=== PATIENT | female | born 1935 | race Caucasian/White ===

== ENCOUNTER 2023-08-08 11:41 | Outpatient (CLI) | payer MEDICARE, SELFPAY ==
--- NOTE | ~2023-08-08 | XR_ITS ---
Left Humerus Technique: AP and lateral views were obtained. Clinical History: Pain Findings: No fracture or dislocation is seen. Osseous alignment is anatomic. Visualized joint spaces are grossly preserved. Soft tissues are unremarkable. Impression: Unremarkable examination. No fracture or dislocation. Reviewed, dictated and finalized at location . Impression: Unremarkable examination. No fracture or dislocation.
== END 2023-08-08 11:42 ==
PROVIDERS: PCP Family Medicine; Visit Provider Family Medicine
DX: M79.602 Pain in left arm (principal); K58.0 Irritable bowel syndrome with diarrhea; I10 Essential (primary) hypertension
CPT/HCPCS: 73060

== ENCOUNTER 2023-08-11 10:59 | Outpatient (RCR) | payer MEDICARE, SELFPAY | END 2023-11-09 23:59 | disposition home or self-care (01) | LOC: ANHAUDASC 10:59 | PROVIDERS: PCP Family Medicine | DX: Z46.1 Encounter for fitting and adjustment of hearing aid (principal) | CPT/HCPCS: 92593 ==

== ENCOUNTER 2023-09-28 11:21 | Outpatient (CLI) | payer MEDICARE, SELFPAY | END 2023-09-28 11:22 | disposition home or self-care (01) | PROVIDERS: PCP Family Medicine; Visit Provider Otolaryngology | DX: H90.3 Sensorineural hearing loss, bilateral (principal) | CPT/HCPCS: 92557; 92567 ==

== ENCOUNTER 2024-05-17 07:07 | Inpatient (IN) | payer MEDICARE, SELFPAY ==
[2024-05-17] VITALS (20 sets, daily range): BP systolic 118–162; BP diastolic 68–111; PULSE 82–138; RESP 16–20; TEMP 36.4–36.8; O2SAT 94–98; BMI 25.6
--- NOTE | 2024-05-17 | ECHO_ITS ---
Patient Info Name: Celestina Christianson Age: 89 years : 1935 Gender: Female Ht: 65 in Wt: 153 lbs BSA: 1.80 m2 HR: 111 bpm BP: 131 / 108 mmHg Heart Rhythm: Atrial Fibrillation Technical Quality: Fair Exam Date: 05/17/2024 3:07 PM Exam Location: Echo Lab Patient Status: Inpatient Admit Date: 05/17/2024 Staff Ordering Physician: Rashida Elizabeth Ply Bander: Renetta Brooks RDCS Attending Provider: Kiet Foster MD Referring Physician: Clara VARNER; Exam Type: CA echo doppler color flow Study Info Indications - Afib Complete two-dimensional, color flow and Doppler transthoracic echocardiogram is performed with contrast to opacify the left ventricle and to improve the deliniation of the left ventricle endocardial borders. Contrast/Agitated Saline Contrast/Ag. Saline: Definity Amount: 2.00 ml Administered By: Renetta Brooks RDCS Existing IV Access: Yes IV Access Condition: patent with no signs of infiltration Summary 1. Left ventricular systolic function is normal, estimated at 35-40%. 2. The left ventricular diastolic function is abnormal. 3. Left atrial chamber dimension is moderately enlarged. 4. Right atrial chamber dimension is moderately enlarged. 5. There is trace aortic valve regurgitation. 6. There is mild aortic valve calcification. 7. There is mild mitral valve calcification. 8. There is mild to moderate mitral valve regurgitation. 9. There is moderate tricuspid valve regurgitation. 10. Moderate pulmonary hypertension, estimated pulmonary arterial systolic pressure is 49 mmHg. 11. There is mild pulmonic regurgitation. 12. afib with RVR. Left Ventricle Left ventricular chamber dimension is normal. Left ventricular systolic function is normal, estimated at 35-40%. There is no increased left ventricular wall thickness. Left ventricular septal wall motion is normal. The left ventricular diastolic function is abnormal. Right Ventricle Right ventricular chamber dimension is normal. Right ventricular systolic function is normal. Left Atria Left atrial chamber dimension is moderately enlarged. Right Atria Right atrial chamber dimension is moderately enlarged. Atrial Septum Intact interatrial septum visualized by color flow imaging. Aortic Valve The aortic valve is trileaflet. There is no aortic valve sclerosis. There is no aortic valve stenosis. There is trace aortic valve regurgitation. There is mild aortic valve calcification. Pulmonic Valve The pulmonic valve is normal. There is no pulmonic valve stenosis. There is mild pulmonic regurgitation. Mitral Valve The mitral valve has normal leaflets. There is no mitral valve stenosis. There is mild to moderate mitral valve regurgitation. There is mild mitral valve calcification. Tricuspid Valve The tricuspid valve leaflets are normal. There is no significant tricuspid valve stenosis. There is moderate tricuspid valve regurgitation. Moderate pulmonary hypertension, estimated pulmonary arterial systolic pressure is 49 mmHg. Pericardium/Pleural The pericardium appears normal. There is no pericardial effusion. Inferior Vena Cava Normal inferior vena cava with <50% collapse upon inspiration consistent with elevated right atrial pressure, 10 mmHg. Aorta The aortic root size at the sinus of Valsalva is normal. The prox ascending aorta size is normal. Tricuspid Valve Name Value Normal Estimated PAP/RSVP RA Pressure 10 mmHg <=5 PA Systolic Pressure 49 mmHg <36 Report Signatures
--- NOTE | ~2024-05-17 | CT_ITS ---
EXAMINATION: CT abdomen pelvis wo con DATE: 05/17/2024 22:48 INDICATION: Nausea, vomiting, and diarrhea. TECHNIQUE: Computed tomography (CT) of the abdomen and pelvis was performed without intravenous contr ast. Automated exposure control and iterative reconstruction technique were employed. The dose-length product was 465.62 mGy-cm. COMPARISON: None. FINDINGS: The visualized portions of lung bases demonstrate mild atelectasis. There are small pleural effusions. The heart size is normal. There are calcifications of the aortic valve. There are coronar y artery calcifications. No pericardial effusion. The liver demonstrates periportal edema. The gallbl adder is normal in size. Gallbladder wall thickening is noted. Calcifications in the spleen are consi stent with old granulomatous disease. There are calcifications in the pancreas, consistent with chron ic pancreatitis. The adrenal glands and kidneys are normal. There is diverticulosis of the colon with out evidence of diverticulitis. There are no dilated loops of bowel. There are no pathologically enla rged lymph nodes. There is no free intraperitoneal fluid. There is lumbar levoscoliosis and severe sp ondylosis. IMPRESSION: 1. Small pleural effusions. 2. Gallbladder wall thickening, probably interstitial edema. Reviewed, dictated and finalized at location A. VANCE COORDINATOR
--- NOTE | ~2024-05-17 | US_ITS ---
US abdomen limited DATE: 05/18/2024 19:22 INDICATION: Cholecystitis TECHNIQUE: Real-time imaging of liver, pancreas, gallbladder COMPARISON: 05/17/2024 CT abdomen pelvis FINDINGS: There is diffuse thickening of the gallbladder wall, measuring up to 3 mm thickness. This m ay be due to acute or chronic cholecystitis versus edema. No gallstones are noted. There is slight pe richolecystic fluid. No hepatic space-occupying mass lesion. There is suggestion of mild hepatic surface nodularity sugges ting possible cirrhosis. No pancreatic mass lesion is evident. The common bile duct measures 6.9 mm, mildly dilated. IMPRESSION: 3 mm gallbladder wall thickening and minimal pericholecystic fluid; consider radionuclide hepatobiliary scan to evaluate for possible acute cholecystitis Mild surface nodularity of the liver; recommend clinical correlation for cirrhosis Reviewed, dictated and finalized at [facility]. Reviewed, dictated and finalized at location A. IRATORY COORDINATOR IMPRESSION: 3 mm gallbladder wall thickening and minimal pericholecystic fluid; consider radionuclide hepatobiliary scan to evaluate for possible acute cholec ystitis Mild surface nodularity of the liver; recommend clinical correlation for cirrho sis
--- NOTE | ~2024-05-17 | CT_ITS ---
CT chest abdomen pelvis wo con Ordering provider: Rodney Morgan History: . Leukocytosis . Comparison: May 17, 2024 Technique: CT chest without IV contrast. CT abdomen and pelvis without oral and IV contrast. Radiatio n reduction technique utilized.The dose-length product was 764.21 mGy-cm. FINDINGS: The study is limited due to lack of IV contrast. CHEST: --VISUALIZED THORACIC INLET: Normal as visualized. Minimal fat stranding in the left axillary area.0 --MEDIASTINUM: Aorta/coronary arteries: Mild atheromatous disease. Heart/other: The heart is slightly enlarged. Lymph nodes: No mediastinal or hilar adenopathy. --LUNGS: No pulmonary nodules or masses. . No pneumothorax. Minimal bilateral pleural effusion with a djacent atelectasis. Atelectatic changes in the middle lobe. --MUSCULOSKELETAL: Soft tissues: The superficial soft tissues are normal. Bones: Age appropriate degenerative changes of the spine. ABDOMEN/PELVIS: --MUSCULOSKELETAL: Bones: Age appropriate degenerative changes of the spine. Superficial soft tissues: The superficial soft tissues are normal. --UPPER ABDOMINAL ORGANS: Liver: Normal. Gallbladder: Slightly thickened wall of the gallbladder which may indicate cholecystitis. Spleen: Normal. Stomach/duodenum: Small sliding hiatus hernia. Pancreas: Normal. Adrenals: Normal. Kidneys: Minimal fullness of the right renal pelvis. Tiny stone in the right kidney upper pole. Minim al fullness of the left renal pelvis versus parapelvic cysts. --PELVIC ORGANS: The bladder is normal. No bladder stones. --BOWEL AND MESENTERY: Colon: No evidence of diverticulitis. Normal appendix. Small Bowel: Normal. No obstruction. Peritoneum/mesentery: No free air. Minimal Free fluid. No mesenteric lymphadenopathy. --RETROPERITONEUM: Mild atheromatous disease of the abdominal aorta. No retroperitoneal lymphadenop athy. IMPRESSION: CHEST: 1. Bilateral pleural effusion with adjacent atelectasis versus pneumonia. ABDOMEN/PELVIS: 1. Thickened wall of the gallbladder. Cholecystitis is not excluded. Clinical correlation advised. 2. Ascites. 3. Minimal fullness of the renal pelvis bilaterally. No definite ureteric stones. 4. Tiny stone in the right kidney upper pole. Reviewed, dictated and finalized at location A. VERY DRIVER IMPRESSION: CHEST: 1. Bilateral pleural effusion with adjacent atelectasis versus pneumonia. ABDOMEN/PELVIS: 1. Thickened wall of the gallbladder. Cholecystitis is not excluded. Clinical correlation advised. 2. Ascites. 3. Minimal fullness of the renal pelvis bilaterally. No definite ureteric ston es. 4. Tiny stone in the right kidney upper pole.
--- NOTE | ~2024-05-17 | XR_ITS ---
Clinical Indication: Palpitations PA and lateral views of the chest: Comparison: 06/04/2010 Findings: No consolidation or pleural effusion. Possible mild chronic interstitial disease. Cardiome diastinal silhouette is within normal limits. Bones and soft tissues are unremarkable. Impression: Possible mild chronic interstitial disease. No acute pulmonary abnormality. Reviewed, dictated and finalized at [facility]. OLOGY MANAGER Impression: Possible mild chronic interstitial disease. No acute pulmonary abnormality.
--- NOTE | ~2024-05-17 | NM_ITS ---
EXAMINATION: NM hepatobiliary wo pharm DATE: 05/20/2024 16:02 INDICATION: Acute cholecystitis. COMPARISON: CT abdomen and pelvis 05/20/24 TECHNIQUE: 4.8 mCi Tc-99m mebrofenin (Choletec) was administered intravenously. Scintigraphic images of the abdomen were obtained for one hour. FINDINGS: There is normal clearance of radiotracer from the blood pool. There is homogeneous tracer u ptake by the liver. Activity progresses to the bowel and gallbladder. IMPRESSION: 1. Patent cystic duct and common duct. Reviewed, dictated and finalized at location A. S AND MANAGEMENT TRAINEE
--- NOTE | 2024-05-17 07:22 | ECG_ITS ---
Test Date: 2024-05-17 07:30:32 Measurements Intervals [place] Rate: 128 P: 0 MT: 0 QRS: 73 QRSD: 79 T: 83 QT: 329 QTc: 481 Interpretive Statements ATRIAL FIBRILLATION WITH RAPID VENTRICULAR RESPONSE WITH ABERRANT CONDUCTION OR VENTRICULAR PREMATURE COMPLEXES NONSPECIFIC ST & T-WAVE ABNORMALITY No previous ECG available for comparison Electronically Signed On 05-17-2024 12:21:20 [employer]IST by Sukhi Hickman M.D.
[2024-05-17] MEDS: ONDANSETRON INJ 4 MG/2 ML VIAL IV PUSH ×4 (08:09→21:44)
[2024-05-17] MEDS: SODIUM CHLORIDE 0.9% IV 1,000 ML 999 ML IV CONT (08:10)
--- NOTE | 2024-05-17 08:23 | ED_ITS ---
HPI - Abdominal Pain General Chief Complaint: Abdominal Pain Stated Complaint: Abd pain Time Seen by Provider: 05/17/24 07:10 History of Present Illness HPI narrative: patient is an 89-year-old female who presents ER with abdominal discomfort over last 2 days. She started having diarrhea yesterday evening this been quite persistent. She has also been having regular vomiting. She is nauseous at this time. No fevers or chills or sweats. No loss of consciousness. Denies chest pain. She does get slightly lightheaded and slightly fatigued once standing walking. Patient found to be in AFib with RVR which is a new diagnosis for her. Related Data Home Medications ?Medication ?Instructions ?Recorded ?Confirmed ?Last Taken ?Type mirabegron 25 mg tablet,extended 25 mg PO HS 10/15/19 05/17/24 05/16/24 History release 24 hr (Myrbetriq) Lactobacillus rhamnosus GG 20 See Rx Instructions PO .COMPLEX 07/20/20 05/17/24 Unknown History billion cell capsule (Probiotic Digestive Care) cholestyramine (with sugar) 4 gram See Rx Instructions PO BID IBS 05/17/24 05/17/24 05/16/24 History oral powder Allergies Allergy/AdvReac Type Severity Reaction Status Date / Time [id number] Reductase AdvReac Intermediate Elevated Verified 05/17/24 12:08 Inhibitor CPK Review of Systems 2 Review of Systems: All systems reviewed & are unremarkable except as noted in HPI and below Constitutional: Constitutional: Reports no additional constitutional complaints ENT: Reports system reviewed and no additional complaints, except as documented Cardiovascular: Cardiovascular: Reports no additional cardiovascular complaints Respiratory: Respiratory: Reports no additional respiratory complaints Gastrointestinal: Gastrointestinal: Reports abdominal pain, Reports diarrhea, Reports nausea and Reports vomiting PMFSH Past Medical History Medical History Cerumen impaction Hearing Loss Left arm pain BMI 24.0-24.9, adult Chronic diarrhea BMI 25.0-25.9,adult Family History Family History Mother Carcinoma of colon Father Family history of heart disease in male family member before age 55 Acute myocardial infarction Sibling , 97-sister Bowel disease, inflammatory Sibling Bowel disease, inflammatory C. difficile diarrhea Other Family history of congenital heart disease Family history of coronary artery disease Family history of malignant neoplasm Social History Social History Smoking status: Former smoker Second hand tobacco smoke exposure: Yes Alcohol intake: current Drinks per week: 1 Substance use: never Substance use type: does not use Do You Feel Safe in your Home?: Yes Lack of Transportation: No Lack of Food: Never True Current Housing: I Do Not Have Housing Concerned About Future Housing: No Difficulty Paying Gas/Electric Bills: No Difficulty Paying for Meds: No Currently Unemployed: No Education: High School Diploma/GED Difficulty w/ Childcare or Family Care: No Living arrangements: alone Occupation/Education: retired 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 Gender identity (if verbalized by the patient): Female Sexual Orientation (if Verbalized by the Patient): Straight or Heterosexual Spiritual care concerns: No Agree to blood products: Yes Exam 2 Narrative: GENERAL: Well-appearing, well-nourished, and in no acute distress. HEAD: Normocephalic, atraumatic. ENT: Mucous membranes moist. NECK: Supple. CHEST: Clear to auscultation. No respiratory distress. HEART: Irregularly irregular rate and rhythm that is tachycardic. Normal peripheral pulses. ABDOMEN: Soft, nontender, nondistended. EXTREMITIES: Normal range of motion. No edema. SKIN: Warm, dry, no rash. NEURO: Alert and oriented x3. PSYCH: Normal mood and affect. Course Course Emergency Course: With patient resting comfortably. Informed of results. Only mild improvement withdiltiazem. Will give lovenox and oral metoprolol, cardiology consulted. Accepted to the hospitalist. Vital Signs Vital signs: Vital Signs Temperature 97.9 F 05/17/24 07:38 Pulse Rate 138 H 05/17/24 07:38 Respiratory Rate 20 05/17/24 07:38 Blood Pressure 157/79 H 05/17/24 07:38 Pulse Oximetry 97 05/17/24 07:38 Oxygen Delivery Room Air 05/17/24 07:38 Temperature 97.6 F 05/17/24 16:00 Pulse Rate 119 H 05/17/24 18:00 Respiratory Rate 20 05/17/24 16:00 Blood Pressure 122/95 H 05/17/24 16:00 Pulse Oximetry 98 05/17/24 16:00 Oxygen Delivery Room Air 05/17/24 16:00 MDM - Abdominal Pain Lab Data 05/17/24 08:11 05/17/24 08:11 Labs: Lab Results 05/17/24 Range/Units 08:11 WBC 15.2 H (4.5-10.0) K/mm3 RBC 4.33 (4.2-5.4) M/mm3 Hgb 13.5 (12.0-15.0) g/dL Hct 41.5 (37.0-47.0) % MCV 95.8 (80-100) fl MCH 31.2 (26-34) pg MCHC 32.5 (32-36) g/dl RDW 12.9 (11.5-14.5) % Plt Count 243 (150-375) k/mm3 MPV 11.1 H (7.4-10.4) fl Immature Gran % (Auto) 0.5 (0-0.5) % Neut % (Auto) 87.9 H (45.5-73.1) % Lymph % (Auto) 4.7 L (18.3-44.2) % [place] % (Auto) 6.7 (2.6-8.5) % Eos % (Auto) 0.0 (0-4.4) % Baso % (Auto) 0.2 (0.2-1.2) % Lymph # (Auto) 0.71 L (0.9-3.2) K/mm3 [place] # (Auto) 1.0 H (0.1-0.6) K/mm3 Eos # (Auto) 0.0 (0-0.3) K/mm3 Baso # (Auto) 0.0 (0.0-0.1) K/mm3 Abs Immat Gran (auto) 0.08 H (0.00-0.031) K/mm3 Absolute Neuts (auto) 13.4 H (1.3-6.7) K/mm3 Absolute Nucleated RBC 0.000 (0.0-0.012) K/mm3 Nucleated RBC % 0.0 (0.0-0.2) % % Immature Plt Fraction 5.4 (0.9-11.2) % PT 14.5 (11.1-14.7) Seconds INR 1.1 APTT 20.0 L (22.3-36.8) Seconds Sodium 138 (137-145) mmol/L Potassium 4.1 (3.4-5.0) mmol/L Chloride 107 (98-107) mmol/L Carbon Dioxide 18 L (22-30) mmol/L Anion Gap 13 H (4-12) mmol/L BUN 19 H (7-17) mg/dL Creatinine 1.40 H (0.7-1.0) mg/dL Estim Creat Clear Calc 22 ml/min Estimated GFR 35 L (59 - ) Glucose 201 H (65-110) mg/dL Calcium 9.0 (8.4-10.2) mg/dL Total Bilirubin 1.1 (0.2-1.3) mg/dL AST 78 H (14-36) U/L ALT 52 H (6-35) U/L Alkaline Phosphatase 73 (38-126) U/L Troponin I < 0.012 (0.000-0.034) ng/mL Total Protein 8.0 (6.3-8.2) g/dL Albumin 4.6 (3.5-5.1) g/dL Lipase 73 (23-300) U/L TSH 4.570 (0.465-4.680) uIU/mL Urine Color Yellow (Yellow) Urine Appearance Clear (Clear) Urine pH 5.5 (5.0-9.0) Ur Specific [place] 1.022 (1.001-1.035) Urine Protein 3+ H (Negative) mg/dL Urine Glucose (UA) 2+ H (Negative) mg/dL Urine Ketones 2+ H (Negative) mg/dL Ur Blood (Man) 2+ H (Negative) Urine Nitrate Negative (Negative) Urine Bilirubin Negative (Negative) Urine Urobilinogen 0.2 (<2.0) mg/dL Leukocyte Esterase Rfl Negative (Negative) GLEN/UL Urine RBC 3-5 H (0-2) /hpf Urine WBC 6-10 H (0-3) /hpf Ur Squamous Epith Cells Few (Few) /hpf Urine Bacteria None seen /hpf Urine Casts 0-2 Imaging Data Radiologist's impression: ITS Impressions Chest X-Ray 05/17/24 08:27 Impression: Possible mild chronic interstitial disease. No acute pulmonary abnormality. ECG Data EKG #1: ECG completion date: 05/17/24 ECG completion time: 07:30 tachycardia (128), atrial fibrillation, PVCs, normal QRS, normal QT and NL axis Discharge Plan Discharge Clinical Impression: Atrial fibrillation with RVR, ERIK (acute kidney injury) Patient Disposition: Still a Patient Condition: Stable
[2024-05-17 08:34] LABS: Basophils Percent Auto 0.2 % (0.2-1.2); Hematocrit 41.5 % (37.0-47.0); Hemoglobin 13.5 g/dL (12.0-15.0); Immature Granulocyte Absolute 0.08 K/mm3 (0.00-0.031); Immature Granulocyte Percent A 0.5 % (0-0.5); Immature Platelet Fraction Pct 5.4 % (0.9-11.2); Lymphocytes Absolute Auto 0.71 K/mm3 (0.9-3.2); Lymphocytes Percent Auto 4.7 % (18.3-44.2); Mean Corpuscular HGB Conc 32.5 g/dl (32-36); Mean Corpuscular Hemoglobin 31.2 pg (26-34); Mean Corpuscular Volume 95.8 fl (80-100); Mean Platelet Volume 11.1 fl (7.4-10.4); Monocytes Percent Auto 6.7 % (2.6-8.5); Neutrophils Absolute Auto 13.4 K/mm3 (1.3-6.7); Neutrophils Percent Auto 87.9 % (45.5-73.1); Platelet Count Result 243 k/mm3 (150-375); Red Blood Count 4.33 M/mm3 (4.2-5.4); Red Cell Distribution Width 12.9 % (11.5-14.5); White Blood Count 15.2 K/mm3 (4.5-10.0)
[2024-05-17 08:39] LABS: Lipase 73 U/L (23-300)
[2024-05-17 08:43] LABS: Add Urine Microscopic? YES; Appearance Urine Clear (Clear); Bacteria Urine None Seen /hpf; Bilirubin Urine Negative (Negative); Blood Urine 2+ (Negative); Color Urine Yellow (Yellow); Glucose Urine UA 2+ mg/dL (Negative); Ketones Urine 2+ mg/dL (Negative); Leukocyte Esterase Ur Negative LEU/UL (Negative); Nitrate Urine Negative (Negative); Non Pathogenic Casts 0-2; Protein Urine 3+ mg/dL (Negative); Specific Grav Ur 1.022 (1.001-1.035); Squamous Epithelial Cell Urine Few /hpf (Few); Urobilinogen Urine 0.2 mg/dL (<2.0); pH Urine 5.5 (5.0-9.0)
[2024-05-17 08:52] LABS: Troponin I < 0.012 ng/mL (0.000-0.034)
[2024-05-17] MEDS: dilTIAZem HCl INJ 25 MG/5 ML VIAL 15 MG IV PUSH (08:52)
[2024-05-17 08:54] LABS: INR 1.1; Prothrombin Time 14.5 Seconds (11.1-14.7)
[2024-05-17 10:01] LABS: Alanine Aminotransferase 52 U/L (6-35); Albumin Level 4.6 g/dL (3.5-5.1); Alkaline Phosphatase 73 U/L (38-126); Anion Gap 13 mmol/L (4-12); Aspartate Amino Transferase 78 U/L (14-36); Bilirubin,Total 1.1 mg/dL (0.2-1.3); Blood Urea Nitrogen 19 mg/dL (7-17); Carbon Dioxide 18 mmol/L (22-30); Chloride 107 mmol/L (98-107); Estimated CRCL calculation 22 ml/min; Estimated Glomerular Filt Rate 35; Glucose 201 mg/dL (65-110); Potassium 4.1 mmol/L (3.4-5.0); Sodium 138 mmol/L (137-145)
[2024-05-17] MEDS: METOPROLOL TARTRATE 25 MG TABLET PO ×3 (10:11→23:47)
[2024-05-17] MEDS: ENOXAPARIN 80 MG/0.8 ML SYRINGE 71 MG SUB-Q (10:12)
[2024-05-17] MEDS: HYDROcodone/acetaminophen (*CRX) 5-325 MG TABLET 1 TAB PO ×3 (10:24→16:40)
--- NOTE | 2024-05-17 12:05 | ADMGEN ---
This patient, Celestina Christianson, was admitted to IMU Room 205-01 at 1202. Patient/family oriented to hospital policies and general routines including ID bracelet, bed and alarms, visiting hours, pain management, procedures, bathroom and other care routines personal items, smoking policy, room service/diet, and visiting hours. Information on how to activate the Rapid Response Team has been discussed. Patient/Family are encouraged to report perceived risks to care and to ask questions if they do not understand what they are told or what they should do.
--- NOTE | 2024-05-17 12:25 | PM.IMHP ---
H&P: HPI History of Present Illness Date/Time: 05/17/24 12:25 Chief Complaint: Abdominal pain Narrative: 89-year-old female past medical history of IBS who presents ER with abdominal discomfort over last 2 days. Patient states that she has had persistent diarrhea for 2 days with intractable nausea and vomiting. She has episodes of dizziness, lightheadedness and fatigue with activities. She denies fevers or chills. Patient found to be in AFib with RVR which is a new diagnosis for her. Patient denies palpitations, or shortness of breath. Patient was seen by Cardiology and started on metoprolol, she will need long-term anticoagulation and will be on Xarelto. On patient's laboratory work she was found to have leukocytosis at 15.2, creatinine of 1.4 baseline 0.9, glucose of 211, hemoglobin A1c of 5.7, AST and ALT are slightly elevated at 78 and 52, troponins are negative. UA was negative for leukocyte esterase and nitrates. Chest x-ray shows possible mild chronic interstitial disease. Review of Systems Review of Systems: 12 systems were reviewed and are negative except for as per HPI. [facility] Past Medical History Medical History Cerumen impaction Hearing Loss Left arm pain BMI 24.0-24.9, adult Chronic diarrhea BMI 25.0-25.9,adult Family History Family History Mother Carcinoma of colon Father Family history of heart disease in male family member before age 55 Acute myocardial infarction Sibling , 97-sister Bowel disease, inflammatory Sibling Bowel disease, inflammatory C. difficile diarrhea Other Family history of congenital heart disease Family history of coronary artery disease Family history of malignant neoplasm Social History Social History Smoking status: Former smoker Second hand tobacco smoke exposure: Yes Alcohol intake: current Drinks per week: 1 Substance use: never Substance use type: does not use Do You Feel Safe in your Home?: Yes Lack of Transportation: No Lack of Food: Never True Current Housing: I Do Not Have Housing Concerned About Future Housing: No Difficulty Paying Gas/Electric Bills: No Difficulty Paying for Meds: No Currently Unemployed: No Education: High School Diploma/GED Difficulty w/ Childcare or Family Care: No Living arrangements: alone Occupation/Education: retired 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 Gender identity (if verbalized by the patient): Female Sexual Orientation (if Verbalized by the Patient): Straight or Heterosexual Spiritual care concerns: No Agree to blood products: Yes Meds Home Medications and Allergies Home Medications ?Medication ?Instructions ?Recorded ?Confirmed ?Type mirabegron 25 mg tablet,extended 25 mg PO HS 10/15/19 05/17/24 History release 24 hr (Myrbetriq) Lactobacillus rhamnosus GG 20 See Rx Instructions PO .COMPLEX 07/20/20 05/17/24 History billion cell capsule (Probiotic Digestive Care) diphenoxylate-atropine 2.5 2 tablet PO QID PRN diarrhea #60 08/07/23 05/17/24 Rx mg-0.025 mg tablet (Lomotil) tabs famotidine 20 mg tablet See Rx Instructions .Route 12/14/23 05/17/24 Rx .COMPLEX #90 tabs paroxetine HCl 20 mg tablet See Rx Instructions .Route 12/27/23 05/17/24 Rx .COMPLEX #90 tabs ezetimibe 10 mg tablet See Rx Instructions .Route 03/01/24 05/17/24 Rx .COMPLEX #90 tabs cholestyramine (with sugar) 4 gram See Rx Instructions PO BID IBS 05/17/24 05/17/24 History oral powder Allergies Allergy/AdvReac Type Severity Reaction Status Date / Time [id number] Reductase AdvReac Intermediate Elevated Verified 05/17/24 12:08 Inhibitor CPK Vital Signs Vital Signs - 24 hr 05/17/24 07:38 05/17/24 08:07 05/17/24 08:56 Temperature 97.9 F 97.9 F 98.3 F Pulse Rate 138 H 130 H 90 Respiratory Rate 20 17 16 Blood Pressure 157/79 H 154/90 H 118/68 Pulse Oximetry 97 94 Oxygen Delivery Room Air 05/17/24 09:00 05/17/24 09:31 05/17/24 10:01 Temperature 97.9 F 97.8 F 97.7 F Pulse Rate 82 96 121 H Respiratory Rate 20 20 20 Blood Pressure 149/90 H 161/85 H 162/95 H Pulse Oximetry 95 95 95 Oxygen Delivery 05/17/24 10:02 05/17/24 10:11 05/17/24 11:06 Temperature 97.7 F 97.8 F Pulse Rate 122 H 128 H 103 H Respiratory Rate 20 18 Blood Pressure 146/98 H 161/111 H Pulse Oximetry 98 95 Oxygen Delivery 05/17/24 11:45 Temperature 97.9 F Pulse Rate 112 H Respiratory Rate 18 Blood Pressure 152/108 H Pulse Oximetry 97 Oxygen Delivery Exam Narrative: General: well appearing, appears stated age. HEENT: normocephalic, atraumatic. Mucous membranes moist. EOMI, PERRLA, bilateral sclera anicteric, no conjunctival injection. Neck supple without JVD, lymphadenopathy, or bruit. Respiratory: clear to ascultation bilaterally. No rales/rhonic/wheezes. Cardiovascular: Irregular, . No murmurs, rubs, or clicks. PMI is nondisplaced, capillary refill less than 3 second. Abdomen: Soft, round, no pulsatile masses, nondistended and nontender. No rebound, no guarding. No CVA tenderness, no hepatosplenomegaly. Bowel sounds present to all four quadrants. No high pitch or tinkling sounds, resonant to percussion. Extremities: No cyanosis, clubbing, or edema present. Pulses are palpable 2/2. Active ROM to all four extremities. Neuro: Alert and orientated x 4. PERRLA. Cranial nerves 2-12 intact without focal deficit. Skin: Warm, dry, and intact, without rash, erythema, or lesion. Psych: pleasant, cooperative, normal speech, normal affect, no hallucinations, no dysarthia H&P: Results Labs Labs: Short CBC 05/17/24 Range/Units 08:11 WBC 15.2 H (4.5-10.0) K/mm3 Hgb 13.5 (12.0-15.0) g/dL Hct 41.5 (37.0-47.0) % Plt Count 243 (150-375) k/mm3 BMP 05/17/24 08:11 Sodium 138 Potassium 4.1 Chloride 107 Carbon Dioxide 18 L BUN 19 H Creatinine 1.40 H Glucose 201 H Calcium 9.0 Cardiac Enzymes 05/17/24 Range/Units 08:11 Troponin I < 0.012 (0.000-0.034) ng/mL Liver Function 05/17/24 Range/Units 08:11 Total Bilirubin 1.1 (0.2-1.3) mg/dL AST 78 H (14-36) U/L ALT 52 H (6-35) U/L Alkaline Phosphatase 73 (38-126) U/L Albumin 4.6 (3.5-5.1) g/dL Urine 05/17/24 Range/Units 08:11 Urine Color Yellow (Yellow) Urine Appearance Clear (Clear) Urine pH 5.5 (5.0-9.0) Ur Specific [place] 1.022 (1.001-1.035) Urine Protein 3+ H (Negative) mg/dL Urine Glucose (UA) 2+ H (Negative) mg/dL Assessment and Plan Assessment and plan (1) Atrial fibrillation with RVR: Code(s): I48.91 - Unspecified atrial fibrillation Status: Acute Assessment and Plan: Cardiology consulted Diltiazem push x1 Metoprolol Weight based Lovenox x1 Repeat EKG tomorrow Echocardiogram pending TSH within normal limits Yoselin [id number] score at least 2 Since the chronicity of her arrhythmia is unknown and she is not anticoagulated, will pursue rate control for now with plan to attempt cardioversion as an outpatient in 3-4 weeks. (2) Leukocytosis: Code(s): D72.829 - Elevated white blood cell count, unspecified Status: Acute Assessment and Plan: UA noninfective Chest x-ray with no acute process Blood cultures pending No signs of soft tissue infection C diff pending (3) ERIK (acute kidney injury): Code(s): N17.9 - Acute kidney failure, unspecified Status: Acute Assessment and Plan: A fluids for hydration CMP tomorrow (4) Hyperglycemia: Code(s): R73.9 - Hyperglycemia, unspecified Status: Acute Assessment and Plan: Hemoglobin A1c 5.7 SSI a.c. HS (5) Elevated liver enzymes: Code(s): R74.8 - Abnormal levels of other serum enzymes Status: Acute Assessment and Plan: CMP tomorrow for monitoring (6) Interstitial lung disease: Code(s): J84.9 - Interstitial pulmonary disease, unspecified Status: Acute Assessment and Plan: No acute issues Patient should follow-up outpatient with pulmonology Quality VTE Prophylaxis VTE prophylaxis: mechanical ordered and pharmacologic ordered Hospitalist MIPS Advance Care Plan I have confirmed that the patient's Advanced Care Plan is present, code status is documented, or surrogate decision maker is listed in patient medical record.: Yes Medication Reconciliation I have utilized all available resources to obtain, update and review the patients current medications (includes all prescriptions, OTC, herbals, cannabis, and nutritional supplements).: Yes
--- NOTE | 2024-05-17 12:49 | P.CONCA_ITS ---
History of Present Illness History of Present Illness Consult date/time: 05/17/24 12:49 Reason For Visit: afib, rvr, gastroenteritis Review of Systems 2 Review of Systems: A complete review of systems was performed and pertinent positives have been included in the HPI. [facility] Past Medical History Medical History (Updated 05/17/24 @ 12:40 by Keisha Ann, RASHMI) Cerumen impaction Hearing Loss Left arm pain BMI 24.0-24.9, adult Chronic diarrhea BMI 25.0-25.9,adult Family History Family History Mother Carcinoma of colon Father Family history of heart disease in male family member before age 55 Acute myocardial infarction Sibling , 97-sister Bowel disease, inflammatory Sibling Bowel disease, inflammatory C. difficile diarrhea Other Family history of congenital heart disease Family history of coronary artery disease Family history of malignant neoplasm Social History Social History Smoking status: Former smoker Second hand tobacco smoke exposure: Yes Alcohol intake: current Drinks per week: 1 Substance use: never Substance use type: does not use Do You Feel Safe in your Home?: Yes Lack of Transportation: No Lack of Food: Never True Current Housing: I Do Not Have Housing Concerned About Future Housing: No Difficulty Paying Gas/Electric Bills: No Difficulty Paying for Meds: No Currently Unemployed: No Education: High School Diploma/GED Difficulty w/ Childcare or Family Care: No Living arrangements: alone Occupation/Education: retired 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 Gender identity (if verbalized by the patient): Female Sexual Orientation (if Verbalized by the Patient): Straight or Heterosexual Spiritual care concerns: No Agree to blood products: Yes Meds Home Medications and Allergies Home Medications ?Medication ?Instructions ?Recorded ?Confirmed ?Type mirabegron 25 mg tablet,extended 25 mg PO DAILY 10/15/19 02/20/24 History release 24 hr (Myrbetriq) Lactobacillus rhamnosus GG 20 See Rx Instructions PO .COMPLEX 07/20/20 02/20/24 History billion cell capsule (Probiotic Digestive Care) diphenoxylate-atropine 2.5 2 tablet PO QID PRN diarrhea #60 08/07/23 02/20/24 Rx mg-0.025 mg tablet (Lomotil) tabs cholestyramine-aspartame 4 gram 4 g PO QID #120 ea 12/11/23 02/20/24 Rx oral powder for susp in a packet (Prevalite) famotidine 20 mg tablet See Rx Instructions .Route 12/14/23 02/20/24 Rx .COMPLEX #90 tabs paroxetine HCl 20 mg tablet See Rx Instructions .Route 12/27/23 02/20/24 Rx .COMPLEX #90 tabs ezetimibe 10 mg tablet See Rx Instructions .Route 03/01/24 Rx .COMPLEX #90 tabs Allergies Allergy/AdvReac Type Severity Reaction Status Date / Time [id number] Reductase AdvReac Intermediate Elevated Verified 05/17/24 12:08 Inhibitor CPK Vital Signs Vital Signs - 24 hr 05/17/24 07:38 05/17/24 08:07 05/17/24 08:56 Temperature 36.6 C 36.6 C 36.8 C Pulse Rate 138 H 130 H 90 Respiratory Rate 20 17 16 Blood Pressure 157/79 H 154/90 H 118/68 Pulse Oximetry 97 94 Oxygen Delivery Room Air 05/17/24 09:00 05/17/24 09:31 05/17/24 10:01 Temperature 36.6 C 36.6 C 36.5 C Pulse Rate 82 96 121 H Respiratory Rate 20 20 20 Blood Pressure 149/90 H 161/85 H 162/95 H Pulse Oximetry 95 95 95 Oxygen Delivery 05/17/24 10:02 05/17/24 10:11 05/17/24 11:06 Temperature 36.5 C 36.6 C Pulse Rate 122 H 128 H 103 H Respiratory Rate 20 18 Blood Pressure 146/98 H 161/111 H Pulse Oximetry 98 95 Oxygen Delivery 05/17/24 11:45 05/17/24 12:26 Temperature 36.6 C 36.5 C Pulse Rate 112 H 111 H Respiratory Rate 18 20 Blood Pressure 152/108 H 131/108 H Pulse Oximetry 97 97 Oxygen Delivery Exam 2 Narrative: General: Alert oriented x3 not in acute distress Head and neck: Atraumatic, normocephalic, neck supple, no JVD Chest bilateral clear to auscultation, no rales or rhonchi Cardiac: S1, S2 plus, irregularly irregular, no murmurs Peripheral: No extremity edema, no skin rash Neurologic: Alert oriented x3, no focal neurological deficit Results Labs and Meds 05/17/24 08:11 05/17/24 08:11 Lab results: Cardiac Enzymes 05/17/24 Range/Units 08:11 AST 78 H (14-36) U/L Troponin I < 0.012 (0.000-0.034) ng/mL Coagulation 05/17/24 Range/Units 08:11 PT 14.5 (11.1-14.7) Seconds APTT 20.0 L (22.3-36.8) Seconds CBC 05/17/24 Range/Units 08:11 WBC 15.2 H (4.5-10.0) K/mm3 RBC 4.33 (4.2-5.4) M/mm3 Hgb 13.5 (12.0-15.0) g/dL Hct 41.5 (37.0-47.0) % Plt Count 243 (150-375) k/mm3 Lymph # (Auto) 0.71 L (0.9-3.2) K/mm3 [place] # (Auto) 1.0 H (0.1-0.6) K/mm3 Eos # (Auto) 0.0 (0-0.3) K/mm3 Baso # (Auto) 0.0 (0.0-0.1) K/mm3 Comprehensive Metabolic Panel 05/17/24 Range/Units 08:11 Sodium 138 (137-145) mmol/L Potassium 4.1 (3.4-5.0) mmol/L Chloride 107 (98-107) mmol/L Carbon Dioxide 18 L (22-30) mmol/L BUN 19 H (7-17) mg/dL Creatinine 1.40 H (0.7-1.0) mg/dL Glucose 201 H (65-110) mg/dL Calcium 9.0 (8.4-10.2) mg/dL AST 78 H (14-36) U/L ALT 52 H (6-35) U/L Alkaline Phosphatase 73 (38-126) U/L Total Protein 8.0 (6.3-8.2) g/dL Albumin 4.6 (3.5-5.1) g/dL Intake and Output 05/16/24 05/17/24 05/17/24 23:59 07:59 15:59 Intake Total 1000 Balance 1000 Intake: IV 1000 Sodium Chloride 0.9% IV 1,000 1000 ml @ 999 mls/hr IV CONT .Q1H1M [facility] Rx#:[id number] Patient Weight 05/17/24 23:59 Weight 69.8 kg
--- NOTE | 2024-05-17 14:00 | P.CONCA_ITS ---
Assessment and Plan Assessment and plan (1) Atrial fibrillation with RVR: Code(s): I48.91 - Unspecified atrial fibrillation Status: Acute Assessment and Plan: This is a new diagnosis for the patient. I discussed pathophysiology, management strategies (rate control vs rhythm control), complications/risks of atrial fibrillation. Since the chronicity of her arrhythmia is unknown and she is not anticoagulated, will pursue rate control for now with plan to attempt cardioversion as an outpatient in 3-4 weeks. * Start metoprolol 25mg p.o. q8h * [id number] score at least 2 (age, female gender). Anticoagulation is advised. Patient's son is concerned for medication noncompliance, so once daily medications preferred. Therefore, will start Xarelto tomorrow as she received a therapeutic dose of lovenox in the ED. * Check TSH * 2D echo with Doppler will be ordered and reviewed * Continue tele * If she becomes rate controlled on current dose of metoprolol tartrate, recommend shifting to ToprolXL for dosing convenience at discharge (2) ERIK (acute kidney injury): Code(s): N17.9 - Acute kidney failure, unspecified Status: Acute Assessment and Plan: Seconday to dehydration from diarrhea. Contiue IV fluids (3) Hyperglycemia: Code(s): R73.9 - Hyperglycemia, unspecified Status: Acute Assessment and Plan: Per hospitalist (4) Elevated liver enzymes: Code(s): R74.8 - Abnormal levels of other serum enzymes Status: Acute Assessment and Plan: Per hospitalist History of Present Illness History of Present Illness Consult date/time: 05/17/24 14:00 Requesting physician: Braden Ramos MD Consult reason: atrial fibrillation Reason For Visit: afib, rvr, gastroenteritis Narrative: Celestina Christianson is a healthy 89 year old lady whose only medical problem is IBS. She came to the hospital because of severe abdominal pain and has been found to be in atrial fibrillation with RVR which is why cardiology is consulted. She denies any history of atrial fibrillation or any cardiac history at all. She denies palpitations, shortness of breath, chest pain, edema, syncope, pre- syncope. She was given IV push diltiazem and metoprolol in the ED but at this point she remains in RVR with a rate in the 120's - 130's. She is completely asymptomatic and comfortable at the time of my evaluation. Review of Systems 2 Review of Systems: All systems reviewed & are unremarkable except as noted in HPI and below PMFSH Past Medical History Medical History Cerumen impaction Hearing Loss Left arm pain BMI 24.0-24.9, adult Chronic diarrhea BMI 25.0-25.9,adult Family History Family History Mother Carcinoma of colon Father Family history of heart disease in male family member before age 55 Acute myocardial infarction Sibling , 97-sister Bowel disease, inflammatory Sibling Bowel disease, inflammatory C. difficile diarrhea Other Family history of congenital heart disease Family history of coronary artery disease Family history of malignant neoplasm Social History Social History Smoking status: Former smoker Second hand tobacco smoke exposure: Yes Alcohol intake: current Drinks per week: 1 Substance use: never Substance use type: does not use Do You Feel Safe in your Home?: Yes Lack of Transportation: No Lack of Food: Never True Current Housing: I Do Not Have Housing Concerned About Future Housing: No Difficulty Paying Gas/Electric Bills: No Difficulty Paying for Meds: No Currently Unemployed: No Education: High School Diploma/GED Difficulty w/ Childcare or Family Care: No Living arrangements: alone Occupation/Education: retired 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 Gender identity (if verbalized by the patient): Female Sexual Orientation (if Verbalized by the Patient): Straight or Heterosexual Spiritual care concerns: No Agree to blood products: Yes Meds Home Medications and Allergies Home Medications ?Medication ?Instructions ?Recorded ?Confirmed ?Type mirabegron 25 mg tablet,extended 25 mg PO DAILY 10/15/19 02/20/24 History release 24 hr (Myrbetriq) Lactobacillus rhamnosus GG 20 See Rx Instructions PO .COMPLEX 07/20/20 02/20/24 History billion cell capsule (Probiotic Digestive Care) diphenoxylate-atropine 2.5 2 tablet PO QID PRN diarrhea #60 08/07/23 02/20/24 Rx mg-0.025 mg tablet (Lomotil) tabs cholestyramine-aspartame 4 gram 4 g PO QID #120 ea 12/11/23 02/20/24 Rx oral powder for susp in a packet (Prevalite) famotidine 20 mg tablet See Rx Instructions .Route 12/14/23 02/20/24 Rx .COMPLEX #90 tabs paroxetine HCl 20 mg tablet See Rx Instructions .Route 12/27/23 02/20/24 Rx .COMPLEX #90 tabs ezetimibe 10 mg tablet See Rx Instructions .Route 03/01/24 Rx .COMPLEX #90 tabs Allergies Allergy/AdvReac Type Severity Reaction Status Date / Time [id number] Reductase AdvReac Intermediate Elevated Verified 05/17/24 12:08 Inhibitor CPK Vital Signs Vital Signs - 24 hr 05/17/24 07:38 05/17/24 08:07 05/17/24 08:56 Temperature 36.6 C 36.6 C 36.8 C Pulse Rate 138 H 130 H 90 Respiratory Rate 20 17 16 Blood Pressure 157/79 H 154/90 H 118/68 Pulse Oximetry 97 94 Oxygen Delivery Room Air 05/17/24 09:00 05/17/24 09:31 05/17/24 10:01 Temperature 36.6 C 36.6 C 36.5 C Pulse Rate 82 96 121 H Respiratory Rate 20 20 20 Blood Pressure 149/90 H 161/85 H 162/95 H Pulse Oximetry 95 95 95 Oxygen Delivery 05/17/24 10:02 05/17/24 10:11 05/17/24 11:06 Temperature 36.5 C 36.6 C Pulse Rate 122 H 128 H 103 H Respiratory Rate 20 18 Blood Pressure 146/98 H 161/111 H Pulse Oximetry 98 95 Oxygen Delivery 05/17/24 11:45 05/17/24 12:26 Temperature 36.6 C 36.5 C Pulse Rate 112 H 111 H Respiratory Rate 18 20 Blood Pressure 152/108 H 131/108 H Pulse Oximetry 97 97 Oxygen Delivery Exam 2 Const: General: comfortable, no acute distress, alert and awake O rientation/consciousness: patient oriented x3 HENMT: Head: normal to inspection Eyes: General: appearance normal, both eyes and all related structures P upils: Equal, round and reactive pupils present Neck: Neck: normal visual inspection, supple and no JVD Carotids: normal carotid upstroke Resp: Effort & Inspection: normal respiratory effort Auscultation: rales Cardio: Rate: tachycardic Rhythm: abnormal rhythm irregularly irregular Heart sounds: S1 normal heart sound present, S2 normal heart sound present and no murmurs GI: Auscultation: abnormal bowel sounds Skin: General skin exam: normal color Neuro: General: patient oriented x3 Cranial nerves: Yes Equal, round and reactive pupils present Extrem: General: normal to inspection Psych: Appearance: grossly normal Mental Status: mental status grossly normal Results Labs and Meds 05/17/24 08:11 05/17/24 08:11 Lab results: Cardiac Enzymes 05/17/24 Range/Units 08:11 AST 78 H (14-36) U/L Troponin I < 0.012 (0.000-0.034) ng/mL Coagulation 05/17/24 Range/Units 08:11 PT 14.5 (11.1-14.7) Seconds APTT 20.0 L (22.3-36.8) Seconds CBC 05/17/24 Range/Units 08:11 WBC 15.2 H (4.5-10.0) K/mm3 RBC 4.33 (4.2-5.4) M/mm3 Hgb 13.5 (12.0-15.0) g/dL Hct 41.5 (37.0-47.0) % Plt Count 243 (150-375) k/mm3 Lymph # (Auto) 0.71 L (0.9-3.2) K/mm3 [place] # (Auto) 1.0 H (0.1-0.6) K/mm3 Eos # (Auto) 0.0 (0-0.3) K/mm3 Baso # (Auto) 0.0 (0.0-0.1) K/mm3 Comprehensive Metabolic Panel 05/17/24 Range/Units 08:11 Sodium 138 (137-145) mmol/L Potassium 4.1 (3.4-5.0) mmol/L Chloride 107 (98-107) mmol/L Carbon Dioxide 18 L (22-30) mmol/L BUN 19 H (7-17) mg/dL Creatinine 1.40 H (0.7-1.0) mg/dL Glucose 201 H (65-110) mg/dL Calcium 9.0 (8.4-10.2) mg/dL AST 78 H (14-36) U/L ALT 52 H (6-35) U/L Alkaline Phosphatase 73 (38-126) U/L Total Protein 8.0 (6.3-8.2) g/dL Albumin 4.6 (3.5-5.1) g/dL Intake and Output 05/16/24 05/17/24 05/17/24 23:59 07:59 15:59 Intake Total 1000 Balance 1000 Intake: IV 1000 Sodium Chloride 0.9% IV 1,000 1000 ml @ 999 mls/hr IV CONT .Q1H1M [facility] Rx#:[id number] Patient Weight 05/17/24 23:59 Weight 69.8 kg
[2024-05-17 14:16] LABS: Hemoglobin A1C 5.7 % (<5.7)
[2024-05-17] MEDS: PERFLUTREN LIPID MICROSPHERES 1.5 ML VIAL DILUTED TO 10 ML TOTAL VOLUME IV PUSH (16:00)
[2024-05-17 16:11] LABS: Glucose Point of Care 138 mg/dl (65-105)
--- NOTE | 2024-05-17 16:21 | IVDEFINITY ---
Prior to administration of IV Definity the patient was educated on the risks and benefits of the imaging enhancing agent including potential adverse side effects. The patient verbalized understanding. Allergies were verified. No exclusion criteria were identified and at least one of the following inclusion criteria were met: 1) physician request, 2) patient technically difficult to image (per the [place] [employer]chocardi[employer] guidelines of two or more segments not discernable within the apical view), or 3) questionable left ventricular function. ?
[2024-05-17] MEDS: SODIUM CHLORIDE 0.9% IV 1,000 ML 100 ML IV CONT (16:50)
[2024-05-17] MEDS: DOCUSATE SODIUM 100 MG CAPSULE PO (17:05)
[2024-05-17 20:56] LABS: Glucose Point of Care 156 mg/dl (65-105)
[2024-05-18] VITALS (19 sets, daily range): BP systolic 122–134; BP diastolic 79–94; PULSE 72–117; RESP 20–28; TEMP 36.3–37.1; O2SAT 90–98
[2024-05-18] MEDS: SODIUM CHLORIDE 0.9% IV 1,000 ML 100 ML IV CONT ×3 (02:45→19:40)
[2024-05-18 04:03] LABS: Hematocrit 39.6 % (37.0-47.0); Hemoglobin 12.3 g/dL (12.0-15.0); Mean Corpuscular HGB Conc 31.1 g/dl (32-36); Mean Corpuscular Hemoglobin 30.4 pg (26-34); Mean Corpuscular Volume 97.8 fl (80-100); Mean Platelet Volume 9.9 fl (7.4-10.4); Platelet Count Result 238 k/mm3 (150-375); Red Blood Count 4.05 M/mm3 (4.2-5.4); Red Cell Distribution Width 13.2 % (11.5-14.5); White Blood Count 21.4 K/mm3 (4.5-10.0)
[2024-05-18 04:28] LABS: Alanine Aminotransferase 55 U/L (6-35); Alkaline Phosphatase 59 U/L (38-126); Anion Gap 7 mmol/L (4-12); Aspartate Amino Transferase 79 U/L (14-36); Bilirubin,Total 1.1 mg/dL (0.2-1.3); Blood Urea Nitrogen 24 mg/dL (7-17); Calcium 8.1 mg/dL (8.4-10.2); Carbon Dioxide 20 mmol/L (22-30); Chloride 109 mmol/L (98-107); Estimated CRCL calculation 22 ml/min; Estimated Glomerular Filt Rate 35; Glucose 158 mg/dL (65-110); Potassium 4.4 mmol/L (3.4-5.0); Sodium 136 mmol/L (137-145)
--- NOTE | 2024-05-18 06:39 | PCRCNOTE ---
Pt refused Apnea link at this time. Pt stated that it wasn't necessary. RN notified.
[2024-05-18] MEDS: METOPROLOL TARTRATE 25 MG TABLET PO ×3 (06:56→23:31)
--- NOTE | 2024-05-18 07:00 | ECG_ITS ---
Test Date: 2024-05-18 07:31:38 Measurements Intervals [place] Rate: 107 P: 0 CA: 0 QRS: 90 QRSD: 84 T: 92 QT: 325 QTc: 435 Interpretive Statements ATRIAL FIBRILLATION WITH RAPID VENTRICULAR RESPONSE WITH ABERRANT CONDUCTION OR VENTRICULAR PREMATURE COMPLEXES NONSPECIFIC T-WAVE ABNORMALITY ABNORMAL RHYTHM ECG Compared to ECG 05/17/2024 07:30:32 No significant changes Electronically Signed On 05-18-2024 07:44:45 SQL CONSULTANT by Gregory Duke M.D.
[2024-05-18] MEDS: FAMOTIDINE 20 MG TABLET BY MOUTH (08:18)
[2024-05-18] MEDS: DOCUSATE SODIUM 100 MG CAPSULE PO ×2 (08:18→16:41)
[2024-05-18] MEDS: EZETIMIBE 10 MG TABLET BY MOUTH (08:18)
[2024-05-18] MEDS: PARoxetine 20 MG TABLET BY MOUTH (08:18)
[2024-05-18 08:52] LABS: Glucose Point of Care 141 mg/dl (65-105)
--- NOTE | 2024-05-18 09:17 | PM.PNCARD ---
Progress Note: A&P Assessment and Plan (1) Atrial fibrillation with RVR: Code(s): I48.91 - Unspecified atrial fibrillation Status: Acute (2) Essential (primary) hypertension: Code(s): I10 - Essential (primary) hypertension Status: Acute Assessment and Plan: Assessment: 1. AFib with RVR of new onset- rates in the 100s at rest; chads Vasc score 4 (age 89, hypertension, female); asymptomatic 2. ERIK- creatinine 1.4 at admission and remains 1.4 today, increased from baseline of 0.9 3. Leukocytosis- management per primary team 4. Hypertension- controlled Plan Plan: -Continue metoprolol. Switch dose to 50 mg b.i.d.. Target heart rate less than 90 at rest. Hold metoprolol if systolic blood pressure less than 110 mm Hg or heart rate less than 50 -Continue Xarelto for anticoagulation -Plan for cardioversion after 4 weeks of uninterrupted anticoagulation- as outpatient -IV fluids for ERIK. Check renal function daily -Check and replace electrolytes as needed. Keep potassium more than 4 and magnesium more than 2 -Check TSH and free T4 -TTE shows normal EF and no significant valvular abnormality -Management of other medical problems as per primary team Subjective Date/time seen: 05/18/24 09:17 Interval history: Ms. Christianson is being followed by cardiology for A fib with RVR which is of new onset. She was started on metoprolol 25mg Q8 hrs. She remains in A fib with rates in the 100s range at rest. No chest pain, shortness of breath, dizziness, palpitations, nausea, emesis. Review of Systems Review of Systems: A complete review of systems was performed and pertinent positives are noted in the HPI Exam Narrative: General: Alert oriented x3 no acute distress Neck: Supple no JVD Chest: Bilaterally clear to auscultation, no rales or rhonchi Cardiac: S1, S2 plus, regular rate, regular rhythm, no murmurs or rubs Extremities: No peripheral edema, no skin rash Neurologic: Positive into x3, no focal neurological deficits Objective Data Vital Signs Vital Signs: Vital Signs - 24 hr 05/17/24 09:31 05/17/24 10:01 05/17/24 10:02 Temperature 36.6 C 36.5 C 36.5 C Pulse Rate 96 121 H 122 H Respiratory Rate 20 20 20 Blood Pressure 161/85 H 162/95 H 146/98 H Pulse Oximetry 95 95 98 Oxygen Delivery 05/17/24 10:11 05/17/24 11:06 05/17/24 11:45 Temperature 36.6 C 36.6 C Pulse Rate 128 H 103 H 112 H Respiratory Rate 18 18 Blood Pressure 161/111 H 152/108 H Pulse Oximetry 95 97 Oxygen Delivery 05/17/24 12:26 05/17/24 14:00 05/17/24 16:00 Temperature 36.5 C 36.4 C Pulse Rate 111 H 122 H 118 H Respiratory Rate 20 20 Blood Pressure 131/108 H 122/95 H Pulse Oximetry 97 98 Oxygen Delivery 05/17/24 16:00 05/17/24 16:00 05/17/24 16:49 Temperature Pulse Rate 122 H 122 H 122 H Respiratory Rate 20 Blood Pressure Pulse Oximetry 98 Oxygen Delivery Room Air 05/17/24 18:00 05/17/24 20:00 05/17/24 20:40 Temperature Pulse Rate 119 H 102 H Respiratory Rate Blood Pressure Pulse Oximetry Oxygen Delivery Room Air 05/17/24 21:21 05/17/24 22:00 05/17/24 23:39 Temperature 36.4 C 36.5 C Pulse Rate 91 104 H 105 H Respiratory Rate 20 20 Blood Pressure 118/83 122/71 Pulse Oximetry 95 95 Oxygen Delivery 05/17/24 23:47 05/17/24 23:50 05/18/24 00:00 Temperature Pulse Rate 102 H 104 H Respiratory Rate Blood Pressure Pulse Oximetry Oxygen Delivery Room Air 05/18/24 02:00 05/18/24 04:00 05/18/24 04:00 Temperature Pulse Rate 105 H 106 H Respiratory Rate Blood Pressure Pulse Oximetry Oxygen Delivery Room Air 05/18/24 04:17 05/18/24 06:00 05/18/24 06:56 Temperature 36.9 C Pulse Rate 107 H 110 H 113 H Respiratory Rate 20 Blood Pressure 122/94 H Pulse Oximetry 98 Oxygen Delivery 05/18/24 07:51 Temperature 36.4 C L Pulse Rate 111 H Respiratory Rate 24 H Blood Pressure 126/79 Pulse Oximetry 92 Oxygen Delivery Intake/Output Intake/Output: Intake & Output 05/15/24 05/16/24 05/17/24 05/18/24 23:59 23:59 23:59 23:59 Intake Total 1250 991.7 Output Total 325 Balance 1250 666.7 Meds/Results Medications: Active Medications Generic Name Dose Route Start Last Admin Trade Name Freq PRN Reason Stop Dose Admin Acetaminophen 650 mg 05/17/24 12:42 Acetaminophen 325 Mg Tablet PO Q4H PRN Mild Pain (1-3) or Fever Hydrocodone Bitart/Acetaminophen 1 tab 05/17/24 09:59 05/17/24 16:40 Hydrocodone/Acetaminophen (*Crx) 5-325 Mg Tablet PO 1 tab Q4H PRN Administration Pain Rated 4-6 Dextrose 12.5 gm 05/17/24 12:42 Dextrose 50% 25 Gm/50 Ml Syringe IV PUSH PRN PRN Hypoglycemia Protocol Docusate Sodium 100 mg 05/17/24 17:00 05/18/24 08:18 Docusate Sodium 100 Mg Capsule PO 100 mg BID CATE Administration Ezetimibe 10 mg 05/18/24 09:00 05/18/24 08:18 Ezetimibe 10 Mg Tablet BY MOUTH 10 mg DAILY CATE Administration Famotidine 20 mg 05/18/24 09:00 05/18/24 08:18 Famotidine 20 Mg Tablet BY MOUTH 20 mg DAILY CATE Administration Glucagon 1 mg 05/17/24 12:42 Glucagon For Inj 1 Mg Vial IM PRN PRN Hypoglycemia Protocol Glucose 15 gm 05/17/24 12:42 Glucose Oral Gel 15 Gm Of Glucse In 37.5 Gm Tube PO PRN PRN Hypoglycemia Protocol Sodium Chloride 1,000 mls @ 100 mls/hr 05/17/24 12:45 05/18/24 02:45 Normal Saline Iv IV CONT 100 mls/hr .Q10H CATE Administration Dextrose 1,000 mls @ 100 mls/hr 05/17/24 12:42 Dextrose 5% 1,000 Ml IVPB PRN PRN Hypoglycemia Protocol Insulin Aspart 3 - 6 units 05/17/24 17:00 05/17/24 17:05 Insulin Aspart (*Bkc) 100 Units/Ml SUB-Q Not Given TIDWM CATE Protocol Insulin Aspart 1 - 2 units 05/17/24 21:00 05/17/24 20:10 Insulin Aspart (*Bkc) 100 Units/Ml SUB-Q Not Given HS CATE Protocol Metoprolol Tartrate 25 mg 05/17/24 15:00 05/18/24 06:56 Metoprolol Tartrate 25 Mg Tablet PO 25 mg Q8H [facility] Administration Mirabegron 25 mg 05/18/24 21:00 Mirabegron 25 Mg Er Tablet PO HS [facility] Ondansetron HCl 4 mg 05/17/24 09:59 05/17/24 21:44 Ondansetron Inj 4 Mg/2 Ml Vial IV PUSH 4 mg Q4H PRN Administration Nausea Paroxetine HCl 20 mg 05/18/24 09:00 05/18/24 08:18 Paroxetine 20 Mg Tablet BY MOUTH 20 mg DAILY [facility] Administration Rivaroxaban 20 mg 05/18/24 17:00 Rivaroxaban 20 Mg Tablet PO DAILY@1700 [facility] Radiology Results: ITS Impressions Chest X-Ray 05/17/24 08:27 Impression: Possible mild chronic interstitial disease. No acute pulmonary abnormality. Abdomen/Pelvis CT 05/17/24 22:51 IMPRESSION: 1. Small pleural effusions. 2. Gallbladder wall thickening, probably interstitial edema. Labs Labs: Laboratory Results - last 24 hr 05/17/24 05/17/24 05/17/24 08:11 13:16 16:09 WBC 15.2 H RBC 4.33 Hgb 13.5 Hct 41.5 MCV 95.8 MCH 31.2 MCHC 32.5 RDW 12.9 Plt Count 243 MPV 11.1 H Immature Gran % (Auto) 0.5 Neut % (Auto) 87.9 H Lymph % (Auto) 4.7 L [place] % (Auto) 6.7 Eos % (Auto) 0.0 Baso % (Auto) 0.2 Lymph # (Auto) 0.71 L [place] # (Auto) 1.0 H Eos # (Auto) 0.0 Baso # (Auto) 0.0 Abs Immat Gran (auto) 0.08 H Absolute Neuts (auto) 13.4 H Absolute Nucleated RBC 0.000 Nucleated RBC % 0.0 % Immature Plt Fraction 5.4 Sodium 138 Potassium 4.1 Chloride 107 Carbon Dioxide 18 L Anion Gap 13 H BUN 19 H Creatinine 1.40 H Estim Creat Clear Calc 22 Estimated GFR 35 L Glucose 201 H POC Capillary Glucose 138 H Hemoglobin A1c 5.7 Calcium 9.0 Total Bilirubin 1.1 AST 78 H ALT 52 H Alkaline Phosphatase 73 Total Protein 8.0 Albumin 4.6 TSH 4.570 05/17/24 05/18/24 05/18/24 20:06 03:50 07:46 WBC 21.4 H RBC 4.05 L Hgb 12.3 Hct 39.6 MCV 97.8 MCH 30.4 MCHC 31.1 L RDW 13.2 Plt Count 238 MPV 9.9 Immature Gran % (Auto) Neut % (Auto) Lymph % (Auto) [place] % (Auto) Eos % (Auto) Baso % (Auto) Lymph # (Auto) [place] # (Auto) Eos # (Auto) Baso # (Auto) Abs Immat Gran (auto) Absolute Neuts (auto) Absolute Nucleated RBC Nucleated RBC % % Immature Plt Fraction Sodium 136 L Potassium 4.4 Chloride 109 H Carbon Dioxide 20 L Anion Gap 7 BUN 24 H Creatinine 1.40 H Estim Creat Clear Calc 22 Estimated GFR 35 L Glucose 158 H POC Capillary Glucose 156 H 141 H Hemoglobin A1c Calcium 8.1 L Total Bilirubin 1.1 AST 79 H ALT 55 H Alkaline Phosphatase 59 Total Protein 6.0 L Albumin 4.0 TSH
--- NOTE | 2024-05-18 10:55 | P.PNIM_ITS ---
Progress Note: A&P Assessment and Plan (1) Atrial fibrillation with RVR: Code(s): I48.91 - Unspecified atrial fibrillation Status: Acute Assessment and Plan: Cardiology consulted Diltiazem push x1 Metoprolol 50 mg b.i.d. Xarelto 20 mg p.o. q.d. Repeat EKG tomorrow Echocardiogram pending TSH within normal limits Xarelto, [id number] score at least 2 Since the chronicity of her arrhythmia is unknown and she is not anticoagulated, will pursue rate control for now with plan to attempt cardioversion as an outpatient in 3-4 weeks. (2) Leukocytosis: Code(s): D72.829 - Elevated white blood cell count, unspecified Status: Acute Assessment and Plan: UA noninfective Chest x-ray with no acute process Blood cultures pending No signs of soft tissue infection C diff pending (3) ERIK (acute kidney injury): Code(s): N17.9 - Acute kidney failure, unspecified Status: Acute Assessment and Plan: A fluids for hydration CMP tomorrow (4) Hyperglycemia: Code(s): R73.9 - Hyperglycemia, unspecified Status: Acute Assessment and Plan: Hemoglobin A1c 5.7 SSI a.c. HS (5) Elevated liver enzymes: Code(s): R74.8 - Abnormal levels of other serum enzymes Status: Acute Assessment and Plan: CMP tomorrow for monitoring (6) Interstitial lung disease: Code(s): J84.9 - Interstitial pulmonary disease, unspecified Status: Acute Assessment and Plan: No acute issues Patient should follow-up outpatient with pulmonology (7) Acute cholecystitis without calculus: Code(s): K81.0 - Acute cholecystitis Status: Acute Assessment and Plan: Consulted surgery Started Zosyn Monitor vitals Uptrending WBC Ordered ultrasound CT abdomen: gallbladder wall thickening probably interstitial edema Subjective Date/time seen: 05/18/24 10:55 Interval history: Patient was examined at the bedside. Patient reports of abdominal pain. Patient has a past medical history of IBS. Due to the gallbladder wall thickening, possible interstitial edema with increasing WBC I suspect cholecystitis. Consulted surgery and appreciate their recommendation. Patient reports past 3 days she had diarrhea, nausea and vomiting. Patient started on Zosyn. Review of Systems Review of Systems: 12 systems were reviewed and are negativ e except for as per HPI. Exam Narrative: General: well appearing, appears stated age. HEENT: normocephalic, atraumatic. Mucous membranes moist. EOMI, PERRLA, bilateral sclera anicteric, no conjunctival injection. Neck supple without JVD, lymphadenopathy, or bruit. Respiratory: clear to ascultation bilaterally. No rales/rhonic/wheezes. Cardiovascular: Irregular, . No murmurs, rubs, or clicks. PMI is nondisplaced, capillary refill less than 3 second. Abdomen: Soft, round, no pulsatile masses, nondistended and nontender. No rebound, no guarding. No CVA tenderness, no hepatosplenomegaly. Bowel sounds present to all four quadrants. No high pitch or tinkling sounds, resonant to percussion. Extremities: No cyanosis, clubbing, or edema present. Pulses are palpable 2/2. Active ROM to all four extremities. Neuro: Alert and orientated x 4. PERRLA. Cranial nerves 2-12 intact without focal deficit. Skin: Warm, dry, and intact, without rash, erythema, or lesion. Psych: pleasant, cooperative, normal speech, normal affect, no hallucinations, no dysarthia Objective Data Vital Signs Vital Signs: Vital Signs - 24 hr 05/17/24 11:06 05/17/24 11:45 05/17/24 12:26 Temperature 97.8 F 97.9 F 97.7 F Pulse Rate 103 H 112 H 111 H Respiratory Rate 18 18 20 Blood Pressure 161/111 H 152/108 H 131/108 H Pulse Oximetry 95 97 97 Oxygen Delivery 05/17/24 14:00 05/17/24 16:00 05/17/24 16:00 Temperature 97.6 F Pulse Rate 122 H 118 H 122 H Respiratory Rate 20 20 Blood Pressure 122/95 H Pulse Oximetry 98 98 Oxygen Delivery Room Air 05/17/24 16:00 05/17/24 16:49 05/17/24 18:00 Temperature Pulse Rate 122 H 122 H 119 H Respiratory Rate Blood Pressure Pulse Oximetry Oxygen Delivery 05/17/24 20:00 05/17/24 20:40 05/17/24 21:21 Temperature 97.6 F Pulse Rate 102 H 91 Respiratory Rate 20 Blood Pressure 118/83 Pulse Oximetry 95 Oxygen Delivery Room Air 05/17/24 22:00 05/17/24 23:39 05/17/24 23:47 Temperature 97.7 F Pulse Rate 104 H 105 H 102 H Respiratory Rate 20 Blood Pressure 122/71 Pulse Oximetry 95 Oxygen Delivery 05/17/24 23:50 05/18/24 00:00 05/18/24 02:00 Temperature Pulse Rate 104 H 105 H Respiratory Rate Blood Pressure Pulse Oximetry Oxygen Delivery Room Air 05/18/24 04:00 05/18/24 04:00 05/18/24 04:17 Temperature 98.4 F Pulse Rate 106 H 107 H Respiratory Rate 20 Blood Pressure 122/94 H Pulse Oximetry 98 Oxygen Delivery Room Air 05/18/24 06:00 05/18/24 06:56 05/18/24 07:51 Temperature 97.5 F L Pulse Rate 110 H 113 H 111 H Respiratory Rate 24 H Blood Pressure 126/79 Pulse Oximetry 92 Oxygen Delivery 05/18/24 08:00 05/18/24 08:00 05/18/24 09:23 Temperature Pulse Rate 104 H 104 H 104 H Respiratory Rate 24 H Blood Pressure Pulse Oximetry 92 Oxygen Delivery Room Air Intake/Output Intake/Output: Intake & Output 05/15/24 05/16/24 05/17/24 05/18/24 23:59 23:59 23:59 23:59 Intake Total 1250 1091.7 Output Total 325 Balance 1250 766.7 Meds/Results Medications: Active Medications Generic Name Dose Route Start Last Admin Trade Name Freq PRN Reason Stop Dose Admin Acetaminophen 650 mg 05/17/24 12:42 Acetaminophen 325 Mg Tablet PO Q4H PRN Mild Pain (1-3) or Fever Hydrocodone Bitart/Acetaminophen 1 tab 05/17/24 09:59 05/17/24 16:40 Hydrocodone/Acetaminophen (*Crx) 5-325 Mg Tablet PO 1 tab Q4H PRN Administration Pain Rated 4-6 Cholestyramine Resin 4 gm 05/18/24 11:00 Cholestyramine (W/ Sugar) 4 Gm Powd.Pack PO QAM@1100 CATE Dextrose 12.5 gm 05/17/24 12:42 Dextrose 50% 25 Gm/50 Ml Syringe IV PUSH PRN PRN Hypoglycemia Protocol Docusate Sodium 100 mg 05/17/24 17:00 05/18/24 08:18 Docusate Sodium 100 Mg Capsule PO 100 mg BID CATE Administration Ezetimibe 10 mg 05/18/24 09:00 05/18/24 08:18 Ezetimibe 10 Mg Tablet BY MOUTH 10 mg DAILY [facility] Administration Famotidine 20 mg 05/18/24 09:00 05/18/24 08:18 Famotidine 20 Mg Tablet BY MOUTH 20 mg DAILY [facility] Administration Glucagon 1 mg 05/17/24 12:42 Glucagon For Inj 1 Mg Vial IM PRN PRN Hypoglycemia Protocol Glucose 15 gm 05/17/24 12:42 Glucose Oral Gel 15 Gm Of Glucse In 37.5 Gm Tube PO PRN PRN Hypoglycemia Protocol Sodium Chloride 1,000 mls @ 100 mls/hr 05/17/24 12:45 05/18/24 02:45 Normal Saline Iv IV CONT 100 mls/hr .Q10H [facility] Administration Dextrose 1,000 mls @ 100 mls/hr 05/17/24 12:42 Dextrose 5% 1,000 Ml IVPB PRN PRN Hypoglycemia Protocol Insulin Aspart 3 - 6 units 05/17/24 17:00 05/17/24 17:05 Insulin Aspart (*Bkc) 100 Units/Ml SUB-Q Not Given TIDWM [facility] Protocol Insulin Aspart 1 - 2 units 05/17/24 21:00 05/17/24 20:10 Insulin Aspart (*Bkc) 100 Units/Ml SUB-Q Not Given HS [facility] Protocol Metoprolol Tartrate 25 mg 05/17/24 15:00 05/18/24 06:56 Metoprolol Tartrate 25 Mg Tablet PO 25 mg Q8H [facility] Administration Mirabegron 25 mg 05/18/24 21:00 Mirabegron 25 Mg Er Tablet PO HS [facility] Ondansetron HCl 4 mg 05/17/24 09:59 05/17/24 21:44 Ondansetron Inj 4 Mg/2 Ml Vial IV PUSH 4 mg Q4H PRN Administration Nausea Paroxetine HCl 20 mg 05/18/24 09:00 05/18/24 08:18 Paroxetine 20 Mg Tablet BY MOUTH 20 mg DAILY [facility] Administration Rivaroxaban 20 mg 05/18/24 17:00 Rivaroxaban 20 Mg Tablet PO DAILY@1700 [facility] Radiology Results: ITS Impressions Chest X-Ray 05/17/24 08:27 Impression: Possible mild chronic interstitial disease. No acute pulmonary abnormality. Abdomen/Pelvis CT 05/17/24 22:51 IMPRESSION: 1. Small pleural effusions. 2. Gallbladder wall thickening, probably interstitial edema. Labs Labs: Laboratory Results - last 24 hr 05/17/24 05/17/24 05/17/24 08:11 13:16 16:09 WBC RBC Hgb Hct MCV MCH MCHC RDW Plt Count MPV Sodium Potassium Chloride Carbon Dioxide Anion Gap BUN Creatinine Estim Creat Clear Calc Estimated GFR Glucose POC Capillary Glucose 138 H Hemoglobin A1c 5.7 Calcium Total Bilirubin AST ALT Alkaline Phosphatase Total Protein Albumin TSH 4.570 05/17/24 05/18/24 05/18/24 20:06 03:50 07:46 WBC 21.4 H RBC 4.05 L Hgb 12.3 Hct 39.6 MCV 97.8 MCH 30.4 MCHC 31.1 L RDW 13.2 Plt Count 238 MPV 9.9 Sodium 136 L Potassium 4.4 Chloride 109 H Carbon Dioxide 20 L Anion Gap 7 BUN 24 H Creatinine 1.40 H Estim Creat Clear Calc 22 Estimated GFR 35 L Glucose 158 H POC Capillary Glucose 156 H 141 H Hemoglobin A1c Calcium 8.1 L Total Bilirubin 1.1 AST 79 H ALT 55 H Alkaline Phosphatase 59 Total Protein 6.0 L Albumin 4.0 TSH Quality VTE Prophylaxis VTE prophylaxis: mechanical ordered and pharmacologic ordered Hospitalist MIPS Advance Care Plan I have confirmed that the patient's Advanced Care Plan is present, code status is documented, or surrogate decision maker is listed in patient medical record.: Yes Medication Reconciliation I have utilized all available resources to obtain, update and review the patients current medications (includes all prescriptions, OTC, herbals, cannabis, and nutritional supplements).: Yes
[2024-05-18] MEDS: PIPERACILLN/TAZ 3.375GM/NS50ML 3.375 GM/50 ML BAG IVPB (11:00)
[2024-05-18] MEDS: CHOLESTYRAMINE (W/ SUGAR) 4 GM POWD.PACK PO (11:11)
[2024-05-18 12:32] LABS: Glucose Point of Care 163 mg/dl (65-105)
--- NOTE | 2024-05-18 13:34 | P.CONGS_ITS ---
Assessment and Plan Assessment and plan (1) Acute cholecystitis without calculus: Code(s): K81.0 - Acute cholecystitis Status: Acute Assessment and Plan: * I reviewed the CT and the patient's symptoms along with the CT findings of gallbladder wall thickening would be consistent with acute cholecystitis. She is currently feeling better and has been tolerating her diet. I would like to get a gallbladder ultrasound to further assess for gallstones. The patient was already started on anticoagulation which would require surgery to be delayed few more days. If she is feeling better, she can likely be discharged and follow up as an outpatient. Will reassess with labs in the morning and reviewed the gallbladder ultrasound results and then determine if patient is able to be discharged if she is tolerating a low-fat. (2) Atrial fibrillation with RVR: Code(s): I48.91 - Unspecified atrial fibrillation Status: Acute Assessment and Plan: * On Xarelto. Rate improving with beta-radha. Continue as per Cardiology. (3) Elevated liver enzymes: Code(s): R74.8 - Abnormal levels of other serum enzymes Status: Acute History of Present Illness Consult details Consult date: 05/18/24 Reason for consult: other (possible cholecystitis) Requesting physician: Rodney Morgan MD Narrative: This is an 89-year-old woman who I am asked to see for possible cholecystitis. She presented to the emergency department last night with abdominal pain, nausea, vomiting, and diarrhea. She states her symptoms started Th morning and initially which she was only having pain. She then began developing the diarrhea and nausea and vomiting. She states that she was having a significant amount of abdominal pain yesterday which is why she came to the emergency department. She had eaten chicken strips the night before the pain started. She has never had any symptoms like this in the past. He CT in the emergency department showed small pleural effusions and gallbladder wall thickening. She was noted to be in AFib with RVR and was admitted to the IMU for further treatment. She states that her pain is gone today. She denies any fevers or chills. She denies any chest pain or shortness of breath. Review of Systems 2 Review of Systems: All systems reviewed & are unremarkable except as noted in HPI and below Eyes: Eyes: Denies change in vision ENT: Denies hearing loss, Denies neck pain and Denies sore throat Cardiovascular: Cardiovascular: Denies chest pain and Denies dyspnea Respiratory: Respiratory: Denies cough, Denies dyspnea and Denies wheezing Gastrointestinal: Gastrointestinal: Reports as per HPI Genitourinary: Genitourinary: Denies hematuria and Denies dysuria Musculoskeletal: Musculoskeletal: Denies arthralgias, Denies joint swelling and Denies neck pain Allergic/Immunologic: Allergic/Immunologic: Denies wheezing [facility] Past Medical History Medical History Cerumen impaction Hearing Loss Left arm pain BMI 24.0-24.9, adult Chronic diarrhea BMI 25.0-25.9,adult Family History Family History Mother Carcinoma of colon Father Family history of heart disease in male family member before age 55 Acute myocardial infarction Sibling , 97-sister Bowel disease, inflammatory Sibling Bowel disease, inflammatory C. difficile diarrhea Other Family history of congenital heart disease Family history of coronary artery disease Family history of malignant neoplasm Social History Social History Smoking status: Former smoker Second hand tobacco smoke exposure: Yes Alcohol intake: current Drinks per week: 1 Substance use: never Substance use type: does not use Do You Feel Safe in your Home?: Yes Lack of Transportation: No Lack of Food: Never True Current Housing: I Do Not Have Housing Concerned About Future Housing: No Difficulty Paying Gas/Electric Bills: No Difficulty Paying for Meds: No Currently Unemployed: No Education: High School Diploma/GED Difficulty w/ Childcare or Family Care: No Living arrangements: alone Occupation/Education: retired 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 Gender identity (if verbalized by the patient): Female Sexual Orientation (if Verbalized by the Patient): Straight or Heterosexual Spiritual care concerns: No Agree to blood products: Yes Meds Home Medications and Allergies Home Medications ?Medication ?Instructions ?Recorded ?Confirmed ?Type mirabegron 25 mg tablet,extended 25 mg PO HS 10/15/19 05/17/24 History release 24 hr (Myrbetriq) Lactobacillus rhamnosus GG 20 See Rx Instructions PO .COMPLEX 07/20/20 05/17/24 History billion cell capsule (Probiotic Digestive Care) diphenoxylate-atropine 2.5 2 tablet PO QID PRN diarrhea #60 08/07/23 05/17/24 Rx mg-0.025 mg tablet (Lomotil) tabs famotidine 20 mg tablet See Rx Instructions .Route 12/14/23 05/17/24 Rx .COMPLEX #90 tabs paroxetine HCl 20 mg tablet See Rx Instructions .Route 12/27/23 05/17/24 Rx .COMPLEX #90 tabs ezetimibe 10 mg tablet See Rx Instructions .Route 03/01/24 05/17/24 Rx .COMPLEX #90 tabs cholestyramine (with sugar) 4 gram See Rx Instructions PO BID IBS 05/17/24 05/17/24 History oral powder Allergies Allergy/AdvReac Type Severity Reaction Status Date / Time [id number] Reductase AdvReac Intermediate Elevated Verified 05/17/24 12:08 Inhibitor CPK Vital Signs Vital Signs - 24 hr 05/17/24 14:00 05/17/24 16:00 05/17/24 16:00 Temperature 97.6 F Pulse Rate 122 H 118 H 122 H Respiratory Rate 20 20 Blood Pressure 122/95 H Pulse Oximetry 98 98 Oxygen Delivery Room Air 05/17/24 16:00 05/17/24 16:49 05/17/24 18:00 Temperature Pulse Rate 122 H 122 H 119 H Respiratory Rate Blood Pressure Pulse Oximetry Oxygen Delivery 05/17/24 20:00 05/17/24 20:40 05/17/24 21:21 Temperature 97.6 F Pulse Rate 102 H 91 Respiratory Rate 20 Blood Pressure 118/83 Pulse Oximetry 95 Oxygen Delivery Room Air 05/17/24 22:00 05/17/24 23:39 05/17/24 23:47 Temperature 97.7 F Pulse Rate 104 H 105 H 102 H Respiratory Rate 20 Blood Pressure 122/71 Pulse Oximetry 95 Oxygen Delivery 05/17/24 23:50 05/18/24 00:00 05/18/24 02:00 Temperature Pulse Rate 104 H 105 H Respiratory Rate Blood Pressure Pulse Oximetry Oxygen Delivery Room Air 05/18/24 04:00 05/18/24 04:00 05/18/24 04:17 Temperature 98.4 F Pulse Rate 106 H 107 H Respiratory Rate 20 Blood Pressure 122/94 H Pulse Oximetry 98 Oxygen Delivery Room Air 05/18/24 06:00 05/18/24 06:56 05/18/24 07:51 Temperature 97.5 F L Pulse Rate 110 H 113 H 111 H Respiratory Rate 24 H Blood Pressure 126/79 Pulse Oximetry 92 Oxygen Delivery 05/18/24 08:00 05/18/24 08:00 05/18/24 09:23 Temperature Pulse Rate 104 H 104 H 104 H Respiratory Rate 24 H Blood Pressure Pulse Oximetry 92 Oxygen Delivery Room Air 05/18/24 12:00 Temperature 97.3 F L Pulse Rate 72 Respiratory Rate 20 Blood Pressure 125/79 Pulse Oximetry 96 Oxygen Delivery Exam 2 Const: General: alert; No acute distress Orientation/consciousness: patient oriented x3 Limitations: no limitations HENMT: Head: normocephalic and atraumatic Ears: hearing grossly normal bilaterally Face/Nose/Sinus: Normal external nose present and Normal nares present Mouth: Yes Normal oral and palatal mucosa present and Yes moist mucous membranes Eyes: General: appearance normal, both eyes and all related structures C onjunctivae: conjunctivae normal Sclera: sclerae normal Pupils: Equal, round and reactive pupils present EOM: EOMs intact bilaterally Neck: Neck: normal visual inspection, full ROM, no lymphadenopathy, supple and no JVD Lymphatic: no lymphadenopathy noted Chest: Chest palpation & inspection: normal inspection of the chest Resp: Effort & Inspection: normal respiratory effort and able to speak in complete sentences Auscultation: clear to auscultation bilaterally P ercussion: percussion normal Cardio: Jugular venous distension: no JVD Rhythm: abnormal rhythm irregularly irregular Heart sounds: S1 normal heart sound present and S2 normal heart sound present Peripheral pulses: Peripheral pulses 2+ throughout GI: Inspection: normal to inspection Auscultation: normal bowel sounds : General: Yes no CVA tenderness Back/Spine/Pelvis: Back: no CVA tenderness Skin: General skin exam: normal color and dry skin Neuro: General: patient oriented x3, gait normal, moves all extremities, no focal motor deficits and CN's II-XI intact bilaterally Cranial nerves: Yes Equal, round and reactive pupils present Speech: normal speech Extrem: General: normal to inspection and capillary refill normal Results Labs 05/18/24 03:50 05/18/24 03:50 Labs: Abnormal lab results 05/17/24 05/17/24 05/18/24 Range/Units 16:09 20:06 03:50 WBC 21.4 H (4.5-10.0) K/mm3 RBC 4.05 L (4.2-5.4) M/mm3 MCHC 31.1 L (32-36) g/dl Sodium 136 L (137-145) mmol/L Chloride 109 H (98-107) mmol/L Carbon Dioxide 20 L (22-30) mmol/L BUN 24 H (7-17) mg/dL Creatinine 1.40 H (0.7-1.0) mg/dL Estimated GFR 35 L (59 - ) Glucose 158 H (65-110) mg/dL POC Capillary Glucose 138 H 156 H (65-105) mg/dl Calcium 8.1 L (8.4-10.2) mg/dL AST 79 H (14-36) U/L ALT 55 H (6-35) U/L Total Protein 6.0 L (6.3-8.2) g/dL 05/18/24 05/18/24 Range/Units 07:46 11:55 WBC (4.5-10.0) K/mm3 RBC (4.2-5.4) M/mm3 MCHC (32-36) g/dl Sodium (137-145) mmol/L Chloride (98-107) mmol/L Carbon Dioxide (22-30) mmol/L BUN (7-17) mg/dL Creatinine (0.7-1.0) mg/dL Estimated GFR (59 - ) Glucose (65-110) mg/dL POC Capillary Glucose 141 H 163 H (65-105) mg/dl Calcium (8.4-10.2) mg/dL AST (14-36) U/L ALT (6-35) U/L Total Protein (6.3-8.2) g/dL Diabetes panel 05/17/24 05/18/24 Range/Units 13:16 03:50 Sodium 136 L (137-145) mmol/L Potassium 4.4 (3.4-5.0) mmol/L Chloride 109 H (98-107) mmol/L Carbon Dioxide 20 L (22-30) mmol/L BUN 24 H (7-17) mg/dL Creatinine 1.40 H (0.7-1.0) mg/dL Glucose 158 H (65-110) mg/dL Hemoglobin A1c 5.7 (<5.7) % Calcium 8.1 L (8.4-10.2) mg/dL AST 79 H (14-36) U/L ALT 55 H (6-35) U/L Alkaline Phosphatase 59 (38-126) U/L Total Protein 6.0 L (6.3-8.2) g/dL Albumin 4.0 (3.5-5.1) g/dL Thyroid panel 05/17/24 Range/Units 08:11 TSH 4.570 (0.465-4.680) uIU/mL Calcium panel 05/18/24 Range/Units 03:50 Calcium 8.1 L (8.4-10.2) mg/dL Albumin 4.0 (3.5-5.1) g/dL Pituitary panel 05/17/24 05/18/24 Range/Units 08:11 03:50 Sodium 136 L (137-145) mmol/L Potassium 4.4 (3.4-5.0) mmol/L Chloride 109 H (98-107) mmol/L Carbon Dioxide 20 L (22-30) mmol/L BUN 24 H (7-17) mg/dL Creatinine 1.40 H (0.7-1.0) mg/dL Glucose 158 H (65-110) mg/dL Calcium 8.1 L (8.4-10.2) mg/dL TSH 4.570 (0.465-4.680) uIU/mL Adrenal panel 05/18/24 Range/Units 03:50 Sodium 136 L (137-145) mmol/L Potassium 4.4 (3.4-5.0) mmol/L Chloride 109 H (98-107) mmol/L Carbon Dioxide 20 L (22-30) mmol/L BUN 24 H (7-17) mg/dL Creatinine 1.40 H (0.7-1.0) mg/dL Glucose 158 H (65-110) mg/dL Calcium 8.1 L (8.4-10.2) mg/dL Total Bilirubin 1.1 (0.2-1.3) mg/dL AST 79 H (14-36) U/L ALT 55 H (6-35) U/L Alkaline Phosphatase 59 (38-126) U/L Total Protein 6.0 L (6.3-8.2) g/dL Albumin 4.0 (3.5-5.1) g/dL All other labs normal. Imaging Additional studies: ITS Impressions Chest X-Ray 05/17/24 08:27 Impression: Possible mild chronic interstitial disease. No acute pulmonary abnormality. Abdomen/Pelvis CT 05/17/24 22:51 IMPRESSION: 1. Small pleural effusions. 2. Gallbladder wall thickening, probably interstitial edema.
[2024-05-18] MEDS: RIVAROXABAN 20 MG TABLET PO (16:41)
[2024-05-18] MEDS: LORazepam INJ (*CRX) 2 MG/ML VIAL 0.25 MG IV PUSH (16:56)
[2024-05-18 17:02] LABS: Glucose Point of Care 152 mg/dl (65-105)
--- NOTE | 2024-05-18 20:42 | ECG_ITS ---
Test Date: 2024-05-18 20:46:33 Measurements Intervals Mitchell Rate: 104 P: 0 WV: 0 QRS: 85 QRSD: 84 T: 0 QT: 340 QTc: 449 Interpretive Statements ATRIAL FIBRILLATION WITH RAPID VENTRICULAR RESPONSE WITH ABERRANT CONDUCTION OR VENTRICULAR PREMATURE COMPLEXES NONSPECIFIC T-WAVE ABNORMALITY ABNORMAL RHYTHM ECG Compared to ECG 05/18/2024 07:31:38 No significant changes Electronically Signed On 05-18-2024 21:04:56 [employer]INE OPERATOR by Gregory Duke M.D.
[2024-05-18 20:54] LABS: Glucose Point of Care 129 mg/dl (65-105)
[2024-05-18] MEDS: PIPERACILLIN/TAZ 2.25G/NS 50ML 2.25 GM/50 ML BAG IVPB (21:55)
[2024-05-18] MEDS: MIRABEGRON 25 MG ER TABLET PO (21:56)
--- NOTE | 2024-05-18 23:23 | PCRCNOTE ---
pt extremely anxious, cannot do apnea link per RN
[2024-05-19] VITALS (18 sets, daily range): BP systolic 111–145; BP diastolic 72–92; PULSE 96–114; RESP 18–28; TEMP 35.9–36.8; O2SAT 93–100
[2024-05-19 05:05] LABS: Hematocrit 39.1 % (37.0-47.0); Hemoglobin 12.1 g/dL (12.0-15.0); Mean Corpuscular HGB Conc 30.9 g/dl (32-36); Mean Corpuscular Hemoglobin 30.9 pg (26-34); Mean Corpuscular Volume 99.7 fl (80-100); Mean Platelet Volume 10.2 fl (7.4-10.4); Platelet Count Result 252 k/mm3 (150-375); Red Blood Count 3.92 M/mm3 (4.2-5.4); Red Cell Distribution Width 13.3 % (11.5-14.5); White Blood Count 23.8 K/mm3 (4.5-10.0)
[2024-05-19 05:17] LABS: Alanine Aminotransferase 76 U/L (6-35); Albumin Level 3.7 g/dL (3.5-5.1); Alkaline Phosphatase 59 U/L (38-126); Anion Gap 8 mmol/L (4-12); Aspartate Amino Transferase 88 U/L (14-36); Blood Urea Nitrogen 35 mg/dL (7-17); Calcium 7.9 mg/dL (8.4-10.2); Carbon Dioxide 21 mmol/L (22-30); Chloride 106 mmol/L (98-107); Estimated CRCL calculation 18 ml/min; Estimated Glomerular Filt Rate 27; Glucose 136 mg/dL (65-110); Potassium 4.3 mmol/L (3.4-5.0); Sodium 135 mmol/L (137-145)
[2024-05-19] MEDS: SODIUM CHLORIDE 0.9% IV 1,000 ML 100 ML IV CONT ×2 (05:42→13:18)
[2024-05-19] MEDS: PIPERACILLIN/TAZ 2.25G/NS 50ML 2.25 GM/50 ML BAG IVPB ×3 (05:45→21:32)
[2024-05-19] MEDS: METOPROLOL TARTRATE 25 MG TABLET PO ×3 (06:07→23:23)
[2024-05-19 08:42] LABS: Glucose Point of Care 129 mg/dl (65-105)
--- NOTE | 2024-05-19 09:43 | P.PNCA_ITS ---
Progress Note: A&P Assessment and Plan (1) Atrial fibrillation with RVR: Code(s): I48.91 - Unspecified atrial fibrillation Status: Acute (2) Essential (primary) hypertension: Code(s): I10 - Essential (primary) hypertension Status: Acute Assessment and Plan: Assessment: 1. AFib with RVR of new onset most likely secondary to underlying stress of cholecystitis- rates in the 90s-110s at rest; chads Vasc score 4 (age 89, hypertension, female); asymptomatic; TSH wnl 2. ERIK- creatinine 1.4 at admission and increased to 1.8 today, increased from baseline of 0.9 3. Leukocytosis- suspected to be secondary to cholecystitis 4. Hypertension- controlled Plan Plan: -Continue metoprolol. Switch dose to 50 mg b.i.d.. Target heart rate less than 90 at rest. Hold metoprolol if systolic blood pressure less than 110 mm Hg or heart rate less than 50 -Continue Xarelto for anticoagulation. Please adjust dose to renal function -Given acute illness and patient being asymptomatic from A fib, will continue rate control for now and plan for cardioversion after 4 weeks of uninterrupted anticoagulation- as outpatient -Check renal function daily -Check and replace electrolytes as needed. Keep potassium more than 4 and magnesium more than 2 -TTE shows normal EF and no significant valvular abnormality -Management of other medical problems as per primary team Subjective Date/time seen: 05/19/24 09:43 Interval history: Ms. Christianson is being followed by cardiology for A fib with RVR which is of new onset. She was started on metoprolol 25mg Q8 hrs. She remains in A fib with rates in the 90s-110s range at rest. SBP is in the 119s-130s range. No chest pain, shortness of breath, dizziness, palpitations, nausea, emesis. She was noted to have leukocytosis and is suspected to have cholecystitis. Review of Systems Review of Systems: A complete review of systems was performed and pertinent positives are noted in the HPI Exam Narrative: General: Alert oriented x3 no acute distress Neck: Supple no JVD Chest: Bilaterally clear to auscultation, no rales or rhonchi Cardiac: S1, S2 plus, irregularly irregular rhythm, RVR+, no murmurs or rubs Extremities: No peripheral edema, no skin rash Neurologic: Positive into x3, no focal neurological deficits Objective Data Vital Signs Vital Signs: Vital Signs - 24 hr 05/18/24 12:00 05/18/24 12:00 05/18/24 12:00 Temperature 36.3 C L Pulse Rate 72 72 72 Respiratory Rate 20 20 Blood Pressure 125/79 Pulse Oximetry 96 96 Oxygen Delivery Room Air 05/18/24 14:00 05/18/24 15:40 05/18/24 16:00 Temperature 36.3 C L Pulse Rate 72 109 H 109 H Respiratory Rate 28 H 28 H Blood Pressure 124/92 H Pulse Oximetry 95 95 Oxygen Delivery Room Air 05/18/24 16:00 05/18/24 16:41 05/18/24 18:00 Temperature Pulse Rate 109 H 109 H 100 Respiratory Rate Blood Pressure Pulse Oximetry Oxygen Delivery 05/18/24 20:00 05/18/24 21:15 05/18/24 21:30 Temperature 37.1 C Pulse Rate 108 H 117 H Respiratory Rate 28 H Blood Pressure 134/81 Pulse Oximetry 90 Oxygen Delivery Room Air 05/18/24 22:00 05/18/24 23:31 05/19/24 00:00 Temperature Pulse Rate 115 H 111 H 114 H Respiratory Rate Blood Pressure Pulse Oximetry Oxygen Delivery 05/19/24 00:10 05/19/24 00:15 05/19/24 02:00 Temperature 36.7 C Pulse Rate 112 H 102 H Respiratory Rate 28 H Blood Pressure 118/88 Pulse Oximetry 93 Oxygen Delivery Room Air 05/19/24 04:00 05/19/24 04:00 05/19/24 04:36 Temperature 36.6 C Pulse Rate 104 H 98 Respiratory Rate 28 H Blood Pressure 111/72 Pulse Oximetry 97 Oxygen Delivery Room Air 05/19/24 06:07 05/19/24 07:50 Temperature 36.4 C L Pulse Rate 104 H 111 H Respiratory Rate 22 H Blood Pressure 136/92 H Pulse Oximetry 95 Oxygen Delivery Intake/Output Intake/Output: Intake & Output 05/16/24 05/17/24 05/18/24 05/19/24 23:59 23:59 23:59 23:59 Intake Total 1250 3133.4 1600 Output Total 650 320 Balance 1250 2483.4 1280 Meds/Results Medications: Active Medications Generic Name Dose Route Start Last Admin Trade Name Freq PRN Reason Stop Dose Admin Acetaminophen 650 mg 05/17/24 12:42 Acetaminophen 325 Mg Tablet PO Q4H PRN Mild Pain (1-3) or Fever Hydrocodone Bitart/Acetaminophen 1 tab 05/17/24 09:59 05/17/24 16:40 Hydrocodone/Acetaminophen (*Crx) 5-325 Mg Tablet PO 1 tab Q4H PRN Administration Pain Rated 4-6 Cholestyramine Resin 4 gm 05/18/24 11:00 05/18/24 11:11 Cholestyramine (W/ Sugar) 4 Gm Powd.Pack PO 4 gm QAM@1100 CATE Administration Dextrose 12.5 gm 05/17/24 12:42 Dextrose 50% 25 Gm/50 Ml Syringe IV PUSH PRN PRN Hypoglycemia Protocol Docusate Sodium 100 mg 05/17/24 17:00 05/18/24 16:41 Docusate Sodium 100 Mg Capsule PO 100 mg BID CATE Administration Ezetimibe 10 mg 05/18/24 09:00 05/18/24 08:18 Ezetimibe 10 Mg Tablet BY MOUTH 10 mg DAILY CATE Administration Famotidine 20 mg 05/18/24 09:00 05/18/24 08:18 Famotidine 20 Mg Tablet BY MOUTH 20 mg DAILY CATE Administration Glucagon 1 mg 05/17/24 12:42 Glucagon For Inj 1 Mg Vial IM PRN PRN Hypoglycemia Protocol Glucose 15 gm 05/17/24 12:42 Glucose Oral Gel 15 Gm Of Glucse In 37.5 Gm Tube PO PRN PRN Hypoglycemia Protocol Sodium Chloride 1,000 mls @ 100 mls/hr 05/17/24 12:45 05/19/24 05:42 Normal Saline Iv IV CONT 100 mls/hr .Q10H CATE Administration Dextrose 1,000 mls @ 100 mls/hr 05/17/24 12:42 Dextrose 5% 1,000 Ml IVPB PRN PRN Hypoglycemia Protocol Piperacillin Sod/Tazobactam Sod 2.25 gm in 50 mls @ 100 mls/hr 05/19/24 06:00 05/19/24 06:15 Zosyn 2.25 Gm/Ns 50 Ml IVPB Infused Q6HR CATE Infusion Insulin Aspart 3 - 6 units 05/17/24 17:00 05/18/24 14:59 Insulin Aspart (*Bkc) 100 Units/Ml SUB-Q Not Given TIDWM [facility] Protocol Insulin Aspart 1 - 2 units 05/17/24 21:00 05/18/24 21:57 Insulin Aspart (*Bkc) 100 Units/Ml SUB-Q Not Given HS [facility] Protocol Metoprolol Tartrate 25 mg 05/17/24 15:00 05/19/24 06:07 Metoprolol Tartrate 25 Mg Tablet PO 25 mg Q8H CATE Administration Mirabegron 25 mg 05/18/24 21:00 05/18/24 21:56 Mirabegron 25 Mg Er Tablet PO 25 mg HS CATE Administration Ondansetron HCl 4 mg 05/17/24 09:59 05/17/24 21:44 Ondansetron Inj 4 Mg/2 Ml Vial IV PUSH 4 mg Q4H PRN Administration Nausea Paroxetine HCl 20 mg 05/18/24 09:00 05/18/24 08:18 Paroxetine 20 Mg Tablet BY MOUTH 20 mg DAILY CATE Administration Rivaroxaban 20 mg 05/18/24 17:00 05/18/24 16:41 Rivaroxaban 20 Mg Tablet PO 20 mg DAILY@1700 CATE Administration Radiology Results: ITS Impressions Chest X-Ray 05/17/24 08:27 Impression: Possible mild chronic interstitial disease. No acute pulmonary abnormality. Abdomen/Pelvis CT 05/17/24 22:51 IMPRESSION: 1. Small pleural effusions. 2. Gallbladder wall thickening, probably interstitial edema. Abdomen Ultrasound 05/18/24 19:47 IMPRESSION: 3 mm gallbladder wall thickening and minimal pericholecystic fluid; consider radionuclide hepatobiliary scan to evaluate for possible acute cholecystitis Mild surface nodularity of the liver; recommend clinical correlation for cirrhosis Labs Labs: Laboratory Results - last 24 hr 05/18/24 05/18/24 05/18/24 11:55 15:35 20:46 WBC RBC Hgb Hct MCV MCH MCHC RDW Plt Count MPV Sodium Potassium Chloride Carbon Dioxide Anion Gap BUN Creatinine Estim Creat Clear Calc Estimated GFR Glucose POC Capillary Glucose 163 H 152 H 129 H Calcium Total Bilirubin AST ALT Alkaline Phosphatase Total Protein Albumin 05/19/24 05/19/24 04:26 07:43 WBC 23.8 H RBC 3.92 L Hgb 12.1 Hct 39.1 MCV 99.7 MCH 30.9 MCHC 30.9 L RDW 13.3 Plt Count 252 MPV 10.2 Sodium 135 L Potassium 4.3 Chloride 106 Carbon Dioxide 21 L Anion Gap 8 BUN 35 H D Creatinine 1.80 H Estim Creat Clear Calc 18 Estimated GFR 27 L Glucose 136 H POC Capillary Glucose 129 H Calcium 7.9 L Total Bilirubin 1.0 AST 88 H ALT 76 H Alkaline Phosphatase 59 Total Protein 6.0 L Albumin 3.7
--- NOTE | 2024-05-19 09:55 | PM.IMPN ---
Progress Note: A&P Assessment and Plan (1) Atrial fibrillation with RVR: Code(s): I48.91 - Unspecified atrial fibrillation Status: Acute Assessment and Plan: Cardiology consulted Diltiazem push x1 Metoprolol 50 mg b.i.d. Xarelto 20 mg p.o. q.d. Repeat EKG tomorrow Echocardiogram pending TSH within normal limits Xarelto, [id number] score at least 2 Since the chronicity of her arrhythmia is unknown and she is not anticoagulated, will pursue rate control for now with plan to attempt cardioversion as an outpatient in 3-4 weeks. (2) Leukocytosis: Code(s): D72.829 - Elevated white blood cell count, unspecified Status: Acute Assessment and Plan: UA noninfective Chest x-ray with no acute process Blood cultures pending No signs of soft tissue infection C diff pending (3) ERIK (acute kidney injury): Code(s): N17.9 - Acute kidney failure, unspecified Status: Acute Assessment and Plan: A fluids for hydration CMP tomorrow (4) Hyperglycemia: Code(s): R73.9 - Hyperglycemia, unspecified Status: Acute Assessment and Plan: Hemoglobin A1c 5.7 SSI a.c. HS (5) Elevated liver enzymes: Code(s): R74.8 - Abnormal levels of other serum enzymes Status: Acute Assessment and Plan: CMP tomorrow for monitoring (6) Interstitial lung disease: Code(s): J84.9 - Interstitial pulmonary disease, unspecified Status: Acute Assessment and Plan: No acute issues Patient should follow-up outpatient with pulmonology (7) Acute cholecystitis without calculus: Code(s): K81.0 - Acute cholecystitis Status: Acute Assessment and Plan: Consulted surgery and GI Started Zosyn and vancomycin Monitor vitals Uptrending WBC US GB: 3 mm gallbladder wall thickening and minimal pericholecystic fluid; consider radionuclide hepatobiliary scan to evaluate for possible acute cholecystitis Mild surface nodularity of the liver; recommend clinical correlation for cirrhosis CT abdomen: gallbladder wall thickening probably interstitial edema Subjective Date/time seen: 05/19/24 09:55 Interval history: Patient denies any abdominal pain today. Patient has a past medical history of IBS. Due to the gallbladder wall thickening, possible interstitial edema with increasing patient is suspected to have acute cholecystitis and consulted surgery. Initially surgery reviewed the CT scan and agreed with Acute cholecystitis.Today surgery reported with her increasing WBC and US showing no significant finding ,possibility of leucocytosis from other source.Her BC resulted Gram positive cocci which usual source is skin or lung not from making suspicious the source of infection. Added vancomycin in her regimen and consulted GI for possible HIDA scan.Today repeated BC. UC resulted no growth. Patient vitals wnl. Review of Systems Review of Systems: 12 systems were reviewed and are negative except for as per HPI. Exam Narrative: General: well appearing, appears stated age. HEENT: normocephalic, atraumatic. Mucous membranes moist. EOMI, PERRLA, bilateral sclera anicteric, no conjunctival injection. Neck supple without JVD, lymphadenopathy, or bruit. Respiratory: clear to ascultation bilaterally. No rales/rhonic/wheezes. Cardiovascular: Irregular, . No murmurs, rubs, or clicks. PMI is nondisplaced, capillary refill less than 3 second. Abdomen: Soft, round, no pulsatile masses, nondistended and nontender. No rebound, no guarding. No CVA tenderness, no hepatosplenomegaly. Bowel sounds present to all four quadrants. No high pitch or tinkling sounds, resonant to percussion. Extremities: No cyanosis, clubbing, or edema present. Pulses are palpable 2/2. Active ROM to all four extremities. Neuro: Alert and orientated x 4. PERRLA. Cranial nerves 2-12 intact without focal deficit. Skin: Warm, dry, and intact, without rash, erythema, or lesion. Psych: pleasant, cooperative, normal speech, normal affect, no hallucinations, no dysarthia Objective Data Vital Signs Vital Signs: Vital Signs - 24 hr 05/18/24 12:00 05/18/24 12:00 05/18/24 12:00 Temperature 97.3 F L Pulse Rate 72 72 72 Respiratory Rate 20 20 Blood Pressure 125/79 Pulse Oximetry 96 96 Oxygen Delivery Room Air 05/18/24 14:00 05/18/24 15:40 05/18/24 16:00 Temperature 97.4 F L Pulse Rate 72 109 H 109 H Respiratory Rate 28 H 28 H Blood Pressure 124/92 H Pulse Oximetry 95 95 Oxygen Delivery Room Air 05/18/24 16:00 05/18/24 16:41 05/18/24 18:00 Temperature Pulse Rate 109 H 109 H 100 Respiratory Rate Blood Pressure Pulse Oximetry Oxygen Delivery 05/18/24 20:00 05/18/24 21:15 05/18/24 21:30 Temperature 98.7 F Pulse Rate 108 H 117 H Respiratory Rate 28 H Blood Pressure 134/81 Pulse Oximetry 90 Oxygen Delivery Room Air 05/18/24 22:00 05/18/24 23:31 05/19/24 00:00 Temperature Pulse Rate 115 H 111 H 114 H Respiratory Rate Blood Pressure Pulse Oximetry Oxygen Delivery 05/19/24 00:10 05/19/24 00:15 05/19/24 02:00 Temperature 98.0 F Pulse Rate 112 H 102 H Respiratory Rate 28 H Blood Pressure 118/88 Pulse Oximetry 93 Oxygen Delivery Room Air 05/19/24 04:00 05/19/24 04:00 05/19/24 04:36 Temperature 97.8 F Pulse Rate 104 H 98 Respiratory Rate 28 H Blood Pressure 111/72 Pulse Oximetry 97 Oxygen Delivery Room Air 05/19/24 06:07 05/19/24 07:50 Temperature 97.5 F L Pulse Rate 104 H 111 H Respiratory Rate 22 H Blood Pressure 136/92 H Pulse Oximetry 95 Oxygen Delivery Intake/Output Intake/Output: Intake & Output 05/16/24 05/17/24 05/18/24 05/19/24 23:59 23:59 23:59 23:59 Intake Total 1250 3133.4 1600 Output Total 650 320 Balance 1250 2483.4 1280 Meds/Results Medications: Active Medications Generic Name Dose Route Start Last Admin Trade Name Freq PRN Reason Stop Dose Admin Acetaminophen 650 mg 05/17/24 12:42 Acetaminophen 325 Mg Tablet PO Q4H PRN Mild Pain (1-3) or Fever Hydrocodone Bitart/Acetaminophen 1 tab 05/17/24 09:59 05/17/24 16:40 Hydrocodone/Acetaminophen (*Crx) 5-325 Mg Tablet PO 1 tab Q4H PRN Administration Pain Rated 4-6 Cholestyramine Resin 4 gm 05/18/24 11:00 05/18/24 11:11 Cholestyramine (W/ Sugar) 4 Gm Powd.Pack PO 4 gm QAM@1100 [facility] Administration Dextrose 12.5 gm 05/17/24 12:42 Dextrose 50% 25 Gm/50 Ml Syringe IV PUSH PRN PRN Hypoglycemia Protocol Docusate Sodium 100 mg 05/17/24 17:00 05/18/24 16:41 Docusate Sodium 100 Mg Capsule PO 100 mg BID [facility] Administration Ezetimibe 10 mg 05/18/24 09:00 05/18/24 08:18 Ezetimibe 10 Mg Tablet BY MOUTH 10 mg DAILY [facility] Administration Famotidine 20 mg 05/18/24 09:00 05/18/24 08:18 Famotidine 20 Mg Tablet BY MOUTH 20 mg DAILY [facility] Administration Glucagon 1 mg 05/17/24 12:42 Glucagon For Inj 1 Mg Vial IM PRN PRN Hypoglycemia Protocol Glucose 15 gm 05/17/24 12:42 Glucose Oral Gel 15 Gm Of Glucse In 37.5 Gm Tube PO PRN PRN Hypoglycemia Protocol Sodium Chloride 1,000 mls @ 100 mls/hr 05/17/24 12:45 05/19/24 05:42 Normal Saline Iv IV CONT 100 mls/hr .Q10H [facility] Administration Dextrose 1,000 mls @ 100 mls/hr 05/17/24 12:42 Dextrose 5% 1,000 Ml IVPB PRN PRN Hypoglycemia Protocol Piperacillin Sod/Tazobactam Sod 2.25 gm in 50 mls @ 100 mls/hr 05/19/24 06:00 05/19/24 06:15 Zosyn 2.25 Gm/Ns 50 Ml IVPB Infused Q6HR [facility] Infusion Insulin Aspart 3 - 6 units 05/17/24 17:00 05/18/24 14:59 Insulin Aspart (*Bkc) 100 Units/Ml SUB-Q Not Given TIDWM [facility] Protocol Insulin Aspart 1 - 2 units 05/17/24 21:00 05/18/24 21:57 Insulin Aspart (*Bkc) 100 Units/Ml SUB-Q Not Given HS [facility] [place] Protocol Metoprolol Tartrate 25 mg 05/17/24 15:00 05/19/24 06:07 Metoprolol Tartrate 25 Mg Tablet PO 25 mg Q8H [facility] Administration Mirabegron 25 mg 05/18/24 21:00 05/18/24 21:56 Mirabegron 25 Mg Er Tablet PO 25 mg HS [facility] Administration Ondansetron HCl 4 mg 05/17/24 09:59 05/17/24 21:44 Ondansetron Inj 4 Mg/2 Ml Vial IV PUSH 4 mg Q4H PRN Administration Nausea Paroxetine HCl 20 mg 05/18/24 09:00 05/18/24 08:18 Paroxetine 20 Mg Tablet BY MOUTH 20 mg DAILY [facility] Administration Rivaroxaban 20 mg 05/18/24 17:00 05/18/24 16:41 Rivaroxaban 20 Mg Tablet PO 20 mg DAILY@1700 [facility] Administration Radiology Results: ITS Impressions Chest X-Ray 05/17/24 08:27 Impression: Possible mild chronic interstitial disease. No acute pulmonary abnormality. Abdomen/Pelvis CT 05/17/24 22:51 IMPRESSION: 1. Small pleural effusions. 2. Gallbladder wall thickening, probably interstitial edema. Abdomen Ultrasound 05/18/24 19:47 IMPRESSION: 3 mm gallbladder wall thickening and minimal pericholecystic fluid; consider radionuclide hepatobiliary scan to evaluate for possible acute cholecystitis Mild surface nodularity of the liver; recommend clinical correlation for cirrhosis Labs Labs: Laboratory Results - last 24 hr 05/18/24 05/18/24 05/18/24 11:55 15:35 20:46 WBC RBC Hgb Hct MCV MCH MCHC RDW Plt Count MPV Sodium Potassium Chloride Carbon Dioxide Anion Gap BUN Creatinine Estim Creat Clear Calc Estimated GFR Glucose POC Capillary Glucose 163 H 152 H 129 H Calcium Total Bilirubin AST ALT Alkaline Phosphatase Total Protein Albumin 05/19/24 05/19/24 04:26 07:43 WBC 23.8 H RBC 3.92 L Hgb 12.1 Hct 39.1 MCV 99.7 MCH 30.9 MCHC 30.9 L RDW 13.3 Plt Count 252 MPV 10.2 Sodium 135 L Potassium 4.3 Chloride 106 Carbon Dioxide 21 L Anion Gap 8 BUN 35 H D Creatinine 1.80 H Estim Creat Clear Calc 18 Estimated GFR 27 L Glucose 136 H POC Capillary Glucose 129 H Calcium 7.9 L Total Bilirubin 1.0 AST 88 H ALT 76 H Alkaline Phosphatase 59 Total Protein 6.0 L Albumin 3.7 Quality VTE Prophylaxis VTE prophylaxis: mechanical ordered and pharmacologic ordered Hospitalist MIPS Advance Care Plan I have confirmed that the patient's Advanced Care Plan is present, code status is documented, or surrogate decision maker is listed in patient medical record.: Yes Medication Reconciliation I have utilized all available resources to obtain, update and review the patients current medications (includes all prescriptions, OTC, herbals, cannabis, and nutritional supplements).: Yes
[2024-05-19] MEDS: PARoxetine 20 MG TABLET BY MOUTH (09:57)
[2024-05-19] MEDS: DOCUSATE SODIUM 100 MG CAPSULE PO ×2 (09:57→16:45)
[2024-05-19] MEDS: EZETIMIBE 10 MG TABLET BY MOUTH (09:57)
[2024-05-19] MEDS: FAMOTIDINE 20 MG TABLET BY MOUTH (09:57)
--- NOTE | 2024-05-19 10:09 | PM.PNGS ---
Progress Note: A&P Assessment and Plan (1) Acute cholecystitis without calculus: Code(s): K81.0 - Acute cholecystitis Status: Acute Assessment and Plan: U/s does not show any significant findings. Her WBC is going up but that doesn't fit her clinical picture. Clinically she has no signs of acute cholecystitis and is tolerating her diet. No surgical indications at this time, and might need to consider other sources of leukocytosis. Could consider HIDA scan to rule in/out cholecystitis. Will continue to follow. (2) Elevated liver enzymes: Code(s): R74.8 - Abnormal levels of other serum enzymes Status: Acute (3) Interstitial lung disease: Code(s): J84.9 - Interstitial pulmonary disease, unspecified Status: Acute (4) ERIK (acute kidney injury): Code(s): N17.9 - Acute kidney failure, unspecified Status: Acute (5) Atrial fibrillation with RVR: Code(s): I48.91 - Unspecified atrial fibrillation Status: Acute Subjective Subjective Date/Time Seen: 05/19/24 10:09 Interval history: No abdominal pain. Tolerating diet. No nausea/vomiting. Exam GI: Inspection: non-distended GI Palp: Yes Soft to palpation, No Tenderness to palpation present (GI), No Guarding due to palpation present (GI) and No Palpable mass present Percussion: Yes normal to percussion Auscultation: normal bowel sounds Objective Data Vital Signs Vital Signs: Vital Signs - 24 hr 05/18/24 12:00 05/18/24 12:00 05/18/24 12:00 Temperature 97.3 F L Pulse Rate 72 72 72 Respiratory Rate 20 20 Blood Pressure 125/79 Pulse Oximetry 96 96 Oxygen Delivery Room Air 05/18/24 14:00 05/18/24 15:40 05/18/24 16:00 Temperature 97.4 F L Pulse Rate 72 109 H 109 H Respiratory Rate 28 H 28 H Blood Pressure 124/92 H Pulse Oximetry 95 95 Oxygen Delivery Room Air 05/18/24 16:00 05/18/24 16:41 05/18/24 18:00 Temperature Pulse Rate 109 H 109 H 100 Respiratory Rate Blood Pressure Pulse Oximetry Oxygen Delivery 05/18/24 20:00 05/18/24 21:15 05/18/24 21:30 Temperature 98.7 F Pulse Rate 108 H 117 H Respiratory Rate 28 H Blood Pressure 134/81 Pulse Oximetry 90 Oxygen Delivery Room Air 05/18/24 22:00 05/18/24 23:31 05/19/24 00:00 Temperature Pulse Rate 115 H 111 H 114 H Respiratory Rate Blood Pressure Pulse Oximetry Oxygen Delivery 05/19/24 00:10 05/19/24 00:15 05/19/24 02:00 Temperature 98.0 F Pulse Rate 112 H 102 H Respiratory Rate 28 H Blood Pressure 118/88 Pulse Oximetry 93 Oxygen Delivery Room Air 05/19/24 04:00 05/19/24 04:00 05/19/24 04:36 Temperature 97.8 F Pulse Rate 104 H 98 Respiratory Rate 28 H Blood Pressure 111/72 Pulse Oximetry 97 Oxygen Delivery Room Air 05/19/24 06:07 05/19/24 07:50 Temperature 97.5 F L Pulse Rate 104 H 111 H Respiratory Rate 22 H Blood Pressure 136/92 H Pulse Oximetry 95 Oxygen Delivery Intake/Output Intake/Output: Intake & Output 05/16/24 05/17/24 05/18/24 05/19/24 23:59 23:59 23:59 23:59 Intake Total 1250 3133.4 1840 Output Total 650 320 Balance 1250 2483.4 1520 Meds/Results Medications: Active Medications Generic Name Dose Route Start Last Admin Trade Name Freq PRN Reason Stop Dose Admin Acetaminophen 650 mg 05/17/24 12:42 Acetaminophen 325 Mg Tablet PO Q4H PRN Mild Pain (1-3) or Fever Hydrocodone Bitart/Acetaminophen 1 tab 05/17/24 09:59 05/17/24 16:40 Hydrocodone/Acetaminophen (*Crx) 5-325 Mg Tablet PO 1 tab Q4H PRN Administration Pain Rated 4-6 Cholestyramine Resin 4 gm 05/18/24 11:00 05/18/24 11:11 Cholestyramine (W/ Sugar) 4 Gm Powd.Pack PO 4 gm QAM@1100 [facility] Administration Dextrose 12.5 gm 05/17/24 12:42 Dextrose 50% 25 Gm/50 Ml Syringe IV PUSH PRN PRN Hypoglycemia Protocol Docusate Sodium 100 mg 05/17/24 17:00 05/19/24 09:57 Docusate Sodium 100 Mg Capsule PO 100 mg BID [facility] Administration Ezetimibe 10 mg 05/18/24 09:00 05/19/24 09:57 Ezetimibe 10 Mg Tablet BY MOUTH 10 mg DAILY [facility] Administration Famotidine 20 mg 05/18/24 09:00 05/19/24 09:57 Famotidine 20 Mg Tablet BY MOUTH 20 mg DAILY [facility] Administration Glucagon 1 mg 05/17/24 12:42 Glucagon For Inj 1 Mg Vial IM PRN PRN Hypoglycemia Protocol Glucose 15 gm 05/17/24 12:42 Glucose Oral Gel 15 Gm Of Glucse In 37.5 Gm Tube PO PRN PRN Hypoglycemia Protocol Sodium Chloride 1,000 mls @ 100 mls/hr 05/17/24 12:45 05/19/24 05:42 Normal Saline Iv IV CONT 100 mls/hr .Q10H [facility] Administration Dextrose 1,000 mls @ 100 mls/hr 05/17/24 12:42 Dextrose 5% 1,000 Ml IVPB PRN PRN Hypoglycemia Protocol Piperacillin Sod/Tazobactam Sod 2.25 gm in 50 mls @ 100 mls/hr 05/19/24 06:00 05/19/24 06:15 Zosyn 2.25 Gm/Ns 50 Ml IVPB Infused Q6HR [facility] Infusion Insulin Aspart 3 - 6 units 05/17/24 17:00 05/19/24 10:00 Insulin Aspart (*Bkc) 100 Units/Ml SUB-Q Not Given TIDWM [facility] Protocol Insulin Aspart 1 - 2 units 05/17/24 21:00 05/18/24 21:57 Insulin Aspart (*Bkc) 100 Units/Ml SUB-Q Not Given HS [facility] Protocol Metoprolol Tartrate 25 mg 05/17/24 15:00 05/19/24 06:07 Metoprolol Tartrate 25 Mg Tablet PO 25 mg Q8H [facility] Administration Mirabegron 25 mg 05/18/24 21:00 05/18/24 21:56 Mirabegron 25 Mg Er Tablet PO 25 mg HS [facility] Administration Ondansetron HCl 4 mg 05/17/24 09:59 05/17/24 21:44 Ondansetron Inj 4 Mg/2 Ml Vial IV PUSH 4 mg Q4H PRN Administration Nausea Paroxetine HCl 20 mg 05/18/24 09:00 05/19/24 09:57 Paroxetine 20 Mg Tablet BY MOUTH 20 mg DAILY [facility] Administration Rivaroxaban 20 mg 05/18/24 17:00 05/18/24 16:41 Rivaroxaban 20 Mg Tablet PO 20 mg DAILY@1700 [facility] Administration Vancomycin HCl 1 each 05/19/24 10:00 Vancomycin Pharmacist To Dose IVPB PER PROTOCOL [facility] Radiology Results: ITS Impressions Chest X-Ray 05/17/24 08:27 Impression: Possible mild chronic interstitial disease. No acute pulmonary abnormality. Abdomen/Pelvis CT 05/17/24 22:51 IMPRESSION: 1. Small pleural effusions. 2. Gallbladder wall thickening, probably interstitial edema. Abdomen Ultrasound 05/18/24 19:47 IMPRESSION: 3 mm gallbladder wall thickening and minimal pericholecystic fluid; consider radionuclide hepatobiliary scan to evaluate for possible acute cholecystitis Mild surface nodularity of the liver; recommend clinical correlation for cirrhosis Labs Labs: Laboratory Results - last 24 hr 05/18/24 05/18/24 05/18/24 11:55 15:35 20:46 WBC RBC Hgb Hct MCV MCH MCHC RDW Plt Count MPV Sodium Potassium Chloride Carbon Dioxide Anion Gap BUN Creatinine Estim Creat Clear Calc Estimated GFR Glucose POC Capillary Glucose 163 H 152 H 129 H Calcium Total Bilirubin AST ALT Alkaline Phosphatase Total Protein Albumin 05/19/24 05/19/24 04:26 07:43 WBC 23.8 H RBC 3.92 L Hgb 12.1 Hct 39.1 MCV 99.7 MCH 30.9 MCHC 30.9 L RDW 13.3 Plt Count 252 MPV 10.2 Sodium 135 L Potassium 4.3 Chloride 106 Carbon Dioxide 21 L Anion Gap 8 BUN 35 H D Creatinine 1.80 H Estim Creat Clear Calc 18 Estimated GFR 27 L Glucose 136 H POC Capillary Glucose 129 H Calcium 7.9 L Total Bilirubin 1.0 AST 88 H ALT 76 H Alkaline Phosphatase 59 Total Protein 6.0 L Albumin 3.7
[2024-05-19 11:18] LABS: Glucose Point of Care 141 mg/dl (65-105)
[2024-05-19] MEDS: VANCOMYCIN 1,000 MG/NS 250 ML 1,000 MG/250 ML BAG 250 MG IVPB (11:59)
[2024-05-19] MEDS: CHOLESTYRAMINE (W/ SUGAR) 4 GM POWD.PACK PO (12:00)
[2024-05-19 14:19] LABS: MRSA (PCR) NOT DETECTED (NOT DETECTE)
[2024-05-19 15:57] LABS: Glucose Point of Care 132 mg/dl (65-105)
[2024-05-19] MEDS: RIVAROXABAN 20 MG TABLET PO (16:46)
[2024-05-19 20:45] LABS: Glucose Point of Care 152 mg/dl (65-105)
[2024-05-19] MEDS: MIRABEGRON 25 MG ER TABLET PO (21:32)
[2024-05-20] VITALS (20 sets, daily range): BP systolic 119–149; BP diastolic 72–94; PULSE 92–110; RESP 18–20; TEMP 36.1–37.1; O2SAT 97–100
[2024-05-20 05:24] LABS: Hematocrit 38.5 % (37.0-47.0); Hemoglobin 12.4 g/dL (12.0-15.0); Mean Corpuscular HGB Conc 32.2 g/dl (32-36); Mean Corpuscular Hemoglobin 31.2 pg (26-34); Mean Corpuscular Volume 96.7 fl (80-100); Mean Platelet Volume 10.4 fl (7.4-10.4); Platelet Count Result 286 k/mm3 (150-375); Red Blood Count 3.98 M/mm3 (4.2-5.4); Red Cell Distribution Width 13.2 % (11.5-14.5); White Blood Count 21.3 K/mm3 (4.5-10.0)
[2024-05-20 05:41] LABS: Estimated CRCL calculation 20 ml/min; Estimated Glomerular Filt Rate 30
[2024-05-20] MEDS: PIPERACILLIN/TAZ 2.25G/NS 50ML 2.25 GM/50 ML BAG IVPB ×3 (06:13→23:17)
[2024-05-20] MEDS: METOPROLOL TARTRATE 25 MG TABLET PO ×3 (06:14→23:17)
[2024-05-20 08:17] LABS: Glucose Point of Care 151 mg/dl (65-105)
[2024-05-20] MEDS: VANCOMYCIN 1,250 MG/NS 250 ML 1,250 MG/250 ML BAG 166.67 MG IVPB (09:06)
[2024-05-20] MEDS: EZETIMIBE 10 MG TABLET BY MOUTH (09:06)
[2024-05-20] MEDS: PARoxetine 20 MG TABLET BY MOUTH (09:06)
[2024-05-20] MEDS: DOCUSATE SODIUM 100 MG CAPSULE PO ×2 (09:07→16:43)
[2024-05-20] MEDS: FAMOTIDINE 20 MG TABLET BY MOUTH (09:07)
--- NOTE | 2024-05-20 10:11 | P.CONGI_ITS ---
<Statement entered by Saw Pickard MD - 05/20/24 15:32> I, Saw Pickard MD, have provided a substantive portion of the care of this patient and discussed the patient with my Nurse Practitioner. I have reviewed any new relevant radiographic and laboratory results including medications. I agree with her documentation as noted below.?I personally performed the medical decision making and much of the history and exam for this encounter. briefly, she was admitted few days ago with some abdominal pain, noted mild elevated transaminases and leukocytosis, ultrasound and CT possible GBW thickening. She also had A fib with RVR and started on blood thinner. Plan is to complete HIDA scan today and then surgery will make decision if may need surgery, noted bilirubin is normal along with bile duct size. Assessment and Plan Assessment and plan (1) Acute cholecystitis without calculus: Code(s): K81.0 - Acute cholecystitis Status: Acute (2) Elevated liver enzymes: Code(s): R74.8 - Abnormal levels of other serum enzymes Status: Acute (3) Chronic diarrhea: Code(s): K52.9 - Noninfective gastroenteritis and colitis, unspecified Status: Acute (4) Leukocytosis: Qualifiers: Leukocytosis type: unspecified Qualified Code(s): D72.829 - Elevated white blood cell count, unspecified Code(s): D72.829 - Elevated white blood cell count, unspecified Status: Acute (5) Lower abdominal pain: Code(s): R10.30 - Lower abdominal pain, unspecified Status: Acute (6) Family history of colon cancer: Code(s): Z80.0 - Family history of malignant neoplasm of digestive organs Status: Acute (7) Nausea and vomiting: Qualifiers: Vomiting type: bilious vomiting Qualified Code(s): R11.14 - Bilious vomiting Code(s): R11.2 - Nausea with vomiting, unspecified Status: Acute Plan 1. Acute cholecystitis/leukocytosis/nausea/vomiting/decreased appetite/lower abdominal pain: Surgery on case and Dr. Ochoa does not feel that there are any signs of acute cholecystitis and imaging does not show any significant findings. WBC's are going up but this does not fit the clinical picture as she is tolerating her diet well. No plan for surgical intervention at this time. Patient started having decreased appetite, nausea and vomiting evening that continued to around midnight before vomiting decreased in frequency but did not resolve. Admits to mild nausea but no vomiting since admission. Lower abdominal pain started morning and was severe at times and constant, pain increased with food intake but had no correlation with bowel movements. Pain has since resolved. No findings on imaging to explain lower abdominal pain but she was noted to have gallbladder wall thickening. Denies fevers. * Pending results from CT chest/abd/pelvis * Consider HIDA scan to evaluate gallbladder function * Continue antibiotics and consider other sources of infection 2. Elevated liver transaminase/abnormal imaging liver: No prior Hx of LFT elevation or known liver disease. Patient has mildly elevated liver liver transaminase and normal bilirubin and Alk Phos, AST 88 and ALT 76. Abdominal ultrasound showed mild surface nodularity of the liver. CT w/o contrast showed no abnormal liver findings. * Likely acute elevation secondary to acute infectious/inflammatory condition vs medication induced * Will check fibrosis panel 3. Chronic diarrhea/bilateral lower abdominal pain/family Hx of colon cancer: L ast colonoscopy 10/20/2015 was unremarkable. Patients mother diagnosed with colon cancer in her 50's. Patient appears younger than stated age and is very healthy and active. Patient on Questran daily and Lomotil as needed prior to admission on this regimen she was having daily BM's that varied from formed to liquid. Patient started having moderate to severe lower abdominal pain on but has since resolved since admission. No BM since admission. No change in bowel frequency prior to admission. Extent of previous GI workup unknown but was diagnosed with IBS. DDX: Bile acid diarrhea vs malabsorption vs IBD vs microscopic colitis vs functional * Continue Questran daily * stool studies pending * Discussed follow up as outpatient to further workup chronic diarrhea * Continue antibiotics Thank you very much for allowing me share in the care of this very nice patient This report may have been done utilizing a voice recognition system. Attempts have been made to correct errors. However, there may be uncorrected grammatical, spelling, and recognition errors present. GI Consult Note Consult date/time: 05/20/24 10:11 Reason for consult: Acute Cholecystitis HPI: Celestina Christianson is a 89 year old female with PMSH of hearing loss and chronic diarrhea. She presented to the ER 05/17/2024 with complaints of abdominal pain and was noted to be in A-fib RVR. GI consulted for acute cholecystitis. Patient was seen with her son Ernie and daughter Elly present at bedside throughout the entire visit. Patient states that she has chronic diarrhea that she has been controlling with Questran daily and Lomotil as needed. On morning she started having moderate to severe lower abdominal pain that would increase with food intake but had no correlation with bowel movements. On evening around 4 pm the patient started to having nausea and vomiting that lasted until around midnight and then decreased in frequency but did not resolve. Admits to increased belching, decreased appetite and persistent nausea but no vomiting. denies bloating, swallowing difficult, reflux, regurgitation, early satiety, weight loss, constipation, hematochezia or melena. Patient uses Aleve as needed a few times weekly. No aspirin or anticoagulant use prior to admission but is now on Xarelto given her new diagnosis of AFib this admission. Patient's mother was diagnosed with colon cancer in her 50s. Patient is a nonsmoker, nondrinker and denies marijuana use. ENDOSCOPY HISTORY: EGD: Patient has never had an EGD COLONOSCOPY: 10/20/[address] Damon for personal Hx of colon polyps Findings: In the mid sigmoid colon, a few small diverticula were present. The diverticula were not actively bleeding In the rectum, a few medium-sized uncomplicated internal hemorrhoids were seen. The hemorrhoids were not bleeding LABS AND STOOL STUDIES: Labs this admission: Sodium 135, potassium 4.3, BUN 35, creatinine 1.60, GFR 30. WBC is 21, HGB 12, HCT 39, MCV 97, platelets 286 Total bilirubin 1.0, AST 88, ALT 76, alkaline phosphatase 59, albumin 3.7, calcium 7.9 IMAGING: Abdominal Ultrasound 05/18/2024 FINDINGS: There is diffuse thickening of the gallbladder wall, measuring up to 3 mm thickness. This may be due to acute or chronic cholecystitis versus edema. No gallstones are noted. There is slight pericholecystic fluid. No hepatic space-occupying mass lesion. There is suggestion of mild hepatic surface nodularity suggesting possible cirrhosis. No pancreatic mass lesion is evident. The common bile duct measures 6.9 mm, mildly dilated. IMPRESSION: 3 mm gallbladder wall thickening and minimal pericholecystic fluid; consider radionuclide hepatobiliary scan to evaluate for possible acute cholecystitis Mild surface nodularity of the liver; recommend clinical correlation for cirrhosis CT abd/pelvis wo contrast 05/17/2024 IMPRESSION: 1. Small pleural effusions. 2. Gallbladder wall thickening, probably interstitial edema. Review of Systems 2 Constitutional: Constitutional: Reports as per HPI ENT: Reports as per HPI Cardiovascular: Cardiovascular: Reports as per HPI, Denies chest pain and Reports dyspnea (prior to admission ) Respiratory: Respiratory: Denies cough and Reports dyspnea Gastrointestinal: Gastrointestinal: Reports as per HPI Musculoskeletal: Musculoskeletal: Reports as per HPI Integumentary/Breasts: Skin/Breast: Reports as per HPI Psychiatric: Psychiatric: Reports as per HPI Endocrine: Endocrine: Reports no additional endocrine complaints Hematologic/Lymphatic: Hematologic/Lymphatic: Reports no additional hematologic/lymphatic complaints [facility] Past Medical History Medical History Cerumen impaction Hearing Loss Left arm pain BMI 24.0-24.9, adult Chronic diarrhea BMI 25.0-25.9,adult Family History Family History Mother Carcinoma of colon Father Family history of heart disease in male family member before age 55 Acute myocardial infarction Sibling , 97-sister Bowel disease, inflammatory Sibling Bowel disease, inflammatory C. difficile diarrhea Other Family history of congenital heart disease Family history of coronary artery disease Family history of malignant neoplasm Social History Social History Smoking status: Former smoker Second hand tobacco smoke exposure: Yes Alcohol intake: current Drinks per week: 1 Substance use: never Substance use type: does not use Do You Feel Safe in your Home?: Yes Lack of Transportation: No Lack of Food: Never True Current Housing: I Do Not Have Housing Concerned About Future Housing: No Difficulty Paying Gas/Electric Bills: No Difficulty Paying for Meds: No Currently Unemployed: No Education: High School Diploma/GED Difficulty w/ Childcare or Family Care: No Living arrangements: alone Occupation/Education: retired 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 Gender identity (if verbalized by the patient): Female Sexual Orientation (if Verbalized by the Patient): Straight or Heterosexual Spiritual care concerns: No Agree to blood products: Yes Meds Home Medications and Allergies Home Medications ?Medication ?Instructions ?Recorded ?Confirmed ?Type mirabegron 25 mg tablet,extended 25 mg PO HS 10/15/19 05/17/24 History release 24 hr (Myrbetriq) Lactobacillus rhamnosus GG 20 See Rx Instructions PO .COMPLEX 07/20/20 05/17/24 History billion cell capsule (Probiotic Digestive Care) diphenoxylate-atropine 2.5 2 tablet PO QID PRN diarrhea #60 08/07/23 05/17/24 Rx mg-0.025 mg tablet (Lomotil) tabs famotidine 20 mg tablet See Rx Instructions .Route 12/14/23 05/17/24 Rx .COMPLEX #90 tabs paroxetine HCl 20 mg tablet See Rx Instructions .Route 12/27/23 05/17/24 Rx .COMPLEX #90 tabs ezetimibe 10 mg tablet See Rx Instructions .Route 03/01/24 05/17/24 Rx .COMPLEX #90 tabs cholestyramine (with sugar) 4 gram See Rx Instructions PO BID IBS 05/17/24 05/17/24 History oral powder Allergies Allergy/AdvReac Type Severity Reaction Status Date / Time [id number] Reductase AdvReac Intermediate Elevated Verified 05/17/24 12:08 Inhibitor CPK Vital Signs Vital Signs - 24 hr 05/19/24 10:36 05/19/24 10:36 05/19/24 11:43 Temperature Pulse Rate 112 H 112 H Respiratory Rate 22 H Blood Pressure Pulse Oximetry 95 95 Oxygen Delivery Room Air Room Air 05/19/24 11:43 05/19/24 15:19 05/19/24 15:19 Temperature 96.7 F L Pulse Rate 104 H 104 H 104 H Respiratory Rate 18 18 Blood Pressure 124/79 Pulse Oximetry 96 96 Oxygen Delivery Room Air 05/19/24 15:22 05/19/24 15:33 05/19/24 19:55 Temperature 98.2 F 97.8 F Pulse Rate 96 96 100 Respiratory Rate 18 18 Blood Pressure 145/86 H 135/90 Pulse Oximetry 98 100 Oxygen Delivery 05/19/24 20:00 05/19/24 20:00 05/19/24 22:00 Temperature Pulse Rate 104 H 104 H 102 H Respiratory Rate 18 Blood Pressure Pulse Oximetry 100 Oxygen Delivery Room Air 05/19/24 23:23 05/20/24 00:00 05/20/24 00:00 Temperature Pulse Rate 102 H 104 H 104 H Respiratory Rate 18 Blood Pressure Pulse Oximetry 100 Oxygen Delivery Room Air 05/20/24 00:12 05/20/24 02:00 05/20/24 04:00 Temperature 97.9 F Pulse Rate 106 H 102 H 108 H Respiratory Rate 20 18 Blood Pressure 119/92 H Pulse Oximetry 98 99 Oxygen Delivery Room Air 05/20/24 04:00 05/20/24 04:15 05/20/24 06:00 Temperature 98.0 F Pulse Rate 108 H 102 H 98 Respiratory Rate 18 Blood Pressure 133/89 Pulse Oximetry 99 Oxygen Delivery 05/20/24 06:14 05/20/24 08:23 Temperature 97.5 F L Pulse Rate 102 H 101 H Respiratory Rate 20 Blood Pressure 136/89 Pulse Oximetry 97 Oxygen Delivery Exam 2 Const: General: cooperative, healthy appearing, comfortable, no acute distress and well developed Orientation/consciousness: oriented to person, oriented to place, oriented to time and patient oriented x3 Other: looks younger than stated age HENMT: Head: normal to inspection, normocephalic and atraumatic Mouth: Yes Normal oral and palatal mucosa present and Yes moist mucous membranes Eyes: General: appearance normal, both eyes and all related structures C onjunctivae: conjunctivae normal Sclera: sclerae normal Pupils: Equal, round and reactive pupils present Neck: Neck: normal visual inspection Chest: Chest palpation & inspection: normal inspection of the chest Resp: Effort & Inspection: normal respiratory effort and able to speak in complete sentences Auscultation: clear to auscultation bilaterally Cardio: Jugular venous distension: no JVD Rate: regular rate Rhythm: r egular rhythm Heart sounds: S1 normal heart sound present and S2 normal heart sound present GI: Inspection: normal to inspection GI Palp: Yes Soft to palpation and Yes No hepatosplenomegaly present Auscultation: normal bowel sounds Rectal Exam: deferred Skin: General skin exam: normal color and no rashes or lesions noted Neuro: General: oriented to person, oriented to place, oriented to time and patient oriented x3 Cranial nerves: Yes Equal, round and reactive pupils present Speech: normal speech Extrem: General: normal to inspection and no clubbing, cyanosis or edema Psych: Appearance: grossly normal and well kempt Affect: normal affect Results Labs 05/20/24 04:51 05/20/24 04:51 Labs: Short CBC 05/20/24 Range/Units 04:51 WBC 21.3 H (4.5-10.0) K/mm3 Hgb 12.4 (12.0-15.0) g/dL Hct 38.5 (37.0-47.0) % Plt Count 286 (150-375) k/mm3 [facility] 05/20/24 04:51 Creatinine 1.60 H
--- NOTE | 2024-05-20 10:56 | PM.PNGS ---
Progress Note: A&P Assessment and Plan (1) Acute cholecystitis without calculus: Code(s): K81.0 - Acute cholecystitis Status: Acute Assessment and Plan: No abdominal pain but patient still has leukocytosis and nausea. Will get HIDA scan today. If cystic duct obstructed, might need to consider surgery after Xarelto has been held for several days, or consider percutaneous cholecystostomy tube. (2) Elevated liver enzymes: Code(s): R74.8 - Abnormal levels of other serum enzymes Status: Acute (3) Interstitial lung disease: Code(s): J84.9 - Interstitial pulmonary disease, unspecified Status: Acute (4) ERIK (acute kidney injury): Code(s): N17.9 - Acute kidney failure, unspecified Status: Acute (5) Atrial fibrillation with RVR: Code(s): I48.91 - Unspecified atrial fibrillation Status: Acute Subjective Subjective Date/Time Seen: 05/20/24 10:56 Interval history: No abdominal pain. Still having persistent nausea and poor appetite. Exam GI: Inspection: non-distended GI Palp: Yes Soft to palpation, No Tenderness to palpation present (GI), No Guarding due to palpation present (GI) and No Palpable mass present Percussion: Yes normal to percussion Auscultation: normal bowel sounds Objective Data Vital Signs Vital Signs: Vital Signs - 24 hr 05/19/24 11:43 05/19/24 11:43 05/19/24 15:19 Temperature 96.7 F L Pulse Rate 104 H 104 H Respiratory Rate 18 Blood Pressure 124/79 Pulse Oximetry 95 96 Oxygen Delivery Room Air 05/19/24 15:19 05/19/24 15:22 05/19/24 15:33 Temperature 98.2 F Pulse Rate 104 H 96 96 Respiratory Rate 18 18 Blood Pressure 145/86 H Pulse Oximetry 96 98 Oxygen Delivery Room Air 05/19/24 19:55 05/19/24 20:00 05/19/24 20:00 Temperature 97.8 F Pulse Rate 100 104 H 104 H Respiratory Rate 18 18 Blood Pressure 135/90 Pulse Oximetry 100 100 Oxygen Delivery Room Air 05/19/24 22:00 05/19/24 23:23 05/20/24 00:00 Temperature Pulse Rate 102 H 102 H 104 H Respiratory Rate 18 Blood Pressure Pulse Oximetry 100 Oxygen Delivery Room Air 05/20/24 00:00 05/20/24 00:12 05/20/24 02:00 Temperature 97.9 F Pulse Rate 104 H 106 H 102 H Respiratory Rate 20 Blood Pressure 119/92 H Pulse Oximetry 98 Oxygen Delivery 05/20/24 04:00 05/20/24 04:00 05/20/24 04:15 Temperature 98.0 F Pulse Rate 108 H 108 H 102 H Respiratory Rate 18 18 Blood Pressure 133/89 Pulse Oximetry 99 99 Oxygen Delivery Room Air 05/20/24 06:00 05/20/24 06:14 05/20/24 08:00 Temperature Pulse Rate 98 102 H Respiratory Rate Blood Pressure Pulse Oximetry 97 Oxygen Delivery Room Air 05/20/24 08:00 05/20/24 08:23 05/20/24 10:00 Temperature 97.5 F L Pulse Rate 103 H 101 H 97 Respiratory Rate 20 Blood Pressure 136/89 Pulse Oximetry 97 Oxygen Delivery Intake/Output Intake/Output: Intake & Output 05/17/24 05/18/24 05/19/24 05/20/24 23:59 23:59 23:59 23:59 Intake Total 1250 3133.4 3040 350 Output Total 650 520 Balance 1250 2483.4 2520 350 Meds/Results Medications: Active Medications Generic Name Dose Route Start Last Admin Trade Name Freq PRN Reason Stop Dose Admin Acetaminophen 650 mg 05/17/24 12:42 Acetaminophen 325 Mg Tablet PO Q4H PRN Mild Pain (1-3) or Fever Hydrocodone Bitart/Acetaminophen 1 tab 05/17/24 09:59 05/17/24 16:40 Hydrocodone/Acetaminophen (*Crx) 5-325 Mg Tablet PO 1 tab Q4H PRN Administration Pain Rated 4-6 Cholestyramine Resin 4 gm 05/18/24 11:00 05/19/24 12:00 Cholestyramine (W/ Sugar) 4 Gm Powd.Pack PO 4 gm QAM@1100 [facility] Administration Dextrose 12.5 gm 05/17/24 12:42 Dextrose 50% 25 Gm/50 Ml Syringe IV PUSH PRN PRN Hypoglycemia Protocol Docusate Sodium 100 mg 05/17/24 17:00 05/20/24 09:07 Docusate Sodium 100 Mg Capsule PO 100 mg BID CATE Administration Ezetimibe 10 mg 05/18/24 09:00 05/20/24 09:06 Ezetimibe 10 Mg Tablet BY MOUTH 10 mg DAILY [facility]ATE Administration Famotidine 20 mg 05/18/24 09:00 05/20/24 09:07 Famotidine 20 Mg Tablet BY MOUTH 20 mg DAILY CATE Administration Glucagon 1 mg 05/17/24 12:42 Glucagon For Inj 1 Mg Vial IM PRN PRN Hypoglycemia Protocol Glucose 15 gm 05/17/24 12:42 Glucose Oral Gel 15 Gm Of Glucse In 37.5 Gm Tube PO PRN PRN Hypoglycemia Protocol Dextrose 1,000 mls @ 100 mls/hr 05/17/24 12:42 Dextrose 5% 1,000 Ml IVPB PRN PRN Hypoglycemia Protocol Piperacillin Sod/Tazobactam Sod 2.25 gm in 50 mls @ 100 mls/hr 05/19/24 14:00 05/20/24 06:46 Zosyn 2.25 Gm/Ns 50 Ml IVPB Infused Q8HR [facility] Infusion Vancomycin HCl 1,250 mg in 250 mls @ 166.667 mls/hr 05/20/24 07:00 05/20/24 09:06 Vancomycin 1,250 Mg/Ns 250 Ml IVPB 166.67 mls/hr Q36H [facility] Administration Insulin Aspart 3 - 6 units 05/17/24 17:00 05/20/24 09:04 Insulin Aspart (*Bkc) 100 Units/Ml SUB-Q Not Given TIDWM [facility] Protocol Insulin Aspart 1 - 2 units 05/17/24 21:00 05/19/24 21:30 Insulin Aspart (*Bkc) 100 Units/Ml SUB-Q Not Given HS [facility] Protocol Metoprolol Tartrate 25 mg 05/17/24 15:00 05/20/24 06:14 Metoprolol Tartrate 25 Mg Tablet PO 25 mg Q8H [facility] Administration Mirabegron 25 mg 05/18/24 21:00 05/19/24 21:32 Mirabegron 25 Mg Er Tablet PO 25 mg HS [facility] Administration Ondansetron HCl 4 mg 05/17/24 09:59 05/17/24 21:44 Ondansetron Inj 4 Mg/2 Ml Vial IV PUSH 4 mg Q4H PRN Administration Nausea Paroxetine HCl 20 mg 05/18/24 09:00 05/20/24 09:06 Paroxetine 20 Mg Tablet BY MOUTH 20 mg DAILY [facility] Administration Perflutren Lipid Microsphere 0 ml 12/22/24 17:05 Perflutren Lipid Microspheres 1.5 Ml Vial Diluted To 10 Ml Total Volume IV PUSH 05/22/24 17:05 ONCE PRN adequate visualization Protocol Rivaroxaban 20 mg 05/18/24 17:00 05/19/24 16:46 Rivaroxaban 20 Mg Tablet PO 20 mg DAILY@1700 [facility] Administration Radiology Results: ITS Impressions Chest X-Ray 05/17/24 08:27 Impression: Possible mild chronic interstitial disease. No acute pulmonary abnormality. Abdomen/Pelvis CT 05/17/24 22:51 IMPRESSION: 1. Small pleural effusions. 2. Gallbladder wall thickening, probably interstitial edema. Abdomen Ultrasound 05/18/24 19:47 IMPRESSION: 3 mm gallbladder wall thickening and minimal pericholecystic fluid; consider radionuclide hepatobiliary scan to evaluate for possible acute cholecystitis Mild surface nodularity of the liver; recommend clinical correlation for cirrhosis Labs Labs: Laboratory Results - last 24 hr 05/19/24 05/19/24 05/19/24 11:13 13:00 15:24 WBC RBC Hgb Hct MCV MCH MCHC RDW Plt Count MPV Creatinine Estim Creat Clear Calc Estimated GFR POC Capillary Glucose 141 H 132 H Nasal MRSA (PCR) Not detected Random Vancomycin 05/19/24 05/20/24 05/20/24 20:00 04:51 08:14 WBC 21.3 H RBC 3.98 L Hgb 12.4 Hct 38.5 MCV 96.7 MCH 31.2 MCHC 32.2 RDW 13.2 Plt Count 286 MPV 10.4 Creatinine 1.60 H Estim Creat Clear Calc 20 Estimated GFR 30 L POC Capillary Glucose 152 H 151 H Nasal MRSA (PCR) Random Vancomycin 7.0 L
[2024-05-20 11:12] LABS: Glucose Point of Care 135 mg/dl (65-105)
[2024-05-20] MEDS: CHOLESTYRAMINE (W/ SUGAR) 4 GM POWD.PACK PO (12:44)
[2024-05-20 12:59] LABS: Alanine Aminotransferase 124 U/L (6-35); Albumin Level 3.6 g/dL (3.5-5.1); Alkaline Phosphatase 79 U/L (38-126); Aspartate Amino Transferase 103 U/L (14-36); Bilirubin,Total 0.9 mg/dL (0.2-1.3)
--- NOTE | 2024-05-20 16:02 | PM.IMPN ---
Progress Note: A&P Assessment and Plan (1) Atrial fibrillation with RVR: Code(s): I48.91 - Unspecified atrial fibrillation Status: Acute Assessment and Plan: Cardiology consulted Diltiazem push x1 Metoprolol 50 mg b.i.d. Xarelto 20 mg p.o. q.d. continue rate control and oac echo ef shows Left ventricular systolic function is normal, estimated at 35-40%. 2. The left ventricular diastolic function is abnormal. 3. Left atrial chamber dimension is moderately enlarged. 4. Right atrial chamber dimension is moderately enlarged. 5. There is trace aortic valve regurgitation. 6. There is mild aortic valve calcification. 7. There is mild mitral valve calcification. 8. There is mild to moderate mitral valve regurgitation. 9. There is moderate tricuspid valve regurgitation. 10. Moderate pulmonary hypertension, estimated pulmonary arterial systolic pressure is 49 mmHg. 11. There is mild pulmonic regurgitation. 12. afib with RVR. (2) Leukocytosis: Qualifiers: Leukocytosis type: unspecified Qualified Code(s): D72.829 - Elevated white blood cell count, unspecified Code(s): D72.829 - Elevated white blood cell count, unspecified Status: Acute Assessment and Plan: UA noninfective Chest x-ray with no acute process Blood cultures pending No signs of soft tissue infection C diff pending treat with iv vanc and iv zosyn (3) ERIK (acute kidney injury): Code(s): N17.9 - Acute kidney failure, unspecified Status: Acute Assessment and Plan: sp fluid hydration bmp is 1.6 (4) Hyperglycemia: Code(s): R73.9 - Hyperglycemia, unspecified Status: Acute Assessment and Plan: Hemoglobin A1c 5.7 SSI a.c. HS (5) Elevated liver enzymes: Code(s): R74.8 - Abnormal levels of other serum enzymes Status: Acute Assessment and Plan: watch cmp (6) Interstitial lung disease: Code(s): J84.9 - Interstitial pulmonary disease, unspecified Status: Acute Assessment and Plan: No acute issues Patient should follow-up outpatient with pulmonology (7) Acute cholecystitis without calculus: Code(s): K81.0 - Acute cholecystitis Status: Acute Assessment and Plan: Consulted surgery and GI Started Zosyn and vancomycin Monitor vitals Uptrending WBC US GB: 3 mm gallbladder wall thickening and minimal pericholecystic fluid; consider radionuclide hepatobiliary scan to evaluate for possible acute cholecystitis Mild surface nodularity of the liver; recommend clinical correlation for cirrhosis CT abdomen: gallbladder wall thickening probably interstitial edema Subjective Date/time seen: 05/20/24 16:02 Interval history: pt has been unwell at home very nauseated and sick no history of abdominal pain today. Patient has a past medical history of IBS. ct ando shows ? Small pleural effusions. 2. Gallbladder wall thickening, probably interstitial edema. cxr is nl WCC staying high awaiting uc result ? cholecystitis unclear why no abdominal pain ? cdiff infection? IBS flare ? uti but looks less likely Review of Systems Review of Systems: Nauseated, loss of apettite, vomiting before admission Exam Narrative: General: well appearing, appears stated age. HEENT: normocephalic, atraumatic. Mucous membranes moist. EOMI, PERRLA, bilateral sclera anicteric, no conjunctival injection. Neck supple without JVD, lymphadenopathy, or bruit. Respiratory: clear to ascultation bilaterally. No rales/rhonic/wheezes. Cardiovascular: Irregular, . No murmurs, rubs, or clicks. PMI is nondisplaced, capillary refill less than 3 second. Abdomen: Soft, round, no pulsatile masses, nondistended and nontender. No rebound, no guarding. No CVA tenderness, no hepatosplenomegaly. Bowel sounds present to all four quadrants. No high pitch or tinkling sounds, resonant to percussion. Extremities: No cyanosis, clubbing, or edema present. Pulses are palpable 2/2. Active ROM to all four extremities. Neuro: Alert and orientated x 4. PERRLA. Cranial nerves 2-12 intact without focal deficit. Skin: Warm, dry, and intact, without rash, erythema, or lesion. Psych: pleasant, cooperative, normal speech, normal affect, no hallucinations, no dysarthia Objective Data Vital Signs Vital Signs: Vital Signs - 24 hr 05/19/24 19:55 05/19/24 20:00 05/19/24 20:00 Temperature 36.6 C Pulse Rate 100 104 H 104 H Respiratory Rate 18 18 Blood Pressure 135/90 Pulse Oximetry 100 100 Oxygen Delivery Room Air 05/19/24 22:00 05/19/24 23:23 05/20/24 00:00 Temperature Pulse Rate 102 H 102 H 104 H Respiratory Rate 18 Blood Pressure Pulse Oximetry 100 Oxygen Delivery Room Air 05/20/24 00:00 05/20/24 00:12 05/20/24 02:00 Temperature 36.6 C Pulse Rate 104 H 106 H 102 H Respiratory Rate 20 Blood Pressure 119/92 H Pulse Oximetry 98 Oxygen Delivery 05/20/24 04:00 05/20/24 04:00 05/20/24 04:15 Temperature 36.7 C Pulse Rate 108 H 108 H 102 H Respiratory Rate 18 18 Blood Pressure 133/89 Pulse Oximetry 99 99 Oxygen Delivery Room Air 05/20/24 06:00 05/20/24 06:14 05/20/24 08:00 Temperature Pulse Rate 98 102 H Respiratory Rate Blood Pressure Pulse Oximetry 97 Oxygen Delivery Room Air 05/20/24 08:00 05/20/24 08:23 05/20/24 10:00 Temperature 36.4 C L Pulse Rate 103 H 101 H 97 Respiratory Rate 20 Blood Pressure 136/89 Pulse Oximetry 97 Oxygen Delivery 05/20/24 11:16 05/20/24 12:00 05/20/24 12:00 Temperature 37.1 C Pulse Rate 107 H 100 Respiratory Rate 18 Blood Pressure 135/88 Pulse Oximetry 98 97 Oxygen Delivery Room Air 05/20/24 14:00 Temperature Pulse Rate 108 H Respiratory Rate Blood Pressure Pulse Oximetry Oxygen Delivery Intake/Output Intake/Output: Intake & Output 05/17/24 05/18/24 05/19/24 05/20/24 23:59 23:59 23:59 23:59 Intake Total 1250 3133.4 3040 350 Output Total 650 520 Balance 1250 2483.4 2520 350 Meds/Results Medications: Active Medications Generic Name Dose Route Start Last Admin Trade Name Freq PRN Reason Stop Dose Admin Acetaminophen 650 mg 05/17/24 12:42 Acetaminophen 325 Mg Tablet PO Q4H PRN Mild Pain (1-3) or Fever Hydrocodone Bitart/Acetaminophen 1 tab 05/17/24 09:59 05/17/24 16:40 Hydrocodone/Acetaminophen (*Crx) 5-325 Mg Tablet PO 1 tab Q4H PRN Administration Pain Rated 4-6 Cholestyramine Resin 4 gm 05/18/24 11:00 05/20/24 12:44 Cholestyramine (W/ Sugar) 4 Gm Powd.Pack PO 4 gm QAM@1100 CATE Administration Dextrose 12.5 gm 05/17/24 12:42 Dextrose 50% 25 Gm/50 Ml Syringe IV PUSH PRN PRN Hypoglycemia Protocol Docusate Sodium 100 mg 05/17/24 17:00 05/20/24 09:07 Docusate Sodium 100 Mg Capsule PO 100 mg BID CATE Administration Ezetimibe 10 mg 05/18/24 09:00 05/20/24 09:06 Ezetimibe 10 Mg Tablet BY MOUTH 10 mg DAILY CATE Administration Famotidine 20 mg 05/18/24 09:00 05/20/24 09:07 Famotidine 20 Mg Tablet BY MOUTH 20 mg DAILY CATE Administration Glucagon 1 mg 05/17/24 12:42 Glucagon For Inj 1 Mg Vial IM PRN PRN Hypoglycemia Protocol Glucose 15 gm 05/17/24 12:42 Glucose Oral Gel 15 Gm Of Glucse In 37.5 Gm Tube PO PRN PRN Hypoglycemia Protocol Dextrose 1,000 mls @ 100 mls/hr 05/17/24 12:42 Dextrose 5% 1,000 Ml IVPB PRN PRN Hypoglycemia Protocol Piperacillin Sod/Tazobactam Sod 2.25 gm in 50 mls @ 100 mls/hr 05/19/24 14:00 05/20/24 15:58 Zosyn 2.25 Gm/Ns 50 Ml IVPB 100 mls/hr Q8HR CATE Administration Vancomycin HCl 1,250 mg in 250 mls @ 166.667 mls/hr 05/20/24 07:00 05/20/24 09:06 Vancomycin 1,250 Mg/Ns 250 Ml IVPB 166.67 mls/hr Q36H CATE Administration Insulin Aspart 3 - 6 units 05/17/24 17:00 05/20/24 12:32 Insulin Aspart (*Bkc) 100 Units/Ml SUB-Q Not Given TIDWM CATE Protocol Insulin Aspart 1 - 2 units 05/17/24 21:00 05/19/24 21:30 Insulin Aspart (*Bkc) 100 Units/Ml SUB-Q Not Given HS [facility] Protocol Metoprolol Tartrate 25 mg 05/17/24 15:00 05/20/24 15:58 Metoprolol Tartrate 25 Mg Tablet PO 25 mg Q8H CATE Administration Mirabegron 25 mg 05/18/24 21:00 05/19/24 21:32 Mirabegron 25 Mg Er Tablet PO 25 mg HS CATE Administration Ondansetron HCl 4 mg 05/17/24 09:59 05/17/24 21:44 Ondansetron Inj 4 Mg/2 Ml Vial IV PUSH 4 mg Q4H PRN Administration Nausea Paroxetine HCl 20 mg 05/18/24 09:00 05/20/24 09:06 Paroxetine 20 Mg Tablet BY MOUTH 20 mg DAILY CATE Administration Perflutren Lipid Microsphere 0 ml 05/19/24 17:05 Perflutren Lipid Microspheres 1.5 Ml Vial Diluted To 10 Ml Total Volume IV PUSH 05/22/24 17:05 ONCE PRN adequate visualization Protocol Rivaroxaban 20 mg 05/18/24 17:00 05/19/24 16:46 Rivaroxaban 20 Mg Tablet PO 20 mg DAILY@1700 CATE Administration Radiology Results: ITS Impressions Chest X-Ray 05/17/24 08:27 Impression: Possible mild chronic interstitial disease. No acute pulmonary abnormality. Abdomen/Pelvis CT 05/17/24 22:51 IMPRESSION: 1. Small pleural effusions. 2. Gallbladder wall thickening, probably interstitial edema. Abdomen Ultrasound 05/18/24 19:47 IMPRESSION: 3 mm gallbladder wall thickening and minimal pericholecystic fluid; consider radionuclide hepatobiliary scan to evaluate for possible acute cholecystitis Mild surface nodularity of the liver; recommend clinical correlation for cirrhosis Chest/Abdomen/Pelvis CT 05/20/24 11:33 IMPRESSION: CHEST: 1. Bilateral pleural effusion with adjacent atelectasis versus pneumonia. ABDOMEN/PELVIS: 1. Thickened wall of the gallbladder. Cholecystitis is not excluded. Clinical correlation advised. 2. Ascites. 3. Minimal fullness of the renal pelvis bilaterally. No definite ureteric stones. 4. Tiny stone in the right kidney upper pole. Labs Labs: Laboratory Results - last 24 hr 05/19/24 05/20/24 05/20/24 20:00 04:47 04:51 WBC 21.3 H RBC 3.98 L Hgb 12.4 Hct 38.5 MCV 96.7 MCH 31.2 MCHC 32.2 RDW 13.2 Plt Count 286 MPV 10.4 Creatinine 1.60 H Estim Creat Clear Calc 20 Estimated GFR 30 L POC Capillary Glucose 152 H Total Bilirubin 0.9 Direct Bilirubin 0.0 AST 103 H ALT 124 H Alkaline Phosphatase 79 Total Protein 6.0 L Albumin 3.6 Random Vancomycin 7.0 L 05/20/24 05/20/24 08:14 10:56 WBC RBC Hgb Hct MCV MCH MCHC RDW Plt Count MPV Creatinine Estim Creat Clear Calc Estimated GFR POC Capillary Glucose 151 H 135 H Total Bilirubin Direct Bilirubin AST ALT Alkaline Phosphatase Total Protein Albumin Random Vancomycin
[2024-05-20 16:22] LABS: Glucose Point of Care 131 mg/dl (65-105)
[2024-05-20 16:41] LABS: Add Urine Microscopic? YES; Appearance Urine Cloudy (Clear); Bacteria Urine Rare /hpf; Bilirubin Urine Negative (Negative); Blood Urine 3+ (Negative); Color Urine Yellow (Yellow); Glucose Urine UA Negative (Negative); Ketones Urine Negative (Negative); Leukocyte Esterase Ur Negative LEU/UL (Negative); Nitrate Urine Negative (Negative); Non Pathogenic Casts 0-2; Protein Urine 3+ mg/dL (Negative); RBC Urine >100 /hpf (0-2); Specific Grav Ur 1.028 (1.001-1.035); Squamous Epithelial Cell Urine Occasional /hpf (Few); Urobilinogen Urine 0.2 mg/dL (<2.0); pH Urine 5.5 (5.0-9.0)
[2024-05-20] MEDS: RIVAROXABAN 20 MG TABLET PO (16:43)
[2024-05-20] MEDS: ONDANSETRON INJ 4 MG/2 ML VIAL IV PUSH (16:43)
[2024-05-20] MEDS: ACETAMINOPHEN 325 MG TABLET 650 MG PO (16:43)
[2024-05-20 19:50] LABS: Glucose Point of Care 127 mg/dl (65-105)
[2024-05-20] MEDS: MIRABEGRON 25 MG ER TABLET PO (20:29)
[2024-05-21] VITALS (17 sets, daily range): BP systolic 126–157; BP diastolic 81–100; PULSE 94–116; RESP 14–20; TEMP 36.3–36.7; O2SAT 96–100
[2024-05-21 05:10] LABS: Estimated CRCL calculation 20 ml/min; Estimated Glomerular Filt Rate 30
[2024-05-21] MEDS: PIPERACILLIN/TAZ 2.25G/NS 50ML 2.25 GM/50 ML BAG IVPB ×3 (05:24→20:53)
[2024-05-21] MEDS: METOPROLOL TARTRATE 25 MG TABLET PO ×3 (06:07→20:54)
--- NOTE | 2024-05-21 06:10 | PCRCNOTE ---
Pt refused overnight apnea link the night of 05/20. Pt has been anxious during her hospital stay
--- NOTE | 2024-05-21 07:22 | P.PNGS_ITS ---
Progress Note: A&P Assessment and Plan (1) Nausea and vomiting: Qualifiers: Vomiting type: bilious vomiting Qualified Code(s): R11.14 - Bilious vomiting Code(s): R11.2 - Nausea with vomiting, unspecified Status: Acute Assessment and Plan: * Cholecystitis ruled out on HIDA scan yesterday. No surgical indications based on these findings. Gallbladder wall thickening could have been secondary to N/V. Also could have passed a small stone and cholecystitis resolved. OK to discharge from surgical standpoint. Will follow PRN. (2) Diarrhea: Code(s): R19.7 - Diarrhea, unspecified Status: Acute (3) Elevated liver enzymes: Code(s): R74.8 - Abnormal levels of other serum enzymes Status: Acute (4) Interstitial lung disease: Code(s): J84.9 - Interstitial pulmonary disease, unspecified Status: Acute (5) ERIK (acute kidney injury): Code(s): N17.9 - Acute kidney failure, unspecified Status: Acute (6) Atrial fibrillation with RVR: Code(s): I48.91 - Unspecified atrial fibrillation Status: Acute Subjective Subjective Date/Time Seen: 05/21/24 07:22 Interval history: No abdominal pain. Not much appetite but denies nausea. No diarrhea. Exam GI: Inspection: non-distended GI Palp: Yes Soft to palpation, No Tenderness to palpation present (GI), No Guarding due to palpation present (GI) and No Palpable mass present Percussion: Yes normal to percussion Auscultation: normal bowel sounds Objective Data Vital Signs Vital Signs: Vital Signs - 24 hr 05/20/24 08:00 05/20/24 08:00 05/20/24 08:23 Temperature 97.5 F L Pulse Rate 103 H 101 H Respiratory Rate 20 Blood Pressure 136/89 Pulse Oximetry 97 97 Oxygen Delivery Room Air 05/20/24 10:00 05/20/24 11:16 05/20/24 12:00 Temperature 98.7 F Pulse Rate 97 107 H Respiratory Rate 18 Blood Pressure 135/88 Pulse Oximetry 98 97 Oxygen Delivery Room Air 05/20/24 12:00 05/20/24 14:00 05/20/24 16:00 Temperature Pulse Rate 100 108 H 110 H Respiratory Rate Blood Pressure Pulse Oximetry Oxygen Delivery 05/20/24 16:00 05/20/24 16:34 05/20/24 18:00 Temperature 97.0 F L Pulse Rate 97 92 Respiratory Rate 18 Blood Pressure 138/94 H Pulse Oximetry 97 99 Oxygen Delivery Room Air 05/20/24 20:00 05/20/24 20:00 05/20/24 20:16 Temperature 97.8 F Pulse Rate 100 96 Respiratory Rate 20 Blood Pressure 149/72 H Pulse Oximetry 100 Oxygen Delivery Room Air 05/20/24 22:00 05/20/24 23:17 05/21/24 00:00 Temperature 97.3 F L Pulse Rate 97 103 H 102 H Respiratory Rate 17 Blood Pressure 157/81 H Pulse Oximetry 96 Oxygen Delivery 05/21/24 00:00 05/21/24 00:00 05/21/24 02:00 Temperature Pulse Rate 103 H 94 Respiratory Rate Blood Pressure Pulse Oximetry Oxygen Delivery Room Air 05/21/24 04:00 05/21/24 04:00 05/21/24 06:00 Temperature Pulse Rate 97 102 H Respiratory Rate Blood Pressure Pulse Oximetry Oxygen Delivery Room Air 05/21/24 06:03 05/21/24 06:07 Temperature 98.1 F Pulse Rate 106 H 99 Respiratory Rate 20 Blood Pressure 147/94 H Pulse Oximetry 98 Oxygen Delivery Intake/Output Intake/Output: Intake & Output 05/18/24 05/19/24 05/20/24 05/21/24 23:59 23:59 23:59 23:59 Intake Total 3133.4 3040 690 250 Output Total 650 520 350 300 Balance 2483.4 2520 340 -50 Meds/Results Medications: Active Medications Generic Name Dose Route Start Last Admin Trade Name Freq PRN Reason Stop Dose Admin Acetaminophen 650 mg 05/17/24 12:42 05/20/24 16:43 Acetaminophen 325 Mg Tablet PO 650 mg Q4H PRN Administration Mild Pain (1-3) or Fever Hydrocodone Bitart/Acetaminophen 1 tab 05/17/24 09:59 05/17/24 16:40 Hydrocodone/Acetaminophen (*Crx) 5-325 Mg Tablet PO 1 tab Q4H PRN Administration Pain Rated 4-6 Cholestyramine Resin 4 gm 05/18/24 11:00 05/20/24 12:44 Cholestyramine (W/ Sugar) 4 Gm Powd.Pack PO 4 gm QAM@1100 CATE Administration Dextrose 12.5 gm 05/17/24 12:42 Dextrose 50% 25 Gm/50 Ml Syringe IV PUSH PRN PRN Hypoglycemia Protocol Docusate Sodium 100 mg 05/17/24 17:00 05/20/24 16:43 Docusate Sodium 100 Mg Capsule PO 100 mg BID CATE Administration Ezetimibe 10 mg 05/18/24 09:00 05/20/24 09:06 Ezetimibe 10 Mg Tablet BY MOUTH 10 mg DAILY CATE Administration Famotidine 20 mg 05/18/24 09:00 05/20/24 09:07 Famotidine 20 Mg Tablet BY MOUTH 20 mg DAILY CATE Administration Glucagon 1 mg 05/17/24 12:42 Glucagon For Inj 1 Mg Vial IM PRN PRN Hypoglycemia Protocol Glucose 15 gm 05/17/24 12:42 Glucose Oral Gel 15 Gm Of Glucse In 37.5 Gm Tube PO PRN PRN Hypoglycemia Protocol Dextrose 1,000 mls @ 100 mls/hr 05/17/24 12:42 Dextrose 5% 1,000 Ml IVPB PRN PRN Hypoglycemia Protocol Piperacillin Sod/Tazobactam Sod 2.25 gm in 50 mls @ 100 mls/hr 05/19/24 14:00 05/21/24 05:54 Zosyn 2.25 Gm/Ns 50 Ml IVPB Infused Q8HR CATE Infusion Vancomycin HCl 1,250 mg in 250 mls @ 166.667 mls/hr 05/20/24 07:00 05/20/24 09:06 Vancomycin 1,250 Mg/Ns 250 Ml IVPB 166.67 mls/hr Q36H CATE Administration Insulin Aspart 3 - 6 units 05/17/24 17:00 05/20/24 16:24 Insulin Aspart (*Bkc) 100 Units/Ml SUB-Q Not Given TIDWM [facility] Protocol Insulin Aspart 1 - 2 units 05/17/24 21:00 05/20/24 20:29 Insulin Aspart (*Bkc) 100 Units/Ml SUB-Q Not Given HS [facility] Protocol Metoprolol Tartrate 25 mg 05/17/24 15:00 05/21/24 06:07 Metoprolol Tartrate 25 Mg Tablet PO 25 mg Q8H CATE Administration Mirabegron 25 mg 05/18/24 21:00 05/20/24 20:29 Mirabegron 25 Mg Er Tablet PO 25 mg HS CATE Administration Ondansetron HCl 4 mg 05/17/24 09:59 05/20/24 16:43 Ondansetron Inj 4 Mg/2 Ml Vial IV PUSH 4 mg Q4H PRN Administration Nausea Paroxetine HCl 20 mg 05/18/24 09:00 05/20/24 09:06 Paroxetine 20 Mg Tablet BY MOUTH 20 mg DAILY CATE Administration Perflutren Lipid Microsphere 0 ml 05/19/24 17:05 Perflutren Lipid Microspheres 1.5 Ml Vial Diluted To 10 Ml Total Volume IV PUSH 05/22/24 17:05 ONCE PRN adequate visualization Protocol Rivaroxaban 20 mg 05/18/24 17:00 05/20/24 16:43 Rivaroxaban 20 Mg Tablet PO 20 mg DAILY@1700 CATE Administration Radiology Results: ITS Impressions Chest X-Ray 05/17/24 08:27 Impression: Possible mild chronic interstitial disease. No acute pulmonary abnormality. Abdomen/Pelvis CT 05/17/24 22:51 IMPRESSION: 1. Small pleural effusions. 2. Gallbladder wall thickening, probably interstitial edema. Abdomen Ultrasound 05/18/24 19:47 IMPRESSION: 3 mm gallbladder wall thickening and minimal pericholecystic fluid; consider radionuclide hepatobiliary scan to evaluate for possible acute cholecystitis Mild surface nodularity of the liver; recommend clinical correlation for cirrhosis Chest/Abdomen/Pelvis CT 05/20/24 11:33 IMPRESSION: CHEST: 1. Bilateral pleural effusion with adjacent atelectasis versus pneumonia. ABDOMEN/PELVIS: 1. Thickened wall of the gallbladder. Cholecystitis is not excluded. Clinical correlation advised. 2. Ascites. 3. Minimal fullness of the renal pelvis bilaterally. No definite ureteric stones. 4. Tiny stone in the right kidney upper pole. Hepatobiliary Scan Nuclear Medicine 05/20/24 16:23 IMPRESSION: 1. Patent cystic duct and common duct. Labs Labs: Laboratory Results - last 24 hr 05/20/24 05/20/24 05/20/24 04:47 08:14 10:56 Creatinine Estim Creat Clear Calc Estimated GFR POC Capillary Glucose 151 H 135 H Total Bilirubin 0.9 Direct Bilirubin 0.0 AST 103 H ALT 124 H Alkaline Phosphatase 79 Total Protein 6.0 L Albumin 3.6 Urine Color Urine Appearance Urine pH Ur Specific [place] Urine Protein Urine Glucose (UA) Urine Ketones Ur Blood (Man) Urine Nitrate Urine Bilirubin Urine Urobilinogen Leukocyte Esterase Rfl Urine RBC Urine WBC Ur Squamous Epith Cells Urine Bacteria Urine Casts 05/20/24 05/20/24 05/20/24 16:19 16:29 19:37 Creatinine Estim Creat Clear Calc Estimated GFR POC Capillary Glucose 131 H 127 H Total Bilirubin Direct Bilirubin AST ALT Alkaline Phosphatase Total Protein Albumin Urine Color Yellow Urine Appearance Cloudy H Urine pH 5.5 Ur Specific [place] 1.028 Urine Protein 3+ H Urine Glucose (UA) Negative Urine Ketones Negative Ur Blood (Man) 3+ H Urine Nitrate Negative Urine Bilirubin Negative Urine Urobilinogen 0.2 Leukocyte Esterase Rfl Negative Urine RBC >100 H Urine WBC 6-10 H Ur Squamous Epith Cells Occasional Urine Bacteria Rare Urine Casts 0-2 05/21/24 04:30 Creatinine 1.60 H Estim Creat Clear Calc 20 Estimated GFR 30 L POC Capillary Glucose Total Bilirubin Direct Bilirubin AST ALT Alkaline Phosphatase Total Protein Albumin Urine Color Urine Appearance Urine pH Ur Specific [place] Urine Protein Urine Glucose (UA) Urine Ketones Ur Blood (Man) Urine Nitrate Urine Bilirubin Urine Urobilinogen Leukocyte Esterase Rfl Urine RBC Urine WBC Ur Squamous Epith Cells Urine Bacteria Urine Casts
[2024-05-21 08:15] LABS: Glucose Point of Care 127 mg/dl (65-105)
[2024-05-21 09:08] LABS: Basophils Percent Auto 0.2 % (0.2-1.2); Eosinophils Absolute Auto 0.1 K/mm3 (0-0.3); Eosinophils Percent Auto 0.4 % (0-4.4); Hematocrit 40.3 % (37.0-47.0); Hemoglobin 12.8 g/dL (12.0-15.0); Immature Granulocyte Absolute 0.27 K/mm3 (0.00-0.031); Immature Granulocyte Percent A 1.6 % (0-0.5); Lymphocytes Absolute Auto 1.38 K/mm3 (0.9-3.2); Lymphocytes Percent Auto 8.2 % (18.3-44.2); Mean Corpuscular HGB Conc 31.8 g/dl (32-36); Mean Corpuscular Hemoglobin 31.1 pg (26-34); Mean Corpuscular Volume 97.8 fl (80-100); Mean Platelet Volume 10.5 fl (7.4-10.4); Monocytes Absolute Auto 1.7 K/mm3 (0.1-0.6); Monocytes Percent Auto 9.9 % (2.6-8.5); Neutrophils Absolute Auto 13.5 K/mm3 (1.3-6.7); Neutrophils Percent Auto 79.7 % (45.5-73.1); Nucleated Red Blood Cells Perc 0.7 % (0.0-0.2); Platelet Count Result 310 k/mm3 (150-375); Red Blood Count 4.12 M/mm3 (4.2-5.4); Red Cell Distribution Width 13.3 % (11.5-14.5); White Blood Count 16.9 K/mm3 (4.5-10.0)
[2024-05-21] MEDS: EZETIMIBE 10 MG TABLET BY MOUTH (10:13)
[2024-05-21] MEDS: PARoxetine 20 MG TABLET BY MOUTH (10:13)
[2024-05-21] MEDS: FAMOTIDINE 20 MG TABLET BY MOUTH (10:13)
[2024-05-21] MEDS: DOCUSATE SODIUM 100 MG CAPSULE PO (10:13)
[2024-05-21] MEDS: CHOLESTYRAMINE (W/ SUGAR) 4 GM POWD.PACK PO (10:14)
[2024-05-21 11:40] LABS: Glucose Point of Care 144 mg/dl (65-105)
--- NOTE | 2024-05-21 12:19 | WPDGIPROGNO ---
Progress Note: A&P Assessment and Plan (1) Abdominal pain: Code(s): R10.9 - Unspecified abdominal pain Status: Acute Assessment and Plan: resolved hida scan reviewed and normal, no signs of cholecystitis at this time tolerating diet and no pain no need of surgical intervention wonder if passed small stone will follow-up only as needed (2) Elevated liver enzymes: Code(s): R74.8 - Abnormal levels of other serum enzymes Status: Acute (3) Acute cholecystitis without calculus: Code(s): K81.0 - Acute cholecystitis Status: Acute Subjective Date/time seen: 05/21/24 12:19 Interval history: doing better, she is up eating lunch, no more abdominal pain family members at bedside Review of Systems Review of Systems: All systems reviewed & are unremarkable except as noted in HPI and below Exam Const: General: comfortable HENMT: Face/Nose/Sinus: Normal nares present Eyes: Sclera: sclerae normal Neck: Neck: supple Resp: Effort & Inspection: normal respiratory effort Cardio: Rate: regular rate GI: Inspection: non-distended GI Palp: Yes Soft to palpation, No Tenderness to palpation present (GI), No Guarding due to palpation present (GI) and No Palpable mass present Percussion: Yes normal to percussion Auscultation: normal bowel sounds Skin: General skin exam: normal color Neuro: Speech: normal speech Motor exam (neuro): 5/5 motor strength present throughout Extrem: General: normal to inspection Psych: Mental Status: mental status grossly normal Objective Data Vital Signs Vital Signs: Vital Signs - 24 hr 05/20/24 14:00 05/20/24 16:00 05/20/24 16:00 Temperature Pulse Rate 108 H 110 H Respiratory Rate Blood Pressure Pulse Oximetry 97 Oxygen Delivery Room Air 05/20/24 16:34 05/20/24 18:00 05/20/24 20:00 Temperature 97.0 F L Pulse Rate 97 92 Respiratory Rate 18 Blood Pressure 138/94 H Pulse Oximetry 99 Oxygen Delivery Room Air 05/20/24 20:00 05/20/24 20:16 05/20/24 22:00 Temperature 97.8 F Pulse Rate 100 96 97 Respiratory Rate 20 Blood Pressure 149/72 H Pulse Oximetry 100 Oxygen Delivery 05/20/24 23:17 05/21/24 00:00 05/21/24 00:00 Temperature 97.3 F L Pulse Rate 103 H 102 H Respiratory Rate 17 Blood Pressure 157/81 H Pulse Oximetry 96 Oxygen Delivery Room Air 05/21/24 00:00 05/21/24 02:00 05/21/24 04:00 Temperature Pulse Rate 103 H 94 97 Respiratory Rate Blood Pressure Pulse Oximetry Oxygen Delivery 05/21/24 04:00 05/21/24 06:00 05/21/24 06:03 Temperature 98.1 F Pulse Rate 102 H 106 H Respiratory Rate 20 Blood Pressure 147/94 H Pulse Oximetry 98 Oxygen Delivery Room Air 05/21/24 06:07 05/21/24 07:50 05/21/24 11:40 Temperature 97.7 F 97.4 F L Pulse Rate 99 110 H 116 H Respiratory Rate 18 18 Blood Pressure 126/96 H 129/88 Pulse Oximetry 97 99 Oxygen Delivery Intake/Output Intake/Output: Intake & Output 05/18/24 05/19/24 05/20/24 05/21/24 23:59 23:59 23:59 23:59 Intake Total 3133.4 3040 690 370 Output Total 650 520 350 300 Balance 2483.4 2520 340 70 Meds/Results Medications: Active Medications Generic Name Dose Route Start Last Admin Trade Name Freq PRN Reason Stop Dose Admin Acetaminophen 650 mg 05/17/24 12:42 05/20/24 16:43 Acetaminophen 325 Mg Tablet PO 650 mg Q4H PRN Administration Mild Pain (1-3) or Fever Hydrocodone Bitart/Acetaminophen 1 tab 05/17/24 09:59 05/17/24 16:40 Hydrocodone/Acetaminophen (*Crx) 5-325 Mg Tablet PO 1 tab Q4H PRN Administration Pain Rated 4-6 Cholestyramine Resin 4 gm 05/18/24 11:00 05/21/24 10:14 Cholestyramine (W/ Sugar) 4 Gm Powd.Pack PO 4 gm QAM@1100 [facility] Administration Dextrose 12.5 gm 05/17/24 12:42 Dextrose 50% 25 Gm/50 Ml Syringe IV PUSH PRN PRN Hypoglycemia Protocol Docusate Sodium 100 mg 05/17/24 17:00 05/21/24 10:13 Docusate Sodium 100 Mg Capsule PO 100 mg BID CATE Administration Ezetimibe 10 mg 05/18/24 09:00 05/21/24 10:13 Ezetimibe 10 Mg Tablet BY MOUTH 10 mg DAILY CATE Administration Famotidine 20 mg 05/18/24 09:00 05/21/24 10:13 Famotidine 20 Mg Tablet BY MOUTH 20 mg DAILY CATE Administration Glucagon 1 mg 05/17/24 12:42 Glucagon For Inj 1 Mg Vial IM PRN PRN Hypoglycemia Protocol Glucose 15 gm 05/17/24 12:42 Glucose Oral Gel 15 Gm Of Glucse In 37.5 Gm Tube PO PRN PRN Hypoglycemia Protocol Dextrose 1,000 mls @ 100 mls/hr 05/17/24 12:42 Dextrose 5% 1,000 Ml IVPB PRN PRN Hypoglycemia Protocol Piperacillin Sod/Tazobactam Sod 2.25 gm in 50 mls @ 100 mls/hr 05/19/24 14:00 05/21/24 05:54 Zosyn 2.25 Gm/Ns 50 Ml IVPB Infused Q8HR CATE Infusion Vancomycin HCl 1,250 mg in 250 mls @ 166.667 mls/hr 05/20/24 07:00 05/20/24 09:06 Vancomycin 1,250 Mg/Ns 250 Ml IVPB 166.67 mls/hr Q36H [facility] Administration Insulin Aspart 3 - 6 units 05/17/24 17:00 05/21/24 12:15 Insulin Aspart (*Bkc) 100 Units/Ml SUB-Q Not Given TIDWM [facility] Protocol Insulin Aspart 1 - 2 units 05/17/24 21:00 05/20/24 20:29 Insulin Aspart (*Bkc) 100 Units/Ml SUB-Q Not Given HS [facility] Protocol Metoprolol Tartrate 25 mg 05/17/24 15:00 05/21/24 06:07 Metoprolol Tartrate 25 Mg Tablet PO 25 mg Q8H [facility] Administration Mirabegron 25 mg 05/18/24 21:00 05/20/24 20:29 Mirabegron 25 Mg Er Tablet PO 25 mg HS [facility] Administration Ondansetron HCl 4 mg 05/17/24 09:59 05/20/24 16:43 Ondansetron Inj 4 Mg/2 Ml Vial IV PUSH 4 mg Q4H PRN Administration Nausea Paroxetine HCl 20 mg 05/18/24 09:00 05/21/24 10:13 Paroxetine 20 Mg Tablet BY MOUTH 20 mg DAILY [facility] Administration Perflutren Lipid Microsphere 0 ml 05/19/24 17:05 Perflutren Lipid Microspheres 1.5 Ml Vial Diluted To 10 Ml Total Volume IV PUSH 05/22/24 17:05 ONCE PRN adequate visualization Protocol Rivaroxaban 20 mg 05/18/24 17:00 05/20/24 16:43 Rivaroxaban 20 Mg Tablet PO 20 mg DAILY@1700 [facility] Administration Radiology Results: ITS Impressions Chest X-Ray 05/17/24 08:27 Impression: Possible mild chronic interstitial disease. No acute pulmonary abnormality. Abdomen/Pelvis CT 05/17/24 22:51 IMPRESSION: 1. Small pleural effusions. 2. Gallbladder wall thickening, probably interstitial edema. Abdomen Ultrasound 05/18/24 19:47 IMPRESSION: 3 mm gallbladder wall thickening and minimal pericholecystic fluid; consider radionuclide hepatobiliary scan to evaluate for possible acute cholecystitis Mild surface nodularity of the liver; recommend clinical correlation for cirrhosis Chest/Abdomen/Pelvis CT 05/20/24 11:33 IMPRESSION: CHEST: 1. Bilateral pleural effusion with adjacent atelectasis versus pneumonia. ABDOMEN/PELVIS: 1. Thickened wall of the gallbladder. Cholecystitis is not excluded. Clinical correlation advised. 2. Ascites. 3. Minimal fullness of the renal pelvis bilaterally. No definite ureteric stones. 4. Tiny stone in the right kidney upper pole. Hepatobiliary Scan Nuclear Medicine 05/20/24 16:23 IMPRESSION: 1. Patent cystic duct and common duct. Labs Labs: Laboratory Results - last 24 hr 05/20/24 05/20/24 05/20/24 04:47 16:19 16:29 WBC RBC Hgb Hct MCV MCH MCHC RDW Plt Count MPV Immature Gran % (Auto) Neut % (Auto) Lymph % (Auto) [place] % (Auto) Eos % (Auto) Baso % (Auto) Lymph # (Auto) [place] # (Auto) Eos # (Auto) Baso # (Auto) Abs Immat Gran (auto) Absolute Neuts (auto) Absolute Nucleated RBC Nucleated RBC % Creatinine Estim Creat Clear Calc Estimated GFR POC Capillary Glucose 131 H Total Bilirubin 0.9 Direct Bilirubin 0.0 AST 103 H ALT 124 H Alkaline Phosphatase 79 Total Protein 6.0 L Albumin 3.6 Urine Color Yellow Urine Appearance Cloudy H Urine pH 5.5 Ur Specific [place] 1.028 Urine Protein 3+ H Urine Glucose (UA) Negative Urine Ketones Negative Ur Blood (Man) 3+ H Urine Nitrate Negative Urine Bilirubin Negative Urine Urobilinogen 0.2 Leukocyte Esterase Rfl Negative Urine RBC >100 H Urine WBC 6-10 H Ur Squamous Epith Cells Occasional Urine Bacteria Rare Urine Casts 0-2 05/20/24 05/21/24 05/21/24 19:37 04:30 07:36 WBC 16.9 H RBC 4.12 L Hgb 12.8 Hct 40.3 MCV 97.8 MCH 31.1 MCHC 31.8 L RDW 13.3 Plt Count 310 MPV 10.5 H Immature Gran % (Auto) 1.6 H Neut % (Auto) 79.7 H Lymph % (Auto) 8.2 L [place] % (Auto) 9.9 H Eos % (Auto) 0.4 Baso % (Auto) 0.2 Lymph # (Auto) 1.38 [place] # (Auto) 1.7 H Eos # (Auto) 0.1 Baso # (Auto) 0.0 Abs Immat Gran (auto) 0.27 H Absolute Neuts (auto) 13.5 H Absolute Nucleated RBC 0.110 H Nucleated RBC % 0.7 H Creatinine 1.60 H Estim Creat Clear Calc 20 Estimated GFR 30 L POC Capillary Glucose 127 H 127 H Total Bilirubin Direct Bilirubin AST ALT Alkaline Phosphatase Total Protein Albumin Urine Color Urine Appearance Urine pH Ur Specific [place] Urine Protein Urine Glucose (UA) Urine Ketones Ur Blood (Man) Urine Nitrate Urine Bilirubin Urine Urobilinogen Leukocyte Esterase Rfl Urine RBC Urine WBC Ur Squamous Epith Cells Urine Bacteria Urine Casts 05/21/24 11:17 WBC RBC Hgb Hct MCV MCH MCHC RDW Plt Count MPV Immature Gran % (Auto) Neut % (Auto) Lymph % (Auto) [place] % (Auto) Eos % (Auto) Baso % (Auto) Lymph # (Auto) [place] # (Auto) Eos # (Auto) Baso # (Auto) Abs Immat Gran (auto) Absolute Neuts (auto) Absolute Nucleated RBC Nucleated RBC % Creatinine Estim Creat Clear Calc Estimated GFR POC Capillary Glucose 144 H Total Bilirubin Direct Bilirubin AST ALT Alkaline Phosphatase Total Protein Albumin Urine Color Urine Appearance Urine pH Ur Specific [place] Urine Protein Urine Glucose (UA) Urine Ketones Ur Blood (Man) Urine Nitrate Urine Bilirubin Urine Urobilinogen Leukocyte Esterase Rfl Urine RBC Urine WBC Ur Squamous Epith Cells Urine Bacteria Urine Casts
[2024-05-21 16:02] LABS: Glucose Point of Care 156 mg/dl (65-105)
[2024-05-21] MEDS: RIVAROXABAN 20 MG TABLET PO (16:24)
--- NOTE | 2024-05-21 17:50 | PC.NURSE ---
This patient, Celestina Christianson, was transferred to [facility] on 05/21/24 at 1745. Personal belongings sent with patient. Report given to Lilian BLAKE. Appropriate documentation sent with patient.
[2024-05-21] MEDS: VANCOMYCIN 1,250 MG/NS 250 ML 1,250 MG/250 ML BAG 166.67 MG IVPB (18:42)
[2024-05-21] MEDS: MIRABEGRON 25 MG ER TABLET PO (20:54)
[2024-05-21] MEDS: ACETAMINOPHEN 325 MG TABLET 650 MG PO (21:00)
[2024-05-21 21:10] LABS: Glucose Point of Care 137 mg/dl (65-105)
--- NOTE | 2024-05-21 21:10 | PCRCNOTE ---
Pt refuses apnea link
[2024-05-21] MEDS: HYDROcodone/acetaminophen (*CRX) 5-325 MG TABLET 1 TAB PO (21:11)
[2024-05-22] VITALS (7 sets, daily range): BP systolic 131–148; BP diastolic 82–111; PULSE 74–111; RESP 12–20; TEMP 36.1–36.4; O2SAT 91–100
[2024-05-22] MEDS: PIPERACILLIN/TAZ 2.25G/NS 50ML 2.25 GM/50 ML BAG IVPB (06:18)
[2024-05-22 07:15] LABS: Estimated CRCL calculation 24 ml/min; Estimated Glomerular Filt Rate 33
--- NOTE | 2024-05-22 07:33 | PM.IMPN ---
Progress Note: A&P Assessment and Plan (1) Atrial fibrillation with RVR: Code(s): I48.91 - Unspecified atrial fibrillation Status: Acute Assessment and Plan: Cardiology consulted Diltiazem push x1 Metoprolol 25mg q8 Xarelto 20 mg p.o. q.d. continue rate control and oac echo ef shows Left ventricular systolic function is normal, estimated at 35-40%. 2. The left ventricular diastolic function is abnormal. 3. Left atrial chamber dimension is moderately enlarged. 4. Right atrial chamber dimension is moderately enlarged. 5. There is trace aortic valve regurgitation. 6. There is mild aortic valve calcification. 7. There is mild mitral valve calcification. 8. There is mild to moderate mitral valve regurgitation. 9. There is moderate tricuspid valve regurgitation. 10. Moderate pulmonary hypertension, estimated pulmonary arterial systolic pressure is 49 mmHg. 11. There is mild pulmonic regurgitation. 12. afib with RVR. (2) Leukocytosis: Qualifiers: Leukocytosis type: unspecified Qualified Code(s): D72.829 - Elevated white blood cell count, unspecified Code(s): D72.829 - Elevated white blood cell count, unspecified Status: Acute Assessment and Plan: UA noninfective Chest x-ray with no acute process Blood cultures pending No signs of soft tissue infection C diff pending treat with iv vanc and iv zosyn Leukocytosis is resolving (3) ERIK (acute kidney injury): Code(s): N17.9 - Acute kidney failure, unspecified Status: Acute Assessment and Plan: sp fluid hydration bmp is 1.6 (4) Hyperglycemia: Code(s): R73.9 - Hyperglycemia, unspecified Status: Acute Assessment and Plan: Hemoglobin A1c 5.7 SSI a.c. HS (5) Elevated liver enzymes: Code(s): R74.8 - Abnormal levels of other serum enzymes Status: Acute Assessment and Plan: watch cmp (6) Interstitial lung disease: Code(s): J84.9 - Interstitial pulmonary disease, unspecified Status: Acute Assessment and Plan: No acute issues Patient should follow-up outpatient with pulmonology (7) Acute cholecystitis without calculus: Code(s): K81.0 - Acute cholecystitis Status: Acute Assessment and Plan: Monitor vitals Uptrending WBC US GB: 3 mm gallbladder wall thickening and minimal pericholecystic fluid; consider radionuclide hepatobiliary scan to evaluate for possible acute cholecystitis Mild surface nodularity of the liver; recommend clinical correlation for cirrhosis CT abdomen: gallbladder wall thickening probably interstitial edema HIDA scan negative for Cholecystitis GEn surgery cleared tolerating diet and pain resolved Plan DVT prophylaxis on Xarelto Awaiting PT/OT eval for discharge disposition Subjective Date/time seen: 05/21/24 07:33 DATE OF SERVICE 05/21/24 Interval history: Patient comfortable at bedside Gen surgery cleared, awaiting cardiology clearance and PT eval for discharge planning Review of Systems Review of Systems: Nauseated, loss of apettite, vomiting before admission Exam Narrative: General: well appearing, appears stated age. HEENT: normocephalic, atraumatic. Mucous membranes moist. EOMI, PERRLA, bilateral sclera anicteric, no conjunctival injection. Neck supple without JVD, lymphadenopathy, or bruit. Respiratory: clear to ascultation bilaterally. No rales/rhonic/wheezes. Cardiovascular: Irregular, . No murmurs, rubs, or clicks. PMI is nondisplaced, capillary refill less than 3 second. Abdomen: Soft, round, no pulsatile masses, nondistended and nontender. No rebound, no guarding. No CVA tenderness, no hepatosplenomegaly. Bowel sounds present to all four quadrants. No high pitch or tinkling sounds, resonant to percussion. Extremities: No cyanosis, clubbing, or edema present. Pulses are palpable 2/2. Active ROM to all four extremities. Neuro: Alert and orientated x 4. PERRLA. Cranial nerves 2-12 intact without focal deficit. Skin: Warm, dry, and intact, without rash, erythema, or lesion. Psych: pleasant, cooperative, normal speech, normal affect, no hallucinations, no dysarthia Objective Data Vital Signs Vital Signs: Vital Signs - 24 hr 05/21/24 07:50 05/21/24 08:00 05/21/24 08:00 Temperature 97.7 F Pulse Rate 110 H 109 H Respiratory Rate 18 Blood Pressure 126/96 H Pulse Oximetry 97 Oxygen Delivery Room Air 05/21/24 10:00 05/21/24 11:24 05/21/24 11:40 Temperature 97.4 F L Pulse Rate 102 H 116 H Respiratory Rate 18 Blood Pressure 129/88 Pulse Oximetry 99 Oxygen Delivery Room Air 05/21/24 12:00 05/21/24 12:00 05/21/24 13:59 Temperature Pulse Rate 109 H Respiratory Rate Blood Pressure Pulse Oximetry Oxygen Delivery Room Air Room Air 05/21/24 14:00 05/21/24 15:41 05/21/24 16:00 Temperature 97.9 F Pulse Rate 103 H 109 H 105 H Respiratory Rate 20 Blood Pressure 135/83 Pulse Oximetry 100 Oxygen Delivery 05/21/24 16:24 05/21/24 20:00 05/21/24 20:00 Temperature 97.8 F Pulse Rate 104 H 110 H 105 H Respiratory Rate 14 Blood Pressure 140/100 H Pulse Oximetry 97 Oxygen Delivery 05/21/24 20:54 05/21/24 21:56 05/22/24 00:00 Temperature 97.3 F L Pulse Rate 110 H 97 Respiratory Rate 12 Blood Pressure 131/82 Pulse Oximetry 100 Oxygen Delivery Room Air 05/22/24 00:10 05/22/24 04:00 05/22/24 06:19 Temperature 97.6 F Pulse Rate 96 74 94 Respiratory Rate 12 Blood Pressure 141/110 H Pulse Oximetry 96 Oxygen Delivery Intake/Output Intake/Output: Intake & Output 05/19/24 05/20/24 05/21/24 05/22/24 23:59 23:59 23:59 23:59 Intake Total 3040 690 1680 50 Output Total 520 350 500 Balance 2520 340 1180 50 Meds/Results Medications: Active Medications Generic Name Dose Route Start Last Admin Trade Name Freq PRN Reason Stop Dose Admin Acetaminophen 650 mg 05/17/24 12:42 05/21/24 21:00 Acetaminophen 325 Mg Tablet PO 650 mg Q4H PRN Administration Mild Pain (1-3) or Fever Hydrocodone Bitart/Acetaminophen 1 tab 05/17/24 09:59 05/21/24 21:11 Hydrocodone/Acetaminophen (*Crx) 5-325 Mg Tablet PO 1 tab Q4H PRN Administration Pain Rated 4-6 Cholestyramine Resin 4 gm 05/18/24 11:00 05/21/24 10:14 Cholestyramine (W/ Sugar) 4 Gm Powd.Pack PO 4 gm QAM@1100 [facility] Administration Dextrose 12.5 gm 05/17/24 12:42 Dextrose 50% 25 Gm/50 Ml Syringe IV PUSH PRN PRN Hypoglycemia Protocol Docusate Sodium 100 mg 05/21/24 16:31 Docusate Sodium 100 Mg Capsule PO BID PRN Constipation Ezetimibe 10 mg 05/18/24 09:00 05/21/24 10:13 Ezetimibe 10 Mg Tablet BY MOUTH 10 mg DAILY CATE Administration Famotidine 20 mg 05/18/24 09:00 05/21/24 10:13 Famotidine 20 Mg Tablet BY MOUTH 20 mg DAILY C[facility] Administration Glucagon 1 mg 05/17/24 12:42 Glucagon For Inj 1 Mg Vial IM PRN PRN Hypoglycemia Protocol Glucose 15 gm 05/17/24 12:42 Glucose Oral Gel 15 Gm Of Glucse In 37.5 Gm Tube PO PRN PRN Hypoglycemia Protocol Dextrose 1,000 mls @ 100 mls/hr 05/17/24 12:42 Dextrose 5% 1,000 Ml IVPB PRN PRN Hypoglycemia Protocol Piperacillin Sod/Tazobactam Sod 2.25 gm in 50 mls @ 100 mls/hr 05/19/24 14:00 05/22/24 06:18 Zosyn 2.25 Gm/Ns 50 Ml IVPB 100 mls/hr Q8HR [facility] Administration Vancomycin HCl 1,250 mg in 250 mls @ 166.667 mls/hr 05/20/24 07:00 05/21/24 20:00 Vancomycin 1,250 Mg/Ns 250 Ml IVPB Infused Q36H [facility] Infusion Insulin Aspart 3 - 6 units 05/17/24 17:00 05/21/24 16:23 Insulin Aspart (*Bkc) 100 Units/Ml SUB-Q Not Given TIDWM [facility] Protocol Insulin Aspart 1 - 2 units 05/17/24 21:00 05/21/24 21:11 Insulin Aspart (*Bkc) 100 Units/Ml SUB-Q Not Given HS [facility] Protocol Metoprolol Tartrate 25 mg 05/17/24 15:00 05/21/24 20:54 Metoprolol Tartrate 25 Mg Tablet PO 25 mg Q8H [facility] Administration Mirabegron 25 mg 05/18/24 21:00 05/21/24 20:54 Mirabegron 25 Mg Er Tablet PO 25 mg HS [facility] Administration Ondansetron HCl 4 mg 05/17/24 09:59 05/20/24 16:43 Ondansetron Inj 4 Mg/2 Ml Vial IV PUSH 4 mg Q4H PRN Administration Nausea Paroxetine HCl 20 mg 05/18/24 09:00 05/21/24 10:13 Paroxetine 20 Mg Tablet BY MOUTH 20 mg DAILY [facility] Administration Perflutren Lipid Microsphere 0 ml 05/19/24 17:05 Perflutren Lipid Microspheres 1.5 Ml Vial Diluted To 10 Ml Total Volume IV PUSH 05/22/24 17:05 ONCE PRN adequate visualization Protocol Rivaroxaban 20 mg 05/18/24 17:00 05/21/24 16:24 Rivaroxaban 20 Mg Tablet PO 20 mg DAILY@1700 [facility] Administration Radiology Results: ITS Impressions Chest X-Ray 05/17/24 08:27 Impression: Possible mild chronic interstitial disease. No acute pulmonary abnormality. Abdomen/Pelvis CT 05/17/24 22:51 IMPRESSION: 1. Small pleural effusions. 2. Gallbladder wall thickening, probably interstitial edema. Abdomen Ultrasound 05/18/24 19:47 IMPRESSION: 3 mm gallbladder wall thickening and minimal pericholecystic fluid; consider radionuclide hepatobiliary scan to evaluate for possible acute cholecystitis Mild surface nodularity of the liver; recommend clinical correlation for cirrhosis Chest/Abdomen/Pelvis CT 05/20/24 11:33 IMPRESSION: CHEST: 1. Bilateral pleural effusion with adjacent atelectasis versus pneumonia. ABDOMEN/PELVIS: 1. Thickened wall of the gallbladder. Cholecystitis is not excluded. Clinical correlation advised. 2. Ascites. 3. Minimal fullness of the renal pelvis bilaterally. No definite ureteric stones. 4. Tiny stone in the right kidney upper pole. Hepatobiliary Scan Nuclear Medicine 05/20/24 16:23 IMPRESSION: 1. Patent cystic duct and common duct. Labs Labs: Laboratory Results - last 24 hr 05/21/24 05/21/24 05/21/24 04:30 07:36 11:17 WBC 16.9 H RBC 4.12 L Hgb 12.8 Hct 40.3 MCV 97.8 MCH 31.1 MCHC 31.8 L RDW 13.3 Plt Count 310 MPV 10.5 H Immature Gran % (Auto) 1.6 H Neut % (Auto) 79.7 H Lymph % (Auto) 8.2 L [place] % (Auto) 9.9 H Eos % (Auto) 0.4 Baso % (Auto) 0.2 Lymph # (Auto) 1.38 [place] # (Auto) 1.7 H Eos # (Auto) 0.1 Baso # (Auto) 0.0 Abs Immat Gran (auto) 0.27 H Absolute Neuts (auto) 13.5 H Absolute Nucleated RBC 0.110 H Nucleated RBC % 0.7 H Creatinine Estim Creat Clear Calc Estimated GFR POC Capillary Glucose 127 H 144 H 05/21/24 05/21/24 05/22/24 15:43 21:08 06:35 WBC RBC Hgb Hct MCV MCH MCHC RDW Plt Count MPV Immature Gran % (Auto) Neut % (Auto) Lymph % (Auto) [place] % (Auto) Eos % (Auto) Baso % (Auto) Lymph # (Auto) [place] # (Auto) Eos # (Auto) Baso # (Auto) Abs Immat Gran (auto) Absolute Neuts (auto) Absolute Nucleated RBC Nucleated RBC % Creatinine 1.50 H Estim Creat Clear Calc 24 Estimated GFR 33 L POC Capillary Glucose 156 H 137 H Quality VTE Prophylaxis VTE prophylaxis: mechanical ordered and pharmacologic ordered
[2024-05-22 07:47] LABS: Glucose Point of Care 135 mg/dl (65-105)
[2024-05-22] MEDS: METOPROLOL TARTRATE 25 MG TABLET PO (08:24)
[2024-05-22] MEDS: PARoxetine 20 MG TABLET BY MOUTH (08:24)
[2024-05-22] MEDS: FAMOTIDINE 20 MG TABLET BY MOUTH (08:25)
[2024-05-22] MEDS: EZETIMIBE 10 MG TABLET BY MOUTH (08:25)
--- NOTE | 2024-05-22 09:42 | PM.DS ---
DS: Admitting Diagnosis Discharge Date 05/22/2024 Admitting Diagnosis Atrial fibrilation with RVR Acute cholecystitis DS: Discharge Diagnosis Discharge Diagnosis (1) Atrial fibrillation with RVR: Code(s): I48.91 - Unspecified atrial fibrillation Status: Acute Assessment and Plan: Cardiology consulted Diltiazem push x1 Metoprolol 25mg q8 Xarelto 20 mg p.o. q.d. continue rate control and oac echo ef shows Left ventricular systolic function is normal, estimated at 35-40%. 2. The left ventricular diastolic function is abnormal. 3. Left atrial chamber dimension is moderately enlarged. 4. Right atrial chamber dimension is moderately enlarged. 5. There is trace aortic valve regurgitation. 6. There is mild aortic valve calcification. 7. There is mild mitral valve calcification. 8. There is mild to moderate mitral valve regurgitation. 9. There is moderate tricuspid valve regurgitation. 10. Moderate pulmonary hypertension, estimated pulmonary arterial systolic pressure is 49 mmHg. 11. There is mild pulmonic regurgitation. 12. afib with RVR. (2) Leukocytosis: Qualifiers: Leukocytosis type: unspecified Qualified Code(s): D72.829 - Elevated white blood cell count, unspecified Code(s): D72.829 - Elevated white blood cell count, unspecified Status: Acute Assessment and Plan: UA noninfective Chest x-ray with no acute process Blood cultures pending No signs of soft tissue infection C diff pending treat with iv vanc and iv zosyn Leukocytosis is resolving (3) ERIK (acute kidney injury): Code(s): N17.9 - Acute kidney failure, unspecified Status: Acute Assessment and Plan: sp fluid hydration bmp is 1.6 (4) Hyperglycemia: Code(s): R73.9 - Hyperglycemia, unspecified Status: Acute Assessment and Plan: Hemoglobin A1c 5.7 SSI a.c. HS (5) Elevated liver enzymes: Code(s): R74.8 - Abnormal levels of other serum enzymes Status: Acute Assessment and Plan: watch cmp (6) Interstitial lung disease: Code(s): J84.9 - Interstitial pulmonary disease, unspecified Status: Acute Assessment and Plan: No acute issues Patient should follow-up outpatient with pulmonology (7) Acute cholecystitis without calculus: Code(s): K81.0 - Acute cholecystitis Status: Acute Assessment and Plan: Monitor vitals Uptrending WBC US GB: 3 mm gallbladder wall thickening and minimal pericholecystic fluid; consider radionuclide hepatobiliary scan to evaluate for possible acute cholecystitis Mild surface nodularity of the liver; recommend clinical correlation for cirrhosis CT abdomen: gallbladder wall thickening probably interstitial edema HIDA scan negative for Cholecystitis GEn surgery cleared tolerating diet and pain resolved Plan DVT prophylaxis on Xarelto Awaiting PT/OT eval for discharge disposition DS: Summary Hospital Course Hospital Course: 89 years old female was admitted with complaint of having palpitation. Patient was found to have atrial fibrillation with RVR . Patient also had cholecystitis. Patient was given IV antibiotics, beta-blockers and Xarelto. Workup for gallstone was negative. Today patient is feeling better. Patient was discharged home in stable condition. Patient had follow-up with Primary Care, Cardiology and surgery. Time Spent with Patient Time attestation: Total time spent providing and/or coordinating discharge services: 30 minutes Exam Narrative: General: well appearing, appears stated age. HEENT: normocephalic, atraumatic. Mucous membranes moist. EOMI, PERRLA, bilateral sclera anicteric, no conjunctival injection. Neck supple without JVD, lymphadenopathy, or bruit. Respiratory: clear to ascultation bilaterally. No rales/rhonic/wheezes. Cardiovascular: Irregular, . No murmurs, rubs, or clicks. PMI is nondisplaced, capillary refill less than 3 second. Abdomen: Soft, round, no pulsatile masses, nondistended and nontender. No rebound, no guarding. No CVA tenderness, no hepatosplenomegaly. Bowel sounds present to all four quadrants. No high pitch or tinkling sounds, resonant to percussion. Extremities: No cyanosis, clubbing, or edema present. Pulses are palpable 2/2. Active ROM to all four extremities. Neuro: Alert and orientated x 4. PERRLA. Cranial nerves 2-12 intact without focal deficit. Skin: Warm, dry, and intact, without rash, erythema, or lesion. Psych: pleasant, cooperative, normal speech, normal affect, no hallucinations, no dysarthia DS: Data Data Completed and Pending Labs on day of discharge: Labs from last 24 hours 05/22/24 05/22/24 05/21/24 07:44 06:35 21:08 Creatinine 1.50 H Estim Creat Clear Calc 24 Estimated GFR 33 L POC Capillary Glucose 135 H 137 H 05/21/24 05/21/24 15:43 11:17 Creatinine Estim Creat Clear Calc Estimated GFR POC Capillary Glucose 156 H 144 H Preliminary micro results at discharge 05/17/24 13:16 Blood Culture - Preliminary Blood Unidentified organism#1 Staphylococcus epidermidis S.parasanguinis 05/19/24 14:30 Blood Culture - Preliminary Blood 05/19/24 14:30 Blood Culture - Preliminary Blood 05/17/24 13:18 Blood Culture - Preliminary Blood Discharge Plan Discharge Attending physician on discharge: Sabino Charles Consulting providers: Sylvia Sanz; Torres Ochoa; Saw Pickard Discharging Clinician: Sabino Charles Patient Disposition: Home, Self-Care Activity: as tolerated Diet: as tolerated Patient Instructions: Antibiotic Form Patient Language: Turkish Stand Alone Forms: General Discharge Information Follow-up/Referrals: Tono Charles MD [Primary Care Provider] - Torres Ochoa DO [Physician] - Discharge Medications: New metoprolol tartrate 25 mg Tablet 25 mg PO Q8H Qty: 21 0RF metronidazole 250 mg Tablet 250 mg PO QID Qty: 21 0RF Xarelto 20 mg Tablet 20 mg PO DAILY@1700 Qty: 60 0RF ciprofloxacin HCl 500 mg Tablet 500 mg PO Q12HR Qty: 14 0RF Continued diphenoxylate-atropine [Lomotil] 2.5-0.025 mg tablet 2 tablet PO QID PRN (Reason: diarrhea) Qty: 60 0RF Patient Comments: as needed for diarrhea mirabegron [Myrbetriq] 25 mg tablet extended release 24 hr 25 mg PO HS Probiotic Digestive Care 20 billion cell capsule See Rx Instructions PO .COMPLEX Rx Instructions: take 1 po QD PO; cholestyramine (with sugar) 4 gram powder See Rx Instructions PO BID Rx Instructions: 6-8 ounces drink twice daily with meals orally twice a day; famotidine 20 mg tablet See Rx Instructions .ROUTE .COMPLEX Qty: 90 1RF Dose Instruction: TAKE 1 TABLET BY MOUTH DAILY Rx Instructions: TAKE 1 TABLET BY MOUTH DAILY paroxetine HCl 20 mg tablet See Rx Instructions .ROUTE .COMPLEX Qty: 90 3RF Dose Instruction: TAKE 1 TABLET BY MOUTH DAILY Rx Instructions: TAKE 1 TABLET BY MOUTH DAILY ezetimibe 10 mg tablet See Rx Instructions .ROUTE .COMPLEX Qty: 90 1RF Dose Instruction: TAKE 1 TABLET BY MOUTH ONCE DAILY Rx Instructions: TAKE 1 TABLET BY MOUTH ONCE DAILY Date of admission: 05/19/24 15:58 Primary Care Provider: Tono Charles Admitting Provider: Kiet Foster Attending physician on admission: Kiet Foster Condition: Stable Quality VTE Prophylaxis VTE prophylaxis: mechanical ordered and pharmacologic ordered
[2024-05-22] MEDS: metroNIDAZOLE 250 MG TABLET PO (10:34)
[2024-05-31 14:38] LABS: ALT 77 U/L (6-29); Alpha-2-Macroglobulin 188 mg/dL (106-279); Apolipoprotein A1 100 mg/dL (101-198); Fibrosis Score 0.41; Fibrosis Stage F1-F2; GGT 30 U/L (3-65); Haptoglobin 282 mg/dL (43-212); Necroinflammat Act Grade A1-A2; Reference ID 5272050; Total Bilirubin 0.6 mg/dL (0.2-1.2)
== END 2024-05-22 11:50 | disposition home health service (06) | DRG 445 ==
LOC: ANHED 08:28 → ANHIMU 10:28 → ANH3MEDSUR 05-22 09:38 → ANHIMU 05-24 07:15
PROVIDERS: Family Medicine; General Practice; Internal Medicine; Nurse Practitioner; Nurse Practitioner Family; Nurse Practitioner Gerontology; Admitting Provider Internal Medicine; Emergency Provider Emergency Medicine; PCP Family Medicine; Visit Provider Internal Medicine
DX: K81.0 Acute cholecystitis (principal); J84.9 Interstitial pulmonary disease, unspecified; N17.9 Acute kidney failure, unspecified; I48.91 Unspecified atrial fibrillation; R73.9 Hyperglycemia, unspecified; Z80.0 Family history of malignant neoplasm of digestive organs; Z87.891 Personal history of nicotine dependence
CPT/HCPCS: 36415; 71046; 71250; 74176; 76705; 78226; 80053; 80076; 80202; 81001; 81596; 82565; 82948; 83036; 83690; 84443; 84484; 85025; 85027; 85055; 85610; 85730; 87040; 87086; 87181; 87641; 93005; 96361; 96372; 96374; 96375; 97161; 97165; 99285; A9270; A9537; C8929; G0378; J1650; J2060; J2405; J2543; J3370; J7030; Q9957

== ENCOUNTER 2024-06-19 01:14 | Day surgery (SDC) | payer MEDICARE, SELFPAY ==
[2024-06-18 13:30] VITALS: BMI 24.8
[2024-06-19] VITALS (10 sets, daily range): BP systolic 108–153; BP diastolic 72–106; PULSE 92–107; RESP 12–25; TEMP 36.7; O2SAT 88–98; BMI 25.9
--- NOTE | 2024-06-19 07:00 | ECG_ITS ---
Test Date: 2024-06-19 07:14:56 Measurements Intervals [place] Rate: 112 P: 0 DE: 0 QRS: 86 QRSD: 85 T: 0 QT: 349 QTc: 478 Interpretive Statements ATRIAL FIBRILLATION WITH RAPID VENTRICULAR RESPONSE NONSPECIFIC ST & T-WAVE ABNORMALITY ABNORMAL RHYTHM ECG Compared to ECG 05/18/2024 20:46:33 Ventricular premature complex(es) no longer present Aberrant conduction of supraventricular beat(s) no longer present T-wave abnormality still present Electronically Signed On 06-20-2024 13:50:50 SERVICE WRITER by Sylvia Sanz
[2024-06-19 07:50] LABS: Anion Gap 8 mmol/L (4-12); Blood Urea Nitrogen 24 mg/dL (7-17); Calcium 8.3 mg/dL (8.4-10.2); Carbon Dioxide 28 mmol/L (22-30); Chloride 98 mmol/L (98-107); Estimated CRCL calculation 26 ml/min; Estimated Glomerular Filt Rate 43; Glucose 122 mg/dL (65-110); Magnesium 1.6 mg/dL (1.6-2.3); Potassium 3.3 mmol/L (3.4-5.0); Sodium 134 mmol/L (137-145)
--- NOTE | 2024-06-19 09:06 | WPDMODSED ---
Moderate Sedation Note-Pt Data Patient Data Diagnosis: Persistent atrial fibrillation chronicity unknown Present Complaint: Generalized fatigue Procedure to be performed/Plan: DC cardioversion Allergies Allergy/AdvReac Type Severity Reaction Status Date / Time Wzdciam-AEZ-KwG Reductase AdvReac Intermediate Elevated Verified 06/19/24 07:44 Inhibitor CPK Home Medications ?Medication ?Instructions ?Recorded ?Confirmed ?Type mirabegron 25 mg tablet,extended 25 mg PO HS 10/15/19 06/18/24 History release 24 hr (Myrbetriq) ezetimibe 10 mg tablet See Rx Instructions .Route 03/01/24 06/18/24 Rx .COMPLEX #90 tabs cholestyramine (with sugar) 4 gram See Rx Instructions PO BID IBS 05/17/24 06/18/24 History oral powder ciprofloxacin HCl 500 mg tablet 500 mg PO Q12HR #14 tabs 05/22/24 06/18/24 Rx metronidazole 250 mg tablet 250 mg PO QID #21 tabs 05/22/24 06/18/24 Rx rivaroxaban 20 mg tablet (Xarelto) 20 mg PO DAILY@1700 #60 tabs 05/22/24 06/19/24 Rx famotidine 20 mg tablet See Rx Instructions .Route 06/05/24 06/18/24 Rx .COMPLEX #90 tabs diphenoxylate-atropine 2.5 2 tablet PO QID PRN diarrhea #60 06/10/24 06/18/24 Rx mg-0.025 mg tablet (Lomotil) tabs acetaminophen 500 mg capsule 1,000 mg PO QID PRN pain 06/18/24 06/18/24 History alprazolam 0.25 mg tablet 0.25 mg PO QHS PRN anxiety #14 tabs 06/18/24 06/18/24 Rx escitalopram oxalate 10 mg tablet 10 mg PO DAILY #90 tabs 06/18/24 06/18/24 Rx (Lexapro) furosemide 40 mg tablet (Lasix) 20 mg PO DAILY 06/18/24 06/18/24 History metoprolol tartrate 50 mg tablet 150 mg PO BID 06/18/24 06/18/24 History pantoprazole 40 mg tablet,delayed 40 mg PO QAM 06/18/24 06/18/24 History release spironolactone 25 mg tablet 12.5 mg PO DAILY 06/18/24 06/18/24 History (Aldactone) Current Medications: Active Medications Sodium Chloride (Normal Saline Iv) 1,000 mls @ 30 mls/hr IV CONT .Q24H CATE Sedation/Anesthesia: No previous sedation/anesthesia problems (including family history). [facility] Past Medical History Medical History Abdominal pain Cerumen impaction Hearing Loss Left arm pain BMI 24.0-24.9, adult Chronic diarrhea BMI 25.0-25.9,adult Family History Family History Mother Carcinoma of colon Father Family history of heart disease in male family member before age 55 Acute myocardial infarction Sibling , 97-sister Bowel disease, inflammatory Sibling Bowel disease, inflammatory C. difficile diarrhea Other Family history of congenital heart disease Family history of coronary artery disease Family history of malignant neoplasm Social History Social History Smoking status: Former smoker Second hand tobacco smoke exposure: Yes Alcohol intake: current Drinks per week: 1 Substance use: never Substance use type: does not use Do You Feel Safe in your Home?: Yes Lack of Transportation: No Lack of Food: Never True Current Housing: I Do Not Have Housing Concerned About Future Housing: No Difficulty Paying Gas/Electric Bills: No Difficulty Paying for Meds: No Currently Unemployed: No Education: High School Diploma/GED Difficulty w/ Childcare or Family Care: No Living arrangements: alone Occupation/Education: retired 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 Gender identity (if verbalized by the patient): Female Sexual Orientation (if Verbalized by the Patient): Straight or Heterosexual Spiritual care concerns: No Agree to blood products: Yes Mod Sed Physical Exam Physical Exam Pre Procedural Exam: Normal: Appearance, Throat, Airway, Lungs, Heart Size, Neuro Exam and Extremities and Variation: Heart Rate and Heart Rhythm (Tachycardic, irregularly irregular) Hours since solid foods: 12 Hours since liquid intake: 12 Mallampati Classification: class II Internal Medicine - PN: Obj Da Vital Signs Vital Signs: Vital Signs - 24 hr 06/19/24 07:00 Temperature 36.7 C Pulse Rate 104 H Respiratory Rate 17 Blood Pressure 136/98 H Pulse Oximetry 98 Oxygen Delivery Room Air Intake/Output Intake/Output: Intake & Output 06/16/24 06/17/24 06/18/24 06/19/24 23:59 23:59 23:59 23:59 Output Total 0 Balance 0 Meds/Results Medications: Active Medications Generic Name Dose Route Start Last Admin Trade Name Sampsonq PRN Reason Stop Dose Admin Sodium Chloride 1,000 mls @ 30 mls/hr 06/19/24 07:00 Normal Saline Iv IV CONT .Q24H CATE Labs 06/19/24 07:31 Labs: Laboratory Results - last 24 hr 06/19/24 07:31 Sodium 134 L Potassium 3.3 L Chloride 98 Carbon Dioxide 28 Anion Gap 8 BUN 24 H D Creatinine 1.19 H Estim Creat Clear Calc 26 Estimated GFR 43 L Glucose 122 H Calcium 8.3 L Magnesium 1.6 ASA Classification/Sedation ASA Classification/Sedation ASA Class: III Emergent: No Risks: Risks, benefits and alternatives explained and patient/family accepted plan for sedation. Patient re-evaluated immediately prior to sedation.
--- NOTE | 2024-06-19 09:23 | P.PCNCC_ITS ---
Cardiac Cath Procedure Note Date of procedure:: 06/19/24 Performing physician:: Turner Perdomo MD Indication:: Persistent atrial fibrillation Brief clinical history:: This is an 89-year-old lady with recently diagnosed atrial fibrillation. She has been anticoagulated with Xarelto and rate controlled with metoprolol. An attempt at restoring sinus rhythm electrically has been recommended and scheduled for this morning. Procedure Procedure performed:: DC cardioversion Sedation/Medication given:: Intravenous propofol in aliquots total dosage of 60 mg Estimated blood loss:: No blood loss Procedure note:: Patient was brought to the cardiac catheterization lab holding area in the postabsorptive state where a defibrillator patches were placed in the AP position IV access was established in the left arm. She was then sedated using aliquots of propofol. A total dosage of 60 mg provided excellent sedation. She was then DC cardioverted using 200 joules in a synchronized fashion which did restore sinus rhythm only briefly for less than 10 seconds. A 2nd shock was delivered with the same result. Findings:: As above Conclusion:: DC cardioversion of atrial fibrillation which only transiently restored sinus rhythm and was repeated with a 2nd shock with identical results. Unsuccessful but uncomplicated attempt at DC cardioversion of atrial fib with only transient sikh of sinus rhythm Patient will be followed in the office to consider either more aggressive attempts at restoring sinus rhythm or excepting chronic AF and pursuing rate control/anticoagulation strategy Turner Perdomo MD [facility]
== END 2024-06-19 10:35 | disposition home or self-care (01) ==
PROVIDERS: PCP Family Medicine; Visit Provider Specialist
PROC: 5A2204Z Restoration of Cardiac Rhythm, Single (ICD-10-PCS; principal; 2024-06-19 08:30)
DX: I48.19 Other persistent atrial fibrillation (principal); I50.42 Chronic combined systolic (congestive) and diastolic (congestive) heart failure; K52.9 Noninfective gastroenteritis and colitis, unspecified; H53.9 Unspecified visual disturbance; Z79.01 Long term (current) use of anticoagulants; Z80.0 Family history of malignant neoplasm of digestive organs; Z82.49 Family history of ischemic heart disease and other diseases of the circulatory system; Z87.891 Personal history of nicotine dependence
CPT/HCPCS: 36415; 80048; 83735; 92960; J2704; J7030

== ENCOUNTER 2024-06-28 12:57 | Outpatient (CLI) | payer MEDICARE, SELFPAY ==
--- NOTE | ~2024-06-28 | CT_ITS ---
History: Stroke follow-up PROCEDURE: CT head without contrast. COMPARISON: None TECHNIQUE: Axial imaging of the head performed from the skull base to the vertex without IV contrast. Sagittal a nd coronal reformations obtained. DLP: 600 mGy-cm FINDINGS: The ventricles are enlarged. The dilatation of the ventricles is proportional to the degree of sulcal prominence, not uncommon in the senescent brain. Decreased attenuation is identified within the periventricular white matter, likely secondary to micr ovascular ischemic disease, in a patient of this age. Bulky calcifications within the bilateral basal ganglia. There is no mass, mass effect or midline shift. There is no abnormal extra-axial fluid collection or intracranial hemorrhage. Visualized paranasal sinuses are clear. The mastoid air cells are well aerated. No acute displaced fractures within the overlying cranium. Impression: No acute intracranial hemorrhage or suspicious mass effect. Reviewed, dictated and finalized at location A. RAL ARRANGEMENT DIRECTOR Impression: No acute intracranial hemorrhage or suspicious mass effect.
== END 2024-06-28 12:58 | disposition home or self-care (01) ==
LOC: MICIMG 12:58
PROVIDERS: PCP Family Medicine; Visit Provider Nurse Practitioner Adult Health
DX: H53.9 Unspecified visual disturbance (principal)
CPT/HCPCS: 70450

== ENCOUNTER 2024-07-19 15:11 | Outpatient (CLI) | payer MEDICARE, SELFPAY ==
--- OUTSIDE RECORDS SUMMARY | 2024-07-19 15:15 | XMS_ITS | Referral Summary ---
Author Organization [facility] Address [address] [place] [address] Care Team Providers Care Ore Smelter Name Role Phone Tono Charles MD Primary Care Provider Encounters Date Type Department Care Team Description 07/19/2024 Results Follow-Up [facility] Medical [facility] [address] [place] [address] [place] [phone] Maxime Cortez NP 07/19/2024 Telephone [facility] [address] [place] [address] [place] [phone] Maxime Cortez NP 07/18/2024 10:15 AM REGISTERED PHARMACY TECHNICIAN Ancillary Procedure [facility] [address] [place] [address] [place] [phone] Dilated cardiomyopathy (CMS/HCC) (HCC) 07/09/2024 9:30 AM REGISTERED PHARMACY TECHNICIAN Office Visit [facility] [address] [place] [phone] Maxime Cortez NP Persistent atrial fibrillation (HCC); Atrial flutter, unspecified type (HCC); Chronic anticoagulation; Dilated cardiomyopathy (CMS/HCC) (HCC); Lethargy; Anxiety; Hospital discharge follow-up 06/28/2024 Orders Only [facility] Health Information Management [address] [place] [phone] Maxime Cortez NP 06/28/2024 Telephone [facility] [address] [place] [address] [place] [phone] Turner Perdomo MD 06/24/2024 Orders Only [facility] [address] [place] [address] [place] [phone] Turner Perdomo MD 06/24/2024 Telephone [place] [address] [place] [phone] Turner Perdomo MD 06/18/[address] [phone] Maxime Cortez NP 06/06/2024 10:00 AM REGISTERED PHARMACY TECHNICIAN Office Visit [address] [phone] Maxime Cortez NP Persistent atrial fibrillation (HCC) (Primary Dx); 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); Change in vision; Hospital discharge follow-up 06/05/2024 Telephone [place] [address] [place] [address] [phone] Maxime Cortez NP 05/30/2024 Telephone [place] [address] [place] [phone] Maxime Cortez NP 05/23/2024 Orders Only [place] [address] [place] [address] [phone] Rashida Elizabeth NP 05/17/2024 Orders Only [facility] Health Information Management [address] [place] [phone] Rashida Elizabeth NP from Last 3 Months Allergies No known active allergies Medications PARoxetine (PAXIL) 20 mg tablet 9 Active ALPRAZolam (XANAX) 0.25 mg tablet Take 1 tablet (0.25 mg total) by mouth nightly as needed for anxiety Active mirabegron ER (MYRBETRIQ) 25 mg tablet extended release 24 hr Take 1 tablet (25 mg total) by mouth Active ezetimibe (ZETIA) 10 mg tablet Take 1 tablet (10 mg total) by mouth daily 3 Active diphenoxylate-at ropine (LOMOTIL) 2.5-0.025 mg per tabletIndication s:diarrhea Take 2 tablets by mouth 4 (four) times a day as needed for diarrhea Active hyoscyamine (OSCIMIN) 0.125 mgIndications:Ur inary Incontinence Take 1 tablet (0.125 mg total) by mouth 3 (three) times a day as needed for cramping Active rivaroxaban (XARELTO) 20 mg tablet Take 1 tablet (20 mg total) by mouth daily Active spironolactone (ALDACTONE) 25 mg tablet Take 0.5 tablets (12.5 mg total) by mouth daily [address] (PROTONIX) 40 mg EC tablet Take 1 tablet (40 mg total) by mouth daily 5 Active traZODone (DESYREL) 50 mg tablet Take 1 tablet (50 mg total) by mouth nightly 5 Active lisinopriL (PRINIVIL,ZESTRI L) 2.5 mg tablet Take 1 tablet (2.5 mg total) by mouth daily 5 Active hydrOXYzine (ATARAX) 25 mg tablet Take 1 tablet (25 mg total) by mouth nightly as needed for anxiety 5 Active metoprolol tartrate (LOPRESSOR) 50 mg immediate release tablet Take 1 tablet (50 mg total) by mouth 2 (two) times a day 5 Active methylPREDNISolo ne (MEDROL DOSEPACK) 4 mg Dosepack 9 07/09/19 25 Discontinu ed(Therapy completed) polycarbophil (FIBERCON) 625 mg tablet Take 1 tablet (625 mg total) by mouth daily 07/09/19 25 Discontinu ed(Therapy completed) ibuprofen 200 mg tab/cap Take 1 tablet/capsu le (200 mg total) by mouth every 6 (six) hours as needed for pain 07/09/19 25 Discontinu ed(Therapy completed) D3-E-Se-soy hfdpd-eeqbnk-pvv op 1,200-15-35 mfsb-jsbi-fzu capsule Take by mouth 07/09/19 25 Discontinu ed(Therapy completed) ezetimibe-simvas tatin (VYTORIN) 10-10 mg per tablet Take 1 tablet by mouth nightly 07/09/19 Discontinu ed(Alterna te therapy) cholestyramine (QUESTRAN) 4 gram powder MIX 1 LEVEL SCOOPFUL WITH 6 TO 8 OUNCES OF LIQUID TWICE DAILY WTIH MEALS. 3 07/09/19 Discontinu ed(Therapy completed) cholestyramine (QUESTRAN) 4 gram powderIndication s:Diarrhea, unspecified type MIX WITH 6 TO 8 OUNCES OF WATER AND DRINK TWICE DAILY WITH MEALS 378 g 4 07/09/19 Discontinu ed(Therapy completed) metoprolol tartrate (LOPRESSOR) 75 mg tablet immediate release tablet Take 0.6667 tablets (50 mg total) by mouth 2 (two) times a day 5 07/09/19 Discontinu ed(Alterna te therapy) furosemide (LASIX) 40 mg tablet Take 0.5 tablets (20 mg total) by mouth daily 5 07/09/19 Discontinu ed(Therapy completed) Active Problems Problem Noted Date Diagnosed Date Diarrhea 10/03/2022 Assessment & Plan (05/30/2023 12:56 PM REGISTERED PHARMACY TECHNICIAN): Chronic diarrhea since the age of 21, improved with Questran Pt labs and stool studies were unremarkable September 2022 Assessment & Plan (10/03/2022 12:26 PM CDT): Chronic diarrhea since the age of 21, getting progressively worse over the past year. Has 4-7 loose to watery bowel movements per day. Takes Lomotil p.r.n. which helps. -we will order labs and stool studies for further evaluation -schedule colonoscopy -The risks (risks of bleeding, infection, perforation requiring surgery, missed polyps/cancer, dental injury, aspiration pneumonia, anesthesia complications such as drug reaction and cardiopulmonary complications including rare chance of ), benefits, and alternatives of the planned procedure were explained to the patient who understands and consents to having procedure done. -we will try cholestyramine 4 g p.o. b.i.d. Gastroesophageal reflux disease without esophagi tis 10/03/2022 Assessment & Plan (05/30/2023 1:02 PM REGISTERED PHARMACY TECHNICIAN): Chronic GERD for over 10 years. -continue current med regimen -RECOMMENDATIONS given include: anti-reflux maneuvers, Avoid acidic foods like oranges and tomatoes., avoidance of spicy foods, avoid eating 3-4 hours before bed, elevation of the head of the bed, and weight loss Assessment & Plan (10/03/2022 12:22 PM CDT): Chronic GERD for over 10 years. Takes PPI daily and famotidine p.r.n.. -continue PPI daily and famotidine p.r.n. -RECOMMENDATIONS given include: anti-reflux maneuvers, Avoid acidic foods like oranges and tomatoes., avoidance of spicy foods, avoid eating 3-4 hours before bed, elevation of the head of the bed, and weight loss -schedule EGD -The risks (risks of bleeding, infection, perforation requiring surgery, missed polyps/cancer, dental injury, aspiration pneumonia, anesthesia complications such as drug reaction and cardiopulmonary complications including rare chance of ), benefits, and alternatives of the planned procedure were explained to the patient who understands and consents to having procedure done. Family history of colon cancer in mother 023 Assessment & Plan (05/30/2023 12:58 PM REGISTERED PHARMACY TECHNICIAN): Mother had colon cancer diagnosed in 40s. Patient's last colonoscopy was over 10 years ago. we have discussed risks of undergoing colonoscopy with polypectomy which patient defers at this time given her age and medical comorbidities understanding the risk of missed colon cancer without repeat colonoscopy and polypectomy. Assessment & Plan (10/03/2022 12:23 PM CDT): Mother had colon cancer diagnosed in 40s. Patient's last colonoscopy was over 10 years ago. Social History Tobacco Use Types Packs/Day Years Used Date Smoking Tobacco: Never Smokeless Tobacco: Never Tobacco Cessation:Counseling Given: Not Answered Comments Unknown Sex and Gender Information Value Date Recorded Sex Assigned at Not on file Legal Sex Female 2:22 PM REGISTERED PHARMACY TECHNICIAN Gender Identity Not on file Sexual Orientation Not on file Last Filed Vital Signs Vital Sign Reading Time Taken Comments Blood Pressure 108/68 07/09/2024 9:45 AM REGISTERED PHARMACY TECHNICIAN Pulse 74 07/09/2024 9:45 AM REGISTERED PHARMACY TECHNICIAN Temperature - - Respiratory Rate - - Oxygen Saturation 96% 07/09/2024 9:45 AM REGISTERED PHARMACY TECHNICIAN Inhaled Oxygen Concentration - - Weight 65.3 kg (144 lb) 07/09/2024 9:45 AM REGISTERED PHARMACY TECHNICIAN Height 165.1 cm (5' 5 ) 07/09/2024 9:45 AM REGISTERED PHARMACY TECHNICIAN Body Mass Index 23.96 07/09/2024 9:45 AM REGISTERED PHARMACY TECHNICIAN Plan of Treatment Not on file Procedures Procedure Name Priority Date/Time Associated Diagnosis Comments NM MPI SPECT (REST AND/OR STRESS) MULTIPLE STUDIES Schedule Routine, Read Routine (OP Routine) 07/18/2024 12:15 PM REGISTERED PHARMACY TECHNICIAN Dilated cardiomyopathy (CMS/HCC) (HCC) SCAN - RADIOLOGY/IMAGING 06/28/2024 CARDIOLOGY DOCUMENT SCAN Routine 06/19/2024 4:38 PM REGISTERED PHARMACY TECHNICIAN CARDIOLOGY DOCUMENT SCAN Routine 05/19/2024 12:50 PM REGISTERED PHARMACY TECHNICIAN CARDIOLOGY DOCUMENT SCAN Routine 05/18/2024 12:47 PM REGISTERED PHARMACY TECHNICIAN CARDIOLOGY DOCUMENT SCAN Routine 05/17/2024 12:45 PM REGISTERED PHARMACY TECHNICIAN CARDIOLOGY DOCUMENT SCAN 05/17/2024 from Last 3 Months Results * NM MPI SPECT (Rest and/or Stress) Multiple Studies (07/18/2024 12:15 PM REGISTERED PHARMACY TECHNICIAN) Anatomical Region Laterality Modality Body N/A Nuclear Medicine 07/18/2024 7:57 AM REGISTERED PHARMACY TECHNICIAN Narrative 07/18/2024 4:51 PM REGISTERED PHARMACY TECHNICIAN [facility] Cardiology [address] [facility] [address], [place] [address] [address] [facility] [address], [place] [address] P:[phone] P:[phone] MPI Imaging Report Patient Name: DENNIS CHRISTIANSON JO : 1935 Study Date: 07/18/2024 7:57:15 AM Gender: F Tech: ALBER SIMON Location: [place] Ref Provider: MAXIME CORTEZ Height(Cm): 165.1 BSA: Weight(Kg): 65.3 BMI: 23.96 Order Provider: MAXIME CORTEZ PHYSICIAN: Referring Physician: Dr. Charles. HCG Physician: Turner Perdomo M.D.,F.A.C.C. Interpreting Physician: Harish Ferrari M.D. Stress Supervision: Harish Ferrari M.D. PROCEDURES: Pharmacologic SPECT Report: Myocardial perfusion imaging with Tc99M Sestamibi SPECT at rest and stress post regadenoson (Lexiscan) infusion. INDICATIONS: Atrial Fibrillation, Congestive Heart Failure, Family Hx CAD, NGUYEN, and I42.0 Dilated cardiomyopathy. FINDINGS: Procedural Findings: One day rest/stress was used. Tc99m Sestamibi injected IV at rest was 10.4 millicuries 30.0 millicuries of Tc99M Sestamibi injected IV during Lexiscan stress Lexiscan 0.4mg administered IV over 10 seconds. Patient had no symptoms during stress test. Baseline heart rate was 100 BPM Maximum Heart Rate Achieved was: 116 BPM Baseline blood pressure was 110/80 mmHg Post Stress Blood Pressure was 108/76 mmHg Termination: Protocol complete. Resting ECG: Inferior ST-T abnormalities c/w ischemia. Atrial fibrillation. Post ECG: No diagnostic ST changes. Findings are borderline/equivocal for ischemia. Specificity of the observed ST changes is reduced in light of the abnormal resting ECG. Arrhythmia: Baseline AF. Perfusion Findings: Abnormal perfusion imaging - see below. Technical quality of study is excellent. Prone imaging was not performed. Left ventricle cavity size at rest is normal. Left ventricle cavity size with stress is unchanged. A TID of 1.08 was automatically calculated. defect 1: Size is large. Severity is moderate. Location of defect is in the mid anterior segment, mid anteroseptal segment, mid anterolateral segment, apical anterior segment and apical lateral segment. Reversibility is full. Type of defect is ischemia. LV Function: Left ventricular ejection fraction is 34 %. There is moderate to severe LV dysfunction. CONCLUSIONS: No diagnostic ST changes. Findings are borderline/equivocal for ischemia. Specificity of the observed ST changes is reduced in light of the abnormal resting ECG. Left ventricular ejection fraction is 34 %. There is moderate to severe LV dysfunction. Myocardial perfusion imaging is abnormal for a large area of moderate anterior, anterolateral and anteroseptal ischemia. No infarction. The LV visually dilates with stress imaging concerning for multivessel disease. Electronically Signed By: Livan Ferrari MD 07/18/2024 4:50:47 PM REGISTERED PHARMACY TECHNICIAN Electronically Signed By: Livan Ferrari MD 07/18/2024 4:50:47 PM REGISTERED PHARMACY TECHNICIAN Procedure Note Livan Ferrari MD - 07/18/2024 [facility] Cardiology [address] [facility] [address], [place] [address] [address] [facility] [address] [id number], [place] [address] P:[phone] P:[phone] MPI Imaging Report Patient Name: DENNIS CHRISTIANSON JO : 1935 Study Date: 07/18/2024 7:57:15 AM Gender: F [facility] Location: [facility] Provider: MAXIME CORTEZ Height(Cm): 165.1 BSA: Weight(Kg): 65.3 BMI: 23.96 Order Provider: MAXIME CORTEZ PHYSICIAN: Referring Physician: Dr. Charles. HCG Physician: Turner Perdomo M.D.,F.A.C.C. Interpreting Physician: Harish Ferrari M.D. Stress Supervision: Harish Ferrari M.D. PROCEDURES: Pharmacologic SPECT Report: Myocardial perfusion imaging with Tc99M Sestamibi SPECT at rest and stresspost regadenoson (Lexiscan) infusion. INDICATIONS: Atrial Fibrillation, Congestive Heart Failure, Family Hx CAD, NGUYEN, andI42.0 Dilated cardiomyopathy. FINDINGS: Procedural Findings: One day rest/stress was used. Tc99m Sestamibi injected IV at rest was 10.4 millicuries 30.0 millicuries of Tc99M Sestamibi injected IV during Lexiscan stress Lexiscan 0.4mg administered IV over 10 seconds. Patient had no symptoms during stress test. Baseline heart rate was 100 BPM Maximum Heart Rate Achieved was: 116 BPM Baseline blood pressure was 110/80 mmHg Post Stress Blood Pressure was 108/76 mmHg Termination: Protocol complete. Resting ECG: Inferior ST-T abnormalities c/w ischemia. Atrial fibrillation. Post ECG: No diagnostic ST changes. Findings are borderline/equivocal for ischemia.Specificity of the observed ST changes is reduced in light of the abnormal resting ECG. Arrhythmia: Baseline AF. Perfusion Findings: Abnormal perfusion imaging - see below. Technical quality of study isexcellent. Prone imaging was not performed. Left ventricle cavity size at rest is normal.Left ventricle cavity size with stress is unchanged. A TID of 1.08 was automaticallycalculated. defect 1: Size is large. Severity is moderate. Location of defect is in the midanterior segment, mid anteroseptal segment, mid anterolateral segment, apical anteriorsegment and apical lateral segment. Reversibility is full. Type of defect is ischemia. LV Function: Left ventricular ejection fraction is 34 %. There is moderate to severe LVdysfunction. CONCLUSIONS: No diagnostic ST changes. Findings are borderline/equivocal for ischemia.Specificity of the observed ST changes is reduced in light of the abnormal resting ECG. Left ventricular ejection fraction is 34 %. There is moderate to severe LVdysfunction. Myocardial perfusion imaging is abnormal for a large area of moderateanterior, anterolateral and anteroseptal ischemia. No infarction. The LV visually dilates with stress imaging concerning for multivesseldisease. Electronically Signed By: Livan Ferrari MD 07/18/2024 4:50:47 PM REGISTERED PHARMACY TECHNICIAN Electronically Signed By: Livan Ferrari MD 07/18/2024 4:50:47 PM REGISTERED PHARMACY TECHNICIAN Maxime Cortez CIRCLE CUTTING SAW OPERATOR IMG NM PROCEDURES Final R esult * SCAN - RADIOLOGY/IMAGING (06/28/2024) Anatomical Region Laterality Modality Other Maxime Cortez NP Final Res ult * Cardiology Document Scan (06/19/2024 4:38 PM REGISTERED PHARMACY TECHNICIAN) Anatomical Region Laterality Modality Other Turner Perdomo MD [facility] PROC EDURES Final Result * Cardiology Document Scan (05/19/2024 12:50 PM REGISTERED PHARMACY TECHNICIAN) Anatomical Region Laterality Modality Other Result [facility] Sylvia Sanz MD CV CARDIAC SERVICES PROCEDU RES Final Result * Cardiology Document Scan (05/18/2024 12:47 PM REGISTERED PHARMACY TECHNICIAN) Anatomical Region Laterality Modality Other Sylvia Sanz MD CV CARDIAC SERVICES PROCEDU RES Final Result * Cardiology Document Scan (05/17/2024 12:45 PM REGISTERED PHARMACY TECHNICIAN) Anatomical Region Laterality Modality Other Rashida Elizabeth NP CV CARDIAC SERVICES PROCEDUR ES Final Result * Cardiology Document Scan (05/17/2024) Anatomical Region Laterality Modality Other Rashida Elizabeth NP CV CARDIAC SERVICES PROCEDUR ES Final Result from Last 3 Months Insurance [facility] MDCR HMO REF MEDICARE SOLUTIONS Care Teams Ore Smelter Relationship Specialty Start Date End Date Tono Charles MD PCP - General Family Medicine 06/28/18
--- OUTSIDE RECORDS SUMMARY | 2024-07-19 15:15 | XMS_ITS | Clinical Summary ---
Author Organization [facility] Address [address] [place] [address] Phone Care Team Providers Care Appointment Specialist Name Role Phone Tono Charles MD Primary Care Provider [phone] Allergies No known active allergies Medications rivaroxaban (Xarelto) 20 mg Tablet Take 20 mg by mouth daily with supper. Active acetaminophen (TYLENOL) 500 mg tablet Take 1,000 mg by mouth every 6 hours as needed for Pain. Active L. acidophilus/L. bifidus (LACTOBACILLUS ACIDOPH & BIFID ORAL) Take 1 Tablet by mouth daily. Active famotidine (PEPCID) 20 mg tablet Take 20 mg by mouth daily. Active PARoxetine HCl (PAXIL) 10 mg tablet Take 10 mg by mouth daily. Active ezetimibe (ZETIA) 10 mg tablet Take 10 mg by mouth daily. Active pantoprazole (PROTONIX) 40 mg Tablet, Delayed Release (E.C.) Take 1 Tablet (40 mg) by mouth daily at bedtime. 30 Tablet 1 5 4:39 PM CAR SALTER 06/01/19 25 Active spironolactone (ALDACTONE) 25 mg tablet Starting 06/02: Take 0.5 Tablets (12.5 mg) by mouth daily. 30 Tablet 1 5 4:39 PM CAR SALTER 06/02/19 25 Active furosemide (Lasix) 40 mg tablet Take 1 Tablet (40 mg) by mouth daily. 30 Tablet 1 5 4:39 PM CAR SALTER 06/01/19 25 Active lisinopriL (PRINIVIL) 2.5 mg tablet Take 1 Tablet (2.5 mg) by mouth daily. 30 Tablet 1 5 2:17 PM CAR SALTER 07/04/19 25 Active melatonin 3 mg Tablet Take 2 Tablets (6 mg) by mouth nightly as needed for Insomnia. 07/04/19 25 Active hydrOXYzine HCL (ATARAX) 25 mg tablet Take 1 Tablet (25 mg) by mouth every 8 hours as needed for Anxiety or Insomnia. 30 Tablet 5 2:17 PM CAR SALTER 07/04/19 25 Active guaiFENesin (ROBITUSSIN) 100 mg/5 mL solution Take 10 mL (200 mg) by mouth every 4 hours as needed for Cough or Congestion. 473 mL 5 2:17 PM CAR SALTER 07/04/19 25 Active metoprolol tartrate (LOPRESSOR) 100 mg tablet Take 1 Tablet (100 mg) by mouth 2 times daily. 60 Tablet 1 5 2:17 PM CAR SALTER 07/04/19 25 Active mirabegron (MYRBETRIQ) 25 mg Extended Release 24 hour tablet Take 25 mg by mouth daily at bedtime. 025 Discontinued(Josue olvera thought no longer needed) diphenoxylate- atropine 2.5 mg-0.025 mg tablet Take 1 Tablet by mouth 4 times daily as needed for Diarrhea/Loo se Stools. 025 Discontinued(Al ternate therapy prescribed) metoprolol tartrate 75 mg Tablet Take 1 tablet by mouth 2 times daily. 60 Tablet 1 5 4:39 PM CAR SALTER 06/01/19 25 025 Discontinued metoprolol tartrate 75 mg Tablet Take 100 mg by mouth 2 times daily. 60 Tablet 1 07/04/19 25 025 Discontinued guaiFENesin (ROBITUSSIN) 100 mg/5 mL solution Take 10 mL (200 mg) by mouth every 4 hours as needed for Cough or Congestion. 10 mL 07/04/19 25 025 Discontinued melatonin 3 mg Tablet Take 2 Tablets (6 mg) by mouth nightly as needed for Insomnia. 07/04/19 25 025 Discontinued hydrOXYzine HCL (ATARAX) 25 mg tablet Take 1 Tablet (25 mg) by mouth every 8 hours as needed for Anxiety or Insomnia. 30 Tablet 07/04/19 25 025 Discontinued cefdinir (OMNICEF) 300 mg capsule Take 1 Capsule (300 mg) by mouth daily for 6 days. 6 Capsule 07/04/19 25 025 Discontinued Saccharomyces boulardii (FLORASTOR) 250 mg Capsule Take 1 Capsule (250 mg) by mouth 2 times daily for 7 days. 14 Capsule 07/04/19 25 025 Discontinued lisinopriL (PRINIVIL) 2.5 mg tablet Take 1 Tablet (2.5 mg) by mouth daily. 30 Tablet 1 07/04/19 25 025 Discontinued cefdinir (OMNICEF) 300 mg capsule Take 1 Capsule (300 mg) by mouth daily for 6 days. 6 Capsule 5 2:17 PM CAR SALTER 07/04/19 025 metoprolol tartrate 75 mg Tablet Take 100 mg by mouth 2 times daily. 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 A-fib Irritable bowel syndrome Encounters Date Type Department Care Team Description 07/02/2024 External Device Data ST[facility] ABSTRACTION Provider, Abstract 06/28/2024 9:55 PM CAR SALTER - 07/04/2024 1:50 PM CAR SALTER Hospital Encounter [facility] [address] [place] [address] Justo Ruiz MD Anderson, Scott David, MD Baig, Kamran A, MD Hua, Winnie, DO ERIK (acute kidney injury) Discharge Disposition: Home Health Care Svc 06/28/2024 Travel 06/25/2024 External Device Data STL ABSTRACTION Provider, Abstract 06/20/2024 External Device Data [facility] ABSTRACTION Provider, Abstract 06/11/2024 External Device Data ST[facility] ABSTRACTION Provider, Abstract 06/04/2024 External Device Data ST[facility] ABSTRACTION Provider, Abstract 05/31/2024 Travel 05/30/2024 12:44 PM CAR SALTER - 06/01/2024 5:29 PM CAR SALTER Hospital Encounter [facility] [address] [place] [address] Simeon Valadez MD Shanker, Jason A, MD Moon, Woo J, DO Hollis, James Robert, MD Zhang, Qin, MD Acute exacerbation of CHF (congestive heart failure) ([facility]) Discharge Disposition: Home Health Care Svc from Last 3 Months Family History Medical History Relation Name Comments Heart Disease Father Heart Failure Father Lung Cancer Father Colon Cancer Mother Relation Name Status Comments Father Mother Social History Tobacco Use Types Packs/Day Years Used Date Smoking Tobacco: Never Smokeless Tobacco: Never Tobacco Cessation:Counseling Given: Not Answered Alcohol Use Standard Drinks/Week Comments Never 0 (1 standard drink = 0.6 oz pur e alcohol) Feeling Safe Answer Date Recorded Are you in a relationship wi th someone who hurts you emotionally and/or physically? No 06/28/2024 Food Insecurity Answer Date Recorded Social/Environmental Concerns No concerns Transportation Needs Answer Date Record ed Social/Environmental Concerns No concerns Housing Stability Answer Date Recorded Social/Environmental Concerns No concerns Utility Needs Answer Date Recorded Social/Environmental Concerns No concerns Comments Unknown Sex and Gender Information Value Date Recorded Sex Assigned at Not on file Legal Sex Female 12:29 PM CAR SALTER Gender Identity Not on file Sexual Orientation Not on file Last Filed Vital Signs Vital Sign Reading Time Taken Comments Blood Pressure 105/75 07/04/2024 8:59 AM CAR SALTER Pulse 96 07/04/2024 11:16 AM CAR SALTER Temperature 36.2 C (97.2 F) 07/04/2024 8:59 AM CAR SALTER Respiratory Rate 20 07/04/2024 11:1 6 AM CAR SALTER Oxygen Saturation 95% 07/04/2024 11: 16 AM CAR SALTER Inhaled Oxygen Concentration - - Weight 68.5 kg (150 lb 15.7 oz) 07/04/2024 5:37 AM CAR SALTER Height 165.1 cm (5' 5 ) 06/29/2024 12:5 0 PM CAR SALTER Body Mass Index 25.12 06/29/2024 12:50 PM CAR SALTER Plan of Treatment Health Maintenance Due Date Last Done Comments DTAP/TDAP/TD VACCINES (1 - Tdap) 1955 PNEUMOCOCCAL VACCINE 65+ YEARS (1 of 2 - PCV) 04/18/19 55 ZOSTER VACCINE (1 of 2) 1986 OSTEOPOROSIS SCREENING 2001 RSV VACCINE (60+ or ) (1 - 1-dose 75+ series) 2011 INFLUENZA VACCINE (#1) 2023 Procedures Procedure Name Priority Date/Time Associated Diagnosis Comments TELEMETRY REPORT 07/09/2024 2:22 PM CAR SALTER POC GLUCOSE Routine 07/03/2024 5:52 PM CAR SALTER PHOSPHORUS Routine 07/03/2024 3:22 AM CAR SALTER MAGNESIUM LEVEL Routine 07/03/2024 3:22 AM CAR SALTER CBC WITH DIFFERENTIAL Routine 07/03/2024 3:22 AM CAR SALTER COMPREHENSIVE METABOLIC PANEL Routine 07/03/2024 3:[address] HEAD WO CONTRAST Routine 07/03/2024 2 :02 AM CAR SALTER PNEUMONIA PATHOGEN PCR PANEL Routine 07/02/2024 4:12 PM CAR SALTER SPUTUM CULTURE WITH GRAM STAIN Routine 07/02/2024 4:12 PM CAR SALTER XR CHEST PA OR AP 1 VW Routine 07/02/2024 12:41 PM CAR SALTER PROCALCITONIN Routine 07/02/2024 12:37 PM CAR SALTER RESPIRATORY PATHOGEN PCR PANEL Routine 07/02/2024 10:49 AM CAR SALTER C-REACTIVE PROTEIN Routine 07/02/2024 3: 26 AM CAR SALTER PHOSPHORUS Routine 07/02/2024 3:26 AM CAR SALTER MAGNESIUM LEVEL Routine 07/02/2024 3:26 AM CAR SALTER CBC WITH DIFFERENTIAL Routine 07/02/2024 3:26 AM CAR SALTER COMPREHENSIVE METABOLIC PANEL Routine 07/02/2024 3:26 AM CAR SALTER GI PATHOGEN PCR PANEL Routine 07/01/2024 2:53 PM CAR SALTER PHOSPHORUS Routine 07/01/2024 4:25 AM CAR SALTER MAGNESIUM LEVEL Routine 07/01/2024 4:25 AM CAR SALTER CBC WITH DIFFERENTIAL Routine 07/01/2024 4:25 AM CAR SALTER COMPREHENSIVE METABOLIC PANEL Routine 07/01/2024 4:25 AM CAR SALTER PHOSPHORUS Routine 06/30/2024 2:11 AM CAR SALTER MAGNESIUM LEVEL Routine 06/30/2024 2:11 AM CAR SALTER CBC WITH DIFFERENTIAL Routine 06/30/2024 2:11 AM CAR SALTER COMPREHENSIVE METABOLIC PANEL Routine 06/30/2024 2:11 AM CAR SALTER HORTICULTURE/FLORICULTURE TEACHER EVALUATE AND TREAT Routine 06/29/2024 6:14 PM CAR SALTER LIPID PANEL Stat 06/29/2024 5:21 AM CAR SALTER MAGNESIUM LEVEL Stat 06/29/2024 5:21 AM CAR SALTER TROPONIN 6 HR, 5TH GEN Timed Study 06/29/2024 5:21 AM CAR SALTER TROPONIN 2 HR, 5TH GEN Timed Study 06/29/2024 1:45 AM CAR SALTER XR CHEST PA OR AP 1 VW Stat 06/28/2024 11:53 PM CAR SALTER URINALYSIS W/REFLEX MICROSCOPIC Stat 06/28/2024 11:18 PM CAR SALTER HEMOGLOBIN A1C Stat 06/28/2024 11:13 PM CAR SALTER TROPONIN BASELINE, 5TH GEN Stat 06/28/2024 11:13 PM CAR SALTER BRAIN NATRIURETIC PEPTIDE, BNP OR PROBNP Stat 06/28/2024 11:13 PM CAR SALTER LIPASE Stat 06/28/2024 11:13 PM CAR SALTER COMPREHENSIVE METABOLIC PANEL Stat 06/28/2024 11:13 PM CAR SALTER CBC WITH DIFFERENTIAL Stat 06/28/2024 11:13 PM CAR SALTER EKG 12-LEAD Stat 06/28/2024 10:52 PM CAR SALTER XR CHEST PA AND LATERAL 2 VW Stat 06/28/2024 8:43 PM CAR SALTER RESPIRATORY PATHOGEN PCR PANEL Stat 06/28/2024 8:28 PM CAR SALTER CARDIAC EVENT MONITOR Routine 06/14/2024 6:00 AM CAR SALTER TELEMETRY REPORT 06/08/2024 2:20 PM CAR SALTER MAGNESIUM LEVEL Routine 06/01/2024 2:41 AM CAR SALTER BASIC METABOLIC PANEL Routine 06/01/2024 2:41 AM CAR SALTER ECHO COMPLETE Routine 05/31/2024 12:07 PM CAR SALTER PROCALCITONIN Routine 05/31/2024 2:08 AM CAR SALTER CBC WITH DIFFERENTIAL Routine 05/31/2024 2:08 AM CAR SALTER MAGNESIUM LEVEL Routine 05/31/2024 2:08 AM CAR SALTER BASIC METABOLIC PANEL Routine 05/31/2024 2:08 AM CAR SALTER CTA CHEST W AND/OR WO CONTRAST Stat 05/30/2024 9:36 PM CAR SALTER US ABDOMEN LIMITED Stat 05/30/2024 8: 51 PM CAR SALTER C-REACTIVE PROTEIN Stat 05/30/2024 7: 53 PM CAR SALTER TROPONIN 6 HR, 5TH GEN Timed Study 05/30/2024 7:53 PM CAR SALTER URINALYSIS W/REFLEX MICROSCOPIC Stat 05/30/2024 7:[address] ABDOMEN PELVIS WO CONTRAST Stat 05/30/2024 4:49 PM CAR SALTER TROPONIN 2 HR, 5TH GEN Timed Study 05/30/2024 4:06 PM CAR SALTER MAGNESIUM LEVEL Stat 05/30/2024 1:44 PM CAR SALTER TSH Stat 05/30/2024 1:44 PM CAR SALTER TROPONIN BASELINE, 5TH GEN Stat 05/30/2024 1:44 PM CAR SALTER BRAIN NATRIURETIC PEPTIDE, BNP OR PROBNP Stat 05/30/2024 1:44 PM CAR SALTER COMPREHENSIVE METABOLIC PANEL Stat 05/30/2024 1:44 PM CAR SALTER CBC WITH DIFFERENTIAL Stat 05/30/2024 1:44 PM CAR SALTER RESPIRATORY PATHOGEN PCR PANEL Stat 05/30/2024 1:44 PM CAR SALTER XR CHEST PA OR AP 1 VW Stat 05/30/2024 1:35 PM CAR SALTER EKG 12-LEAD Stat 05/30/2024 12:58 PM CAR SALTER from Last 3 Months Results * TELEMETRY REPORT (07/09/2024 2:22 PM CAR SALTER) Only the most recent of2 resultswithin the time period is included. Provider Scanning ECG ORDERABLES Final Result * (ABNORMAL) POC GLUCOSE (07/03/2024 5:52 PM CAR SALTER) GLUCOSE POC 122(H) 74 - 99 mg/dL 07/03/2024 5:52 PM CAR SALTER [facility] SPECIMEN SOURCE, GLUCOSE POC Whole Blood 07/03/2024 5:52 PM CAR SALTER [facility] COMMENT, GLU POC Notified RN/MD 07/03/2024 5:52 PM CAR SALTER [facility] Blood, whole 07/03/2024 5:52 PM CAR SALTER 07/03/2024 6:02 PM CAR SALTER Margarita Gillis DO POINT OF CARE TESTING Final Resu lt [facility] [employer] [facility]# [id number] [address] [facility] [place] [id number] * (ABNORMAL) CBC WITH DIFFERENTIAL (07/03/2024 3:22 AM CAR SALTER) Only the most recent of7 resultswithin the time period is included. WBC 14.9(H) 4.0 - 9.8 K/uL 07/03/2024 5:01 AM [facility] RBC 3.95 3.90 - 4.90 M/uL 07/03/2024 5:01 AM [facility] HEMOGLOBIN 12.1 11.8 - 14.8 g/dL 07/03/2024 5:01 AM [facility] [employer] [facility] HEMATOCRIT 37.7 35.5 - 44.0 % 07/03/2024 5:01 AM CAR [facility]TER [facility] MCV 95.4 82.0 - 99.0 fL 07/03/2024 5:01 AM [facility] - [facility] MCH 30.6 27.2 - 32.6 pg 07/03/2024 5:01 AM [facility] - [facility] MCHC 32.1 31.5 - 35.5 g/dL 07/03/2024 5:01 AM [facility] - . [facility] RDW 14.8(H) 11.5 - 14.5 % 07/03/2024 5:01 AM [facility] - [facility] RDW-STDEV 50.3(H) 37.1 - 48.7 fL 07/03/2024 5:01 AM [facility] - [facility] PLATELETS 280 140 - 350 K/uL 07/03/2024 5:01 AM [facility] - [facility] MPV 10.1 9.3 - 12.4 fL 07/03/2024 5:01 AM [facility] - [facility] NEUTROPHILS 80 % 07/03/2024 5:01 AM [facility] - [facility] LYMPHOCYTES 8 % 07/03/2024 5:01 AM [facility] - . [facility] MONOCYTES 9 % 07/03/2024 5:01 AM [facility] - . [facility] EOSINOPHILS 2 % 07/03/2024 5:01 AM [facility] - . [facility] BASOPHILS 1 % 07/03/2024 5:01 AM [facility] - . [facility] IMMATURE GRANULOCYTES 1 % 07/03/2024 5:01 AM [facility] - . [facility] Comment:IG (Immature Granulo cyte) count includes Metamyelocytes, Myelocytes, and Promyelocytes NEUTROPHIL ABSOLUTE 11.95(H) 1.90 - 7.00 K/uL 07/03/2024 5:01 AM [facility] - . [facility] LYMPHOCYTE ABSOLUTE 1.15 0.70 - 4.50 K/uL 07/03/2024 5:01 AM [facility] - . [facility] MONOCYTE ABSOLUTE 1.30 0.10 - 1.30 K/uL 07/03/2024 5:01 AM [facility] - . [facility] EOSINOPHIL ABSOLUTE 0.25 0.00 - 0.70 K/uL 07/03/2024 5:01 AM [facility] BASOPHILS ABSOLUTE 0.07 0.00 - 0.20 K/uL 07/03/2024 5:01 AM [facility] IMMATURE GRANULOCYTES ABSOLUTE 0.17(H) 0.00 - 0.03 K/uL 07/03/2024 5:01 AM [facility] Blood Venipuncture / Unknown 07/03/2024 3:22 AM CAR SALTER 07/03/2024 4:21 AM CAR SALTER Demetris Nugent MD HEMATOLOGY ORDERABLES Fi nal Result Performing Organization Address City/[facility]/ZIP Co de Phone Number [facility]# [id number] [address] [place] [address] * PHOSPHORUS (07/03/2024 3:22 AM CAR SALTER) Only the most recent of4 resultswithin the time period is included. PHOSPHORUS 4.0 2.5 - 4.5 mg/dL 07/03/2024 5:17 AM [facility] Blood Venipuncture / Unknown 07/03/2024 3:22 AM CAR SALTER 07/03/2024 4:21 AM CAR SALTER Demetris Nugent MD CHEMISTRY ORDERABLES Fin al Result Performing Organization Address City/[facility]/ZIP Co de Phone Number [facility]# [id number] [address] [place] [address] * MAGNESIUM LEVEL (07/03/2024 3:22 AM CAR SALTER) Only the most recent of8 resultswithin the time period is included. MAGNESIUM 1.7 1.6 - 2.4 mg/dL 07/03/2024 5:17 AM [facility] Blood Venipuncture / Unknown 07/03/2024 3:22 AM CAR SALTER 07/03/2024 4:21 AM CAR SALTER Demetris Nugent MD CHEMISTRY ORDERABLES Fin al Result [facility]# [id number] [address] [place] [address] * (ABNORMAL) COMPREHENSIVE METABOLIC PANEL (07/03/2024 3:22 AM CAR SALTER) Only the most recent of6 resultswithin the time period is included. SODIUM 137 136 - 145 mmol/L 07/03/2024 5:17 AM [facility] [employer] [facility] POTASSIUM 3.5 3.5 - 5.0 mmol/L 07/03/2024 5:17 AM [facility] [employer] [facility] CHLORIDE 103 98 - 107 mmol/L 07/03/2024 5:17 AM [facility] [employer] [facility] CO2 26 22 - 29 mmol/L 07/03/2024 5:17 AM [facility] [employer] [facility] CALCIUM 8.4(L) 8.6 - 10.2 mg/dL 07/03/2024 5:17 AM [facility] [employer] [facility] BUN 29(H) 8 - 23 mg/dL 07/03/2024 5:17 AM [facility] [employer] [facility] CREATININE 1.68(H) 0.51 - 0.95 mg/dL 07/03/2024 5:17 AM [facility] [employer] [facility] Comment:The GFR result is no t clinically significant on patients <18 or >70 years of age. GLUCOSE 116(H) 74 - 99 mg/dL 07/03/2024 5:17 AM [facility] [employer] [facility] TOTAL PROTEIN 5.7(L) 6.7 - 8.6 g/dL 07/03/2024 5:17 AM [facility] [employer] [facility] ALBUMIN 3.1(L) 3.5 - 5.2 g/dL 07/03/2024 5:17 AM [facility] [employer] [facility] BILIRUBIN TOTAL 0.6 0.2 - 1.1 mg/dL 07/03/2024 5:17 AM [facility] [employer] [facility] ALKALINE PHOSPHATASE 73 35 - 104 U/L 07/03/2024 5:17 AM [facility] AST 25 <33 U/L 07/03/2024 5:17 AM [facility] ALT 29 <34 U/L 07/03/2024 5:17 AM [facility] GFR 29 mL/min/1.7 3 sq meter 07/03/2024 5:17 AM [facility] Comment:eGFR calculated with 2020 CKD-EPI equation. Vegetarian diet, extremely high or low muscle mass, and may affect results. Cystatin C with Glomerular Filtration Rate is a suitable alternative for these patients. ANION GAP 8 8 - 16 mmol/L 07/03/2024 5:17 AM [facility] Blood Venipuncture / Unknown 07/03/2024 3:22 AM CAR SALTER 07/03/2024 4:21 AM CAR SALTER [facility] - 07/03/2024 5:17 AM [facility] Samples containing indocyanine green cause interferences on Total and/or Direct Bilirubin and must not be measured. us Demetris Nugent MD CHEMISTRY ORDERABLES Fin al Result [facility]# [id number] [facility] [address] [address] * CT HEAD WO CONTRAST (07/03/2024 2:02 AM CAR SALTER) Anatomical Region Laterality Modality Head Computed Tomogra phy 07/03/2024 1:52 AM CAR SALTER Impressions 07/03/2024 7:06 AM CAR SALTER IMPRESSION: No CT evidence of acute intracranial abnormality. Dictation Location: 4 Narrative 07/03/2024 7:[address] HEAD WO CONTRAST DATE: 07/03/2024 2:02 AM CLINICAL INDICATION: Stroke, follow up. COMPARISON: None. TECHNIQUE: Noncontrast CT head. FINDINGS: No acute hemorrhage, herniation or mass effect. No extra-axial fluid collections. Mild periventricular and subcortical white matter hypoattenuation is nonspecific though likely reflective of chronic small vessel disease. No hydrocephalus. Scalp and calvarium are unremarkable. Bilateral lens replacement. Visualized paranasal sinuses and mastoid air cells are clear. Procedure Note Bhupendra Mccall MD - 07/03/2024 CT HEAD WO CONTRAST DATE: 07/03/2024 2:02 AM CLINICAL INDICATION: Stroke, follow up. COMPARISON: None. TECHNIQUE: Noncontrast CT head. FINDINGS: No acute hemorrhage, herniation or mass effect. No extra-axial fluid collections. Mild periventricular and subcortical white matter hypoattenuation is nonspecific though likely reflective of chronic small vessel disease. No hydrocephalus. Scalp and calvarium are unremarkable. Bilateral lens replacement. Visualized paranasal sinuses and mastoid air cells are clear. IMPRESSION: No CT evidence of acute intracranial abnormality. Dictation Location: [address] ORDERABLES Final Result * (ABNORMAL) PNEUMONIA PATHOGEN PCR PANEL (07/02/2024 4:12 PM CAR SALTER) Moraxella catarrhalis by PCR DETECTED( A) Not Detected 07/02/2024 9:08 PM [facility] Coronavirus by PCR INDETERMI KIM(A) Not Detected 07/02/2024 9:08 PM [facility] Comment:Unable to determine presence or absence of Coronavirus (strains 229E, OC43, HKU1, NL63) DNA. This assay does NOT test for CoVID-19. If clinical suspicion is high, recommend ordering a respiratory viral panel and submission of a nasopharyngeal swab for testing. Parainfluenza Virus by PCR DETECTED( A) Not Detected 07/02/2024 9:08 PM [facility] [employer] COUGHED SPUTUM SPECIMEN / Unknown Collection / Unknown 07/02/2024 4:12 PM CAR SALTER 07/02/2024 4:18 PM CAR SALTER [facility] - 07/02/2024 9:08 PM CAR SALTER A negative result does not exclude the possibility of infection. A semi-quantitative (copies/mL) result is provided for bacteria. This panel does not distinguish between nucleic acid from live or bacteria or virus. Culture is needed for recovery of bacterial isolates and antimicrobial susceptibility testing. The Film Array Pneumonia Pathogen PCR Panel is a multiplexed nucleic acid detection test for 33 targets of bacteria, viruses, and resistance markers in respiratory specimens that cause pneumonia. Bacteria: Acinetobacter calcoaceticus-baumannii complex Enterobacter cloacae complex Escherichia coli Haemophilus influenzae Klebsiella aerogenes Klebsiella oxytoca Klebsiella pneumoniae group Moraxella catarrhalis Proteus spp. Pseudomonas aeruginosa Serratia marcescens Staphylococcus aureus Streptococcus agalactiae Streptococcus pneumoniae Streptococcus pyogenes Atypical Bacteria: Chlamydia pneumoniae Legionella pneumophila Mycoplasma pneumoniae Viruses: Adenovirus Coronavirus (229E, OC43, HKU1, NL63) Human Metapneumovirus Human Rhinovirus/Enterovirus Influenza A Influenza B Parainfluenza Virus Respiratory Syncytial Virus Antimicrobial Resistance Genes: CTX-M IMP KPC NDM OXA-48-like VIM mecA/C and MREJ Margarita Gillis DO MICROBIOLOGY - GENERAL ORDERABLE S Final Result [facility]# [id number] [address] [place] [address] * (ABNORMAL) SPUTUM CULTURE WITH GRAM STAIN (07/02/2024 4:12 PM CAR SALTER) [facility] CULTURE MORAXELLA CATARRHALIS(A) RUMA MCG/ML 07/04/2024 9:30 AM CAR SALTER [facility] Comment:Moraxella catarrhali s: Greater than 90% of isolates are beta-lactamase positive. Recommended empiric therapies: amoxicillin/clavulanate, oral 2nd and 3rd generation cephalosporins, azithromycin, trimethoprim/sulfamethoxazole. CULTURE 3 to 4+ or numerous Normal upper respiratory margy RUMA MCG/ML 07/04/2024 9:30 AM CAR SALTER [facility] GRAM STAIN Non diagnostic pattern 07/04/2024 9:30 AM CAR SALTER [facility] GRAM STAIN 4+ (Heavy) Polymorphonuclear WBC 07/04/2024 9:30 AM CAR SALTER [facility] [employer] COUGHED SPUTUM SPECIMEN / Unknown Collection / Unknown 07/02/2024 4:12 PM CAR SALTER 07/02/2024 4:18 PM CAR SALTER us Margarita Gillis DO MICROBIOLOGY - GENERAL ORDERABLE S Final Result [facility]# [id number] [address] [place] [address] * XR CHEST PA OR AP 1 VW (07/02/2024 12:41 PM CAR SALTER) Only the most recent of3 resultswithin the time period is included. Anatomical Region Laterality Modality Chest Computed Radiogr aphy 07/02/2024 12:4 1 PM CAR SALTER Impressions 07/02/2024 3:43 PM CAR SALTER IMPRESSION: No acute pulmonary process. DICTATION LOCATION: [address] Narrative 07/02/2024 3:43 PM CAR SALTER EXAMINATION: XR CHEST PA OR AP 1 VW DATE: 07/02/2024 12:41 PM HISTORY: Cough. FTT (failure to thrive) in adult; ERIK (acute kidney injury); Atrial fibrillation, unspecified type (CMS/HCC); Cardiomyopathy, unspecified type (CMS/HCC) COMPARISON: Prior chest radiographs, most recently 06/28/2024. FINDINGS: No new focal consolidation or enlarging pleural effusion is identified. There is no pneumothorax. The cardiomediastinal silhouette is stable. Procedure Note Miguel Limon MD - 07/02/2024 EXAMINATION: XR CHEST PA OR AP 1 VW DATE: 07/02/2024 12:41 PM HISTORY: Cough. FTT (failure to thrive) in adult; ERIK (acute kidney injury); Atrial fibrillation, unspecified type (CMS/HCC); Cardiomyopathy, unspecified type (CMS/HCC) COMPARISON: Prior chest radiographs, most recently 06/28/2024. FINDINGS: No new focal consolidation or enlarging pleural effusion is identified. There is no pneumothorax. The cardiomediastinal silhouette is stable. IMPRESSION: No acute pulmonary process. DICTATION LOCATION: Location [address] [place] [address] us Margarita Gillis DO DIAGNOSTIC IMAGING ORDERABLES Fi nal Result * PROCALCITONIN (07/02/2024 12:37 PM CAR SALTER) Only the most recent of2 resultswithin the time period is included. [facility] PROCALCITONIN 0.17 <=0.25 ng/mL 07/02/2024 1:58 PM CAR SALTER [facility] Blood Venipuncture / Unknown 07/02/2024 12:37 PM CAR SALTER 07/02/2024 1:08 PM CAR SALTER Narrative [facility] - 07/02/2024 1:58 PM CAR SALTER The utility of procalcitonin is limited/NOT recommended in certain populations (e.g. newborns, dialysis/ESRD, patients with recent major surgery/trauma/amaya, liver cirrhosis, viral hepatitis, certain cancers, etc.). Procalcitonin levels MUST be interpreted in the context of the patient's clinical condition and CANNOT be solely relied upon for diagnosis of infection. <0.25 ng/mL: Bacterial infection unlikely, particularly lower respiratory tract infections. <0.5 ng/mL: Low risk for progression to severe sepsis/septic shock. Localized infection possible. Measurements done early (<6 hours) after systemic process starts may still be low. 0.5-2 ng/mL: Moderate risk for progression to severe sepsis/septic shock. >2 ng/mL: High risk for progression to severe sepsis/septic shock. If antibiotics ARE administered, repeat testing is recommended every 2-3 days to help guide antibiotic cessation. Once a decrease of 80% or more has occurred from baseline, discontinuation of antibiotics should strongly be considered in clinically stable patients. Procalcitonin is produced in the setting of systemic inflammation, particularly bacterial infections. It is detectable within 2-4 hours and peaks within 6-24 hours. us Margarita Gillis DO CHEMISTRY ORDERABLES Final Resul t [facility]# [id number] [address] [address] * RESPIRATORY PATHOGEN PCR PANEL (07/02/2024 10:49 AM CAR SALTER) Only the most recent of3 resultswithin the time period is included. Respiratory Pathogen PCR Panel NOT DETECTED No respiratory pathogen nucleic acids detected. 07/02/2024 12:05 PM CAR SALTER [facility] COVID-19 PCR NOT DETECTED Not Detected 07/02/2024 12:05 PM [facility] Upper Respiratory ENTIRE NASOPHARYNX / Unknown Collection / Unknown 07/02/2024 10:49 AM CAR SALTER 07/02/2024 10:56 AM CAR SALTER Narrative [facility] - 07/02/2024 12:05 PM CAR SALTER The Film Array Respiratory Panel (RP2.1) is a multiplex nucleic acid detection test for 22 targets. Viruses: Adenovirus Coronavirus HKU1, NL63, 229E, and OC43 COVID-19/Severe Acute Respiratory Syndrome Coronavirus 2 Influenza A with the following subtypes: H1, H1-2009, and H3 Influenza B Human Metapneumovirus Parainfluenza virus 1, 2, 3, and 4 Respiratory Syncytial virus (RSV) Rhinovirus/Enterovirus (cannot differentiate due to genetic similarities) Bacteria: Bordetella pertussis Bordetella parapertussis Chlamydophila pneumoniae Mycoplasma pneumoniae Margarita Gillis DO MICROBIOLOGY - GENERAL ORDERABLE S Final Result Performing Organization Address City/[facility]/ZIP Co de Phone Number [facility]# [id number] [address] [place] [address] * (ABNORMAL) C-REACTIVE PROTEIN (07/02/2024 3:26 AM CAR SALTER) Only the most recent of2 resultswithin the time period is included. Pathologist [facility] CRP 40.5(H) <5.0 mg/L 07/02/2024 3:36 PM CAR SALTER [facility] Blood Venipuncture / Unknown 07/02/2024 3:26 AM CAR SALTER 07/02/2024 3:58 AM CAR SALTER Margarita Carlindee GEE CHEMISTRY ORDERABLES Final Resul t [facility] CLIA# [id number] [address] [place] [address] * GI PATHOGEN PCR PANEL (07/01/2024 2:53 PM CAR SALTER) [facility] GI Pathogen PCR panel NOT DETECTED No nucleic acids detected. 07/01/2024 5:31 PM CAR SALTER [facility] Stool STOOL SPECIMEN / Unknown Collection / Unknown 07/01/2024 2:53 PM CAR SALTER 07/01/2024 2:59 PM CAR SALTER [facility] - 07/01/2024 5:31 PM CAR SALTER The Film Array GI Panel is a multiplexed nucleic acid detection test for 22 targets of bacteria, viruses, and parasites in stool that cause infectious diarrhea. Bacteria: Campylobacter C. difficile Plesiomonas shigelloides Salmonella Vibrio Vibrio cholerae Yersinia enterocolitica Enteroaggregative E. Coli (EAEC) Enteropathogenic E. Coli (EPEC) Enterotoxigenic E. Coli (ETEC) Shiga-like toxin-producing E. Coli (STEC) E. Coli O157 Shigella/Enteroinvasive E. Coli (EIEC) Viruses: Adenovirus F 40/41 Astrovirus Norovirus GI/GII Rotavirus A Sapovirus Parasites: Cryptosporidium Cyclospora cayetanensis Entamoeba histolytica Giardia duodenalis Demetris Nugent MD MICROBIOLOGY - GENERAL O RDERABLES Final Result [facility] CLOR# [id number] [address] [place] [address] * (ABNORMAL) TROPONIN 6 HR, 5TH GEN (06/29/2024 5:21 AM CAR SALTER) Only the most recent of2 resultswithin the time period is included. [facility] TROPONIN T, 6 HR 5TH GEN 30(H) <11 ng/L 06/29/2024 6:22 AM CAR SALTER [facility] [employer] [facility] DEL[facility] 6HR TROPONIN T -6 See Interp. 06/29/2024 6:22 AM [facility] [employer] [facility] Blood Venipuncture / Unknown 06/29/2024 5:21 AM CAR SALTER 06/29/2024 5:27 AM CAR SALTER [facility] LABORATORY [facility] - 06/29/2024 6:22 AM CAR SALTER Troponin elevated. Delta indeterminate. Delay in collection of timed specimen beyond recommended collection interval. Results must be interpreted in clinical context. Justo Ruiz MD CHEMISTRY ORDERABLES Final Res ult [facility] [employer] [facility] CLIA# [id number] [address] [place] [place] [address] * (ABNORMAL) LIPID PANEL (06/29/2024 5:21 AM CAR SALTER) Pathologist [facility] CHOLESTEROL 129 <200 mg/dL 06/29/2024 8:51 AM [facility] [employer] [facility] TRIGLYCERIDE 95 <150 mg/dL 06/29/2024 8:51 AM [facility] [employer] [facility] HDL 24(L) 40 - 59 mg/dL 06/29/2024 8:51 AM [facility] [employer] [facility] LDL CALCULATED 86 <100 mg/dL 06/29/2024 8:51 AM [facility] [employer] [facility] NON-HDL CHOLESTEROL 105 <130 mg/dL 06/29/2024 8:51 AM [facility] [employer] [facility] Blood Venipuncture / Unknown 06/29/2024 5:21 AM CAR SALTER 06/29/2024 5:27 AM [facility] [employer] [facility] - 06/29/2024 8:51 AM CAR SALTER TOTAL CHOLESTEROL mg/dL Desirable <200 Borderline high 200-239 High >=240 TRIGLYCERIDES mg/dL Normal <150 Borderline high 150-199 High 200-499 Very high >=500 HDL CHOLESTEROL mg/dL Low <40 Normal 40-59 Desirable >=60 NON HDL CHOLESTEROL mg/dL Optimal <130 Near Optimal 130-159 Borderline High 160-189 Very High >=190 CALCULATED LDL mg/dL LDL <70, OPTIMAL if have Atherosclerotic cardiovascular disease (ASCVD) or intermediate or higher (>7.5%) 10 year risk of ASCVD including most adults with diabetes. LDL <100, Optimal in adult patients with low (<7.5%) 10 year ASCVD risk LDL 100-160, Suboptimal LDL >160, High LDL >190, Very high ATPIII Guidelines Reference Ranges for Lipid Panels (NCEP/AMA) . Demetris Nugent MD CHEMISTRY ORDERABLES Fin al Result Performing Organization Address [facility] Co de Phone Number [facility] [employer] [facility] CLIA# [id number] [address] [place] [address] * (ABNORMAL) TROPONIN 2 HR, 5TH GEN (06/29/2024 1:45 AM CAR SALTER) Only the most recent of2 resultswithin the time period is included. TROPONIN T, 2 HR 5TH GEN 32(H) <=10 ng/L 06/29/2024 2:33 AM [facility] DELTA 2HR TROPONIN T -4 See Interp. 06/29/2024 2:33 AM CAR SALTER [facility] [employer] [facility] Blood Venipuncture / Unknown 06/29/2024 1:45 AM CAR SALTER 06/29/2024 1:50 AM CAR SALTER Narrative [facility] [employer] [facility] - 06/29/2024 2:33 AM CAR SALTER Troponin elevated. Delta indeterminate. Delay in collection of timed specimen beyond recommended collection interval. Results must be interpreted in clinical context. Justo Ruiz MD CHEMISTRY ORDERABLES Final Res ult Performing Organization Address [facility] Co de Phone Number [facility] [employer] [facility] CLIA# [id number] [address] [place] [address] * (ABNORMAL) URINALYSIS WITH REFLEX MICROSCOPIC (06/28/2024 11:18 PM CAR SALTER) Only the most recent of2 resultswithin the time period is included. COLOR UA Yellow Pale to Dark Yellow 06/28/2024 11:33 PM CAR SALTER [facility] CLARITY UA Slightly Cloudy(A) Clear 06/28/2024 11:33 PM [facility] SPECIFIC GRAVITY UA 1.020 1.003 - 1.035 06/28/2024 11:33 PM [facility] [employer] LABORATORY [facility] PH UA 5.0 5.0 - 8.0 06/28/2024 11:33 PM [facility] LABORATORY [facility] LEUKOCYTE ESTERASE UA Negative Negative 06/28/2024 11:33 PM [facility] LABORATORY [facility] NITRITE UA Negative Negative 06/28/2024 11:33 PM [facility] LABORATORY [facility] PROTEIN UA 2+(A) Negative 06/28/2024 11:33 PM [facility] GLUCOSE UA Negative Negative 06/28/2024 11:33 PM [facility] [employer] LABORATORY [facility] KETONES UA Negative Negative 06/28/2024 11:33 PM [facility] UROBILINOGEN UA Normal <2.0 mg/dL 11:33 PM [facility] [employer] LABORATORY [facility] BILIRUBIN UA Negative Negative 06/28/2024 11:33 PM [facility] [employer] LABORATORY [facility] BLOOD UA Negative Negative 06/28/2024 11:33 PM [facility] [employer] LABORATORY SERVICES [facility] Comment:Ascorbic acid may ca use false negative results for blood. A microscopic review was reflexed to rule out this interference. WBC UA 3-5(A) 0 - 2 /hpf 06/28/2024 11:33 PM [facility] RBC UA 0-2 0 - 2 /hpf 06/28/2024 11:33 PM [facility] [employer] LABORATORY [facility] BACTERIA UA Negative Negative /hpf 06/28/2024 11:33 PM [facility] [employer] LABORATORY [facility] EPITHELIAL CELLS, URINE 0-5 0 - 5 /hpf 06/28/2024 11:33 PM [facility] [employer] LABORATORY [facility] HYALINE CAST 3-5(A) None Seen, 0-2 /lpf 06/28/2024 11:33 PM [facility] LABORATORY [facility] Ascorbic Acid UA Positive(A) Negative 025 11:33 PM [facility] Urine URINE SPECIMEN OBTAINED BY CLEAN CATCH PROCEDURE / Unknown Collection / Unknown 06/28/2024 11:18 PM CAR SALTER 06/28/2024 11:23 PM CAR SALTER Justo Ruiz MD URINE ORDERABLES Final Result Performing Organization Address [facility]/ZIP Co de Phone Number [facility] [employer] [facility]# [id number] [address] [place] [address] * (ABNORMAL) TROPONIN BASELINE, 5TH GEN (06/28/2024 11:13 PM CAR SALTER) Only the most recent of2 resultswithin the time period is included. TROPONIN T, BASELINE 5TH GEN 36(H) <=10 ng/L 06/28/2024 11:55 PM CAR SALTER [facility] [employer] [facility] Blood Venipuncture / Unknown 06/28/2024 11:13 PM CAR SALTER 06/28/2024 11:23 PM CAR SALTER Narrative [facility] [employer] [facility] - 06/28/2024 11:55 PM CAR SALTER Troponin elevated. Justo Ruiz MD CHEMISTRY ORDERABLES Final Res ult Performing Organization Address [facility] Co de Phone Number [facility] [employer] [facility]# [id number] [address] [place] [address] * (ABNORMAL) BRAIN NATRIURETIC PEPTIDE, BNP OR PROBNP (06/28/2024 11:13 PM CAR SALTER) Only the most recent of2 resultswithin the time period is included. PROBNP, N TERMINAL 35,667(H) <449 pg/mL 06/29/2024 12:07 AM CAR SALTER [facility] Comment: INTERPRETIVE COMMENT based on diagnosis: Diagnostic NT pro-BNP cutoffs for Heart Failure in the absence of renal failure is suggested for the following ranges <75 years: <125 pg/mL >=75 years: <450 pg/mL Exclusionary rule out cut-point for Acute Decompensated Heart Failure(ADHF) All ages: <300 pg/mL Diagnostic NT pro-BNP cutoffs for Acute Decompensated Heart Failure(ADHF) in the absence of renal failure is suggested for the following ages <50 years: > 450 pg/mL 50-75 years: > 900 pg/mL >75 years: >1800 pg/mL Blood Venipuncture / Unknown 06/28/2024 11:13 PM CAR SALTER 06/28/2024 11:23 PM CAR SALTER Justo Ruiz MD CHEMISTRY ORDERABLES Final Res ult Performing Organization Address City/[facility]/ZIP Co de Phone Number [facility] CLIA# [id number] [address] [place] [address] * LIPASE (06/28/2024 11:13 PM CAR SALTER) LIPASE 18 13 - 60 U/L 06/28/2024 11:55 PM CAR SALTER [facility] Blood Venipuncture / Unknown 06/28/2024 11:13 PM CAR SALTER 06/28/2024 11:23 PM CAR SALTER Justo Ruiz MD CHEMISTRY ORDERABLES Final Res ult Performing Organization Address [facility] Co de Phone Number [facility] [employer] [facility]# [id number] [address] [place] [address] * (ABNORMAL) HEMOGLOBIN A1C (06/28/2024 11:13 PM CAR SALTER) HEMOGLOBIN A1C 6.4(H) <5.7 % 06/29/2024 9:04 AM CAR SALTER [facility] EST. AVG GLUCOSE, A1C 137 mg/dL 06/29/2024 9:04 AM CAR SALTER [facility] Blood Venipuncture / Unknown 06/28/2024 11:13 PM CAR SALTER 06/28/2024 11:23 PM CAR SALTER Narrative [facility] - 06/29/2024 9:04 AM CAR SALTER HGB A1C INTERPRETATION NORMAL: <5.7% PRE-DIABETES: 5.7 - 6.4% DIABETES: 6.5% OR GREATER us Demetris Nugent MD CHEMISTRY ORDERABLES Fin al Result [facility]# [id number] [address] [place] [address] * EKG 12-LEAD (06/28/2024 10:52 PM CAR SALTER) Only the most recent of2 resultswithin the time period is included. 06/28/2024 10:5 2 PM CAR SALTER Narrative INTERFACE SYSTEM - 06/29/2024 3:22 PM CAR SALTER [facility] [address] [place] [address] Test Date: 2024-06-28 Pat Name: CELESTINA DRUMMOND Department: 37 Room: [facility] Gender: Female [employer] Minist[employer] Director: [id number] : 1935 Requested By: JUSTO RUIZ Order Number: [id number] Darius CARDOZO: Jamarcus Navarro Measurements Intervals [place] Rate: 140 P: 0 FL: 0 QRS: 91 QRSD: 75 T: 0 QT: 340 QTc: 519 Interpretive Statements Atrial fibrillation with rapid V-rate NON-SPECIFIC ST CHANGES Electronically Signed On 06-29-2024 15:22:47 CAR SALTER by Jamarcus Navarro Procedure Note Jamarcus Navarro MD - 06/29/2024 [facility] [address] [place] [address] Test Date: 2024-06-28 Pat Name: CELESTINA CRANDALLER Department: 37 Room: [facility] Gender: Female [employer] Director: [id number] : 1935 Requested By: JUSTO RUIZ Order Number: [id number] Darius CARDOZO: Jamarcus Navarro Measurements Intervals [place] Rate: 140 P: 0 FL: 0 QRS: 91 QRSD: 75 T: 0 QT: 340 QTc: 519 Interpretive Statements Atrial fibrillation with rapid V-rate NON-SPECIFIC ST CHANGES Electronically Signed On 06-29-2024 15:22:47 CAR SALTER by Jamarcus Navarro us Justo Ruiz MD ECG ORDERABLES Final Result INTERFACE SYSTEM Refer to clinic/hospital department * XR CHEST PA AND LATERAL 2 VW (06/28/2024 8:43 PM CAR SALTER) Anatomical Region Laterality Modality Chest Computed Radiogr aphy 06/28/2024 8:43 PM CAR SALTER Impressions 06/28/2024 8:50 PM CAR SALTER IMPRESSION: No acute abnormality. DICTATION LOCATION: Location 4 Narrative 06/28/2024 8:50 PM CAR SALTER XR CHEST PA AND LATERAL 2 VW DATE: 06/28/2024 8:43 PM HISTORY: Shortness of Breath SOB, Comment: triage. See Reason for Exam Comparison: 05/30/2024 FINDINGS: The lungs are clear. No acute infiltrate, pleural effusion, pneumothorax, or pulmonary edema is seen. The heart size and mediastinal silhouette are stable. There are no acute osseous abnormalities. Procedure Note Vijay Law MD - 06/28/2024 XR CHEST PA AND LATERAL 2 VW DATE: 06/28/2024 8:43 PM HISTORY: Shortness of Breath SOB, Comment: triage. See Reason for Exam Comparison: 05/30/2024 FINDINGS: The lungs are clear. No acute infiltrate, pleural effusion, pneumothorax, or pulmonary edema is seen. The heart size and mediastinal silhouette are stable. There are no acute osseous abnormalities. IMPRESSION: No acute abnormality. DICTATION LOCATION: Location 4 us Justo Ruiz MD DIAGNOSTIC IMAGING ORDERABLES Final Result * CARDIAC EVENT MONITOR (06/14/2024 6:00 AM CAR SALTER) 06/14/2024 6:00 AM CAR SALTER Narrative INTERFACE SYSTEM - 06/20/2024 11:28 AM CAR SALTER [facility] [address] [facility] [place] [address] Test Date: 2024-06-14 Pat Name: CELESTINA DRUMMOND Department: Room: [facility] Gender: Female [employer] Minist[employer] Director: : 1935 Requested By: SIMEON Baumann Order Number: [id number] Darius MD: Danny García Interpretive Statements Date Description Findings HR 06/01/2024 16:46:58 CAR SALTER Auto Trigger Urgent - Baseline - New Onset Atrial Flutter with PVC(s), Verbal Notification Unsuccessful 116 06/01/2024 21:27:01 CAR SALTER Auto Trigger Atrial Flutter with PVC(s) 130 06/02/2024 00:26:44 CAR SALTER Auto Trigger Atrial Flutter with PVC(s) 121 06/02/2024 21:31:22 CAR SALTER Auto Trigger Atrial Flutter with PVC(s) 133 06/03/2024 05:10:09 CAR SALTER Auto Trigger Atrial Flutter with PVC(s) 100 06/03/2024 08:38:34 CAR SALTER Auto Trigger Atrial Flutter 144 06/04/2024 00:44:25 CAR SALTER Auto Trigger Atrial Flutter with PVC(s) 103 06/04/2024 22:10:28 CAR SALTER Auto Trigger Atrial Flutter with PVC(s) 125 06/05/2024 01:06:11 CAR SALTER Auto Trigger Atrial Flutter with PVC(s) 136 06/05/2024 17:58:47 CAR SALTER Auto Trigger Atrial Flutter with PVC(s) 129 06/06/2024 05:50:14 CAR SALTER Auto Trigger Atrial Flutter with PVC(s) 120 06/07/2024 03:28:55 CAR SALTER Auto Trigger Atrial Flutter with PVC(s) 109 06/07/2024 10:17:20 CAR SALTER Auto Trigger Atrial Flutter with Multifocal Ventricular Couplet(s) 150 06/13/2024 17:24:05 CAR SALTER Auto Trigger Atrial Flutter with Multifocal PVCs 111 06/13/2024 20:36:54 CAR SALTER Auto Trigger Atrial Flutter with PVC(s) 124 06/14/2024 04:18:38 CAR SALTER Auto Trigger Atrial Flutter with PVC(s) 121 Overall rhythm afib/flutter with mostly pvcs, see above for detials. Ordering provider was notified Electronically Signed On 06-20-2024 11:28:46 CAR SALTER by Danny García Procedure Note Danny García MD - 06/20/2024 [facility] [address] [facility], [place] [address] Test Date: 2024-06-14 Pat Name: CELESTINA DRUMMOND Department: Room: [facility] Gender: Female [employer] Director: : 1935 Requested By: SIMEON Baumann Order Number: [id number] Darius MD: Danny García Interpretive Statements Date Description Findings HR 06/01/2024 16:46:58 CAR SALTER Auto Trigger Urgent - Baseline - New Onset Atrial Flutter with PVC(s), Verbal Notification Unsuccessful 116 06/01/2024 21:27:01 CAR SALTER Auto Trigger Atrial Flutter with PVC(s) 130 06/02/2024 00:26:44 CAR SALTER Auto Trigger Atrial Flutter with PVC(s) 121 06/02/2024 21:31:22 CAR SALTER Auto Trigger Atrial Flutter with PVC(s) 133 06/03/2024 05:10:09 CAR SALTER Auto Trigger Atrial Flutter with PVC(s) 100 06/03/2024 08:38:34 CAR SALTER Auto Trigger Atrial Flutter 144 06/04/2024 00:44:25 CAR SALTER Auto Trigger Atrial Flutter with PVC(s) 103 06/04/2024 22:10:28 CAR SALTER Auto Trigger Atrial Flutter with PVC(s) 125 06/05/2024 01:06:11 CAR SALTER Auto Trigger Atrial Flutter with PVC(s) 136 06/05/2024 17:58:47 CAR SALTER Auto Trigger Atrial Flutter with PVC(s) 129 06/06/2024 05:50:14 CAR SALTER Auto Trigger Atrial Flutter with PVC(s) 120 06/07/2024 03:28:55 CAR SALTER Auto Trigger Atrial Flutter with PVC(s) 109 06/07/2024 10:17:20 CAR SALTER Auto Trigger Atrial Flutter with Multifocal Ventricular Couplet(s) 150 06/13/2024 17:24:05 CAR SALTER Auto Trigger Atrial Flutter with Multifocal [id number] 06/13/2024 20:36:54 CAR SALTER Auto Trigger Atrial Flutter with PVC(s) 124 06/14/2024 04:18:38 CAR SALTER Auto Trigger Atrial Flutter with PVC(s) 121 Overall rhythm afib/flutter with mostly pvcs, see above for detials. Ordering provider was notified Electronically Signed On 06-20-2024 11:28:46 CAR SALTER by Danny García Misty Dugan MD CARDIAC SERVICES ORDERABLES Rebeka l Result INTERFACE SYSTEM Refer to clinic/hospital department * (ABNORMAL) BASIC METABOLIC PANEL (06/01/2024 2:41 AM CAR SALTER) Only the most recent of2 resultswithin the time period is included. SODIUM 137 136 - 145 mmol/L 06/01/2024 3:44 AM [facility] [employer] LABORATORY SERVICES - . [facility] POTASSIUM 3.6 3.5 - 5.0 mmol/L 06/01/2024 3:44 AM [facility] [employer] LABORATORY [facility] CHLORIDE 99 98 - 107 mmol/L 06/01/2024 3:44 AM [facility] [employer] LABORATORY [facility] - . PILI CO2 25 22 - 29 mmol/L 06/01/2024 3:44 AM [facility] [employer] LABORATORY [facility] CALCIUM 8.3(L) 8.6 - 10.2 mg/dL 06/01/2024 3:44 AM [facility] [employer] LABORATORY [facility] - . [facility] BUN 29(H) 8 - 23 mg/dL 06/01/2024 3:44 AM [facility] [employer] [facility] CREATININE 1.66(H) 0.51 - 0.95 mg/dL 06/01/2024 3:44 AM [facility] [employer] LABORATORY [facility] Comment:The GFR result is no t clinically significant on patients <18 or >70 years of age. GLUCOSE 94 74 - 99 mg/dL 06/01/2024 3:44 AM [facility] [employer] LABORATORY [facility] GFR 29 mL/min/1.7 3 sq meter 06/01/2024 3:44 AM [facility] [employer] LABORATORY [facility] Comment:eGFR calculated with 2020 CKD-EPI equation. Vegetarian diet, extremely high or low muscle mass, and may affect results. Cystatin C with Glomerular Filtration Rate is a suitable alternative for these patients. ANION GAP 13 8 - 16 mmol/L 06/01/2024 3:44 AM [facility] [employer] LABORATORY [facility] Blood Venipuncture / Unknown 06/01/2024 2:41 AM [facility] 06/01/2024 2:58 AM [facility] Lula Burgos APRN CHEMISTRY ORDERABLES Final Result [facility]# [id number] [address] [id number] * ECHO COMPLETE - CONTRAST AND STRAIN IF INDICATED (05/31/2024 12:07 PM [facility]) EJECTION FRACTION 30 INTERFACE SYSTEM 05/31/2024 11:1 9 AM [facility] Narrative INTERFACE SYSTEM - 05/31/2024 2:15 PM [facility] [address] [place] [address] [email or web address] ([email or web address] Transthoracic Echocardiogram Patient: Celestina Drummond Study ID: [id number] Gender: F : 1935 Age: 89 Race: CAU Height 165.1cm Study Date: 05/31/2024 Weight: 79kg Access. 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 STUDY CONCLUSIONS: SUMMARY: - Left ventricle: The cavity size was normal. Wall thickness was normal. Global systolic function is moderately to severely reduced. The estimated ejection fraction is 30-35%. For Epic reporting: the left ventricular ejection fraction is 30% . Severe global hypokinesis with paradoxical septal motion. Left ventricular diastolic function is indeterminate. - Right ventricle: The cavity size is normal. Systolic function is moderately reduced. - Left atrium: The atrium is normal in size. - Aortic valve: Trileaflet. The leaflets are moderately calcified. Mild to moderate regurgitation. Sclerosis without significant stenosis - Mitral valve: The annulus is calcified. The leaflets are moderately thickened. Mild regurgitation. - Tricuspid valve: Moderate regurgitation. - Pulmonic valve: Mild regurgitation. - Pulmonary arteries: The peak systolic pressure is 53mm Hg. Moderate pulmonary hypertension. Cardiac Anatomy: LEFT VENTRICLE: The cavity size was normal. Wall thickness was normal. Global systolic function is moderately to severely reduced. The estimated ejection fraction is 30-35%. For Epic reporting: the left ventricular ejection fraction is 30% . Severe global hypokinesis with paradoxical septal motion. Left ventricular diastolic function is indeterminate. AORTIC VALVE: Trileaflet. The leaflets are moderately calcified. Mild to moderate regurgitation. Sclerosis without significant stenosis The mean systolic gradient is 2mm Hg. The peak systolic gradient is 4mm Hg. The LVOT to aortic valve VTI ratio is 0.55. The valve area is 1.7cm^2. The ratio of LVOT to aortic valve peak velocity is 0.56. AORTA: Aortic root: The root is normal-sized. MITRAL VALVE: The annulus is calcified. The leaflets are moderately thickened. Mild regurgitation. The mean diastolic gradient is 1mm Hg. The peak diastolic gradient is 2mm Hg. LEFT ATRIUM: The atrium is normal in size. RIGHT VENTRICLE: The cavity size is normal. Systolic function is moderately reduced. PULMONIC VALVE: Structurally normal valve. Mild regurgitation. TRICUSPID VALVE: Structurally normal valve. Moderate regurgitation. RIGHT ATRIUM: The atrium was normal in size. SYSTEMIC VEINS: Inferior vena cava: The IVC is normal-sized. Respirophasic diameter changes are blunted (< 50%). PERICARDIUM: There is no pericardial effusion. Measurements Left ventricle Value Ref DEXTER, LAX (L) 3.3 cm 3.8 - 5.2 DEXTER/bsa, LAX (L) 1.8 cm/m^2 2.3 - 3.1 DEXTER, LAX chord (N) 4.2 cm 3.8 - 5.2 ESD, LAX chord (N) 3.3 cm 2.2 - 3.5 DEXTER/bsa, LAX chord (N) 2.3 cm/m^2 2.3 - 3.1 ESD/bsa, LAX chord (N) 1.8 cm/m^2 1.3 - 2.1 FS, LAX chord (L) 22 % 27 - 45 IVS, ED (H) 1.0 cm 0.6 - 0.9 PW, ED (H) 1.1 cm 0.6 - 0.9 EDV, 2-p (N) 84 ml 46 - 106 ESV, 2-p (H) 57 ml 14 - 42 EF, 2-p (L) 32 % 54 - 74 SV, 2-p 27 ml --------- SV/bsa, 2-p 14.4 ml/m^2 --------- E', lat idania, TDI (L) 7.9 cm/sec >=10.0 E/e', lat idania, TDI (N) 10 <=13 E', med idania, TDI (N) 7.0 cm/sec >=7.0 E/e', med idania, TDI 11 --------- E', avg, TDI 7.5 cm/sec --------- E/e', avg, TDI (N) 11 <=14 LVOT Value Ref Diam, S 2.0 cm --------- Area 3.1 cm^2 --------- Peak parveen, S 0.58 m/sec --------- VTI, S 10.1 cm --------- Right ventricle Value Ref DEXTER minor ax, A4C base (H) 4.2 cm 2.5 - 4.1 DEXTER minor ax, A4C mid (H) 3.6 cm 1.9 - 3.5 DEXTER major ax, A4C (N) 7.9 cm 5.9 - 8.3 TAPSE, MM (L) 1.0 cm >=1.7 Pressure, S 54 mm Hg --------- S' lateral (L) 7.5 cm/sec >=9.5 Left atrium Value Ref AP dim, ES (H) 4.0 cm 2.7 - 3.8 AP dim index, ES (N) 2.2 cm/m^2 1.5 - 2.3 SI dim, A4C 6.3 cm --------- Area ES, A4C (N) 17 cm^2 <=20 Area/bsa ES, A4C 8.92 cm^2/m^2 --------- SI dim, A2C 5.3 cm --------- SI dim, shorter 5.3 cm --------- Vol, ES, 1-p A4C (N) 34 ml 22 - 52 Vol/bsa, ES, 1-p A4C (N) 18 ml/m^2 11 - 40 Vol, ES, 1-p A2C (N) 42 ml 22 - 52 Vol/bsa, ES, 1-p A2C (N) 23 ml/m^2 13 - 40 Vol, ES, 2-p 41 ml --------- Vol/bsa, ES, 2-p (N) 22 ml/m^2 16 - 34 LA/Ao root ratio 1.48 --------- Right atrium Value Ref SI dim, ES, A4C (H) 5.7 cm 3.4 - 5.3 SI dim/bsa, ES, A4C (N) 3.1 cm/m^2 1.9 - 3.1 Area, ES, A4C (H) 20 cm^2 10 - 18 Vol, ES, 1-p A4C 56 ml --------- Vol/bsa, ES, 1-p A4C (N) 30 ml/m^2 9 - 33 Aortic valve Value Ref Peak v, S 1 m/sec --------- Mean v, S 0.7 m/sec --------- VTI, S 18.2 cm --------- Mean grad, S 2 mm Hg --------- Peak grad, S 4 mm Hg --------- LVOT/AV, VTI ratio 0.55 --------- CHIRAG, VTI 1.7 cm^2 --------- CHIRAG/bsa, VTI 0.94 cm^2/m^2 --------- LVOT/AV, Vpeak ratio 0.56 --------- CHIRAG, Vmax 1.8 cm^2 --------- CHIRAG/bsa, Vmax 0.95 cm^2/m^2 --------- Mitral valve Value Ref Mean v, D 0.54 m/sec --------- Peak E 0.79 m/sec --------- Decel time 218 ms --------- Mean grad, D 1 mm Hg --------- Peak grad, D 2 mm Hg --------- A-VTI 17.1 cm --------- Pulmonic valve Value Ref Peak v, S 0.57 m/sec --------- Peak grad, S 1 mm Hg --------- Tricuspid valve Value Ref TR peak v (H) 3.3 m/sec <=2.8 Peak RV-RA grad, S 44 mm Hg --------- Aortic root Value Ref Root diam, 2.7 cm --------- Ascending aorta Value Ref AAo AP diam, S 3.1 cm --------- AAo AP diam/bsa, S 1.7 cm/m^2 --------- Pulmonary artery Value Ref Pressure, S 53 mm Hg --------- Systemic veins Value Ref Estimated RA pressure 10 mm Hg --------- Legend: (L) and (H) gildardo values outside specified reference range. (N) soria values inside specified reference range. Procedure data: Procedure information: A transthoracic echocardiogram was performed. Scanning was performed from the parasternal, apical, and subcostal acoustic windows. Intravenous contrast (Definity) was administered. Transthoracic echocardiogram. Complete 2D, complete spectral Doppler, and color Doppler. Birthdate: Patient birthdate: 1935. Age: Patient is 89year(s) old. Sex: gender: female. Height: 165.1cm. 65in. Weight: 79kg. 174.1lb. Body mass index: 29kg/m^2. Body surface area: 1.86m^2. Study date: Study date: 05/31/2024. Study time: 11:19 AM. Prepared and Electronically Authenticated Roosevelt Mello [id number] Procedure Note Roosevelt Mello MD - 05/31/[address] [place] [address] [email or web address] Transthoracic Echocardiogram Patient: Celestina Drummond Study ID: [id number] Gender: F :1935 Age: 89 Race: BRITT Height 165.1cm Study Date:05/31/2024 Weight: 79kg Access. 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 STUDY CONCLUSIONS: SUMMARY: - Left ventricle: The cavity size was normal. Wall thickness was normal. Global systolic function is moderately to severely reduced. Theestimated ejection fraction is 30-35%. For Epic reporting: the left ventricular ejection fraction is 30% . Severe global hypokinesis with paradoxicalseptal motion. Left ventricular diastolic function is indeterminate. - Right ventricle: The cavity size is normal. Systolic function ismoderately reduced. - Left atrium: The atrium is normal in size. - Aortic valve: Trileaflet. The leaflets are moderately calcified. Mildto moderate regurgitation. Sclerosis without significant stenosis - Mitral valve: The annulus is calcified. The leaflets are moderately thickened. Mild regurgitation. - Tricuspid valve: Moderate regurgitation. - Pulmonic valve: Mild regurgitation. - Pulmonary arteries: The peak systolic pressure is 53mm Hg. Moderate pulmonary hypertension. Cardiac Anatomy: LEFT VENTRICLE: The cavity size was normal. Wall thickness was normal.Global systolic function is moderately to severely reduced. The estimatedejection fraction is 30-35%. For Epic reporting: the left ventricular ejectionfraction is 30% . Severe global hypokinesis with paradoxical septal motion. Left ventricular diastolic function is indeterminate. AORTIC VALVE: Trileaflet. The leaflets are moderately calcified. Mildto moderate regurgitation. Sclerosis without significant stenosis The mean systolic gradient is 2mm Hg. The peak systolic gradient is 4mm Hg. TheLVOT to aortic valve VTI ratio is 0.55. The valve area is 1.7cm^2. The ratio ofLVOT to aortic valve peak velocity is 0.56. AORTA: Aortic root: The root is normal-sized. MITRAL VALVE: The annulus is calcified. The leaflets are moderately thickened. Mild regurgitation. The mean diastolic gradient is 1mm Hg.The peak diastolic gradient is 2mm Hg. LEFT ATRIUM: The atrium is normal in size. RIGHT VENTRICLE: The cavity size is normal. Systolic function ismoderately reduced. PULMONIC VALVE: Structurally normal valve. Mild regurgitation. TRICUSPID VALVE: Structurally normal valve. Moderate regurgitation. RIGHT ATRIUM: The atrium was normal in size. SYSTEMIC VEINS: Inferior vena cava: The IVC is normal-sized. Respirophasic diameterchanges are blunted (< 50%). PERICARDIUM: There is no pericardial effusion. Measurements Left ventricle Value Ref DEXTER, LAX (L) 3.3 cm 3.8 - 5.2 DEXTER/bsa, LAX (L) 1.8 cm/m^2 2.3 - 3.1 DEXTER, LAX chord (N) 4.2 cm 3.8 - 5.2 ESD, LAX chord (N) 3.3 cm 2.2 - 3.5 DEXTER/bsa, LAX chord (N) 2.3 cm/m^2 2.3 - 3.1 ESD/bsa, LAX chord (N) 1.8 cm/m^2 1.3 - 2.1 FS, LAX chord (L) 22 % 27 - 45 IVS, ED (H) 1.0 cm 0.6 - 0.9 PW, ED (H) 1.1 cm 0.6 - 0.9 EDV, 2-p (N) 84 ml 46 - 106 ESV, 2-p (H) 57 ml 14 - 42 EF, 2-p (L) 32 % 54 - 74 SV, 2-p 27 ml --------- SV/bsa, 2-p 14.4 ml/m^2 --------- E', lat idania, TDI (L) 7.9 cm/sec >=10.0 E/e', lat idania, TDI (N) 10 <=13 E', med idania, TDI (N) 7.0 cm/sec >=7.0 E/e', med idania, TDI 11 --------- E', avg, TDI 7.5 cm/sec --------- E/e', avg, TDI (N) 11 <=14 LVOT Value Ref Diam, S 2.0 cm --------- Area 3.1 cm^2 --------- Peak parveen, S 0.58 m/sec --------- VTI, S 10.1 cm --------- Right ventricle Value Ref DEXTER minor ax, A4C base (H) 4.2 cm 2.5 - 4.1 DEXTER minor ax, A4C mid (H) 3.6 cm 1.9 - 3.5 DEXTER major ax, A4C (N) 7.9 cm 5.9 - 8.3 TAPSE, MM (L) 1.0 cm >=1.7 Pressure, S 54 mm Hg --------- S' lateral (L) 7.5 cm/sec >=9.5 Left atrium Value Ref AP dim, ES (H) 4.0 cm 2.7 - 3.8 AP dim index, ES (N) 2.2 cm/m^2 1.5 - 2.3 SI dim, A4C 6.3 cm --------- Area ES, A4C (N) 17 cm^2 <=20 Area/bsa ES, A4C 8.92 cm^2/m^2 --------- SI dim, A2C 5.3 cm --------- SI dim, shorter 5.3 cm --------- Vol, ES, 1-p A4C (N) 34 ml 22 - 52 Vol/bsa, ES, 1-p A4C (N) 18 ml/m^2 11 - 40 Vol, ES, 1-p A2C (N) 42 ml 22 - 52 Vol/bsa, ES, 1-p A2C (N) 23 ml/m^2 13 - 40 Vol, ES, 2-p 41 ml --------- Vol/bsa, ES, 2-p (N) 22 ml/m^2 16 - 34 LA/Ao root ratio 1.48 --------- Right atrium Value Ref SI dim, ES, A4C (H) 5.7 cm 3.4 - 5.3 SI dim/bsa, ES, A4C (N) 3.1 cm/m^2 1.9 - 3.1 Area, ES, A4C (H) 20 cm^2 10 - 18 Vol, ES, 1-p A4C 56 ml --------- Vol/bsa, ES, 1-p A4C (N) 30 ml/m^2 9 - 33 Aortic valve Value Ref Peak v, S 1 m/sec --------- Mean v, S 0.7 m/sec --------- VTI, S 18.2 cm --------- Mean grad, S 2 mm Hg --------- Peak grad, S 4 mm Hg --------- LVOT/AV, VTI ratio 0.55 --------- CHIRAG, VTI 1.7 cm^2 --------- CHIRAG/bsa, VTI 0.94 cm^2/m^2 --------- LVOT/AV, Vpeak ratio 0.56 --------- CHIRAG, Vmax 1.8 cm^2 --------- CHIRAG/bsa, Vmax 0.95 cm^2/m^2 --------- Mitral valve Value Ref Mean v, D 0.54 m/sec --------- Peak E 0.79 m/sec --------- Decel time 218 ms --------- Mean grad, D 1 mm Hg --------- Peak grad, D 2 mm Hg --------- A-VTI 17.1 cm --------- Pulmonic valve Value Ref Peak v, S 0.57 m/sec --------- Peak grad, S 1 mm Hg --------- Tricuspid valve Value Ref TR peak v (H) 3.3 m/sec <=2.8 Peak RV-RA grad, S 44 mm Hg --------- Aortic root Value Ref Root diam, 2.7 cm --------- Ascending aorta Value Ref AAo AP diam, S 3.1 cm --------- AAo AP diam/bsa, S 1.7 cm/m^2 --------- Pulmonary artery Value Ref Pressure, S 53 mm Hg --------- Systemic veins Value Ref Estimated RA pressure 10 mm Hg --------- Legend: (L) and (H) gildardo values outside specified reference range. (N) soria values inside specified reference range. Procedure data: Procedure information: A transthoracic echocardiogram was performed.Scanning was performed from the parasternal, apical, and subcostal acousticwindows. Intravenous contrast (Definity) was administered. Transthoracic echocardiogram. Complete 2D, complete spectral Doppler, and colorDoppler. Birthdate: Patient birthdate: 1935. Age: Patient is 89year(s)old. Sex: gender: female. Height: 165.1cm. 65in. Weight: 79kg.174.1lb. Body mass index: 29kg/m^2. Body surface area: 1.86m^2. Study date: Study date: 05/31/2024. Study time: 11:19 AM. Prepared andElectronically Authenticated Roosevelt Mello [id number] us Lula Burgos APRN US ORDERABLES Final Resu lt INTERFACE SYSTEM Refer to clinic/hospital department * CTA CHEST W AND/OR WO CONTRAST (05/30/2024 9:36 PM [facility]) Anatomical Region Laterality Modality Chest Computed Tomogra phy 05/30/2024 9:22 PM [facility] Impressions 05/31/2024 12:23 AM [facility] IMPRESSION: 1. No evidence of pulmonary embolism. 2. No thoracic aortic aneurysm. There is no dissection of the ascending aorta. The descending aorta is not sufficiently opacified to evaluate for dissection. 3. Cardiomegaly. There is also evidence of cardiac dysfunction and enlargement of the right heart and reflux into hepatic veins. 4. Focal pneumonia is a consideration in right lower lobe. There is also mucus plugging noted. There are small bilateral pleural effusions, greater on the right than the left. 5. Tracheomalacia is noted. DICTATION LOCATION: Location 1 [facility] 05/31/2024 12:23 AM [facility] EXAMINATION: CTA CHEST W AND/OR WO CONTRAST DATE: 05/30/2024 9:36 PM HISTORY: Pulmonary embolism (PE) suspected, high probability; Atrial fibrillation, unspecified type; Hypervolemia, unspecified hypervolemia type TECHNIQUE: CT of the chest was performed following the uneventful administration of intravenous contrast (IOPAMIDOL 61 % INTRAVENOUS SOLUTION (MULTI-DOSE BULK PACK) Given:90 mL) according to angiographic protocol. The images were reconstructed in Maximum Intensity Projection (MIP) protocol using oblique projections. The examination was performed with the adjustment of mA according to the patient size and/or the use of Iterative Reconstruction Technique. CT Dose Length Product (DLP): 111.63 mGy*cm FINDINGS: Exam is compared to CT abdomen and pelvis from the same date Vascular: There are no filling defects in the pulmonary arteries to suggest pulmonary embolism. There are calcifications of the thoracic aorta. There is no thoracic aortic aneurysm. There is no dissection in the ascending aorta. The descending aorta is not sufficiently opacified to exclude dissection. Lines/tubes: None. Heart and mediastinum: Heart is enlarged. Especially the right heart. There is reflux of contrast into the hepatic veins consistent with cardiac dysfunction. There is no pericardial effusion. No enlarged mediastinal or hilar lymph nodes are seen. 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 There is also some mucus plugging noted in the right upper lobe, lingula, and bilateral lower lobes. There are bilateral interstitial opacities however there is more focal opacity seen in the right lower lobe which may be due to focal pneumonia. There are small bilateral pleural effusions. Effusion on the right is larger on the left. Pleura: No pneumothorax. There are small bilateral pleural effusions. The effusion on the right is larger than the effusion on the left. Lower neck and soft tissues: The imaged thyroid gland appears normal. No axillary or subpectoral lymphadenopathy is identified. Abdomen: The included portions of the upper abdomen are unremarkable except for reflux into the hepatic veins consistent with cardiac dysfunction. Bones: No suspicious lytic or blastic lesions are seen. Procedure Note Turner Gómez MD - 05/31/2024 EXAMINATION: CTA CHEST W AND/OR WO CONTRAST DATE: 05/30/2024 9:36 PM HISTORY: Pulmonary embolism (PE) suspected, high probability; Atrial fibrillation, unspecified type; Hypervolemia, unspecified hypervolemia type TECHNIQUE: CT of the chest was performed following the uneventful administration of intravenous contrast (IOPAMIDOL 61 % INTRAVENOUS SOLUTION (MULTI-DOSE BULK PACK) Given:90 mL) according to angiographic protocol. The images were reconstructed in Maximum Intensity Projection (MIP) protocol using oblique projections. The examination was performed with the adjustment of mA according to the patient size and/or the use of Iterative Reconstruction Technique. CT Dose Length Product (DLP): 111.63 mGy*cm FINDINGS: Exam is compared to CT abdomen and pelvis from the same date Vascular: There are no filling defects in the pulmonary arteries to suggest pulmonary embolism. There are calcifications of the thoracic aorta. There is no thoracic aortic aneurysm. There is no dissection in the ascending aorta. The descending aorta is not sufficiently opacified to exclude dissection. Lines/tubes: None. Heart and mediastinum: Heart is enlarged. Especially the right heart. There is reflux of contrast into the hepatic veins consistent with cardiac dysfunction. There is no pericardial effusion. No enlarged mediastinal or hilar lymph nodes are seen. 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 There is also some mucus plugging noted in the right upper lobe, lingula, and bilateral lower lobes. There are bilateral interstitial opacities however there is more focal opacity seen in the right lower lobe which may be due to focal pneumonia. There are small bilateral pleural effusions. Effusion on the right is larger on the left. Pleura: No pneumothorax. There are small bilateral pleural effusions. The effusion on the right is larger than the effusion on the left. Lower neck and soft tissues: The imaged thyroid gland appears normal. No axillary or subpectoral lymphadenopathy is identified. Abdomen: The included portions of the upper abdomen are unremarkable except for reflux into the hepatic veins consistent with cardiac dysfunction. Bones: No suspicious lytic or blastic lesions are seen. IMPRESSION: 1. No evidence of pulmonary embolism. 2. No thoracic aortic aneurysm. There is no dissection of the ascending aorta. The descending aorta is not sufficiently opacified to evaluate for dissection. 3. Cardiomegaly. There is also evidence of cardiac dysfunction and enlargement of the right heart and reflux into hepatic veins. 4. Focal pneumonia is a consideration in right lower lobe. There is also mucus plugging noted. There are small bilateral pleural effusions, greater on the right than the left. 5. Tracheomalacia is noted. 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 DICTATION LOCATION: Location 4 Narrative 05/30/2024 10:27 PM [facility] ULTRASOUND ABDOMEN LIMITED DATE: 05/30/2024 8:51 PM HISTORY: Ascites. Atrial fibrillation, unspecified type; Hypervolemia, unspecified hypervolemia type TECHNIQUE: Transabdominal right upper quadrant ultrasound was performed by an senior medical technologist with multiple projections submitted. COMPARISON: None. FINDINGS: Ultrasound imaging of four quadrants of the abdomen and pelvis demonstrate no definable ascites. The ascites noted on CT performed earlier in the day is within the posterior pelvis and may not be well delineated on transabdominal ultrasound. The portal and hepatic veins are patent. Procedure Note Anahi Masters MD - 05/30/2024 ULTRASOUND ABDOMEN LIMITED DATE: 05/30/2024 8:51 PM HISTORY: Ascites. Atrial fibrillation, unspecified type; Hypervolemia, unspecified hypervolemia type TECHNIQUE: Transabdominal right upper quadrant ultrasound was performed by an senior medical technologist with multiple projections submitted. COMPARISON: None. FINDINGS: Ultrasound imaging of four quadrants of the abdomen and pelvis demonstrate no definable ascites. The ascites noted on CT performed earlier in the day is within the posterior pelvis and may not be well delineated on transabdominal ultrasound. The portal and hepatic veins are patent. IMPRESSION: No significant ascites on ultrasound. 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 Nonspecific fluid in the colon possibly due to nonspecific diarrhea. Bowel obstruction, free air, or focal fluid collection is not identified. The appendix is not identified but there is no evidence of appendicitis. Small pleural effusions. There is also atelectasis seen in the right lower lobe. Other chronic findings as described above. DICTATION LOCATION: Location 1 - [facility] 05/31/2024 12:[address] ABDOMEN PELVIS WO CONTRAST WITH MULTIPLANAR REFORMATTED IMAGES DATE: 05/30/2024 4:49 PM CLINICAL INFORMATION: Abdominal pain COMPARISON: None PROCEDURE: Axial images were obtained from the lung bases through the ischial tuberosities without the administration of intravenous contrast. Oral contrast was not administered. Multiplanar reformatted images were reviewed. The examination was performed with the adjustment of mA according to the patient size and/or the use of Iterative Reconstruction Technique. DLP: mGy-cm FINDINGS: LOWER CHEST: There are small bilateral pleural effusions. The effusion on the right is larger than the effusion on the left. There is atelectasis noted in the right lower lobe. The heart is enlarged. LIVER: Within normal limits GALLBLADDER: Within normal limits. BILE DUCTS: Within normal limits. PANCREAS: Within normal limits. SPLEEN: Within normal limits. ADRENALS: Within normal limits. KIDNEYS/URETERS: Within normal limits. BLADDER: Within normal limits. REPRODUCTIVE ORGANS: Within normal limits. BOWEL: Colonic diverticulosis. There is no diverticulitis. There is no bowel obstruction or free air. There is some nonspecific fluid seen in the colon possibly due to nonspecific diarrhea. The appendix is not definitely identified but there is no evidence of appendicitis. PERITONEUM/RETROPERITONEUM: There is a small amount of ascites especially in the pelvis. Focal fluid collection or free air or adenopathy is not seen. VESSELS: There are calcifications of the abdominal aorta. No aneurysm is seen. ABDOMINAL WALL: There is edema noted in the subcutaneous soft tissues of the abdomen and pelvis especially laterally and slightly greater on the left than the right. 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 Procedure Note Turner Gómez MD - 05/31/2024 CT ABDOMEN PELVIS WO CONTRAST WITH MULTIPLANAR REFORMATTED IMAGES DATE: 05/30/2024 4:49 PM CLINICAL INFORMATION: Abdominal pain COMPARISON: None PROCEDURE: Axial images were obtained from the lung bases through the ischial tuberosities without the administration of intravenous contrast. Oral contrast was not administered. Multiplanar reformatted images were reviewed. The examination was performed with the adjustment of mA according to the patient size and/or the use of Iterative Reconstruction Technique. DLP: mGy-cm FINDINGS: LOWER CHEST: There are small bilateral pleural effusions. The effusion on the right is larger than the effusion on the left. There is atelectasis noted in the right lower lobe. The heart is enlarged. LIVER: Within normal limits GALLBLADDER: Within normal limits. BILE DUCTS: Within normal limits. PANCREAS: Within normal limits. SPLEEN: Within normal limits. ADRENALS: Within normal limits. KIDNEYS/URETERS: Within normal limits. BLADDER: Within normal limits. REPRODUCTIVE ORGANS: Within normal limits. BOWEL: Colonic diverticulosis. There is no diverticulitis. There is no bowel obstruction or free air. There is some nonspecific fluid seen in the colon possibly due to nonspecific diarrhea. The appendix is not definitely identified but there is no evidence of appendicitis. PERITONEUM/RETROPERITONEUM: There is a small amount of ascites especially in the pelvis. Focal fluid collection or free air or adenopathy is not seen. VESSELS: There are calcifications of the abdominal aorta. No aneurysm is seen. ABDOMINAL WALL: There is edema noted in the subcutaneous soft tissues of the abdomen and pelvis especially laterally and slightly greater on the left than the right. 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 IMPRESSION: Small amount of ascites. Nonspecific fluid in the colon possibly due to nonspecific diarrhea. Bowel obstruction, free air, or focal fluid collection is not identified. The appendix is not identified but there is no evidence of appendicitis. Small pleural effusions. There is also atelectasis seen in the right lower lobe. Other chronic findings as described above. DICTATION LOCATION: Location 1 - [facility] Arya Stern MD CT ORDERABLES Final Result * TSH (05/30/2024 1:44 PM CAR SALTER) TSH 3.75 0.27 - 4.20 uIU/mL 05/30/2024 3:20 PM CAR SALTER [facility] Blood Venipuncture / Unknown 05/30/2024 1:44 PM CAR SALTER 05/30/2024 1:52 PM CAR SALTER us Simeon Valadez MD CHEMISTRY ORDERABLES Final Re sult [facility] [id number] [address] [place] [id number] from Last 3 Months Insurance [facility] [id number] RX [employer] PL[employer] (INTERNAL) [facility] RX [employer] RX Member Subscriber Plan / Payer (Ef fective for All Dates) Name:Celestina Drummond Relation to Subscriber:Self Name:Celestina Drummond Payer ID:Not on file Group ID:[id number] Type:RX Medicare Part D Address: [address] Advance Directives For more information, please contact: [phone] * Full Code (Latest Code Status on File) Date Activated Date Inactivated Comments 05/30/2024 8:12 PM 06/01/2024 7:35 PM Care Teams Appointment Specialist Relationship Specialty Start Date End Date Tono Charles MD [address] [place] [address] PCP - General Family Practice 06/29/24
--- OUTSIDE RECORDS SUMMARY | 2024-07-19 15:15 | XMS_ITS | Encounter Summary ---
Author Organization [facility] Healthcare Address [address] [place] [address] Care Team Providers Care Director Of Epidemiology Name Role Phone Tono Charles MD Primary Care Provider [phone] Encounter Details Date Type Department Care Team (Late st Contact Info) Description 07/19/2024 Results Follow-Up [facility] Medical Group Cardiology [address] [facility] [address] [place] [address] Yadi Clark, GRACY [address] [place] [address] Social History Tobacco Use Types Packs/Day Years Used Date Smoking Tobacco: Never Smokeless Tobacco: Never Comments Unknown Sex and Gender Information Value Date Recorded Sex Assigned at Not on file 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
--- OUTSIDE RECORDS SUMMARY | 2024-07-19 15:15 | XMS_ITS | Encounter Summary ---
Author Organization [facility] Healthcare Address [address] [place] [address] Care Team Providers Care Radio Division Officer Name Role Phone Tono Charles MD Primary Care Provider [phone] Reason for Visit * Diagnostic Imaging (Routine) - Closed Specialty Diagnoses / Procedures Referred By Contac t Referred To Contact Diagnoses Dilated cardiomyopathy (CMS/HCC) (HCC) Procedures NM MPI SPECT (Rest and/or Stress) Multiple Studies [place] [id number] SESTAMIBI Maxime Cortez NP [address] [address] Phone: tel: fax: [facility] Medical Group Referral ID Status Reason Start Date Expiration Date Visits Re quested Visits Authorized [id number] Closed 07/09/2024 08/08/2025 1 1 Encounter Details Date Type Department Care Team (Latest Contact Info) Description 07/18/2024 10:15 AM SHOWROOM MANAGER Ancillary Procedure [facility] Medical [facility] Cardiology [address] [address] Dilated cardiomyopathy (CMS/HCC) (HCC) Social History Tobacco Use Types Packs/Day Years Used Date Smoking Tobacco: Never Smokeless Tobacco: Never Comments Unknown Sex and Gender Information Value Date Recorded Sex Assigned at Not on file Legal Sex Female 2:22 PM SHOWROOM MANAGER Gender Identity Not on file Sexual Orientation Not on file documented as of this encounter Plan of Treatment Not on file documented as of this encounter Procedures Procedure Name Priority Date/Time Associated Diagnosis Comments NM MPI SPECT (REST AND/OR STRESS) MULTIPLE STUDIES Schedule Routine, Read Routine (OP Routine) 07/18/2024 12:15 PM SHOWROOM MANAGER Dilated cardiomyopathy (CMS/HCC) (HCC) documented in this encounter Results * NM MPI SPECT (Rest and/or Stress) Multiple Studies (07/18/2024 12:15 PM SHOWROOM MANAGER) Anatomical Region Laterality Modality Body N/A Nuclear Medicine 07/18/2024 7:57 AM SHOWROOM MANAGER Narrative 07/18/2024 4:51 PM SHOWROOM MANAGER [facility] Medical Group Cardiology [address] [facility] [address] [address] [address] [facility] [address], [place] [address] P:[phone] P:[phone] MPI Imaging Report Patient Name: DENNIS CHRISTIANSON JO : 1935 Study Date: 07/18/2024 7:57:15 AM Gender: F Tech: [facility] Location: [facility] Provider: MAXIME CORTEZ Height(Cm): 165.1 BSA: Weight(Kg): [...] By: Livan Ferrari MD 07/18/2024 4:50:47 PM SHOWROOM MANAGER Electronically Signed By: Livan Ferrari MD 07/18/2024 4:50:47 PM SHOWROOM MANAGER Procedure Note Livan Ferrari MD - 07/18/2024 [facility] Medical [facility] Cardiology [address] [facility] [address], [place] [address] [address] [facility] [address], [place] [address] P:[phone] P:[phone] MPI Imaging Report Patient Name: DENNIS CHRISTIANSON JO : 1935 Study Date: 07/18/2024 7:57:15 AM Gender: F Tech: [facility] Location: [facility] Provider: MAXIME CORTEZ Height(Cm): 165.1 BSA: Weight(Kg): [...] By: Livan Ferrari MD 07/18/2024 4:50:47 PM SHOWROOM MANAGER Electronically Signed By: Livan Ferrari MD 07/18/2024 4:50:47 PM SHOWROOM MANAGER Maxime Cortez NP IMG NM PROCEDURES Final R esult documented in this encounter Visit Diagnoses Diagnosis Dilated cardiomyopathy (CMS/HCC) (HCC) Other primary cardiomyopathies documented in this encounter Administered Medications Inactive Administered Medications - up to 3 most recent administrations Medication Order MAR Action Action Date Dose Rate Site regadenoson (LEXISCAN) 0.4 mg/5 mL injection 0.4 mg 0.4 mg, intravenous, Once, On Margy 07/18/24 at 1300, For 1 dose, Administer IV push over 10 seconds., Indications: Myocardial Perfusion Imaging AdjunctIndications:Myocard ial Perfusion Imaging Adjunct Given 07/18/2024 12:15 PM SHOWROOM MANAGER 0.4 mg tc-99m sestamibi unit dose injection 10.4 millicurie 10.4 millicurie, intravenous, Once in imaging, radiopharmaceutical, Starting on Margy 07/18/24 at 1037, For 1 dose, Indications: Diagnostic RadiographyIndications:Carla gnostic Radiography Given 07/18/2024 10:37 AM SHOWROOM MANAGER 10.4 millicuries tc-99m sestamibi unit dose injection 30 millicurie 30 millicurie, intravenous, Once in imaging, radiopharmaceutical, Starting on Margy 07/18/24 at 1215, For 1 dose, Indications: Diagnostic RadiographyIndications:Carla gnostic Radiography Given 07/18/2024 12:15 PM SHOWROOM MANAGER 30 millicuries documented in this encounter Care Teams Radio Division Officer Relationship Specialty Start Date End Date Tono Charles MD PCP - General Family Medicine 06/28/18 documented as of this encounter
--- OUTSIDE RECORDS SUMMARY | 2024-07-19 15:15 | XMS_ITS | Encounter Summary ---
Author Organization [facility] Healthcare Address [address] [place] [address] Care Team Providers Care Professor Of Literacy Name Role Phone Tono Charles MD Primary Care Provider [phone] Reason for Referral * Procedure (Routine) - Pending Review Specialty Diagnoses / Procedures Referred By Contac t Referred To Contact Cardiology Diagnoses Abnormal nuclear stress test Sukhi Hickman MD [address] [place] [address] Phone: tel: fax: [facility] Medical [facility] Cardiology [address] [place] [address] Phone: tel: fax: Referral ID Status Reason Start Date Expiration Date Visits Requested Visits Authorized [id number] Pending Review Specialty Services Required 07/19/2024 08/18/2025 1 1 Question Answer Please select the performing region: [facility] Medical Group [[id number]] Please select the performing department: [facility] [id number] [[id number]] # of visits: 1 Comments PROCEDURE/TEST ORDERED: [facility] LOCATION: DATE OF SERVICE: 07/30/24 INSURANCE: [facility] Medicare DIAGNOSIS: Abnormal stress ORDERING PROVIDER: CT ADDITIONAL DETAILS: RP to perform FARMERS Encounter Details Date Type Department Care Team (Late st Contact Info) Description 07/19/2024 Telephone [facility] Medical [facility] Cardiology [address] [place] [address] Yadi Clark NP [address] [address] Social History Tobacco Use Types Packs/Day Years Used Date Smoking Tobacco: Never Smokeless Tobacco: Never Comments Unknown Sex and Gender Information Value Date Recorded Sex Assigned at Not on file Legal Sex Female 2:22 PM CROP FARMERS Gender Identity Not on file Sexual Orientation Not on file documented as of this encounter Miscellaneous Notes * Addendum Note - Livan Rocha RN - 07/19/2024 1:59 PM CSTAddended by: LIVAN ROCHA on: 07/19/2024 01:59 PM Modules accepted: Orders FARMERS * Telephone Encounter - Livan Rocha RN - 07/19/2024 1:57 PM CROP FARMERS [facility] and RP Spoke with pt daughter. Result note reviewed. Pt scheduled for LHC on 07/30/24 at 1000 at with RP.PT instructions reviewed and mailed to pt, along with travel letter from [place]. Pt daughter verbalizesunderstanding. FARMERS * Telephone Encounter - Livan Rocha RN - 07/19/2024 8:54 AM CROP FARMERS LM on to return call to review stress results. FARMERS * Telephone Encounter - Yadi Clark NP - 07/19/2024 7:55 AM CROP FARMERS Please call the patient to let her know that her stress test was abnormal, indicating that she may have blockages in the arteries of the heart. I recommend that she be scheduled for a left heart catheterization. I have also completed a letter advising that she not travel so she can get a refund on her travel insurance. Thank you. FARMERS documented in this encounter Plan of Treatment Scheduled Referrals Name Type Priority Associated Diagnoses Order Schedule Ambulatory referral to Cardiology Outpatient Referral Routine Abnormal nuclear stress test Expected: 08/02/2024 (Approximate), Expires: 07/19/2025 documented as of this encounter Visit Diagnoses Diagnosis Abnormal nuclear stress test- Primary documented in this encounter Care Teams Professor Of Literacy Relationship Specialty Start Date End Date Tono Charles MD PCP - General Family Medicine 06/28/18 documented as of this encounter
--- OUTSIDE RECORDS SUMMARY | 2024-07-19 15:15 | XMS_ITS | Clinical Summary ---
Author Organization [facility] Address [address] [place] [address] Care Team Providers Care Programming Manager Name Role Phone Tono Charles MD Primary Care Provider [phone] Allergies No known active allergies Medications PARoxetine [...] (MEDROL DOSEPACK) 4 mg Dosepack 9 07/09/19 Discontinu ed(Therapy completed) polycarbophil (FIBERCON) 625 mg tablet Take 1 tablet (625 mg total) by mouth daily 07/09/19 Discontinu ed(Therapy completed) ibuprofen 200 mg tab/cap Take 1 tablet/capsu le (200 mg total) by mouth every 6 (six) hours as needed for pain 07/09/19 Discontinu ed(Therapy completed) D3-E-Se-soy uxexa-osmxbw-bwt op 1,200-15-35 xrnk-gsbc-iqe capsule Take by mouth 07/09/19 Discontinu ed(Therapy completed) ezetimibe-simvas tatin (VYTORIN) 10-10 [...] mg total) by mouth daily 5 07/09/19 25 Discontinu ed(Therapy completed) Active Problems Problem Noted Date Diagnosed Date Diarrhea 10/03/2022 Assessment & Plan (05/30/2023 12:56 PM PROVIDER NETWORK ANALYST): Chronic diarrhea since the age of 21, [...] 10/03/2022 Assessment & Plan (05/30/2023 1:02 PM PROVIDER NETWORK ANALYST): Chronic GERD for over 10 years. -continue [...] 023 Assessment & Plan (05/30/2023 12:58 PM PROVIDER NETWORK ANALYST): Mother had colon cancer diagnosed in 40s. [...] last colonoscopy was over 10 years ago. Encounters Date Type Department Care Team Description 07/19/2024 Results Follow-Up [facility] Cardiology [address] [place] [address] [place] [phone] Maxime Cortez NP 07/19/[address] [address] Maxime Cortez NP 07/18/2024 10:15 AM PROVIDER NETWORK ANALYST Ancillary Procedure [place] [address] [place] [phone] Dilated cardiomyopathy (CMS/HCC) (HCC) 07/09/2024 9:30 AM PROVIDER NETWORK ANALYST Office Visit [facility] Cardiology [address] [place] [phone] Maxime Cortez NP Persistent atrial fibrillation (HCC); Atrial flutter, unspecified type (HCC); Chronic anticoagulation; Dilated cardiomyopathy (CMS/HCC) (HCC); Lethargy; Anxiety; Hospital discharge follow-up 06/28/2024 Orders Only [facility] Health Information Management [address] [place] [address] Maxime Cortez NP 06/28/[address] [address] Turner Perdomo MD 06/24/2024 Orders Only [facility] Cardiology [address] [place] [address] [place] [phone] Turner Perdomo MD 06/24/2024 Telephone [facility] Cardiology [address] [place] [address] [place] [phone] Turner Perdomo MD 06/18/2024 Telephone [place] [address] [place] [phone] Maxime Cortez NP 06/06/2024 10:00 AM PROVIDER NETWORK ANALYST Office Visit [place] [address] [place] [phone] Maxime Cortez NP Persistent atrial fibrillation (HCC) (Primary Dx); 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); Change in vision; Hospital discharge follow-up 06/05/2024 Telephone [place] [address] [place] [phone] Maxime Cortez NP 05/30/2024 Telephone [place] [address] [place] [phone] Maxime Cortez NP 05/23/2024 Orders Only [place] [address] [place] [phone] Rashida Elizabeth NP 05/17/2024 Orders Only [facility] Health Information Management [address] [place] [address] Rashida Elizabeth NP from Last 3 Months Surgical History Surgery Date Site/Laterality Comments COLONOSCOPY Social History Tobacco Use Types Packs/Day Years Used Date Smoking Tobacco: Never Smokeless Tobacco: Never Tobacco Cessation:Counseling Given: Not Answered Comments Unknown Sex and Gender Information Value Date Recorded Sex Assigned at Not on file Legal Sex Female 2:22 PM PROVIDER NETWORK ANALYST Gender Identity Not on file Sexual Orientation Not on file Obstetrics History Last Filed Vital Signs Vital Sign Reading Time Taken Comments Blood Pressure 108/68 07/09/2024 9:45 AM PROVIDER NETWORK ANALYST Pulse 74 07/09/2024 9:45 AM PROVIDER NETWORK ANALYST Temperature - - Respiratory Rate - - Oxygen Saturation 96% 07/09/2024 9:45 AM PROVIDER NETWORK ANALYST Inhaled Oxygen Concentration - - Weight 65.3 kg (144 lb) 07/09/2024 9:45 AM PROVIDER NETWORK ANALYST Height 165.1 cm (5' 5 ) 07/09/2024 9:45 AM PROVIDER NETWORK ANALYST Body Mass Index 23.96 07/09/2024 9:45 AM PROVIDER NETWORK ANALYST Plan of Treatment Health Maintenance Due Date Last Done Comments Depression Screening 1935 Fall Risk Assessment 1935 Hepatitis B Screening 1954 Pneumococcal vaccine 65+ (1 of 2 - PCV) 1955 Zoster Vaccine (1 of 2) 1986 Well Visit 65+ 2001 Covid-19 Vaccine (4 - 2023-2 5 season) 2024 05/27/2021, 08/17/2020, 07/16/2020 Influenza Vaccine (#1) 2024 2, 04/30/2021, 03/30/2020, Additional history exists DTaP/Tdap/Td Vaccine (2 - Td or Tdap) 09/10/2030 09/10/2020 Procedures Procedure Name Priority Date/Time Associated Diagnosis Comments NM MPI SPECT (REST AND/OR STRESS) MULTIPLE STUDIES Schedule Routine, Read Routine (OP Routine) 07/18/2024 12:15 PM PROVIDER NETWORK ANALYST Dilated cardiomyopathy (CMS/HCC) (HCC) SCAN - RADIOLOGY/IMAGING 06/28/2024 CARDIOLOGY DOCUMENT SCAN Routine 06/19/2024 4:38 PM PROVIDER NETWORK ANALYST CARDIOLOGY DOCUMENT SCAN Routine 05/19/2024 12:50 PM PROVIDER NETWORK ANALYST CARDIOLOGY DOCUMENT SCAN Routine 05/18/2024 12:47 PM PROVIDER NETWORK ANALYST CARDIOLOGY DOCUMENT SCAN Routine 05/17/2024 12:45 PM PROVIDER NETWORK ANALYST CARDIOLOGY DOCUMENT SCAN 05/17/2024 from Last 3 Months Results * NM MPI SPECT (Rest and/or Stress) Multiple Studies (07/18/2024 12:15 PM PROVIDER NETWORK ANALYST) Anatomical Region Laterality Modality Body N/A Nuclear Medicine 07/18/2024 7:57 AM PROVIDER NETWORK ANALYST Narrative 07/18/2024 4:51 PM PROVIDER NETWORK ANALYST [facility] Medical Group Cardiology [address], [place] [address] [address], [place] [address] P:[phone] P:[phone] MPI Imaging Report Patient Name: DENNIS CHRISTIANSON JO : 1935 Study Date: 07/18/2024 7:57:15 AM Gender: F Tech: [facility] Location: [facility] Provider: MAXIME CORTEZ Height(Cm): 165.1 BSA: Weight(Kg): [...] By: Livan Ferrari MD 07/18/2024 4:50:47 PM PROVIDER NETWORK ANALYST Electronically Signed By: Livan Ferrari MD 07/18/2024 4:50:47 PM PROVIDER NETWORK ANALYST Procedure Note Livan Ferrari MD - 07/18/2024 [facility] Medical Group Cardiology [address] [facility] [address] [address] [address] [facility] [address], [place] [address] P:[phone] P:[phone] MPI Imaging Report Patient Name: DENNIS CHRISTIANSON JO : 1935 Study Date: 07/18/2024 7:57:15 AM Gender: F Tech: MAYANK SIMONMT Location: [facility] Provider: MAXIME CORTEZ Height(Cm): 165.1 BSA: Weight(Kg): [...] By: Livan Ferrari MD 07/18/2024 4:50:47 PM PROVIDER NETWORK ANALYST Electronically Signed By: Livan Ferrari MD 07/18/2024 4:50:47 PM PROVIDER NETWORK ANALYST Result [facility] Maxime Cortez OIL PUMPER IMG NM PROCEDURES Final R esult * SCAN - RADIOLOGY/IMAGING (06/28/2024) Anatomical Region Laterality Modality Other Maxime Cortez NP Final Res ult * Cardiology Document Scan (06/19/2024 4:38 PM PROVIDER NETWORK ANALYST) Anatomical Region Laterality Modality Other Turner Perdomo MD [facility] PROC EDURES Final Result * Cardiology Document Scan (05/19/2024 12:50 PM PROVIDER NETWORK ANALYST) Anatomical Region Laterality Modality Other Sylvia Sanz MD [facility] CARDIAC SERVICES PROCEDU RES Final Result * Cardiology Document Scan (05/18/2024 12:47 PM PROVIDER NETWORK ANALYST) Anatomical Region Laterality Modality Other us Sylvia Sanz MD [facility] CARDIAC SERVICES PROCEDU RES Final Result * Cardiology Document Scan (05/17/2024 12:45 PM PROVIDER NETWORK ANALYST) Anatomical Region Laterality Modality Other Rashida Elizabeth NP [facility] CARDIAC SERVICES PROCEDUR ES Final Result * Cardiology Document Scan (05/17/2024) Anatomical Region Laterality Modality Other Rashida Elizabeth NP CV CARDIAC SERVICES PROCEDUR ES Final Result from Last 3 Months Insurance [facility] H[facility] Address: [address] [address] [place] [address] MEDICARE [facility] Address: [address] [address] [place] [address] Care Teams Programming Manager Relationship Specialty Start Date End Date Tono Charles MD PCP - General Family Medicine 06/28/18
--- OUTSIDE RECORDS SUMMARY | 2024-07-19 15:15 | XMS_ITS | Encounter Summary ---
Author Organization [facility] Healthcare Address [address] [place] [address] Care Team Providers Care Autism Teacher Name Role Phone Tono Charles MD Primary Care Provider [phone] Encounter Details Date Type Department Care Team (Late st Contact Info) Description 06/28/2024 Telephone [facility] Medical Group Cardiology [address] [place] [address] Turner Perdomo MD [address] [place] [address] Social History Tobacco Use Types Packs/Day Years Used Date Smoking Tobacco: Never Smokeless Tobacco: Never Comments Unknown Sex and Gender Information Value Date Recorded Sex Assigned at Not on file Legal Sex Female 2:22 PM CREW LEADER Gender Identity Not on file Sexual Orientation Not on file documented as of this encounter Miscellaneous Notes * Telephone Encounter - Jessica Hernandez RN - 06/28/2024 10:15 AM CREW LEADER Spoke with HH RN Kiesha, she states pt has had poor appetite, not sleeping, dry mouth, sweats, and nausea. Symptoms of sweats and nausea are new this am, no CP/SOB. All other symptoms are not new. Pt has appt with CT on 07/01. Advised HH RN to contact PCP to discuss, monitor symptoms, go to ER for anyworsening symptoms, CP, SOB, or weakness. She verbalizes understanding. LEADER * Telephone Encounter - AdelsoIssaMadison - 06/28/2024 10:03 AM CST Kiesha with [facility] requesting call back to discuss that pt is not feeling good. HR is 110. Reports pt has dry mouth, can't sleep, not eating, and has some sweats but no fever. Contact: LEADER documented in this encounter Plan of Treatment Not on file documented as of this encounter Visit Diagnoses Not on filedocumented in this encounter Care Teams Autism Teacher Relationship Specialty Start Date End Date Tono Charles MD PCP - General Family Medicine 06/28/18 documented as of this encounter
[2024-07-19 18:02] LABS: Hematocrit 45.5 % (37.0-47.0); Hemoglobin 14.4 g/dL (12.0-15.0); Mean Corpuscular HGB Conc 31.6 g/dl (32-36); Mean Corpuscular Hemoglobin 29.9 pg (26-34); Mean Corpuscular Volume 94.4 fl (80-100); Platelet Count Result 275 k/mm3 (150-375); Red Blood Count 4.82 M/mm3 (4.2-5.4); Red Cell Distribution Width 14.4 % (11.5-14.5); White Blood Count 8.8 K/mm3 (4.5-10.0)
[2024-07-19 18:21] LABS: Blood Urea Nitrogen 32 mg/dL (7-17); Calcium 9.1 mg/dL (8.4-10.2); Carbon Dioxide 29 mmol/L (22-30); Estimated Glomerular Filt Rate 25; Glucose 91 mg/dL (65-110); Sodium 136 mmol/L (137-145)
[2024-07-19 20:34] LABS: Anion Gap 7 mmol/L (4-12); Chloride 100 mmol/L (98-107)
== END 2024-07-19 15:12 | disposition home or self-care (01) ==
LOC: ANHGOSHLAB 15:13
PROVIDERS: PCP Family Medicine; Visit Provider Family Medicine
DX: I48.91 Unspecified atrial fibrillation (principal)
CPT/HCPCS: 36415; 80048; 84443; 85027

== ENCOUNTER 2024-07-30 01:02 | Day surgery (SDC) | payer MEDICARE, SELFPAY ==
[2024-07-30] VITALS (13 sets, daily range): BP systolic 97–147; BP diastolic 44–102; PULSE 74–99; RESP 12–20; TEMP 36.4; O2SAT 91–98; BMI 23.1
[2024-07-30 09:13] LABS: Basophils Absolute Auto 0.1 K/mm3 (0.0-0.1); Basophils Percent Auto 0.9 % (0.2-1.2); Eosinophils Absolute Auto 0.2 K/mm3 (0-0.3); Eosinophils Percent Auto 1.7 % (0-4.4); Hematocrit 47.5 % (37.0-47.0); Hemoglobin 15.4 g/dL (12.0-15.0); Immature Granulocyte Absolute 0.03 K/mm3 (0.00-0.031); Immature Granulocyte Percent A 0.3 % (0-0.5); Lymphocytes Absolute Auto 1.36 K/mm3 (0.9-3.2); Lymphocytes Percent Auto 15.6 % (18.3-44.2); Mean Corpuscular HGB Conc 32.4 g/dl (32-36); Mean Corpuscular Hemoglobin 29.8 pg (26-34); Mean Corpuscular Volume 92.1 fl (80-100); Mean Platelet Volume 9.7 fl (7.4-10.4); Monocytes Absolute Auto 0.7 K/mm3 (0.1-0.6); Monocytes Percent Auto 8.1 % (2.6-8.5); Neutrophils Absolute Auto 6.4 K/mm3 (1.3-6.7); Neutrophils Percent Auto 73.4 % (45.5-73.1); Platelet Count Result 310 k/mm3 (150-375); Red Blood Count 5.16 M/mm3 (4.2-5.4); Red Cell Distribution Width 14.5 % (11.5-14.5); White Blood Count 8.7 K/mm3 (4.5-10.0)
[2024-07-30 09:23] LABS: Anion Gap 11 mmol/L (4-12); Blood Urea Nitrogen 36 mg/dL (7-17); Calcium 9.3 mg/dL (8.4-10.2); Carbon Dioxide 23 mmol/L (22-30); Chloride 104 mmol/L (98-107); Estimated CRCL calculation 18 ml/min; Estimated Glomerular Filt Rate 27; Glucose 115 mg/dL (65-110); Potassium 4.8 mmol/L (3.4-5.0); Sodium 138 mmol/L (137-145)
--- NOTE | 2024-07-30 10:39 | WPDHPUPDATE1 ---
History and Physical Update Update Date/Time: 07/30/24 10:39 History and Physical has been reviewed, including an updated exam of the patient. There are NO changes in the patient's condition. Risks, benefits, and alternatives have been discussed and questions answered. Patient agrees to proceed with procedure.
--- NOTE | 2024-07-30 10:39 | WPDMODSED ---
Moderate Sedation Note-Pt Data Patient Data Diagnosis: Coronary artery disease Present Complaint: Coronary artery disease Procedure to be performed/Plan: Coronary angiography, left heart cath, +/- PCI Allergies Allergy/AdvReac Type Severity Reaction Status Date / Time [id number]-[id number] Reductase AdvReac Intermediate Elevated Verified 07/16/24 09:01 Inhibitor CPK Home Medications ?Medication ?Instructions ?Recorded ?Confirmed ?Type mirabegron 25 mg tablet,extended 12.5 mg PO HS 10/15/19 07/30/24 History release 24 hr (Myrbetriq) rivaroxaban 20 mg tablet (Xarelto) 20 mg PO DAILY@1700 #60 tabs 05/22/24 07/30/24 Rx diphenoxylate-atropine 2.5 2 tablet PO QID PRN diarrhea #60 06/10/24 07/30/24 Rx mg-0.025 mg tablet (Lomotil) tabs acetaminophen 500 mg capsule 1,000 mg PO QID PRN pain 06/18/24 07/30/24 History pantoprazole 40 mg tablet,delayed 40 mg PO QAM 06/18/24 07/30/24 History release spironolactone 25 mg tablet 12.5 mg PO DAILY 06/18/24 07/30/24 History (Aldactone) ezetimibe 10 mg tablet See Rx Instructions .Route 07/04/24 07/30/24 Rx .COMPLEX #90 tabs trazodone 50 mg tablet 25 mg (1/2 x 50 mg) PO QHS PRN 07/05/24 07/30/24 Rx insomnia #30 tabs hydroxyzine HCl 25 mg tablet 25 mg PO QHS PRN itching 07/16/24 07/30/24 History lisinopril 2.5 mg tablet 2.5 mg PO DAILY 07/16/24 07/30/24 History metoprolol tartrate 50 mg tablet 50 mg PO BID 07/16/24 07/30/24 History paroxetine HCl 20 mg tablet 20 mg PO DAILY 07/16/24 07/30/24 History alprazolam 0.25 mg tablet 0.25 mg PO HS PRN anxiety 07/30/24 07/30/24 History Sedation/Anesthesia: No previous sedation/anesthesia problems (including family history). [facility] Past Medical History Medical History Abdominal pain Cerumen impaction Hearing Loss Left arm pain BMI 24.0-24.9, adult Chronic diarrhea BMI 25.0-25.9,adult Family History Family History Mother Carcinoma of colon Father Family history of heart disease in male family member before age 55 Acute myocardial infarction Sibling , 97-sister Bowel disease, inflammatory Sibling Bowel disease, inflammatory C. difficile diarrhea Other Family history of congenital heart disease Family history of coronary artery disease Family history of malignant neoplasm Social History Social History Smoking status: Former smoker Second hand tobacco smoke exposure: Yes Alcohol intake: current Drinks per week: 1 Substance use: never Substance use type: does not use Do You Feel Safe in your Home?: Yes Lack of Transportation: No Lack of Food: Never True Current Housing: I Do Not Have Housing Concerned About Future Housing: No Difficulty Paying Gas/Electric Bills: No Difficulty Paying for Meds: No Currently Unemployed: No Education: High School Diploma/GED Difficulty w/ Childcare or Family Care: No Living arrangements: alone Occupation/Education: retired 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 Gender identity (if verbalized by the patient): Female Sexual Orientation (if Verbalized by the Patient): Straight or Heterosexual Spiritual care concerns: No Agree to blood products: Yes Mod Sed Physical Exam Physical Exam Pre Procedural Exam: Normal: Appearance, Lungs, Heart Rate, Neuro Exam, Abdomen, Extremities and Skin and Variation: Heart Rhythm (Irregularly irregular ) Hours since solid foods: 12 Hours since liquid intake: 8 Mallampati Classification: class II Internal Medicine - PN: Obj Da Vital Signs Vital Signs: Vital Signs - 24 hr 07/30/24 09:02 Temperature 36.4 C L Pulse Rate 99 Respiratory Rate 20 Blood Pressure 112/85 Pulse Oximetry 98 Oxygen Delivery Room Air Labs 07/30/24 08:54 07/30/24 08:54 Labs: Laboratory Results - last 24 hr 07/30/24 08:54 WBC 8.7 RBC 5.16 Hgb 15.4 H Hct 47.5 H MCV 92.1 MCH 29.8 MCHC 32.4 RDW 14.5 Plt Count 310 MPV 9.7 Immature Gran % (Auto) 0.3 Neut % (Auto) 73.4 H Lymph % (Auto) 15.6 L [place] % (Auto) 8.1 Eos % (Auto) 1.7 Baso % (Auto) 0.9 Lymph # (Auto) 1.36 [place] # (Auto) 0.7 H Eos # (Auto) 0.2 Baso # (Auto) 0.1 Abs Immat Gran (auto) 0.03 Absolute Neuts (auto) 6.4 Absolute Nucleated RBC 0.000 Nucleated RBC % 0.0 Sodium 138 Potassium 4.8 Chloride 104 Carbon Dioxide 23 Anion Gap 11 BUN 36 H Creatinine 1.79 H Estim Creat Clear Calc 18 Estimated GFR 27 L Glucose 115 H Calcium 9.3 ASA Classification/Sedation ASA Classification/Sedation ASA Class: III Emergent: No Risks: Risks, benefits and alternatives explained and patient/family accepted plan for sedation. Patient re-evaluated immediately prior to sedation.
--- NOTE | 2024-07-30 11:31 | WPDCARDPROC ---
Cardiac Cath Procedure Note Date of procedure:: 07/30/24 Performing physician:: CATHETERIZATION LABORATORY REPORT Procedure Date: 07/30/2024 Skin Diver: Sukhi Hickman M.D., [facility]? Referring Physician: Turner Perdomo M.D. Anesthesia: Versed and Fentanyl were ordered and given in my presence at 11:03, procedure ended at 11:28. Supervision of nurse monitored moderate sedation with Versed and Fentanyl was provided for 25 minutes. Total of Versed 1mg and Fentanyl 50mcg were administered by the Counselor Education Professor RN Wilfrido Ewing. Pre-op Diagnosis: Coronary artery disease Post-op Diagnosis: 1. Mild non-obstructive coronary artery disease. 2. Left dominant coronary artery system 3. Elevated left ventricular end-diastolic pressure of 21mmHg Procedure(s): 1. Moderate sedation 2. Ultrasound-guided access of the right radial artery 3. Coronary angiography 4. Left heart cath Access Site: Right radial artery Brief History and Clinical Indications: Patient is an 89 year old female who is referred for [facility] in setting of HFrEF and abnormal stress test. All risks, benefits and alternatives to left heart catheterization with or without percutaneous coronary intervention was discussed at length with the patient. Risk of complications including but not limited to bleeding, infection, arrhythmia, stroke, worsening kidney function, blood loss, groin hematoma, limb loss, emergency coronary artery bypass grafting, and even were discussed with the patient and all questions were answered. The patient understood and wished to proceed. Time out called, patient name, date of , medical record number, allergies, procedure performed, identify Skin Diver, patient and staff member concurred with accurate data, procedure carried on. Findings: LEFT HEART CATHETERIZATION FINDINGS: 1. Left main: The left main coronary artery is widely patent without any significant obstructive disease. 2. Left anterior descending: The proximal LAD has mild diffuse disease. Remainder of the LAD has luminal irregularities. The diagonal branches are of very small caliber. No significant obstructive angiographic disease. 3. Ramus: Mild disease in the proximal portion. 4. Left circumflex: The left circumflex artery is the dominant vessel. The proximal LCX had mild disease. The OM branch has mild disease in the ostium. No significant obstructive angiographic disease. 5. Right coronary artery: The RCA is the nondominant vessel. Luminal irregularities. No significant obstructive angiographic disease. 6. Left ventricle: A. End-diastolic pressure 21 mmHg. B. LV gram deferred. C. No significant gradient across aortic valve on catheter pullback. Description of Procedure: Informed consent signed and placed in the chart. Patient transferred to laboratory miller room. Prepped and draped in usual sterile fashion. 2% lidocaine injected subcutaneously in right wrist area. 22-gauge venipuncture catheter used to access the right radial artery under ultrasound guidance. 6-FR slender sheath placed in right radial artery. Nitroglycerine and Verapamil were given intraarterial through the sheath. Versacore wire advanced under fluoroscopy 5F Tig 4 diagnostic catheter engaged Left Main Coronary Artery. 5F FR 4 diagnostic catheter engaged Right Coronary Artery Multiple orthogonal angiogram obtained and reviewed 5F Pigtail diagnostic catheter crossed aortic valve to obtain LVEDP, LV angiogram deferred. Hemostasis was achieved by application of TR band. Disposition: Home Plan: The patient will be monitored in the recovery area. Discharge home after post-cath bed rest completed. The above findings were discussed with the referring physician. Continue aggressive medical therapy and risk factor modification. ? Sukhi Hickman M.D. Interventional Cardiology
== END 2024-07-30 14:51 | disposition home or self-care (01) ==
PROVIDERS: PCP Family Medicine; Visit Provider Internal Medicine
PROC: 4A023N7 Measurement of Cardiac Sampling and Pressure, Left Heart, Percutaneous Approach (ICD-10-PCS; CPT 93452; principal; 2024-07-30 10:00)
DX: I25.10 Atherosclerotic heart disease of native coronary artery without angina pectoris (principal); K52.9 Noninfective gastroenteritis and colitis, unspecified; Z79.01 Long term (current) use of anticoagulants; Z87.891 Personal history of nicotine dependence; Z80.0 Family history of malignant neoplasm of digestive organs; Z82.49 Family history of ischemic heart disease and other diseases of the circulatory system
CPT/HCPCS: 36415; 80048; 85025; 93458; C1769; C1887; C1894; J1644; J2003; J2250; J2305; J3010; J7040

== ENCOUNTER 2024-10-15 14:19 | Outpatient (CLI) | payer SELFPAY ==
--- OUTSIDE RECORDS SUMMARY | 2024-10-15 14:23 | XMS_ITS | Referral Summary ---
Author Organization [facility] Address [address] [place] [address] Care Team Providers Care Management Trainee Name Role Phone Tono Charles MD Primary Care Provider Encounters Date Type Department Care Team Description 10/02/2024 10:30 AM CDT Office Visit [facility] Cardiology [address] [place] [address] [address] [place] [phone] Rashida Elizabeth NP Persistent atrial fibrillation (HCC) (Primary Dx); Dilated cardiomyopathy (HCC) 09/05/2024 Results Follow-Up [facility] Cardiology [address] [facility] [address] [place] [phone] Maxime Cortez NP Transthoracic Echo (TTE) Limited/Followup 09/04/2024 11:15 AM CDT Ancillary Procedure [facility] Cardiology [address] [facility] [address] [place] [phone] Persistent atrial fibrillation (HCC) 08/26/2024 Telephone [facility] Cardiology [address] [facility] [address] [place] [phone] Sukhi Hickman MD 08/07/2024 Orders Only [facility] Cardiology [address] [facility] [address] [place] [phone] Sukhi Hickman MD 07/30/2024 Orders Only [facility] [address] [place] [phone] Turner Perdomo MD 07/19/2024 Results Follow-Up [facility] [address] [place] [address] [address] [place] [phone] Maxime Cortez NP NM MPI SPECT (Rest and/or Stress) Multiple Studies 07/19/2024 Telephone [facility] [address] [place] [address] [address] [place] [phone] Maxime Cortez NP 07/18/2024 10:15 AM TOW TRUCK OPERATOR Ancillary Procedure [facility] [address] [place] [address] [place] [phone] Dilated cardiomyopathy (HCC) from Last 3 Months Allergies No known [...] mg total) by mouth daily 3 Active diphenoxylate-atro pine (LOMOTIL) 2.5-0.025 mg per tabletIndications: diarrhea Take 2 tablets by mouth 4 (four) times a day as needed for diarrhea Active hyoscyamine (OSCIMIN) 0.125 mgIndications:Urin eloina Incontinence Take 1 tablet (0.125 mg total) by mouth 3 (three) times a day as needed for cramping Active pantoprazole DR (PROTONIX) 40 mg EC tablet Take 1 tablet (40 mg total) by mouth daily 5 Active traZODone (DESYREL) 50 mg tablet Take 1 tablet (50 mg total) by mouth nightly 5 Active hydrOXYzine (ATARAX) 25 mg tablet Take 1 tablet (25 mg total) by mouth nightly as needed for anxiety 5 Active rivaroxaban (XARELTO) 20 mg tablet Take 1 tablet (20 mg total) by mouth daily with dinner 30 tablet 11 5 Active lisinopriL (PRINIVIL,ZESTRIL) 2.5 mg tablet Take 1 tablet (2.5 mg total) by mouth daily 90 tablet 3 5 Active metoprolol XL (TOPROL-XL) 50 mg extended release tabletIndications: Persistent atrial fibrillation (HCC) Take 2 tablets (100 mg total) by mouth daily 180 tablet 3 5 026 Active spironolactone (ALDACTONE) 25 mg tabletIndications: Dilated cardiomyopathy (HCC) Take 0.5 tablets (12.5 mg total) by mouth daily 15 tablet 3 5 Active spironolactone (ALDACTONE) 25 mg tablet Take 0.5 tablets (12.5 mg total) by mouth daily 5 025 Discontin ued(Reord er) metoprolol tartrate (LOPRESSOR) 50 mg immediate release tablet Take 1 tablet (50 mg total) by mouth 2 (two) times a day 5 025 Discontin ued(Alter jasmeet therapy) Active Problems Problem Noted Date Diagnosed Date Dilated cardiomyopathy 10/02/2024 Persistent atrial fibrillation 10/02/2024 Diarrhea 10/03/2022 Assessment & Plan (05/30/2023 12:56 PM TOW TRUCK OPERATOR): Chronic diarrhea since the age of 21, [...] 10/03/2022 Assessment & Plan (05/30/2023 1:02 PM TOW TRUCK OPERATOR): Chronic GERD for over 10 years. -continue [...] 023 Assessment & Plan (05/30/2023 12:58 PM TOW TRUCK OPERATOR): Mother had colon cancer diagnosed in 40s. [...] on file Legal Sex Female 2:22 PM TOW TRUCK OPERATOR Gender Identity Not on file Sexual Orientation Not on file Last Filed Vital Signs Vital Sign Reading Time Taken Comments Blood Pressure 106/62 10/02/2024 10:38 AM CDT Pulse 83 10/02/2024 10:38 AM CDT Temperature - - Respiratory Rate - - Oxygen Saturation 98% 10/02/2024 10:38 AM CDT Inhaled Oxygen Concentration - - Weight 63.5 kg (140 lb) 10/02/2024 10:38 AM CDT Height 165.1 cm (5' 5 ) 10/02/2024 10:38 AM CDT Body Mass Index 23.3 10/02/2024 10:38 AM CDT Plan of Treatment Not on file Procedures Procedure Name Priority Date/Time Associated Diagnosis Comments TRANSTHORACIC ECHO (TTE) LIMITED/FOLLOW UP WO DOPPLER/CF WO CONTRAST Routine 09/04/2024 11:37 AM CDT Persistent atrial fibrillation (HCC) CARDIOLOGY DOCUMENT SCAN Routine 07/30/2024 10:48 AM TOW TRUCK OPERATOR CARDIOLOGY DOCUMENT SCAN 07/30/2024 NM MPI SPECT (REST AND/OR STRESS) MULTIPLE STUDIES Schedule Routine, Read Routine (OP Routine) 07/18/2024 12:15 PM TOW TRUCK OPERATOR Dilated cardiomyopathy (HCC) from Last 3 Months Results * TRANSTHORACIC ECHO (TTE) LIMITED/FOLLOW UP WO DOPPLER/CF WO CONTRAST (09/04/2024 11:37 AM CDT) LV EF 30-35 % CONS SCIMAGE Anatomical Region Laterality Modality Ultrasound 09/04/2024 10:5 5 AM CDT Narrative 09/04/2024 3:36 PM CDT [facility] Medical Group Cardiology [address] [facility] [address], [place] [address] [address] [facility] [address], [place] [address] [phone] P:[phone] Echocardiographic Report Patient Name: DENNIS CHRISTIANSON JO : 1935 Study Date: 09/04/2024 10:55:25 AM Gender: F Tech: SW Ref Provider: MAXIME CORTEZ Height(Cm): 165 BSA: 1.73 Weight(Kg): 65.3 Heart Rate: 90 BP: 108 / 68 Quality: Good Order Provider: MAXIME CORTEZ PROCEDURES: Echocardiographic Report: Limtied Transthoracic echocardiogram with complete 2D, M-Mode imaging. With Strain Analysis. INDICATIONS: I48.19 Other persistent atrial fibrillation. MEASUREMENTS: 2D/MM Value Range EF Mod BP 36 % [ 54 - 74 ] EF Teich MM 31 % [ 54 - 74 ] Estimated EF 30-35 % LVIDd 2D 3.15 cm [ 3.80 - 5.20 ] LVIDd MM 4.51 cm [ 3.80 - 5.20 ] LVIDs 2D 2.81 cm [ 2.20 - 3.50 ] LVIDs MM 3.87 cm [ 2.20 - 3.50 ] LVPWd MM 0.84 cm [ 0.60 - 0.90 ] IVSd 2D 1.26 cm [ 0.60 - 0.90 ] IVSd MM 1.22 cm [ 0.60 - 0.90 ] LA Dimension MM 4.32 cm [ 2.70 - 3.80 ] AoR Diam MM 2.62 cm [ 2.70 - 3.70 ] LA Volume Index 38 cc/m2 [ 16 - 34 ] ACS MM 1.19 cm 2D/MM Value Range - FINDINGS: Interpretation Site: Exam was interpreted at [facility]. Left Ventricle: Normal left ventricular size. Moderate concentric left ventricular hypertrophy. Moderate global left ventricular systolic dysfunction. Ejection fraction is measured at 36 %. Ejection Fraction is visually estimated to be 30-35 %. Global Longitudinal Strain is -10 %. Right Ventricle: Normal right ventricular size. Left Atrium: There is severe enlargement of left atrium. Right Atrium: There is severe enlargement of right atrium. Atrial Septum: Normal atrial septum. Aortic Valve: Aortic cusps appear moderately calcified. Trileaflet aortic valve. Pulmonic Valve: Normal appearance of the pulmonic valve. Pericardium: Small pericardial effusion. Aorta: Normal aortic root. IVC: Normal size and no respiratory collapse consistent with elevated right atrial pressure (5-10 mmHg). CONCLUSIONS: Normal left ventricular size. Moderate concentric left ventricular hypertrophy. Moderate global left ventricular systolic dysfunction. Ejection fraction is measured at 36 %. Ejection Fraction is visually estimated to be 30-35 %. Global Longitudinal Strain is -10 %. There is severe enlargement of left atrium. There is severe enlargement of right atrium. Small pericardial effusion. Electronically Signed By: Sukhi Hickman MD 09/04/2024 3:35:48 PM CDT Procedure Note Sukhi Hickman MD - 09/04/2024 [facility] Cardiology [address] [facility] [address], [place] [address] [address] [facility] [address] [address] [phone] P:[phone] Echocardiographic Report Patient Name: DENNIS CHRISTIANSON JO : 1935 Study Date: 09/04/2024 10:55:25 AM Gender: F Tech: Ref Provider: MAXIME CORTEZ Height(Cm): 165 BSA: 1.73 Weight(Kg): 65.3 Heart Rate: 90 BP: 108 / 68 Quality: Good Order Provider: MAXIME CORTEZ PROCEDURES: Echocardiographic Report: Limtied Transthoracic echocardiogram with complete 2D, M-Mode imaging.With Strain Analysis. INDICATIONS: I48.19 Other persistent atrial fibrillation. MEASUREMENTS: 2D/MM Value Range EF Mod BP 36 % [ 54 - 74 ] EF Teich MM 31 % [ 54 - 74 ] Estimated EF 30-35 % LVIDd 2D 3.15 cm [ 3.80 - 5.20 ] LVIDd MM 4.51 cm [ 3.80 - 5.20 ] LVIDs 2D 2.81 cm [ 2.20 - 3.50 ] LVIDs MM 3.87 cm [ 2.20 - 3.50 ] LVPWd MM 0.84 cm [ 0.60 - 0.90 ] IVSd 2D 1.26 cm [ 0.60 - 0.90 ] IVSd MM 1.22 cm [ 0.60 - 0.90 ] LA Dimension MM 4.32 cm [ 2.70 - 3.80 ] AoR Diam MM 2.62 cm [ 2.70 - 3.70 ] LA Volume Index 38 cc/m2 [ 16 - 34 ] ACS MM 1.19 cm 2D/MM Value Range - FINDINGS: Interpretation Site: Exam was interpreted at [facility]. Left Ventricle: Normal left ventricular size. Moderate concentric left ventricularhypertrophy. Moderate global left ventricular systolic dysfunction. Ejection fraction ismeasured at 36 %. Ejection Fraction is visually estimated to be 30-35 %. Global LongitudinalStrain is -10 %. Right Ventricle: Normal right ventricular size. Left Atrium: There is severe enlargement of left atrium. Right Atrium: There is severe enlargement of right atrium. Atrial Septum: Normal atrial septum. Aortic Valve: Aortic cusps appear moderately calcified. Trileaflet aortic valve. Pulmonic Valve: Normal appearance of the pulmonic valve. Pericardium: Small pericardial effusion. Aorta: Normal aortic root. IVC: Normal size and no respiratory collapse consistent with elevated rightatrial pressure (5-10 mmHg). CONCLUSIONS: Normal left ventricular size. Moderate concentric left ventricularhypertrophy. Moderate global left ventricular systolic dysfunction. Ejection fraction ismeasured at 36 %. Ejection Fraction is visually estimated to be 30-35 %. Global LongitudinalStrain is -10 %. There is severe enlargement of left atrium. There is severe enlargement of right atrium. Small pericardial effusion. Electronically Signed By: Sukhi Hickman MD 09/04/2024 3:35:48 PM CDT Maxime Cortez NP CV ECHO PROCEDURES Final Result * Cardiology Document Scan (07/30/2024 10:48 AM TOW TRUCK OPERATOR) Anatomical Region Laterality Modality Other Sukhi Hickman MD CV CARDIAC SERVICES PRO CEDURES Final Result * Cardiology Document Scan (07/30/2024) Anatomical Region Laterality Modality Other us Turner Perdomo MD CV CARDIAC SERVICES PROC EDURES Final Result * NM MPI SPECT (Rest and/or Stress) Multiple Studies (07/18/2024 12:15 PM TOW TRUCK OPERATOR) Anatomical Region Laterality Modality Body N/A Nuclear Medicine 07/18/2024 7:57 AM TOW TRUCK OPERATOR Narrative 07/18/2024 4:51 PM TOW TRUCK OPERATOR [facility] Medical [facility] Cardiology [address] [facility] [address], [place] [address] [address] [facility] [address], [place] [address] [phone] P:[phone] MPI Imaging Report Patient Name: DENNIS CHRISTIANSON JO : 1935 Study Date: 07/18/2024 7:57:15 AM Gender: F Tech: [facility] Location: [facility] Provider: MAXIME CORTEZ Height(Cm): 165.1 BSA: [...] By: Livan Ferrari MD 07/18/2024 4:50:47 PM TOW TRUCK OPERATOR Electronically Signed By: Livan Ferrari MD 07/18/2024 4:50:47 PM TOW TRUCK OPERATOR Procedure Note Livan Ferrari MD - 07/18/2024 [facility] Cardiology [address] [facility] [address], [place] [address] [address] [facility] [address], [place] [address] [phone] P:[phone] MPI Imaging Report Patient Name: DENNIS CHRISTIANSON JO : 1935 Study Date: 07/18/2024 7:57:15 AM Gender: F Tech: [facility] Location: [facility] Provider: MAXIME CORTEZ Height(Cm): 165.1 BSA: [...] By: Livan Ferrari MD 07/18/2024 4:50:47 PM TOW TRUCK OPERATOR Electronically Signed By: Livan Ferrari MD 07/18/2024 4:50:47 PM TOW TRUCK OPERATOR Maxime Cortez NP IMG NM PROCEDURES Final R esult from Last 3 Months Insurance [facility] MDCR HMO REF [facility]ICARE Address: [facility] [address] [place] [address] [facility] MEDICARE ADVANTAGE [facility] MEDICARE Address: [address] [address] Care Teams Management Trainee Relationship Specialty Start Date End Date Tono Charles MD PCP - General Family Medicine 06/28/18
--- OUTSIDE RECORDS SUMMARY | 2024-10-15 14:23 | XMS_ITS | Encounter Summary ---
Author Organization [facility] Healthcare Address [address] [place] [address] Care Team Providers Care Road Grader Operator Name Role Phone Tono Charles MD Primary Care Provider [phone] Encounter Details Date Type Department Care Team (Late st Contact Info) Description 09/05/2024 Results Follow-Up [facility] Medical Group Cardiology [address] [facility] [address] [place] [address] Yadi Clark NP [address] [place] [address] Transthoracic Echo (TTE) Limited/Followup Social History Tobacco Use Types Packs/Day Years Used Date Smoking Tobacco: Never Smokeless Tobacco: Never Comments Unknown Sex and Gender Information Value Date Recorded Sex Assigned at Not on file Legal Sex Female 2:22 PM MANAGER OF DEVELOPMENT Gender Identity Not on file Sexual Orientation Not on file documented as of this encounter Plan of Treatment Not on file documented as of this encounter Visit Diagnoses Not on filedocumented in this encounter Care Teams Road Grader Operator Relationship Specialty Start Date End Date Tono Charles MD PCP - General Family Medicine 06/28/18 documented as of this encounter
--- OUTSIDE RECORDS SUMMARY | 2024-10-15 14:23 | XMS_ITS | Clinical Summary ---
Author Organization [facility] Address [address] [place] [address] Phone Care Team Providers Care Box Bender Name Role Phone Tono Charles MD Primary Care Provider [phone] Allergies No known active allergies Medications rivaroxaban [...] mouth daily at bedtime. 30 Tablet 1 06/01/2024 4:39 PM SKIVER COUNTER 06/01/2024 Active spironolactone (ALDACTONE) 25 mg tablet Starting 06/02: Take 0.5 Tablets (12.5 mg) by mouth daily. 30 Tablet 1 06/01/2024 4:39 PM SKIVER COUNTER 06/02/2024 Active furosemide (Lasix) 40 mg tablet Take 1 Tablet (40 mg) by mouth daily. 30 Tablet 1 06/01/2024 4:39 PM SKIVER COUNTER 06/01/2024 Active lisinopriL (PRINIVIL) 2.5 mg tablet Take 1 Tablet (2.5 mg) by mouth daily. 30 Tablet 1 07/04/2024 2:17 PM SKIVER COUNTER 07/04/2024 Active melatonin 3 mg Tablet Take 2 Tablets (6 mg) by mouth nightly as needed for Insomnia. 07/04/2024 Active hydrOXYzine HCL (ATARAX) 25 mg tablet Take 1 Tablet (25 mg) by mouth every 8 hours as needed for Anxiety or Insomnia. 30 Tablet 07/04/2024 2:17 PM SKIVER COUNTER 07/04/2024 Active guaiFENesin (ROBITUSSIN) 100 mg/5 mL solution Take 10 mL (200 mg) by mouth every 4 hours as needed for Cough or Congestion. 473 mL 07/04/2024 2:17 PM SKIVER COUNTER 07/04/2024 Active metoprolol tartrate (LOPRESSOR) 100 mg tablet Take 1 Tablet (100 mg) by mouth 2 times daily. 60 Tablet 1 07/04/2024 2:17 PM SKIVER COUNTER 07/04/2024 Active Active Problems Problem Noted Date Diagnosed Date [...] Encounters Date Type Department Care Team Description 09/24/2024 External Device Data STL ABSTRACTION Provider, Abstract 07/30/2024 External Device Data STL ABSTRACTION Provider, Abstract from Last 3 Months Family History Medical [...] No 06/28/2024 Food Insecurity Answer Date Recorded Patient needs follow up regardin 09/24/2024 Transportation Needs Answer Date Record ed Patient needs follow up regardin 09/24/2024 Housing Stability Answer Date Recorded Social/Environmental Concerns No concerns Utility Needs Answer Date Recorded Patient needs follow up regardin 09/24/2024 Comments Unknown Sex and Gender Information Value Date Recorded Sex Assigned at Not on file Legal Sex Female 12:29 PM SKIVER COUNTER Gender Identity Not on file Sexual Orientation Not on file Last Filed Vital Signs Vital Sign Reading Time Taken Comments Blood Pressure 105/75 07/04/2024 8:59 AM SKIVER COUNTER Pulse 96 07/04/2024 11:16 AM SKIVER COUNTER Temperature 36.2 C (97.2 F) 07/04/2024 8:59 AM SKIVER COUNTER Respiratory Rate 20 07/04/2024 11:1 6 AM SKIVER COUNTER Oxygen Saturation 95% 07/04/2024 11: 16 AM SKIVER COUNTER Inhaled Oxygen Concentration - - Weight 68.5 kg (150 lb 15.7 oz) 07/04/2024 5:37 AM SKIVER COUNTER Height 165.1 cm (5' 5 ) 06/29/2024 12:5 0 PM SKIVER COUNTER Body Mass Index 25.12 06/29/2024 12:50 PM SKIVER COUNTER Plan of Treatment Health Maintenance Due Date Last Done Comments DTAP/TDAP/TD VACCINES (1 - Tdap) 1954 PNEUMOCOCCAL VACCINE 50+ YEARS (1 of 2 - PCV) 04/18/19 55 ZOSTER VACCINE (1 of 2) 1986 OSTEOPOROSIS SCREENING 2001 RSV VACCINE (60+ or ) (1 - 1-dose 75+ series) 2011 INFLUENZA VACCINE (#1) 2023 Insurance [facility] [id number] RX [place] PLANS (INTERNAL) [facility] RX OPTUM RX Member Subscriber Plan / Payer (Ef fective for All Dates) Name:Celestina Christianson Relation to Subscriber:Self Name:Celestina Christianson Payer ID:Not on file Group ID:[id number] Type:RX Medicare Part D Address: [address] Advance Directives For more information, please contact: [phone] * Full Code (Latest Code Status on File) Date Activated Date Inactivated Comments 05/30/2024 8:12 PM 06/01/2024 7:35 PM Care Teams Box Bender Relationship Specialty Start Date End Date Tono Charles MD [address] [place] [address] PCP - General Family Practice 06/29/24
--- OUTSIDE RECORDS SUMMARY | 2024-10-15 14:23 | XMS_ITS | Clinical Summary ---
Author Organization [facility] Address [address] [place] [address] Care Team Providers Care Special Day Class Teacher Name Role Phone Tono Charles MD Primary Care Provider [phone] Allergies No known active allergies Medications PARoxetine [...] 10/03/2022 Assessment & Plan (05/30/2023 12:56 PM DIPLOMA MAKER): Chronic diarrhea since the age of 21, [...] 10/03/2022 Assessment & Plan (05/30/2023 1:02 PM DIPLOMA MAKER): Chronic GERD for over 10 years. -continue [...] 023 Assessment & Plan (05/30/2023 12:58 PM DIPLOMA MAKER): Mother had colon cancer diagnosed in 40s. [...] Description 10/02/2024 10:30 AM CDT Office Visit [facility] Cardiology [address] [place] [address] Rashida [place] NP Persistent atrial fibrillation (HCC) (Primary Dx); Dilated cardiomyopathy (HCC) 09/05/2024 Results Follow-Up [facility] Cardiology [address] [place] [address] [place] [address] Maxime Cortez NP Transthoracic Echo (TTE) Limited/Followup 09/04/2024 11:15 AM CDT Ancillary Procedure [place] [address] [place] [address] Persistent atrial fibrillation (HCC) 08/26/2024 Telephone [place] [address] [place] [address] Sukhi Hickman MD 08/07/2024 Orders Only [place] [address] [place] [address] Sukhi Hickman MD 07/30/2024 Orders Only [facility] Health Information Management [address] [place] [id number] Turner Perdomo MD 07/19/2024 Results Follow-Up [place] [address] [place] [address] Maxime Cortez NP NM MPI SPECT (Rest and/or Stress) Multiple Studies 07/19/2024 Telephone [place] [address] [place] [address] Maxime Cortez NP 07/18/2024 10:15 AM DIPLOMA MAKER Ancillary Procedure [place] [address] [place] [phone] Dilated cardiomyopathy (HCC) from Last 3 Months Surgical History Surgery Date Site/Laterality Comments COLONOSCOPY Social History Tobacco Use Types Packs/Day Years Used Date Smoking Tobacco: Never Smokeless Tobacco: Never Tobacco Cessation:Counseling Given: Not Answered Comments Unknown Sex and Gender Information Value Date Recorded Sex Assigned at Not on file Legal Sex Female 2:22 PM DIPLOMA MAKER Gender Identity Not on file Sexual Orientation [...] 10/02/2024 10:38 AM CDT Plan of Treatment Health Maintenance Due Date Last Done Comments Depression Screening 1936 Fall Risk Assessment 1936 Hepatitis B Screening 1954 Pneumococcal vaccine 65+ (1 of 2 - PCV) 1955 Zoster Vaccine (1 of 2) 1986 Well Visit 65+ 2001 Covid-19 Vaccine (4 - 2023-2 5 season) 2024 05/27/2021, 08/17/2020, 07/16/2020 Influenza Vaccine (Season Ended) 2025 02/22/2022, 04/30/2021, 03/30/2020, Additional history exists DTaP/Tdap/Td Vaccine (2 - Td or Tdap) 09/10/2030 09/10/2020 Procedures Procedure Name Priority Date/Time Associated Diagnosis Comments TRANSTHORACIC ECHO (TTE) LIMITED/FOLLOW UP WO DOPPLER/CF WO CONTRAST Routine 09/04/2024 11:37 AM CDT Persistent atrial fibrillation (HCC) CARDIOLOGY DOCUMENT SCAN Routine 07/30/2024 10:48 AM DIPLOMA MAKER CARDIOLOGY DOCUMENT SCAN 07/30/2024 NM MPI SPECT (REST AND/OR STRESS) MULTIPLE STUDIES Schedule Routine, Read Routine (OP Routine) 07/18/2024 12:15 PM DIPLOMA MAKER Dilated cardiomyopathy (HCC) from Last 3 Months Results * TRANSTHORACIC ECHO (TTE) LIMITED/FOLLOW UP WO DOPPLER/CF WO CONTRAST (09/04/2024 11:37 AM CDT) LV EF 30-35 % CONS SCIMAGE Anatomical Region Laterality Modality Ultrasound 09/04/2024 10:5 5 AM CDT Narrative 09/04/2024 3:36 PM CDT [facility] Cardiology [address], [place] [address] [address], [place] [address] P:[phone] P:[phone] Echocardiographic Report Patient Name: DENNIS CHRISTIANSON JO [...] FINDINGS: Interpretation Site: Exam was interpreted at [facility]. Left Ventricle: Normal left ventricular size. Moderate [...] atrium. Small pericardial effusion. Electronically Signed By: Skuhi Hickman MD 09/04/2024 3:35:48 PM CDT Procedure Note Sukhi Hickman MD - 09/04/2024 [facility] Cardiology [address] [facility] [address], [place] [address] [address] [facility] [address] [address] P:[phone] P:[phone] Echocardiographic Report Patient Name: DENNIS CHRISTIANSON JO [...] FINDINGS: Interpretation Site: Exam was interpreted at [facility]. Left Ventricle: Normal left ventricular size. Moderate [...] * Cardiology Document Scan (07/30/2024 10:48 AM DIPLOMA MAKER) Anatomical Region Laterality Modality Other us Sukhi Hickman MD CV CARDIAC SERVICES PRO CEDURES Final Result * Cardiology Document Scan (07/30/2024) Anatomical Region Laterality Modality Other us Turner Perdomo MD CV CARDIAC SERVICES PROC EDURES Final Result * NM MPI SPECT (Rest and/or Stress) Multiple Studies (07/18/2024 12:15 PM DIPLOMA MAKER) Anatomical Region Laterality Modality Body N/A Nuclear Medicine 07/18/2024 7:57 AM DIPLOMA MAKER Narrative 07/18/2024 4:51 PM DIPLOMA MAKER [facility] Cardiology [address] [facility] [address], [place] [address] [address] [facility] [address] [address] P:[phone] P:[phone] MPI Imaging Report Patient Name: DENNIS CHRISTIANSON JO : 1935 Study Date: 07/18/2024 7:57:15 AM Gender: F Tech: ALBER SIMON Location: [facility] Provider: MAXIME CORTEZ Height(Cm): 165.1 BSA: [...] By: Livan Ferrari MD 07/18/2024 4:50:47 PM DIPLOMA MAKER Electronically Signed By: Livan Ferrari MD 07/18/2024 4:50:47 PM DIPLOMA MAKER Procedure Note Livan Ferrari MD - 07/18/2024 [facility] Cardiology [address] [facility] [address], [place] [address] [address] [facility] [address] [address] P:[phone] P:[phone] MPI Imaging Report Patient Name: DENNIS CHRISTIANSON JO : 1935 Study Date: 07/18/2024 7:57:15 AM Gender: F Tech: [facility] Location: [facility] Provider: MAXIME CORTEZ Height(Cm): 165.1 BSA: [...] By: Livan Ferrari MD 07/18/2024 4:50:47 PM DIPLOMA MAKER Electronically Signed By: Livan Ferrari MD 07/18/2024 4:50:47 PM DIPLOMA MAKER Maxime Cortez TEACHER MUSIC IMG NM PROCEDURES Final R esult from Last 3 Months Insurance [facility] MDCR HMO REF [place] [id number] MEDICARE ADVANTAGE Care Teams Special Day Class Teacher Relationship Specialty Start Date End Date Tono Charles MD PCP - General Family Medicine 06/28/18
[2024-10-15 19:18] LABS: Anion Gap 9 mmol/L (4-12); Blood Urea Nitrogen 35 mg/dL (7-17); Carbon Dioxide 26 mmol/L (22-30); Chloride 106 mmol/L (98-107); Estimated Glomerular Filt Rate 25; Glucose 54 mg/dL (65-110); Potassium 5.2 mmol/L (3.4-5.0); Sodium 141 mmol/L (137-145)
== END 2024-10-15 14:20 | disposition home or self-care (01) ==
LOC: ANHGOSHLAB 14:20
PROVIDERS: PCP Family Medicine
DX: I42.0 Dilated cardiomyopathy (principal)
CPT/HCPCS: 36415; 80048

== ENCOUNTER 2025-04-14 11:52 | Outpatient (CLI) | payer MEDICARE, SELFPAY ==
--- NOTE | ~2025-04-14 | XR_ITS ---
EXAMINATION: XR knee LT min 4V, 04/14/2025 12:07 PRINTING ASSISTANT HISTORY: left knee pain x 1 year, going up and down stairs COMPARISON: No comparisons available. Findings: No acute fracture or malalignment. Moderate tricompartmental degenerative changes Soft tissues unremarkable. Impression: No acute fracture or malalignment. Reviewed, dictated and finalized at location P. TING ASSISTANT Impression: No acute fracture or malalignment.
--- NOTE | ~2025-04-14 | XR_ITS ---
XR lumbar spine 6V w bending Indication: Spondylosis without myelopathy or radiculopathy Comparison: None Findings: Levoconvex scoliosis. Moderate loss of vertebral height throughout. Grade 1 retrolisthesis of L1 on L2 and L2 on L3. No subluxation with flexion and extension Moderate to severe loss of disc height throughout. Soft tissues unremarkable Impression: No acute abnormality. Reviewed, dictated and finalized at location P. SERVICE DIRECTOR Impression: No acute abnormality.
== END 2025-04-14 11:53 | disposition home or self-care (01) ==
LOC: GOSHIMG 11:53
PROVIDERS: PCP Family Medicine; Visit Provider Family Medicine
DX: M17.12 Unilateral primary osteoarthritis, left knee (principal); M47.816 Spondylosis without myelopathy or radiculopathy, lumbar region
CPT/HCPCS: 72114; 73564

== ENCOUNTER 2025-04-30 12:32 | Outpatient (CLI) | payer MEDICARE, SELFPAY ==
--- OUTSIDE RECORDS SUMMARY | 2025-04-30 13:35 | XMS_ITS | Clinical Summary ---
Author Organization [facility] Address [address] [place] [address] Care Team Providers Care Sparker And Patcher Name Role Phone Tono Charles MD Primary Care Provider [phone] Allergies Active Allergy Reactions Criticality Noted Date Comments Ixbrwqv-Phs-Jrj Reductase Inhibitors Other (See comments) High 09/17/2024 Elevated CPK Medications PARoxetine (PAXIL) 20 mg tablet 06/13/19 19 Active mirabegron ER (MYRBETRIQ) 25 mg tablet extended release 24 hr Take 1 tablet (25 mg total) by mouth Active ezetimibe (ZETIA) 10 mg tablet Take 1 tablet (10 mg total) by mouth daily 05/15/20 23 Active diphenoxylate-atro pine (LOMOTIL) 2.5-0.025 mg per tabletIndications: diarrhea Take 2 tablets by mouth 4 (four) times a day as needed for diarrhea Active pantoprazole DR (PROTONIX) 40 mg EC tablet Take 1 tablet (40 mg total) by mouth daily 06/01/19 25 Active rivaroxaban (XARELTO) 20 mg tablet Take 1 tablet (20 mg total) by mouth daily with dinner 30 tablet 11 08/27/19 25 Active lisinopriL (PRINIVIL,ZESTRIL) 2.5 mg tablet Take 1 tablet (2.5 mg total) by mouth daily 90 tablet 3 09/05/19 25 Active spironolactone (ALDACTONE) 25 mg tabletIndications: Dilated cardiomyopathy (HCC) TAKE 1/2 TABLET BY MOUTH EVERY DAY 45 tablet 1 01/23/20 25 Active simethicone (GAS-X ORAL) Take by mouth Active acetaminophen (TYLENOL) 325 mg suppository Insert 1 suppository (325 mg total) into the rectum every 4 (four) hours as needed for pain Active metoprolol XL (TOPROL-XL) 100 mg 24 hr tablet Take 1 tablet (100 mg total) by mouth nightly 04/10/20 Active ALPRAZolam (XANAX) 0.25 mg tablet Take 1 tablet (0.25 mg total) by mouth nightly as needed for anxiety Discontinu ed(No longer taking - Do not display on AVS) hyoscyamine (OSCIMIN) 0.125 mgIndications:Urin eloina Incontinence Take 1 tablet (0.125 mg total) by mouth 3 (three) times a day as needed for cramping Discontinu ed(No longer taking - Do not display on AVS) traZODone (DESYREL) 50 mg tablet Take 1 tablet (50 mg total) by mouth nightly 07/05/19 Discontinu ed(No longer taking - Do not display on AVS) hydrOXYzine (ATARAX) 25 mg tablet Take 1 tablet (25 mg total) by mouth nightly as needed for anxiety 07/04/19 Discontinu ed(No longer taking - Do not display on AVS) metoprolol XL (TOPROL-XL) 50 mg extended release tabletIndications: Persistent atrial fibrillation (HCC) Take 2 tablets (100 mg total) by mouth daily 180 tablet 3 10/03/19 Discontinu ed(Alterna te therapy) Active Problems Problem Noted Date Diagnosed Date Dilated cardiomyopathy 10/02/2024 Persistent atrial fibrillation 10/02/2024 Diarrhea 10/03/2022 Assessment & Plan (05/30/2023 12:56 PM STORE SALES LEADER): Chronic diarrhea since the age of 21, [...] 10/03/2022 Assessment & Plan (05/30/2023 1:02 PM STORE SALES LEADER): Chronic GERD for over 10 years. -continue [...] 023 Assessment & Plan (05/30/2023 12:58 PM STORE SALES LEADER): Mother had colon cancer diagnosed in 40s. [...] Encounters Date Type Department Care Team Description 04/11/2025 10:30 AM STORE SALES LEADER Office Visit [facility] Medical [facility] Cardiology [address] [place] [address] Yadi Clark NP Persistent atrial fibrillation (HCC); Dilated cardiomyopathy (HCC) 04/10/2025 Telephone [facility] Medical [facility] Cardiology [address] [place] [address] Jessica Root MA Request for lab results from Last 3 Months Surgical History Surgery Date Site/Laterality Comments COLONOSCOPY Social History Tobacco Use Types Packs/Day Years Used Date Smoking Tobacco: Never Smokeless Tobacco: Never Tobacco Cessation:Counseling Given: Not Answered Comments Unknown Sex and Gender Information Value Date Recorded Sex Assigned at Not on file Legal Sex Female 2:22 PM STORE SALES LEADER Gender Identity Not on file Sexual Orientation Not on file Last Filed Vital Signs Vital Sign Reading Time Taken Comments Blood Pressure 122/80 04/11/2025 10:30 AM STORE SALES LEADER Pulse 82 04/11/2025 10:30 AM STORE SALES LEADER Temperature - - Respiratory Rate - - Oxygen Saturation 99% 04/11/2025 10:30 AM STORE SALES LEADER Inhaled Oxygen Concentration - - Weight 69 kg (152 lb 3.2 oz) 04/11/2025 10:30 AM STORE SALES LEADER Height 165.1 cm (5' 5) 04/11/2025 10:30 AM STORE SALES LEADER Body Mass Index 25.33 04/11/2025 10:30 AM STORE SALES LEADER Plan of Treatment Health Maintenance Due Date Last Done Comments Depression Screening 1936 Fall Risk Assessment 1936 Osteoporosis Screening-Bone Density Scan 1936 Hepatitis B Screening 1954 Pneumococcal vaccine 65+ (1 of 2 - PCV) 1955 Zoster Vaccine (1 of 2) 1986 Well Visit 65+ 2001 Covid-19 Vaccine (4 - 2024-2 6 season) 2025 05/27/2021, 08/17/2020, 07/16/2020 Influenza Vaccine (#1) 2025 , 02/22/2022, 04/30/2021, Additional history exists DTaP/Tdap/Td Vaccine (2 - Td or Tdap) 09/10/2030 09/10/2020 Insurance [facility] MDCR HMO REF [facility] MEDICARE ADVANTAGE Care Teams Sparker And Patcher Relationship Specialty Start Date End Date Tono Charles MD PCP - General Family Medicine 06/28/18
--- OUTSIDE RECORDS SUMMARY | 2025-04-30 13:35 | XMS_ITS | Encounter Summary ---
Author Organization [facility] Healthcare Address [address] [place] [address] Care Team Providers Care Orthopedically Impaired Teacher Name Role Phone Tono Charles MD Primary Care Provider Encounter Details Date Type Department Care Team (Late st Contact Info) Description 05/20/2024 Orders Only [facility] Health Information Management [address] [place] [id number] Scanning, Provider Social History Tobacco Use Types Packs/Day Years Used Date Smoking Tobacco: Never Smokeless Tobacco: Never Comments Unknown Sex and Gender Information Value Date Recorded Sex Assigned at Not on file Legal Sex Female 2:22 PM OTR OWNER OPERATOR Gender Identity Not on file Sexual Orientation Not on file documented as of this encounter Plan of Treatment Not on file documented as of this encounter Procedures Procedure Name Priority Date/Time Associated Diagnosis Comments SCAN - RADIOLOGY/IMAGING 05/20/2024 documented in this encounter Results * SCAN - RADIOLOGY/IMAGING (05/20/2024) Anatomical Region Laterality Modality Other us Provider Scanning Final Result documented in this encounter Visit Diagnoses Not on filedocumented in this encounter Care Teams Orthopedically Impaired Teacher Relationship Specialty Start Date End Date Tono Charles MD PCP - General Family Medicine 06/28/18 documented as of this encounter
--- OUTSIDE RECORDS SUMMARY | 2025-04-30 13:35 | XMS_ITS | Clinical Summary ---
Author Organization [facility] Address [address] [place] [address] Phone Care Team Providers Care Nuclear Equipment Test Engineer Name Role Phone Tono Charles MD Primary Care Provider Allergies No known active allergies Medications rivaroxaban [...] bedtime. 30 Tablet 1 06/01/2024 4:39 PM MANAGER LIGHTING 06/01/2024 Active spironolactone (ALDACTONE) 25 mg tablet Starting 06/02: Take 0.5 Tablets (12.5 mg) by mouth daily. 30 Tablet 1 06/01/2024 4:39 PM MANAGER LIGHTING 06/02/2024 Active furosemide (Lasix) 40 mg tablet Take 1 Tablet (40 mg) by mouth daily. 30 Tablet 1 06/01/2024 4:39 PM MANAGER LIGHTING 06/01/2024 Active lisinopriL (PRINIVIL) 2.5 mg tablet Take 1 Tablet (2.5 mg) by mouth daily. 30 Tablet 1 07/04/2024 2:17 PM MANAGER LIGHTING 07/04/2024 Active melatonin 3 mg Tablet Take 2 Tablets (6 mg) by mouth nightly as needed for Insomnia. 07/04/2024 Active hydrOXYzine HCL (ATARAX) 25 mg tablet Take 1 Tablet (25 mg) by mouth every 8 hours as needed for Anxiety or Insomnia. 30 Tablet 07/04/2024 2:17 PM MANAGER LIGHTING 07/04/2024 Active guaiFENesin (ROBITUSSIN) 100 mg/5 mL solution Take 10 mL (200 mg) by mouth every 4 hours as needed for Cough or Congestion. 473 mL 07/04/2024 2:17 PM MANAGER LIGHTING 07/04/2024 Active metoprolol tartrate (LOPRESSOR) 100 mg tablet Take 1 Tablet (100 mg) by mouth 2 times daily. 60 Tablet 1 07/04/2024 2:17 PM MANAGER LIGHTING 07/04/2024 Active Active Problems Problem Noted Date [...] Encounters Date Type Department Care Team Description 03/11/2025 External Device Data STL ABSTRACTION Provider, Abstract 03/11/2025 External Device Data STL ABSTRACTION Provider, Abstract [...] on file Legal Sex Female 12:29 PM MANAGER LIGHTING Gender Identity Not on file Sexual Orientation Not on file Last Filed Vital Signs Vital Sign Reading Time Taken Comments Blood Pressure 105/75 07/04/2024 8:59 AM MANAGER LIGHTING Pulse 96 07/04/2024 11:16 AM MANAGER LIGHTING Temperature 36.2 C (97.2 F) 07/04/2024 8:59 AM MANAGER LIGHTING Respiratory Rate 20 07/04/2024 11:1 6 AM MANAGER LIGHTING Oxygen Saturation 95% 07/04/2024 11: 16 AM MANAGER LIGHTING Inhaled Oxygen Concentration - - Weight 68.5 kg (150 lb 15.7 oz) 07/04/2024 5:37 AM MANAGER LIGHTING Height 165.1 cm (5' 5) 06/29/2024 12:5 0 PM MANAGER LIGHTING Body Mass Index 25.12 06/29/2024 12:50 PM MANAGER LIGHTING Plan of Treatment Health Maintenance Due Date Last Done Comments DTAP/TDAP/TD VACCINES (1 - Tdap) 1955 PNEUMOCOCCAL VACCINE 50+ YEARS (1 of 2 - PCV) 04/18/19 55 ZOSTER VACCINE (1 of 2) 1986 OSTEOPOROSIS SCREENING 2001 RSV VACCINE (60+ or ) (1 - 1-dose 75+ series) 2011 INFLUENZA VACCINE (#1) 2024 Insurance [facility] [id number] RX [employer] PLANS (INTERNAL) [facility] RX [employer] RX Member Subscriber Plan / Payer (Ef fective for All Dates) Name:Celestina Christianson Relation to Subscriber:Self Name:Celestina Christianson Payer ID:Not on file Group ID:[id number] Type:RX Medicare Part D Address: [address] Advance Directives For more information, please contact: [phone] * Full Code (Latest Code Status on File) Date Activated Date Inactivated Comments 05/30/2024 8:12 PM 06/01/2024 7:35 PM Care Teams Nuclear Equipment Test Engineer Relationship Specialty Start Date End Date Tono Charles MD [address] [place] [address] PCP - General Family Practice 06/29/24
[2025-04-30 18:46] LABS: Alanine Aminotransferase 12 U/L (6-35); Albumin Level 4.0 g/dL (3.5-5.1); Alkaline Phosphatase 53 U/L (38-126); Anion Gap 4 mmol/L (4-12); Aspartate Amino Transferase 24 U/L (14-36); Bilirubin,Total 0.5 mg/dL (0.2-1.3); Blood Urea Nitrogen 33 mg/dL (7-17); Calcium 8.9 mg/dL (8.4-10.2); Carbon Dioxide 29 mmol/L (22-30); Chloride 108 mmol/L (98-107); Estimated Glomerular Filt Rate 27; Glucose 92 mg/dL (65-110); Potassium 4.8 mmol/L (3.4-5.0); Sodium 141 mmol/L (137-145); Total Protein 7.0 g/dL (6.3-8.2)
[2025-04-30 18:53] LABS: Hematocrit 43.1 % (37.0-47.0); Hemoglobin 13.5 g/dL (12.0-15.0); Mean Corpuscular HGB Conc 31.3 g/dl (32-36); Mean Corpuscular Hemoglobin 31.1 pg (26-34); Mean Corpuscular Volume 99.3 fl (80-100); Platelet Count Result 272 k/mm3 (150-375); Red Blood Count 4.34 M/mm3 (4.2-5.4); White Blood Count 8.2 K/mm3 (4.5-10.0)
== END 2025-04-30 12:33 | disposition home or self-care (01) ==
PROVIDERS: PCP Family Medicine; Visit Provider Family Medicine
DX: N18.31 Chronic kidney disease, stage 3a (principal)
CPT/HCPCS: 36415; 80053; 85027